=== PATIENT | male | born 1930 | race Caucasian/White ===

== ENCOUNTER 2016-08-29 19:30 | Inpatient (IN) | payer MEDICARE, OTHER ==
[~2016-08-29] VITALS: Ht 177.8 cm; Wt 98.0 kg
[2016-08-29] VITALS (8 sets, daily range): BP systolic 94–130; BP diastolic 54–70; PULSE 47–78; RESP 16–19; O2SAT 93–100
--- NOTE | 2016-08-29 19:57 | ED.REPORT ---
HPI-Altered Mental Status Date of Service Aug 29, 2016 ED Provider: Dr. Cabello 86 year old male with a history of CHF, CAD s/p CABG and angioplasty who presents to the ED via EMS after he was found unresponsive by his . From the time he went outside to the time EMS arrived, his reports approximately 11 minutes down unresponsive and agonal. His family states prior to this the patient was taking out the trash and moderately exerting himself. EMS noted HR 130, BP 208/124 and agonal with a GCS 3. He was given Succinylcholine, Etomidate and was intubated. En route he was then given Versed. Nursing Notes Stated Complaint: INTUBATED AND UNRESPONSIVE Nursing Notes Reviewed: Yes Allergies: Coded Allergies: meperidine (Verified Allergy, Severe, 08/29/16) clopidogrel (Verified Allergy, Intermediate, Hives, 08/30/16) Uncoded Allergies: NOVOCAINE (Allergy, Mild, ANGIONEUROTIC EDEMA, 03/22/06) General Time Seen by MD: 19:56 Chief Complaint Unresponsive Hx Obtained From: Other family..., EMS Arrived By: Ambulance Sudden in Onset?: Yes Onset Occurred: Just prior to arrival Symptom Duration: Since onset Past Medical History Past Medical History Afib Reports: Congestive heart failure, Coronary artery disease Past Surgical History Reports: Angioplasty, CABG Smoking History Never Smoker Social History Alcohol Use: Denies alcohol use Drug Use: Denies drug use Review of Systems Unable to Obtain ROS Intubated Physical Exam Initial Vital Signs Vital Signs (First) Date Time Temp Pulse Resp B/P Pulse Ox O2 Delivery O2 Flow Rate FiO2 08/29/16 19:30 46 123/62 100 50 08/29/16 20:06 37.0 19 Mechanical Ventilator Initial VS: Reviewed, Vital signs abnormal Extremities: Vascular intact, Neuro intact Skin: Warm, Dry Alertness: Positive: Unresponsive Intubated Head / Eyes: Atraumatic, Normocephalic, PERRL Neck: Atraumatic Respiratory / Chest: No rales, No wheezing Resp Distress / Stridor: Positive: Intubated Coarse breath sounds bilat Cardiovascular: Heart sounds NL, No murmurs, Peripheral circulation NL Heart Rate / Rhythm: Positive: Irreg irregular rhythm Mental Status: Positive: Unresponsive Intubated. Some spontaneous movement. Abdomen: Soft, No palpable mass Upper Extremity / MS: No deformity, No edema Bruise L shoulder Lower Extremity / Pelvis / MS: No deformity, No edema Interpretation & Diagnostics Lab Results Interpretation Result Diagram: 08/29/16 2340 08/29/16 1950 Test 08/29/16 19:50 08/29/16 20:28 08/29/16 21:24 Alcohol, Quantitative < 10mg/dL (0-10) Salicylates Level < 3.0ug/mL (30-250) Acetaminophen Level < 15.0ug/mL Rx (10-25) Urine Color Yellow (YELLOW) Urine Appearance Hazy (CLEAR,HAZY) Urine pH 5.5 (5.0-8.0) Urine Specific Chaplin 1.030 (1.003-1.035) Urine Protein 100mg/dL (NEG,TRACE) Urine Glucose (UA) 100mg/dL (NEGATIVE) Urine Ketones Negativemg/dL (NEGATIVE) Urine Occult Blood Moderate (NEGATIVE) Urine Nitrite Negative (NEGATIVE) Urine Bilirubin Negative (NEGATIVE) Urine Urobilinogen Normalmg/dL (NORMAL) Urine Leukocyte Esterase Negative (NEGATIVE) Urine RBC 0-2/hpf (0-2) Urine WBC 0-5/hpf (0-5) Urine Epithelial Cells None/hpf (NONE-MOD) Urine Crystals Amorphous urates (NONE Urine Bacteria Few/hpf (NONE-FEW) Urine Hyaline Casts None/lpf (NONE) Urine Granular Casts None seen (NONE SEEN) Urine Waxy Casts None seen (NONE SEEN) Urine Red Blood Cell Casts None seen (NONE SEEN) Urine White Blood Cell Casts None seen (NONE SEEN) Urine Mucus Present (None Seen) Urine Trichomonas None seen (NONE SEEN) Urine Yeast None (NONE SEEN) Urinalysis Comment None Urine Culture Reflexed Not indicated General Lab Results Interp 1: Labs reviewed ECG Interpretation ECG Interpretation: Afib with a rate of 55. Otherwise normal intervals. ST segment depression in leads I, aVL, V5, V6. No T wave changes. No reciprocal changes. Time: 20:33 Interpreted by: ED physician X-Ray Chest Interpretation Chest Xray Interpretation: IMPRESSION: 1. Endotracheal tube is in expected position. 2. Decreased lung volumes, with bronchovascular crowding. Possible superimposed bilateral perihilar pulmonary edema or aspiration. 3. Cardiomegaly as before. Dictated by: Vadim Kelsey M.D. on 08/29/2016 at 20:14 View: Portable, 1 view Interpretation / Wet Read by: Interpret - Radiologist CT Head Interpretation IMPRESSION: 1. No acute intracranial abnormalities. Mild periventricular and deep white matter chronic small vessel ischemic change. 2. Nonacute bilateral cerebellar hemispheric small infarcts, as well as probable nonacute ischemic insult of the left frontal lobe as before. Findings discussed with Dr. Cabello on 2005 hours on August 29, 2016. This study fulfills neurological imaging criteria for inclusion or exclusion of acute stroke therapies based on available published neurological guidelines. Dictated by: Vadim Kelsey M.D. on 08/29/2016 at 20:08 Study: Head CT no contrast Interpretation / Wet Read by: Interpret - Radiologist Re-Eval/Medical Decision Med Decision/Clinical Course Patient had a respiratory arrest. Pulmonary embolus was considered and is still possibility have it patient has good oxygenation and was hypertensive which makes it less likely, the patient cannot have a CT angio study due to his renal failure, and discussion with the admitting physician was decided to start him on heparin. He could have had a dysrhythmia but he did have a pulse upon arrival of EMS. Respiratory failure is a consideration however his gas is normal. Acute coronary syndrome is possibility, patient has an elevated troponin however he also has renal insufficiency and no signs of STEMI and is itchy. Intracranial hemorrhage was considered and ruled out by CT. It is unclear as to cause of his symptoms and he will be admitted for further treatment and evaluation. Source of Hx: Old records Re-Evaluation/Progress #1: Time of Eval: 20:15 Re-Evaluation/Progress Note: Pt family is now in room. Pt is not on anticoagulants due to frequent falls. Re-Evaluation/Progress #2: Time of Eval: 20:46 Re-Evaluation/Progress Note: Has become more bradycardic and hypotensive (87/59). Re-Evaluation/Progress #3: Time of Eval: 21:26 Re-Evaluation/Progress Note: Pt's moving. Given Ketamine. Recommended admission. Pt family understands and agrees with plan. All questions addressed. Consultation : Referral / Consult Name: Hansa Morales MD Consulted With: Hospitalist Call Returned at: 21:41 Equipment Maintenance Technician: Will see patient, Agrees with eval, Agrees with plan, Accepts admit Counseled Regarding: Diagnosis, Lab results, Need for admission Patient Discharge & Departure Impression: Primary Impression: Respiratory arrest Disposition: ADMITTED TO HOSPITAL Discharge Condition All VS Reviewed: Yes Referrals: Farhan Orellana DO (PCP) Crit Care Except Billable Proc Time Spent: 75-104 minutes Services Performed: Patient management by me, Time spent at bedside, Reviewing test results, Reviewing imaging, Discussing patient care, Documentation in record, Time with fam/surrogate Scribe Attestation Portions of this note were transcribed by Erinn Reynolds. I, (Dr. Cabello) personally performed the history, physical exam and medical decision-making; I reviewed and confirmed the accuracy of the information in the transcribed note. Signed by: Erinn Reynolds. 08/29/2016, 2144 copies to: Farhan Orellana Jena M MD Aug 29, 2016 19:57 Erinn Reynolds Aug 29, 2016 20:03 Patient Discharge & Departure Impression: Primary Impression: Respiratory arrest Disposition: ADMITTED TO HOSPITAL Discharge Condition All VS Reviewed: Yes Referrals: Farhan Orellana DO (PCP) Crit Care Except Billable Proc Time Spent: 75-104 minutes Services Performed: Patient management by me, Time spent at bedside, Reviewing test results, Reviewing imaging, Discussing patient care, Documentation in record, Time with fam/surrogate Scribe Attestation Portions of this note were transcribed by Erinn Reynolds. I, (Dr. Cabello) personally performed the history, physical exam and medical decision-making; I reviewed and confirmed the accuracy of the information in the transcribed note. Signed by: Erinn Reynolds. 08/29/2016, 2145 copies to: Farhan Orellana Jena M MD Aug 29, 2016 19:57 Erinn Reynolds Aug 29, 2016 20:03
[2016-08-29 20:07] LABS: BASOPHILS % (AUTO) 0.6 % (0-3); EOSINOPHILS % (AUTO) 7.1 % (0-5); Mean Corpuscular Hemoglobin 30.8 pg (27.0-35.0); Mean Corpuscular Volume 97.2 fL (81-100); NEUTROPHILS % (AUTO) 38.9 % (40-74); Platelet Count 107 bil/L (150-400)
--- NOTE | 2016-08-29 20:10 | DRSVH ---
PROCEDURE: CT BRAIN (TPA) ([id number]) INDICATIONS: 86 year-old unresponsive male. TECHNIQUE: Noncontrast 4.5 mm thick angled axial sections acquired from the foramen magnum to the vertex, with c oronal reformats. COMPARISON: [facility], MR, BRAIN W&W/O CONTRAST, 09/10/2012, 11:22. FINDINGS: Image quality: Excellent. CSF spaces: Basal cisterns are patent. No extra-axial fluid collections. The ventricles are symmet evert in size and shape. Brain: No intracranial bleeds or masses. There are mild periventricular and deep white matter chron ic small vessel ischemic changes. 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 There is new nonacute lacunar infarct within the left cerebellar hemisphere. Left front al lobe encephalomalacia is again noted, consistent with remote ischemic insult as well. There is int racranial internal carotid artery atherosclerosis. Skull and face: Calvarium and visualized facial bones appear intact, without suspicious lesions. End otracheal tube is present. Sinuses: Visualized sinuses and mastoids are clear. IMPRESSION: 1. No acute intracranial abnormalities. Mild periventricular and deep white matter chronic small vess el ischemic change. 2. Nonacute bilateral cerebellar hemispheric small infarcts, as well as probable nonacute ischemic in sult of the left frontal lobe as before. Findings discussed with Dr. Cabello on 2005 hours on August 29, 2016. This study fulfills neurological imaging criteria for inclusion or exclusion of acute stroke therapie s based on available published neurological guidelines. Dictated by: Vadim Kelsey M.D. on 08/29/2016 at 20:08 Approved by: Vadim Kelsey M.D. on 08/29/2016 at 20:08
--- NOTE | 2016-08-29 20:16 | DRSVH ---
PROCEDURE: X-RAY CHEST ONE VIEW, PORTABLE ([id number]) INDICATIONS: 86 year-old intubated male. TECHNIQUE: One view of the chest was acquired. COMPARISON: [facility], CR, XR CHEST 2V AP/PA AND LAT, 05/07/2016, 4:19 PM. [facility], CR, CHEST 1VW (PORTABLE), 12/14/2015, 6:18. [facility], CR, CHEST 2VW, 04/2015, 11:12. FINDINGS: Surgical changes and devices: Endotracheal tube is present, with tip 3.4 cm above the kristen. Patient is status post coronary artery bypass grafting and cardiac valve replacement surgery. Lungs and pleura: There is trace basal left pleural effusion; no pneumothorax. Lung volumes are decre ased, with bilateral perihilar opacities. Mediastinum: Mediastinal contours appear normal. Cardiomegaly is unchanged. There is aortic atheros clerosis. Bones and chest wall: No suspicious bony lesions. Overlying soft tissues appear unremarkable. IMPRESSION: 1. Endotracheal tube is in expected position. 2. Decreased lung volumes, with bronchovascular crowding. Possible superimposed bilateral perihilar p ulmonary edema or aspiration. 3. Cardiomegaly as before. Dictated by: Vadim Kelsey M.D. on 08/29/2016 at 20:14 Approved by: Vadim Kelsey M.D. on 08/29/2016 at 20:14
[2016-08-29 20:26] LABS: INR 0.98 ratio
[2016-08-29 20:29] LABS: TROPONIN T 0.016 ug/L (0.0-0.011)
[2016-08-29] MEDS ORDERED: 0.9% Sodium Chloride 1,000 ML IV ONE (20:45)
--- NOTE | 2016-08-29 20:56 | ABG ---
DateTimeAnalyzed 20:50:00 -_ pH ____7.363 - 7.350 7.450 pCO2 ___35.1__ -mmHg 35.0 45.0 pO2 ___77.2__ -mmHg 69.0 116 HCO3- ___19.5__ -mmol/L 22.0 26.0 ABE ___-4.7__ -mmol/L -2.0 2.0 tHb ___13.6__ -g/dL O2Hb ___93.1__ -% COHb ____1.2__ -% MetHb ____0.8__ -% sO2 ___95.0__ -% 25.0 FIO2 ___50.0__ -% PRVC 18 - PEEP ____5.0__ -cmH2O Vt __600.0__ -L Drawn By MM - Date/Time Notified____ 20:55:00 -_ Spontaneous_RR ___18.0__ -b/min Oxygen Device 1 VENTILATOR - Notified Whom _DR NICO - B 762 -mmHg tO2 ___17.9__ -Vol% Rafa test N/A -
[2016-08-29] MEDS ORDERED: Ketamine 10 mg/mL 20 mL Inj ONE (21:17)
[2016-08-29] MEDS ORDERED: Ketamine 10 mg/mL 20 mL Inj IV ONE (21:20)
[2016-08-29] MEDS: Ketamine 10 mg/mL 20 mL Inj IV PRN ×3 (21:24→22:49)
[2016-08-29 21:27] LABS: Magnesium 2.3 mg/dL (1.6-2.6)
[2016-08-29 21:44] LABS: APPEARANCE,URINE HAZY (CLEAR,HAZY); COLOR,URINE YELLOW (YELLOW); PH,URINE 5.5 (5.0-8.0)
[2016-08-29 21:45] LABS: OCCULT BLOOD,URINE MODERATE (NEGATIVE); UROBILINOGEN,URINE NORMAL (NORMAL)
[2016-08-29] MEDS ORDERED: Heparin 25K Unit/500mL 0.45 NS 25,000 UNIT in IV Premix 1 EACH IV SCH (21:45)
[2016-08-29] MEDS ORDERED: Heparin 1,000 Units/mL 10 mL DVT/PE Bolus Inj IVPUSH PRN (21:45)
[2016-08-29] MEDS ORDERED: Heparin 5,000 Unit/mL Inj IVPUSH ONE (21:45)
[2016-08-29] MEDS ORDERED: Propofol Inj 1,000,000 MCG in IV Premix 1 EACH IV SCH (22:37)
[2016-08-29] MEDS: 0.9% Sodium Chloride 1,000 ML IV SCH (22:52)
[2016-08-29] MEDS ORDERED: Acetaminophen IV 1,000 MG in IV Premix 1 EACH IV PRN (22:55)
[2016-08-29] MEDS ORDERED: Senna-Docusate 8.6-50 mg Tablet PO PRN (22:55)
[2016-08-29] MEDS ORDERED: Polyethylene Glycol (PEG) 17 Gm Powder PO PRN (22:55)
[2016-08-29] MEDS ORDERED: fentaNYL-PF 50 mCg/mL 2 mL Inj IVPUSH PRN (22:55)
[2016-08-29] MEDS ORDERED: Alum-Mag Hydrox-Simeth 30 mL Suspension PO PRN (22:55)
[2016-08-29] MEDS ORDERED: Ondansetron 2 mg/mL 2 mL Inj IVPUSH PRN (22:55)
[2016-08-29] MEDS: Propofol Inj 1,000,000 MCG in IV Premix 1 EACH IV SCH (23:00)
[2016-08-29] MEDS ORDERED: Furosemide 10 mg/mL 4 mL Inj IVPUSH ONE (23:10)
[2016-08-29] MEDS: Piperacillin-Tazo 3.375 Gm Inj 3.375 GM in Dextrose 5% Minibag Plus 50 ML IV SCH (23:30)
[2016-08-29 23:59] LABS: BASOPHILS % (AUTO) 0.5 % (0-3); EOSINOPHILS % (AUTO) 3.3 % (0-5); Mean Corpuscular Hemoglobin 30.9 pg (27.0-35.0); Mean Corpuscular Volume 90.6 fL (81-100); NEUTROPHILS % (AUTO) 70.9 % (40-74); Platelet Count 118 bil/L (150-400)
[2016-08-30] VITALS (12 sets, daily range): BP systolic 102–160; BP diastolic 52–79; PULSE 44–65; RESP 16–18; O2SAT 97–100
[2016-08-30 00:02] LABS: INR 1.05 ratio
[2016-08-30 00:32] LABS: TROPONIN T 0.056 ug/L (0.0-0.011)
--- NOTE | 2016-08-30 01:38 | PCM.HPMED ---
Subjective Date of Service Aug 30, 2016 Primary Provider: Admitting Physician: Hansa Morales MD Primary Care Physician: Farhan Orellana DO Attending Physician: Hansa Morales MD Admit Status: From the Emergency Department, Full Admit, Critical Care Chief Complaint: Patient was observed by to be unresponsive History of Present Illness: This is an 86-year-old male who has a history of congestive heart failure coronary artery disease who presents to the emergency room after being found unresponsive by his . His is at the bedside in gives a fairly good history. She notes that he had been taking some garbage cans outside and came back in and was found slumped over in the chair she had just seen him a few minutes prior without any issues he was noted to be cyanotic said that he did have a palpable pulse and she did call 911 was called. He was may be unresponsive and agonal for about 11 minutes per 's report per ER MDs report. Mass noted his heart rate was 1:30 blood pressure was 208/124 and agonal breathing he was given succinylcholine, etomidate and was intubated was also given Versed en route to the emergency room. does note that he was having some intermittent chest pain over the past week.He does have sublingual nitroglycerin took that with good response at those times. He does according to the have some baseline dyspnea with walking. He also does have some baseline renal insufficiency per his . His evaluation here initially included a temperature to be afebrile. White count was 15.7 with 39% polys 41% lymphs. BUN 38 creatinine 2.01 with a calculated GFR of 34. He was found to have a troponin of 0.016. Lactic acid level was 6.2. Bicarbonate was 19. EEG showed A. fib at a rate of [address] segment depressions in 1 aVL V5 V6 with T-wave changes noted. CT of head without contrast was done and revealed no acute intracranial abnormalities. There was mild periventricular and deep white matter chronic small vessel ischemic changes noted. 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 As well as probable nonacute ischemic insult of the left frontal lobe. Patient previously had been on warfarin for his chronic atrial fibrillation however that was stopped as he had been having chronic falls. Chest x-ray revealed endotracheal tube was in expected position and decreased lung volumes with bronchovascular crowding possible superimposed bilateral perihilar pulmonary edema or aspiration noted. Cardiomegaly as previously noted. Review of Systems: All other review of systems were reviewed and are negative except for as in history of present illness. This review of systems was obtained from his . 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 Brown History of coronary artery disease with CABG 4 done in mid 1999 with a bovine valve replacement done History of stents done a few years ago and [place] by Dr. Bernal History of chronic atrial fibrillation Family History Denies any history of cardiovascular disease Social History Hx Alcohol Use: Yes (NOT FOR SOME TIME) Hx Substance Use: No Hx Tobacco Use: No Smoking Status: Former Smoker (quit 50 years ago) Living Arrangement: with Family Exam Vital Signs Vital Sign - Last Date Time Temp Pulse Resp B/P Pulse Ox O2 Delivery O2 Flow Rate FiO2 08/29/16 23:11 37.0 56 18 130/66 99 Mechanical Ventilator 08/29/16 19:30 50 Intake and Output 08/29/16 08/29/16 08/30/16 Cumulative From/Thru 15:00 23:00 07:00 08/29/16 20:06 - 08/29/16 23:59 Intake Total 1000 ml 1000 ml Balance 1000 ml 1000 ml Intake IV Total 1000 ml 1000 ml Exam Constitutional: Elderly man who is intubated Head: Normocephalic atraumatic Eyes: PERRLA DC EOMI Mouth: ET tube present Neck: No adenopathy, carotids 2+ over 4 without bruits Chest: Coarse breath sounds Cor: Regular rate and rhythm S1-S2 Abdomen: Soft bowel sounds present Extremities: No pedal edema noted skin is warm Psych: Unable to assess Skin: No rashes Neuro: He does arouse to stimuli and does move all extremities equally Lab and Diagnostics Labs Laboratory Tests 72 Hours Test 08/29/16 19:50 08/29/16 20:28 08/29/16 21:24 08/29/16 21:42 White Blood Count 15.7th/mm3 (3.8-10.1) Red Blood Count 4.93mil/mm3 (4.40-5.80) Hemoglobin 15.2g/dL (13.8-17.2) Hematocrit 47.9% (41.0-50.0) Mean Corpuscular Volume 97.2fL (81-100) Mean Corpuscular Hemoglobin 30.8pg (27.0-35.0) Mean Corpuscular Hemoglobin Concent 31.7% (32.0-37.0) Red Cell Distribution Width 13.8% (12.3-15.4) Platelet Count 107bil/L (150-400) Neutrophils (%) (Auto) 38.9% (40-74) Lymphocytes (%) (Auto) 40.8% (14-46) Monocytes (%) (Auto) 12.0% (4-12) Eosinophils (%) (Auto) 7.1% (0-5) Basophils (%) (Auto) 0.6% (0-3) Prothrombin Time 10.5sec (8.1-12.5) Prothromb Time International Ratio 0.98ratio Activated Partial Thromboplast Time 25.2sec (22.8-33.0) Sodium Level 135mEq/L (134-144) Potassium Level 4.0mEq/L (3.5-5.2) Chloride Level 93mEq/L (97-108) Carbon Dioxide Level 19mmol/L (18-29) Blood Urea Nitrogen 38mg/dL (8-27) Creatinine 2.01mg/dL (0.76-1.27) Estimat Glomerular Filtration Rate 34mL/min (>59) Glucose Level 193mg/dL (60-99) Calcium Level 9.5mg/dL (8.5-10.1) Total Bilirubin 0.5mg/dL (0.0-1.2) Aspartate Amino Transf (AST/SGOT) 19U/L (0-50) Alanine Aminotransferase (ALT/SGPT) 9U/L (0-44) Alkaline Phosphatase 92U/L (25-160) Troponin T 0.016ug/L (0.0-0.011) Total Protein 8.5g/dL (6.4-8.4) Albumin 3.9g/dL (3.4-5.0) Alcohol, Quantitative < 10mg/dL (0-10) Lactic Acid Level 6.2mmol/L (0.4-2.0) Magnesium Level 2.3mg/dL (1.6-2.6) Salicylates Level < 3.0ug/mL (30-250) Acetaminophen Level < 15.0ug/mL Rx (10-25) Urine Color Yellow (YELLOW) Urine Appearance Hazy (CLEAR,HAZY) Urine pH 5.5 (5.0-8.0) Urine Specific [place] 1.030 (1.003-1.035) Urine Protein 100mg/dL (NEG,TRACE) Urine Glucose (UA) 100mg/dL (NEGATIVE) Urine Ketones Negativemg/dL (NEGATIVE) Urine Occult Blood Moderate (NEGATIVE) Urine Nitrite Negative (NEGATIVE) Urine Bilirubin Negative (NEGATIVE) Urine Urobilinogen Normalmg/dL (NORMAL) Urine Leukocyte Esterase Negative (NEGATIVE) Urine RBC 0-2/hpf (0-2) Urine WBC 0-5/hpf (0-5) Urine Epithelial Cells None/hpf (NONE-MOD) Urine Crystals Amorphous urates (NONE Urine Bacteria Few/hpf (NONE-FEW) Urine Hyaline Casts None/lpf (NONE) Urine Granular Casts None seen (NONE SEEN) Urine Waxy Casts None seen (NONE SEEN) Urine Red Blood Cell Casts None seen (NONE SEEN) Urine White Blood Cell Casts None seen (NONE SEEN) Urine Mucus Present (None Seen) Urine Trichomonas None seen (NONE SEEN) Urine Yeast None (NONE SEEN) Urinalysis Comment None Urine Culture Reflexed Not indicated Test 08/29/16 23:40 White Blood Count 8.8th/mm3 (3.8-10.1) Red Blood Count 4.14mil/mm3 (4.40-5.80) Hemoglobin 12.8g/dL (13.8-17.2) Hematocrit 37.5% (41.0-50.0) Mean Corpuscular Volume 90.6fL (81-100) Mean Corpuscular Hemoglobin 30.9pg (27.0-35.0) Mean Corpuscular Hemoglobin Concent 34.1% (32.0-37.0) Red Cell Distribution Width 13.5% (12.3-15.4) Platelet Count 118bil/L (150-400) Neutrophils (%) (Auto) 70.9% (40-74) Lymphocytes (%) (Auto) 12.0% (14-46) Monocytes (%) (Auto) 13.0% (4-12) Eosinophils (%) (Auto) 3.3% (0-5) Basophils (%) (Auto) 0.5% (0-3) Prothrombin Time 11.3sec (8.1-12.5) Prothromb Time International Ratio 1.05ratio Activated Partial Thromboplast Time 150.1sec (22.8-33.0) Sodium Level 136mEq/L (134-144) Potassium Level 4.5mEq/L (3.5-5.2) Chloride Level 101mEq/L (97-108) Carbon Dioxide Level 20mmol/L (18-29) Blood Urea Nitrogen 41mg/dL (8-27) Creatinine 1.84mg/dL (0.76-1.27) Estimat Glomerular Filtration Rate 37mL/min (>59) Glucose Level 158mg/dL (60-99) Lactic Acid Level 3.0mmol/L (0.4-2.0) Calcium Level 8.5mg/dL (8.5-10.1) Magnesium Level 2.0mg/dL (1.6-2.6) Total Bilirubin 0.5mg/dL (0.0-1.2) Aspartate Amino Transf (AST/SGOT) 26U/L (0-50) Alanine Aminotransferase (ALT/SGPT) 12U/L (0-44) Alkaline Phosphatase 72U/L (25-160) Troponin T 0.056ug/L (0.0-0.011) Total Protein 6.7g/dL (6.4-8.4) Albumin 3.1g/dL (3.4-5.0) Result Diagram: 08/29/16233908/29/162339 X-Rays, CTs and MRIs Patient Name: HAILEE MELLO MR#: [id number] Location: [facility] [place] Ordering Phys: Shaina Cabello MD Date of Service: 08/29/161956 PROCEDURE: X-RAY CHEST ONE VIEW, PORTABLE ([id number]) INDICATIONS: 86 year-old intubated male. TECHNIQUE: One view of the chest was acquired. COMPARISON: [facility], , XR CHEST 2V AP/PA AND LAT, 05/07/2016 , 4:19 PM. [facility], , CHEST 1VW (PORTABLE), 12/14/2015, 6:18. [facility], , CHEST 2VW, 10/06/2014, 11:12. FINDINGS: Surgical changes and devices: Endotracheal tube is present, with tip 3.4 cm above the kristen. Patient is status post coronary artery bypass grafting and cardiac valve replacement surgery. Lungs and pleura: There is trace basal left pleural effusion; no pneumothorax. Lung volumes are decreased, with bilateral perihilar opacities. Mediastinum: Mediastinal contours appear normal. Cardiomegaly is unchanged. There is aortic atherosclerosis. Bones and chest wall: No suspicious bony lesions. Overlying soft tissues appear unremarkable. IMPRESSION: 1. Endotracheal tube is in expected position. 2. Decreased lung volumes, with bronchovascular crowding. Possible superimposed bilateral perihilar pulmonary edema or aspiration. 3. Cardiomegaly as before. Dictated by: Vadim Kelsey M.D. on 08/29/2016 at 20:14 Approved by: Vadim Kelsey M.D. on 08/29/2016 at 20:14 Patient Name: HAILEE MELLO MR#: [id number] Location: [facility] [place] Ordering Phys: JERICHO XAVIER MD Date of Service: 08/29/161931 PROCEDURE: CT BRAIN (TPA) ([id number]) INDICATIONS: 86 year-old unresponsive male. TECHNIQUE: Noncontrast 4.5 mm thick angled axial sections acquired from the foramen magnum to the vertex, with coronal reformats. COMPARISON: [facility], , BRAIN W&W/O CONTRAST, 09/10/2012, 11: 22. FINDINGS: Image quality: Excellent. CSF spaces: Basal cisterns are patent. No extra-axial fluid collections. The ventricles are symmetric in size and shape. Brain: No intracranial bleeds or masses. There are mild periventricular and deep white matter chronic small vessel ischemic changes. Nonacute posterior right cerebellar hemisphere infarct is unchanged since 2012. There is new nonacute lacunar infarct within the left cerebellar hemisphere. Left frontal lobe encephalomalacia is again noted, consistent with remote ischemic insult as well. There is intracranial internal carotid artery atherosclerosis. Skull and face: Calvarium and visualized facial bones appear intact, without suspicious lesions. Endotracheal tube is present. Sinuses: Visualized sinuses and mastoids are clear. IMPRESSION: 1. No acute intracranial abnormalities. Mild periventricular and deep white matter chronic small vessel ischemic change. 2. Nonacute bilateral cerebellar hemispheric small infarcts, as well as probable nonacute ischemic insult of the left frontal lobe as before. Findings discussed with Dr. Cabello on 2005 hours on August 29, 2016. This study fulfills neurological imaging criteria for inclusion or exclusion of acute stroke therapies based on available published neurological guidelines. Dictated by: Vadim Kelsey M.D. on 08/29/2016 at 20:08 Approved by: Vadim Kelsey M.D. on 08/29/2016 at 20:08 12-lead ECG Atrial fibrillation at a rate of 55 with a QTC of 432. Does have ST segment sagging depressions in 1 to aVF V3 to be 6 particularly more profound laterally also with poor R-wave progression across the precordium. [facility] DateTimeAnalyzed 20:50:00 -_ pH ____7.363 - 7.350 7.450 pCO2 ___35.1__ -mmHg 35.0 45.0 pO2 ___77.2__ -mmHg 69.0 116 HCO3- ___19.5__ -mmol/L 22.0 26.0 ABE ___-4.7__ -mmol/L -2.0 2.0 tHb ___13.6__ -g/dL O2Hb ___93.1__ -% COHb ____1.2__ -% MetHb ____0.8__ -% sO2 ___95.0__ -% 25.0 FIO2 ___50.0__ -% PRVC 18 - PEEP ____5.0__ -cmH2O Vt __600.0__ -L Drawn By MM - Date/Time Notified____ 20:55:00 -_ Spontaneous_RR ___18.0__ -b/min Oxygen Device 1 VENTILATOR - Notified Whom _DR NICO - B 762 -mmHg tO2 ___17.9__ -Vol% Rafa test N/A - Assessment & Plan # Acute respiratory failure with severe hypoxia requiring intubation, present on admission Placed on ventilator protocol. IV propofol when necessary agitation Consider possible pulmonary embolus as etiology but unable to do CTA of chest given chronic renal insufficiency so we will place on IV PE protocol heparin Consider cardiac ischemia as etiology also so will check serial troponins and will be on therapeutic IV heparin Check echocardiogram in a.m. Get cardiology consultation in a.m. Also concerned regarding possible ability of acute aspiration so we will cover with IV Zosyn. Recheck chest x-ray and EKG in a.m. # Lactic acidosis We will check serial lactic acid levels Most likely secondary to acute hypoxia # DVT prophylaxis Is on therapeutic heparin # CODE STATUS Patient is full code Pain Evaluation: Adequate Pain Control GI Prophylaxis: H2 amelia VTE Prophylaxis: Other (Will place on therapeutic DVT IV heparin drip for possible PE) Resuscitation Status: CPR: Attempt Resuscitation Time spent 60 minutes Hansa Morales MD Aug 30, 2016 01:38
[2016-08-30] MEDS: Chlorhexidine 0.12% 15 mL Oral Solution MT SCH ×7 (01:45→23:32)
[2016-08-30 02:16] LABS: BASOPHILS % (AUTO) 0.5 % (0-3); EOSINOPHILS % (AUTO) 3.2 % (0-5); MONOCYTES % (AUTO) 14.3 % (4-12); Mean Corpuscular Hemoglobin 30.5 pg (27.0-35.0); Mean Corpuscular Volume 91.9 fL (81-100); NEUTROPHILS % (AUTO) 67.2 % (40-74); Platelet Count 123 bil/L (150-400)
--- NOTE | 2016-08-30 05:55 | ABG ---
DateTimeAnalyzed 05:51:00 -_ pH ____7.451 - 7.350 7.450 pCO2 ___33.0__ -mmHg 35.0 45.0 pO2 107 -mmHg 69.0 116 HCO3- ___22.7__ -mmol/L 22.0 26.0 ABE ___-0.2__ -mmol/L -2.0 2.0 tHb ___12.9__ -g/dL O2Hb ___96.2__ -% COHb ____1.0__ -% MetHb ____1.0__ -% sO2 ___98.2__ -% 25.0 FIO2 ___50.0__ -% PEEP ____5.0__ -cmH2O Set_RR ___18.0__ -b/min Vt __550.0__ -L Drawn By AF - Date/Time Notified____ 05:55:00 -_ Spontaneous_RR ___18.0__ -b/min Oxygen Device 1 VENTILATOR - Notified By AF - Notified Whom ____Nurse - B 764 -mmHg tO2 ___17.6__ -Vol% Rafa test _Positive -
--- NOTE | 2016-08-30 07:00 | NUR ---
P) Admit Late entry Pt. admitted to CCU on 08/29/16 at approx. 2300, intubated, sedation started right away as pt. was easily agitated. Lungs coarse and decreased, cardiac rhythm kavin, generally in the 40-50's but dipping into the 30's, 2-3second pauses frequent. Shins bruised with abrasions bilat., R elbow with bloody dressing, arms with multiple bruises on forearms and L shoulder and face. states pt. was on Coumadin for afib but it was stopped due to pt.'s frequent falls, states he also has some vascular dementia. I) Meds per 's orders, close monitoring, turning q2h and floating heels. E) Resting quietly with eyes closed.
[2016-08-30] MEDS ORDERED: DIPH1TAB PO (07:23)
[2016-08-30] MEDS ORDERED: CHOL500051 PO (07:23)
[2016-08-30] MEDS ORDERED: PANT40TA2 PO (07:23)
[2016-08-30] MEDS ORDERED: POTA20TA16 PO (07:23)
[2016-08-30] MEDS ORDERED: OXYC-474 PO (07:23)
[2016-08-30] MEDS ORDERED: ALPH100C PO (07:23)
[2016-08-30] MEDS ORDERED: OXYB10TA PO (07:23)
[2016-08-30] MEDS ORDERED: FURO-129 PO (07:23)
[2016-08-30] MEDS ORDERED: HYDR-4003 PO (07:23)
[2016-08-30] MEDS ORDERED: CYAN10008 PO (07:23)
[2016-08-30] MEDS ORDERED: NITR0.4T6 SL (07:23)
[2016-08-30] MEDS ORDERED: ASPI-973 PO (07:23)
[2016-08-30] MEDS ORDERED: POTA10CA42 PO (07:23)
[2016-08-30] MEDS ORDERED: METO25TA99 PO (07:23)
[2016-08-30] MEDS ORDERED: RES15 PO (07:23)
[2016-08-30] MEDS ORDERED: FURO-128 PO (07:23)
[2016-08-30] MEDS ORDERED: CA C1TAB87 PO (07:23)
[2016-08-30 07:34] LABS: BASOPHILS % (AUTO) 0.4 % (0-3); EOSINOPHILS % (AUTO) 3.1 % (0-5); MONOCYTES % (AUTO) 12.1 % (4-12); Mean Corpuscular Hemoglobin 31.1 pg (27.0-35.0); Mean Corpuscular Volume 92.3 fL (81-100); NEUTROPHILS % (AUTO) 69.8 % (40-74); Platelet Count 104 bil/L (150-400)
[2016-08-30] MEDS: Famotidine Inj 50 ML IV SCH ×2 (08:16→20:16)
[2016-08-30] MEDS: 0.9% Sodium Chloride 1,000 ML IV SCH ×3 (08:17→20:15)
--- NOTE | 2016-08-30 08:34 | DRSVH ---
PROCEDURE: X-RAY CHEST ONE VIEW, PORTABLE ([id number]) INDICATIONS: Post intubation to verify ETT placement TECHNIQUE: One view of the chest was acquired. COMPARISON: [facility], CR, XR CHEST 1VW (PORTABLE), 08/29/2016, 19:55. FINDINGS: Surgical changes and devices: Median sternotomy. ETT is present, tip of which is in expected location . Lungs and pleura: No pleural effusions or pneumothorax. There is moderate patchy bibasilar airspace opacity, as before. Mediastinum: Mediastinal contours appear normal. Heart size is normal. Bones and chest wall: No suspicious bony lesions. Overlying soft tissues appear unremarkable. IMPRESSION: No change in bibasilar pneumonia. Continued plain film surveillance is recommended to ens ure resolution, and to exclude underlying or central malignancy. Dictated by: Ke Toledo M.D. on 08/30/2016 at 8:32 Approved by: Ke Toledo M.D. on 08/30/2016 at 8:32
--- NOTE | 2016-08-30 09:32 | DRSVH ---
PROCEDURE: X-RAY CHEST ONE VIEW, PORTABLE ([id number]) INDICATIONS: respiratory arrest TECHNIQUE: One view of the chest was acquired. COMPARISON: [facility], CR, XR CHEST 1VW (PORTABLE), 08/29/2016, 23:01. FINDINGS: Surgical changes and devices: The endotracheal tube is unchanged. There is a new NG tube the tip of w hich is not visualized but is likely in the gastric fundus. Patient is status post median sternotomy and valvular replacement. Lungs and pleura: Lung volumes are low. There is diffuse interstitial prominence. There is improved a eration of the bilateral lung bases. There is likely a small left effusion. Mediastinum: Mediastinal contours appear normal. Heart size is enlarged, as before. Bones and chest wall: No suspicious bony lesions. Overlying soft tissues appear unremarkable. IMPRESSION: 1. Improved aeration at the lung bases when compared with the prior study suggesting decreased atelec tasis. 2. Probable unchanged left pleural effusion. 3. Interstitial prominence suggesting fluid overload. Dictated by: Nehal Hillman M.D. on 08/30/2016 at 9:30 Approved by: Nehal Hillman M.D. on 08/30/2016 at 9:30
[2016-08-30] MEDS: Propofol Inj 1,000,000 MCG in IV Premix 1 EACH IV SCH ×3 (09:53→20:16)
[2016-08-30] MEDS ORDERED: 0.9% Sodium Chloride 250 ML IV ONE (09:55)
[2016-08-30] MEDS: Piperacillin-Tazo 3.375 Gm Inj 3.375 GM in Dextrose 5% Minibag Plus 50 ML IV SCH ×2 (10:39→23:32)
--- NOTE | 2016-08-30 10:53 | NUR ---
NUTRITION ASSESSMENT Assess: 86 YO M admitted to CCU with respiratory arrest. Pt has been NPO X 1 day. PMHX: CHF, CAD, afib. DIET: NPO. LABS: BUN 41, Cr 1.88, Glu 148, Alb 3.2 MEDICATIONS: Reviewed. Propofol GI: No BM noted. SKIN: Wound consult pending. WEIGHT: 99.5 kg, BMI 31.5 kg/m2, Admit wt: 99.5 kg, IBW: 75.5 kg (132%) ESTIMATED NEEDS: BMI/VENT Calories: 4351-5562 kcal/day (20-22 kcal/kg BW) Protein: 113-136 g/day (1.5-1.8 g/kg IBW) NUTRITION DIAGNOSIS: 1) Inadequate oral intake related to decreased ability to consume sufficient energy as evidenced by NPO/Vent status. INTERVENTION: 1) Will await plan of care decisions, if unable to extubate in the next 24-48 hours consider initiating nutrition support. MONITOR/EVALUATE: NPO/Vent status, nutrition support, labs, GI/nutrition status. Follow per high nutrition risk guidelines. Addendum: 08/30/16 at [address] Pt currently intubated.
--- NOTE | 2016-08-30 11:30 | PCM.CHPMED ---
Subjective Date of Service: Aug 30, 2016 Primary Physician: Admitting Physician: Hansa Morales MD Primary Care Physician: Farhan Orellana DO Attending Physician: Hansa Morales MD Admit Status: From the Emergency Department Chief Complaint: Chief Complaint: ICU/Pulmonology consult: History of Present Illness: This is a 86 year old male with history significant for atrial fibrillation not on chronic warfarin due to fall risk, CAD s/p CABG in 2003, aortic stenosis s/p bioprosthetic valve replacement in 2003, dementia, chronic back pain on chronic opiates, CKD stage III, DM type II, and systolic CHF on home O2 at night who presents after acute respiratory failure and intubation in the field. The patient's stated that the patient was in his usual state of health yesterday. He did report some chest pain which they did not find concerning. He then took out the garbage and after returning became severely short of breath and unresponsive. She could not feel a pulse and EMS was called. They arrived approximately 10 minutes later at which time they intubated patient. At baseline the patient has moderate dementia. The patient's states that he is no longer driving due the dementia. Today, the patient is intubated and sedated. All history was taken from his who is at bedside. ROS is not obtainable. PMH Past Medical History Ischemic cardiomyopathy last echo in 03/2016 showed EF of 50% CHF Aortic stenosis s/p aortic valve replacement in 2003 CAD s/p CABG in 2003 Atrial fibrillation not on chronic anticoagulation due to fall risk. CKD stage 3 with baseline creatinine of 1.68 in 04/2016. Dementia History of CVA Sleep apnea on home O2 at night. GERD DM type II Anxiety/depression. Bedside Blood Glucose: 190 Surgical History Aortic valve replacement 2003 CABG x4 2003 Multiple abdominal hernias with surgical repair. Left endarterectomy in 2007. 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 The do have two dogs at home. Exam Vital Signs Vital Sign - Last Date Time Temp Pulse Resp B/P Pulse Ox O2 Delivery O2 Flow Rate FiO2 08/30/16 08:30 36.6 44 16 112/52 100 Mechanical Ventilator 45 Intake and Output 08/29/16 08/29/16 08/30/16 Cumulative From/Thru 15:00 23:00 07:00 08/29/16 00:00 - 08/30/16 06:46 Intake Total 1000 ml 1190 ml 2190 ml Output Total 1210 ml 1210 ml Balance 1000 ml -20 ml 980 ml Intake IV Total 1000 ml 1190 ml 2190 ml Output Urine Total 1200 ml 1200 ml Gastric Drainage Total 10 ml 10 ml General: Other (Intubated and sedated.) Head: Normal, Skull Deformity, Tenderness Eyes: PERRLA, Scleral Anicteric Neck: Supple, Other (No masses) Chest & Lungs: Other (Course breath sounds bilaterally.) Cardiovascular: Other (Irregularly irregular) Abdomen: Non-tender, Non-distended, No hepatosplenomegaly, Normoactive bowel tones Extremities: Other (Trace edema bilaterally in lower extremity.) Additional Information: Psychiatric: patient is intubated and sedated. Lab and Diagnostics Labs Pertinent laboratory values: BUN 41, Cr 1.84 Troponin: .016-->.056-->0.037 Lactic acid on admit was 6 and now is 2. Result Diagram: 08/30/16 0721 08/30/16 0721 X-Rays, CTs and MRIs CT of brain without contrast on 08/29/2015: IMPRESSION: 1. No acute intracranial abnormalities. Mild periventricular and deep white matter chronic small vessel ischemic change. 2. Nonacute bilateral cerebellar hemispheric small infarcts, as well as probable nonacute ischemic insult of the left frontal lobe as before. Findings discussed with Dr. Cabello on 2005 hours on August 29, 2016. This study fulfills neurological imaging criteria for inclusion or exclusion of acute stroke therapies based on available published neurological guidelines. Dictated by: Vadim Kelsey M.D. on 08/29/2016 at 20:08 Chest x-ray on 08/30/2015: IMPRESSION: 1. Improved aeration at the lung bases when compared with the prior study suggesting decreased atelectasis. 2. Probable unchanged left pleural effusion. 3. Interstitial prominence suggesting fluid overload. Dictated by: Nehal Hillman M.D. on 08/30/2016 at 9:30 12-lead ECG EKG shows atrial fibrillation Assessment & Plan Assessment This is a 86 year old male with history of CHF, CAD s/p CABG in 2003, aortic stenosis s/p AVR in 2003, CKD stage III, DM type II who presented after acute respiratory failure and intubation in field: Probable arrhythmia in setting of chronic atrial fibrillation: -EKG shows atrial fibrillation. -Patient heart rate in the 40's. He is on metoprolol at home. -He is not on anticoagulation due to being a fall risk. -He is on heparin PE protocol. Due to CKD we have not been able to obtain CT angio of chest. Will start with U/S of lower extremities. History of CHF: -Echocardiogram ordered. Acute respiratory failure: -Intubated in field. Sedation with propofol and fentanyl. -Possible aspiration pneumonia: Currently on Zosyn (Day 1). -Sputum cx, procalcitonin, blood cultures, viral panel pending. Elevated troponin: -Troponin trend: .016-->.056-->.037-->.026 -Echocardiogram pending. -Cardiology consult recommended. Acute kidney injury on chronic kidney disease: -Baseline creatinine in 04/2016 1.68. ON 08/30/2015 BUN 41, Creatinine 1.88. -Continue to follow with BMP's. -NS at 125ml/hr Lactic acidosis: -On admit lactic acid 6.2. Now 2.0. Problems: Pain Evaluation: Adequate Pain Control GI Prophylaxis: H2 amelia VTE Prophylaxis: Other (Will place on therapeutic DVT IV heparin drip for possible PE) VTE Mechanical Devices: Intermittant Pneumatic CD Resuscitation Status: CPR: Attempt Resuscitation Attending Statement The patient was seen and examined together with Dr. Regan on 08/30/2016 and I agree with the history, exam and plan as outlined in the note above. [place] Regan DO Aug 30, 2016 11:30 Kyle Villalobos MD Sep 22, 2016 11:01
[2016-08-30] MEDS: Heparin 25K Unit/500mL 0.45 NS 25,000 UNIT in IV Premix 1 EACH IV SCH (16:12)
--- NOTE | 2016-08-30 16:41 | NUR ---
P: Respiratory Distress I: a-fib 35-55. BP stable. Propofol 25mcqs/kg/min. Fentanyl 50 mcqs/hr. Heparin gtt 14units/kg/hr with last PTT 71.7. No PST done today. Antibiotics infused as ordered. PICC being placed at this time. 2 peripheral IV's patent. Love patent and drained 750ccof romi urine. Turned Q 2 hours. Pt awakens and is agitated at times with activity. vent FiO2 decreased to 28% with sats stable 96%. and son here and was updated on pt's condition and plan of care. OGT LCS with minimal output. pt does reach for tubes with any activity. E: Stable. S:Restraints of for pt safety. Frequent rounding.
--- NOTE | 2016-08-30 17:52 | DRSVH ---
[facility] [address] [place] [address] Echocardiogram Report Name: HAILEE MELLO CStudy Date : 08/30/2016 Height: 70 in Hospital Exam Location: [facility] Weight: 219 lb Gender: Male BSA: 2.2 m2 : 1930 Age: 86 yrs BP: 155/73 mmHg Reason For Study: Dyspnea, Elevated Troponin History: CABG, AVR-bioprosthetic Ordering Physician: HOSPITALIST CLYDEerformed By: Jayda Thomas Referring Physician: Dr. Qamar Orellana Interpretation Summary The patient was in atrial fibrillation with heart rates between 45-50 bpm during the exam. The left ventricle is normal in size. The ejection fraction is estimated to be 55-60%. There are no focal wall motion abnormalities. There is a bioprosthetic aortic valve. The prosthetic aortic valve function is normal. Right ventricular systolic pressure is estimated to be 30 mmHg plus the clinically estimated CVP which cannot be estimated on this exam. No other echocardiographic abnormalities seen. Procedure: A two-dimensional transthoracic echocardiogram with color flow and Doppler was performed. The study quality was technically difficult. Comparison is made with the echocardiogram of 08/15/2007. A contrast injection of Definity was performed to improve assessment of LV function. The patient was in atrial fibrillation with heart rates between 45-50 bpm during the exam. Left Ventricle: The left ventricle is normal in size. The ejection fraction is estimated to be 55-60%. There are no focal wall motion abnormalities. Diastolic function could not be accurately assessed due to atrial fibrillation. Right Ventricle: The right ventricle is normal size. The right ventricular systolic function is normal. Atria: The left atrium is moderately dilated. Chiari network (normal variant) is noted. The right atrium is mild to moderately dilated. The interatrial septum is intact with no evidence for an atrial septal defect. Mitral Valve: There is moderate mitral annular calcification. There is mild mitral regurgitation. Aortic Valve: The prosthetic aortic valve is well-seated. There is a bioprosthetic aortic valve. There is mild calcification of the bioprosthetic valve. The prosthetic aortic valve function is normal. The peak aortic velocity is 341 cm/sec. The peak aortic velocity on the previous exam was 240 cm/sec. The aortic valve mean gradient is 24.4 mmHg. There is mild aortic regurgitation. Tricuspid Valve: The tricuspid valve is not well visualized, but is grossly normal. There is trace tricuspid regurgitation. Right ventricular systolic pressure is estimated to be 30 mmHg plus the clinically estimated CVP which cannot be estimated on this exam. Pulmonic Valve: The pulmonic valve is not well visualized. There is mild pulmonic regurgitation. Great Vessels: The aortic root is normal size. The ascending aorta is mildly enlarged. The IVC has a measurement of 23 mm. Inspiratory collapse cannot be assessed because of mechanical ventilation, thus CVP cannot be estimated.. Pericardium/ Pleura There is no pericardial effusion. MMode/2D Measurements & Calculations LVIDd: 4.5 cmLA dimension: 5.2 cm RA long axis: 6.9 cm LVOT diam LVIDs: 3.6 cm FS: 21.5 % LA A2 area: 28.7 cm RA area: 25.0 cm AoV Opening EPSS: 0.79 cmLA A4 area: 30.4 cm RA vol: 77.1 ml IVSd: 1.3 cm LA length (vol): 7.1 cm RA : 35.5 ml/m Ao root diam LVPWd: 1.4 cmLA vol: 104.8 ml RVDd minor: 3.2 cm Aortic Jxn LA vol index: 48.3 ml/m IVC diam: 2.3 cm asc Aorta Diam ROSELIA (plan) LV villalobos. diameter/BSA LV sys. diameter/BSA TAPSE: 1.1 cm (cm/m^2): 2.1 (cm/m^2): 1.6 : 1.1 cm2 Doppler Measurements & Calculations Ao V2 max: 341.1 cm/secMV E max raad Med Peak E' Raad TR max raad Ao max P.6 mmHg : 126.9 cm/sec : 272.7 cm/sec Ao mean P.4 mmHg MVA(VTI): 1.7 cm2 E/E' med: 37.7 TR max PG LVOT Max Raad : 29.7 mmHg : 53.2 cm/sec PA V2 max ROSELIA(I,D): 0.66 cm : 90.9 cm/sec sev ratio: 0.18 PA mean PG PA Accel Time : 0.09 sec MV V2 mean: 34.6 cm/secAo V2 mean LV V1 max PG PA V2 mean MV mean P.94 mmHg : 230.8 cm/sec : 53.9 cm/sec MV V2 VTI: 33.6 cm Ao V2 VTI: 84.1 cmLV V1 VTI MV dec time: 0.21 sec ROSELIA(V,D): 0.56 cm2: 15.5 cm ROSELIA indexed to BSA (cm^2/m^2): 0.31 Reading Physician:05:51 PM
[2016-08-30] MEDS ORDERED: Sodium Chloride LOK Flush 10 mL Syringe IVFLUSH PRN ×2 (18:40)
--- NOTE | 2016-08-30 19:24 | DRSVH ---
PROCEDURE: US VENOUS LEG DUPLEX BILATERAL INDICATIONS: Respiratory arrest. TECHNIQUE: Real-time imaging, as well as color and pulse Doppler interrogation, were performed of the deep veins of both legs from the inguinal ligament to the popliteal fossa. COMPARISON: None. FINDINGS: The deep veins are normally compressible, and free of intraluminal thrombus. Color and pu lse Doppler demonstrate normal phasic intravascular flow. There is normal augmentation response to d istal compression maneuver. IMPRESSION: No DVT in the lower extremities. Dictated by: Madyson Johnson M.D. on 08/30/2016 at 19:22 Approved by: Madyson Johnson M.D. on 08/30/2016 at 19:22
--- NOTE | 2016-08-30 20:12 | PCM.PNMED ---
Subjective Date of Service Aug 30, 2016 Subjective This is an 86-year-old male who has a history of congestive heart failure coronary artery disease who presents to the emergency room after being found unresponsive by his . His is at the bedside in gives a fairly good history. She notes that he had been taking some garbage cans outside and came back in and was found slumped over in the chair she had just seen him a few minutes prior without any issues he was noted to be cyanotic said that he did have a palpable pulse and she did call 911 was called. He was may be unresponsive and agonal for about 11 minutes per 's report per ER MDs report. Mass noted his heart rate was 1:30 blood pressure was 208/124 and agonal breathing he was given succinylcholine, etomidate and was intubated was also given Versed en route to the emergency room. does note that he was having some intermittent chest pain over the past week.He does have sublingual nitroglycerin took that with good response at those times. He does according to the have some baseline dyspnea with walking. He also does have some baseline renal insufficiency per his . His evaluation here initially included a temperature to be afebrile. White count was 15.7 with 39% polys 41% lymphs. BUN 38 creatinine 2.01 with a calculated GFR of 34. He was found to have a troponin of 0.016. Lactic acid level was 6.2. Bicarbonate was 19. EEG showed A. fib at a rate of [address] segment depressions in 1 aVL V5 V6 with T-wave changes noted. CT of head without contrast was done and revealed no acute intracranial abnormalities. There was mild periventricular and deep white matter chronic small vessel ischemic changes noted. 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 As well as probable nonacute ischemic insult of the left frontal lobe. Patient previously had been on warfarin for his chronic atrial fibrillation however that was stopped as he had been having chronic falls. Chest x-ray revealed endotracheal tube was in expected position and decreased lung volumes with bronchovascular crowding possible superimposed bilateral perihilar pulmonary edema or aspiration noted. Cardiomegaly as previously noted. Today: Patient remains intubated and sedated. Exam Vital Signs Vital Sign - Last Date Time Temp Pulse Resp B/P Pulse Ox O2 Delivery O2 Flow Rate FiO2 08/30/16 05:41 48 160/78 100 50 1/2/17 23:11 37.0 18 Mechanical Ventilator Intake and Output 08/29/16 08/29/16 08/30/16 Cumulative From/Thru 15:00 23:00 07:00 08/29/16 00:00 - 08/29/16 23:59 Intake Total 1000 ml 1000 ml Balance 1000 ml 1000 ml Intake IV Total 1000 ml 1000 ml Exam General: Intubated and sedated. HEENT: Normocephalic, atraumatic. External ears without defect. Pupils equal, round, and reactive to light and accommodation. Anicteric sclerae, moist conjunctivae, and no lid lag. Oropharynx free of erythema and cobble stoning with moist mucosa. Neck: Supple with full range of motion. No jugular venous distension. No bruits. No lymphadenopathy or thyromegaly. Cardiovascular: Regular rate and rhythm with no murmurs, rubs, or gallops appreciated Pulmonary: Clear to auscultation bilaterally with no crackles, wheezes, or rhonchi. Normal respiratory effort with no use of accessory muscles. Abdomen: Bowel tones present. Soft, nontender, nondistended. No hepatosplenomegaly or masses appreciated. Extremities: No clubbing, cyanosis, edema, or lymphadenopathy appreciated. Skin: Normal temperature, turgor, and texture; no rash, ulcers, or subcutaneous nodules appreciated. Neurological: Intubated and sedated. Psychiatric: Intubated and sedated. IVs and Medications Medications Reviewed: Medications were reviewed in detail Lab and Diagnostics Result Diagram: 08/30/16 0210 08/29/16 2340 X-Rays, CTs and MRIs X-RAY CHEST ONE VIEW, PORTABLE IMPRESSION: 1. Improved aeration at the lung bases when compared with the prior study suggesting decreased atelectasis. 2. Probable unchanged left pleural effusion. 3. Interstitial prominence suggesting fluid overload. Dictated by: Nehal Hillman M.D. on 08/30/2016 at 9:30 US VENOUS LEG DUPLEX BILATERAL FINDINGS: The deep veins are normally compressible, and free of intraluminal thrombus. Color and pulse Doppler demonstrate normal phasic intravascular flow. There is normal augmentation response to distal compression maneuver. IMPRESSION: No DVT in the lower extremities. X-RAY CHEST ONE VIEW, PORTABLE IMPRESSION: 1. Endotracheal tube is in expected position. 2. Decreased lung volumes, with bronchovascular crowding. Possible superimposed bilateral perihilar pulmonary edema or aspiration. 3. Cardiomegaly as before. Dictated by: Vadim Kelsey M.D. on 08/29/2016 at 20:14 CT BRAIN IMPRESSION: 1. No acute intracranial abnormalities. Mild periventricular and deep white matter chronic small vessel ischemic change. 2. Nonacute bilateral cerebellar hemispheric small infarcts, as well as probable nonacute ischemic insult of the left frontal lobe as before. This study fulfills neurological imaging criteria for inclusion or exclusion of acute stroke therapies based on available published neurological guidelines. Dictated by: Vadim Kelsey M.D. on 08/29/2016 at 20:08 12-lead ECG Atrial fibrillation at a rate of 55 with a QTC of 432. Does have ST segment sagging depressions in 1 to aVF V3 to be 6 particularly more profound laterally also with poor R-wave progression across the precordium. Cardiac Echo Impressions ECHO Interpretation Summary The patient was in atrial fibrillation with heart rates between 45-50 bpm during the exam. The left ventricle is normal in size. The ejection fraction is estimated to be 55-60%. There are no focal wall motion abnormalities. There is a bioprosthetic aortic valve. The prosthetic aortic valve function is normal. Right ventricular systolic pressure is estimated to be 30 mmHg plus the clinically estimated CVP which cannot be estimated on this exam. No other echocardiographic abnormalities seen. Additional Diagnostics [facility] DateTimeAnalyzed 20:50:00 -_ pH ____7.363 - 7.350 7.450 pCO2 ___35.1__ -mmHg 35.0 45.0 pO2 ___77.2__ -mmHg 69.0 116 HCO3- ___19.5__ -mmol/L 22.0 26.0 Assessment & Plan This is an 86-year-old male who has a history of congestive heart failure coronary artery disease who presents to the emergency room after being found unresponsive by his . His is at the bedside in gives a fairly good history. She notes that he had been taking some garbage cans outside and came back in and was found slumped over in the chair she had just seen him a few minutes prior without any issues he was noted to be cyanotic said that he did have a palpable pulse and she did call 911 was called. He was may be unresponsive and agonal for about 11 minutes per 's report per ER MDs report. Mass noted his heart rate was 1:30 blood pressure was 208/124 and agonal breathing he was given succinylcholine, etomidate and was intubated was also given Versed en route to the emergency room. does note that he was having some intermittent chest pain over the past week.He does have sublingual nitroglycerin took that with good response at those times. He does according to the have some baseline dyspnea with walking. He also does have some baseline renal insufficiency per his . His evaluation here initially included a temperature to be afebrile. White count was 15.7 with 39% polys 41% lymphs. BUN 38 creatinine 2.01 with a calculated GFR of 34. He was found to have a troponin of 0.016. Lactic acid level was 6.2. Bicarbonate was 19. EEG showed A. fib at a rate of [address] segment depressions in 1 aVL V5 V6 with T-wave changes noted. CT of head without contrast was done and revealed no acute intracranial abnormalities. There was mild periventricular and deep white matter chronic small vessel ischemic changes noted. 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 As well as probable nonacute ischemic insult of the left frontal lobe. Patient previously had been on warfarin for his chronic atrial fibrillation however that was stopped as he had been having chronic falls. Chest x-ray revealed endotracheal tube was in expected position and decreased lung volumes with bronchovascular crowding possible superimposed bilateral perihilar pulmonary edema or aspiration noted. Cardiomegaly as previously noted. 1. Acute respiratory failure with severe hypoxia requiring intubation, present on admission. Active. - Ddx: PNA viral / bacterial / aspiration, PE, CHF. - Patient found down. Possibly a syncopal episode 2nd to arrhythmia. - CT Brain results per above. - CKMB pending. - Placed on ventilator protocol. - WBC 15.7 on admission, currently 9.1 - IV propofol when necessary agitation. - ECHO per above. - CXR and EKG results per above. - Respiratory viral PCR pending, - Legionella and strep pneumo ag pending. - MRSA pending. - Sputum cx pending. - Venous US lower extremities results per above. - IV Zosyn and IV Azithromycin. - ICU / Pulmonology consulted, time and recommendations appreciated. 2. Lactic acidosis, present on admission. Active - Most likely secondary to acute hypoxia. - Lactic acid. 3. Acute kidney injury, present on admission. Active. - Cr 2.01, currently 1.84. - Monitor UOP and Cre. - Avoid Nephrotoxic Insults. 4. Elevated troponins, present on admission. Active. - TrendingTroponins - 0.016, 0.056, 0.037, currently 0.021 - EKG - Afib with Bradycardia. - Likely demand ischemia. - On tele monitoring. - On cardiac heparin ggt. - Cardiology following, time and recommendations appreciated. 5. Atrial fibrillation, present on admission. Active. 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 - Holding Home metoprolol 25mg PO BID - Not on home antiplatelet or anticoagulation. - TSH and T4 pending. Acetaminophen for mild pain when necessary. Bowel regimen Senna and MiraLAX scheduled and PRN. Zofran when necessary for nausea and vomiting. SubQ heparin and heparin ggt for now. SCDs in place. High-risk medications: IV Fentanyl. Heparin ggt. IV Versed. IV Midazolam. Vent settings: ABG: I/Os: Lines: Drips: Disposition: Likely here >2 days due to respiratory failure. Pain Evaluation: Adequate Pain Control GI Prophylaxis: H2 amelia VTE Prophylaxis: Other (Will place on therapeutic DVT IV heparin drip for possible PE) VTE Mechanical Devices: Intermittant Pneumatic CD Resuscitation Status: CPR: Attempt Resuscitation Attending Statement The patient was seen and examined together with Dr. Brown on 08-30-16 and I agree with the history, exam and plan as outlined in the note above. JOSE MARTIN BROWN DO Aug 30, 2016 06:40 Chata Butterfield MD Aug 31, 2016 07:59
--- NOTE | 2016-08-30 20:36 | CONS ---
[address] [address] CONSULTATION REPORT PATIENT: HAILEE MELLO : 1930 MR#: [id number] ADMIT: 08/29/2016 JOB ID: [id number] DATE OF SERVICE: 08/30/2016 CHIEF COMPLAINT: "Found unresponsive." HISTORY OF PRESENT ILLNESS: The patient is an 86-year-old man with chronic AFib, a history of coronary artery disease status post CABG, history of severe status post aortic valve replacement. He was apparently found down unresponsive. It is not clear how long he was down. He was resuscitated, intubated, admitted to the TCU and Cardiology is consulted to assist with management. In particular, I am asked to comment whether his being found down and unresponsive, i.e. his syncopal event, is in any way cardiac-related. I cannot interview the patient because he is currently intubated and sedated. I reviewed the hospitalist physician notes written by Dr. Morales and apparently he was found slumped over and cyanotic a few minutes after he took some garbage cans outside. PAST MEDICAL HISTORY: 1. Coronary artery disease status post CABG. His surgical anatomy is KHOURY to LAD, vein graft to the two vein grafts to OM, vein graft to PDA. His surgery took place in 2003. 2. Severe aortic stenosis status post 25 mm stented bioprosthesis implanted December 2003. Echocardiogram today showed that the prosthesis is functioning normally. 3. Chronic AFib currently with slow ventricular response. His heart rate at this moment in time is 65 beats but has been as low as 48 beats per minute. PAST SURGICAL HISTORY: Bypass surgery and stents. SMOKING HISTORY: Is a lifetime nonsmoker. SOCIAL HISTORY: He does not drink alcohol. He does not use drugs. He does not smoke. He lives at home with his . is unfortunately not currently at bedside so I cannot really ask her any questions. ALLERGIES: 1. MEPERIDINE. 2. PLAVIX. 3. NOVOCAIN. HOME MEDICATIONS: 1. Toprol-XL 25 mg daily. 2. Aspirin 81 mg daily. 3. Oxycodone 5 mg daily. 4. Lasix 20 mg daily. 5. Every third day of is 40 mg daily. 6. Potassium chloride 10 mEq daily. If he takes a higher dose of Lasix to take 20 mEq daily of potassium. 7. Protonix 40 mg daily. 8. Oxybutynin 10 mg daily. 9. It does not appear that he takes oral anticoagulation medications at home. REVIEW OF SYSTEMS: Unobtainable because the patient is intubated. CURRENT MEDICATIONS IN THE HOSPITAL: 1. Propofol 25 mcg/kg per minute. 2. Heparin drip 14 units/kg per hour. 3. Normal saline 125 mL/h. 4. that is Zosyn. PHYSICAL EXAMINATION: Patient is intubated and sedated. His vent settings are 28% FiO2, PEEP of 5, and tidal volume of 500. Vent is programmed in PRVC mode. The patient is not responding to verbal commands or sternal rub. He has a PICC line in his right antecubital fossa and a right antecubital fossa peripheral IV and right hand peripheral IV. His eyes are closed. He has male pattern baldness. Heart shows normal S1, S2. There is a 2/6 systolic ejection murmur at right upper sternal border. Abdomen: Soft. Lungs are clear anteriorly. Legs show that serial pneumatic compression devices are on. There is no edema and no cyanosis, no clubbing. LABS: His labs are reviewed. His creatinine is 2, baseline value is 1.6. Troponin 0.056. Head CT showed no new strokes. Viral PCR is negative. Blood cultures are pending. TSH is not available. White count on admission was a little bit elevated at 15.7 with normal CBC and mildly reduced platelet count of 107. He does not have a left shift. Chest x-ray showed endotracheal tube in expected position, decreased lung volumes and possible pulmonary edema versus aspiration. Echocardiogram showed the EF 55-60%, AFib with slow ventricular response. Bioprosthetic aortic valve which is functioning normally. ASSESSMENT AND PLAN: In summary, this is an 86-year-old man who comes in with episode of unresponsiveness after taking out the garbage can. He has not recovered his alertness, unfortunately, and technical adjuster consulted to see what we can offer him. He is on heparin drip for presumed non-STEMI. He is not taking p.o. at this juncture. I think his medications are fine. I agree with holding his beta amelia due to AFib with slow ventricular response. I think the cause of his syncope is multifactorial. It could be that he had dysrhythmic event, could be that he had AFib with slow ventricular response and lost consciousness. It could be that he had a run of VT and then lost consciousness. It could be that he had ischemia and had arrhythmia precipitated by ischemia and lost consciousness. It is really not clear, but what is clear is that he is not a good candidate for invasive therapy. He has grafts. His graft is 12 years old. His creatinine is 2. His platelets are somewhat reduced. I do not think he is a good catheterization candidate. When he regains consciousness, we can discuss this with the family, but right now I think the risks are prohibitive. Also, when he does wake up, we can have a conversation about permanent pacemaker implant for what appears to be symptomatic bradycardia, atrial fibrillation with slow ventricular response. Again, right now, he is not a person who can safely go through these procedures. I will continue to monitor along with primary team. Thank you for the opportunity to evaluate this patient.
[2016-08-30 23:14] LABS: TROPONIN T 0.018 ug/L (0.0-0.011)
[2016-08-31] VITALS (12 sets, daily range): BP systolic 123–167; BP diastolic 60–84; PULSE 61–81; RESP 16–17; O2SAT 96–100
[2016-08-31] MEDS: Propofol Inj 1,000,000 MCG in IV Premix 1 EACH IV SCH ×5 (02:06→19:19)
[2016-08-31 05:09] LABS: Free Thyroxine Index 1.4 (1.2-4.9)
--- NOTE | 2016-08-31 05:11 | ABG ---
DateTimeAnalyzed 05:07:00 -_ pH ____7.431 - 7.350 7.450 pCO2 ___32.1__ -mmHg 35.0 45.0 pO2 ___81.5__ -mmHg 69.0 116 HCO3- ___21.0__ -mmol/L 22.0 26.0 ABE ___-2.1__ -mmol/L -2.0 2.0 tHb ___12.0__ -g/dL O2Hb ___94.3__ -% COHb ____1.3__ -% MetHb ____1.0__ -% sO2 ___96.5__ -% 25.0 FIO2 ___28.0__ -% PEEP ____5.0__ -cmH2O Set_RR ___16.0__ -b/min Vt __500.0__ -L Drawn By AF - Date/Time Notified____ 05:11:00 -_ Spontaneous_RR ___16.0__ -b/min Oxygen Device 1 VENTILATOR - Notified By af - Notified Whom ____Nurse - B 763 -mmHg tO2 ___16.0__ -Vol% Rafa test N/A -
[2016-08-31] MEDS: 0.9% Sodium Chloride 1,000 ML IV SCH ×3 (06:21→22:11)
[2016-08-31] MEDS: Chlorhexidine 0.12% 15 mL Oral Solution MT SCH ×6 (06:21→23:50)
[2016-08-31 06:47] LABS: BASOPHILS % (AUTO) 0.5 % (0-3); EOSINOPHILS % (AUTO) 6.1 % (0-5); MONOCYTES % (AUTO) 10.3 % (4-12); Mean Corpuscular Hemoglobin 31.3 pg (27.0-35.0); Mean Corpuscular Volume 92.1 fL (81-100); NEUTROPHILS % (AUTO) 68.2 % (40-74); Platelet Count 107 bil/L (150-400)
--- NOTE | 2016-08-31 06:57 | NUR ---
Respiratory P: on vent support, fi02 0.28, sp02>95%, on heparin gtt per PE protocol, on propofol & fentanyl gtt sedation. I: monitored for s/s of bleeding, titrated sedation per RASS. E: PTT 83-86, afib 50-60's, BP stable, RASS -3, AM abg resulted with pH 7.43, pC02 32, p02 81, hc03 21. S: bilateral soft wrist restraints.
--- NOTE | 2016-08-31 08:26 | DRSVH ---
PROCEDURE: X-RAY PICC LINE PLACEMENT BY NURSE ([id number]) INDICATIONS: 86-year-old male with PICC placement for intravenous access. COMPARISON: None. FINDINGS: PICC was placed by the intravenous therapy team from the right side. Fluoroscopic spot fi lm demonstrates tip of PICC in the lower superior vena cava. Endotracheal tube and median sternotomy wires are also present. IMPRESSION: Tip of PICC lies within the lower superior vena cava. Dictated by: Vadim Kelsey M.D. on 08/31/2016 at 8:24 Approved by: Vadim Kelsey M.D. on 08/31/2016 at 8:24
[2016-08-31] MEDS: Famotidine Inj 50 ML IV SCH ×2 (08:28→20:07)
[2016-08-31 08:29] LABS: Phosphorus 3.1 mg/dL (2.5-4.9)
[2016-08-31 08:30] LABS: Creatine Kinase 36 U/L (21-232); Magnesium 1.8 mg/dL (1.6-2.6)
--- NOTE | 2016-08-31 08:37 | DRSVH ---
PROCEDURE: X-RAY CHEST ONE VIEW, PORTABLE ([id number]) INDICATIONS: 86-year-old male on ventilator. TECHNIQUE: One view of the chest was acquired. COMPARISON: [facility], CR, XR CHEST 1VW (PORTABLE), 08/30/2016, 8:44. [facility], CR, XR CHEST 1VW (PORTABLE), 08/29/2016, 23:01. [facility], CR, XR CHEST 1VW (PORT ABLE), 08/29/2016, 19:55. FINDINGS: Surgical changes and devices: Endotracheal tube and nasogastric tube remain in expected positions. Ne w right PICC is present, with tip in the lower superior vena cava. Patient is status post median ster notomy and cardiac valve replacement as before. Lungs and pleura: No pleural effusions or pneumothorax. Lung volumes are decreased, with persistent left perihilar air space opacities. Mediastinum: Mediastinal contours appear normal. Cardiomegaly is unchanged. There is aortic atheros clerosis. Bones and chest wall: No suspicious bony lesions. Overlying soft tissues appear unremarkable. IMPRESSION: Decreased lung volumes, with persistent left perihilar atelectasis, aspiration, or pneumonia. Cardiom egaly as before. Dictated by: Vadim Kelsey M.D. on 08/31/2016 at 8:35 Approved by: Vadim Kelsey M.D. on 08/31/2016 at 8:35
--- NOTE | 2016-08-31 09:48 | PCM.PNMED ---
Subjective Date of Service Aug 31, 2016 Subjective Pulmonology/ICU progress note: This is a 86 year old male with history significant for atrial fibrillation not on chronic warfarin due to fall risk, CAD s/p CABG in 2003, aortic stenosis s/p bioprosthetic valve replacement in 2003, dementia, chronic back pain on chronic opiates, CKD stage III, DM type II, and systolic CHF on home O2 at night who presents after acute respiratory failure and intubation in the field. Patient remains intubated and sedated. No overnight event reported. ROS not obtainable. Exam Vital Signs Vital Sign - Last Date Time Temp Pulse Resp B/P Pulse Ox O2 Delivery O2 Flow Rate FiO2 08/31/16 08:26 Ventilator 08/31/16 08:26 36.5 64 16 166/74 99 28 Intake and Output 08/30/16 08/30/16 08/31/16 Cumulative From/Thru 15:00 23:00 07:00 08/29/16 00:00 - 08/31/16 06:26 Intake Total 1979 ml 2323 ml 6492 ml Output Total 750 ml 500 ml 2460 ml Balance 1229 ml 1823 ml 4032 ml Intake IV Total 1979 ml 2323 ml 6492 ml Output Urine Total 750 ml 450 ml 2400 ml Gastric Drainage Total 0 ml 50 ml 60 ml # Bowel Movements 1 1 Exam General: Other (Intubated and sedated.) Head: Normal, Skull Deformity, Tenderness Eyes: PERRLA, Scleral Anicteric Neck: Supple, Other (No masses) Chest & Lungs: Other (Course breath sounds bilaterally.) Cardiovascular: Other (Irregularly irregular) Abdomen: Non-tender, Non-distended, No hepatosplenomegaly, Normoactive bowel tones Extremities: Other (Trace edema bilaterally in lower extremity.) Additional Information: Psychiatric: patient is intubated and sedated. IVs and Medications Medications Reviewed: Medications were reviewed in detail Lab and Diagnostics Result Diagram: 08/31/1663008/31/16630 X-Rays, CTs and MRIs X-RAY CHEST ONE VIEW, PORTABLE IMPRESSION: 1. Improved aeration at the lung bases when compared with the prior study suggesting decreased atelectasis. 2. Probable unchanged left pleural effusion. 3. Interstitial prominence suggesting fluid overload. Dictated by: Nehal Hillman M.D. on 08/30/2016 at 9:30 US VENOUS LEG DUPLEX BILATERAL FINDINGS: The deep veins are normally compressible, and free of intraluminal thrombus. Color and pulse Doppler demonstrate normal phasic intravascular flow. There is normal augmentation response to distal compression maneuver. IMPRESSION: No DVT in the lower extremities. X-RAY CHEST ONE VIEW, PORTABLE IMPRESSION: 1. Endotracheal tube is in expected position. 2. Decreased lung volumes, with bronchovascular crowding. Possible superimposed bilateral perihilar pulmonary edema or aspiration. 3. Cardiomegaly as before. Dictated by: Vadim Kelsey M.D. on 08/29/2016 at 20:14 CT BRAIN IMPRESSION: 1. No acute intracranial abnormalities. Mild periventricular and deep white matter chronic small vessel ischemic change. 2. Nonacute bilateral cerebellar hemispheric small infarcts, as well as probable nonacute ischemic insult of the left frontal lobe as before. This study fulfills neurological imaging criteria for inclusion or exclusion of acute stroke therapies based on available published neurological guidelines. Dictated by: Vadim Kelsey M.D. on 08/29/2016 at 20:08 12-lead ECG Atrial fibrillation at a rate of 55 with a QTC of 432. Does have ST segment sagging depressions in 1 to aVF V3 to be 6 particularly more profound laterally also with poor R-wave progression across the precordium. Cardiac Echo Impressions ECHO Interpretation Summary The patient was in atrial fibrillation with heart rates between 45-50 bpm during the exam. The left ventricle is normal in size. The ejection fraction is estimated to be 55-60%. There are no focal wall motion abnormalities. There is a bioprosthetic aortic valve. The prosthetic aortic valve function is normal. Right ventricular systolic pressure is estimated to be 30 mmHg plus the clinically estimated CVP which cannot be estimated on this exam. No other echocardiographic abnormalities seen. Additional Diagnostics [facility] DateTimeAnalyzed 20:50:00 -_ pH ____7.363 - 7.350 7.450 pCO2 ___35.1__ -mmHg 35.0 45.0 pO2 ___77.2__ -mmHg 69.0 116 HCO3- ___19.5__ -mmol/L 22.0 26.0 Assessment & Plan This is a 86 year old male with history of CHF, CAD s/p CABG in 2003, aortic stenosis s/p AVR in 2003, CKD stage III, DM type II who presented after acute respiratory failure and intubation in field: Acute respiratory failure: -Vent: FiO2 28, PEEP 5m RR 16, Tv 500. ABG on 08/31/2015: Ph 7.431, PCO2 32.1, PO2 87.5, HCO3 26. -Intubated in field. Sedation with propofol and fentanyl. Will try to wean off sedation today. -Possible aspiration pneumonia: Currently on Zosyn (Day 2). -Sputum cx, blood cultures, viral panel pending. -No WBC elevation, normal procalcitionin. Probable arrhythmia in setting of chronic atrial fibrillation: -Precipitating event was likely arrhythmia from afib with slow ventricular response, ischemia, run of vtach. -EKG shows atrial fibrillation. -Patient heart rate in the 40's-50;s. He is on metoprolol at home and this has been held in the hospital. 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 -He is not on anticoagulation due to being a fall risk. -He is on heparin PE protocol. Due to HALLIE on CKD we have not been able to obtain CT angio of chest. U/S of lower extremities was negative. -Recommend CT angio of chest to r/o PE The patient is at high risk for PE. Due to being fall risk ruling out PE would be beneficial as long term care pharmacist anticoagulation would be difficult in this patient. He may need a IVC filter due to being a fall risk. History of CHF: -Echocardiogram showed EF of 55-60% with intact bioprosthetic valve. No right ventricular strain noted. Elevated troponin: -Troponin trend: .016-->.056-->.037-->.026 -Cardiology consulted and does not feel the patient is appropriate candidate for cath. Once patient wakes up they will discuss pacemaker. Acute kidney injury on chronic kidney disease: -Baseline creatinine in 04/2016 1.68. ON 08/31/2015 Creatinine 1.51. -Continue to follow with BMP's. -NS at 125ml/hr Lactic acidosis, resolved: -Lactic acid on 08/30/2016 1.4. GI Prophylaxis: H2 amelia VTE Prophylaxis: Other (Will place on therapeutic DVT IV heparin drip for possible PE) VTE Mechanical Devices: Intermittant Pneumatic CD Resuscitation Status: CPR: Attempt Resuscitation Attending Statement The patient was seen and examined together with Dr. Regan on 08/31/2016 and I agree with the history, exam and plan as outlined in the note above. [place] Regan DO Aug 31, 2016 09:48 Kyle Villalobos MD Sep 28, 2016 17:15
[2016-08-31] MEDS: fentaNYL 2,500 mCg/250 mL 2,500 MCG in IV Premix 1 EACH IV PRN (09:59)
[2016-08-31] MEDS: Piperacillin-Tazo 3.375 Gm Inj 3.375 GM in Dextrose 5% Minibag Plus 50 ML IV SCH ×2 (12:31→23:51)
[2016-08-31] MEDS: Heparin 25K Unit/500mL 0.45 NS 25,000 UNIT in IV Premix 1 EACH IV SCH (12:35)
--- NOTE | 2016-08-31 14:57 | NUR ---
Social Work Note: Initial Assessment Data& Assessment: EMR reviewed. SW met with pt at bedside to discuss discharge planning, SW role explained. Pt remains on the vent. Denny Verduzco is a 86 year old male admitted on 08/29/2016 for respiratory arrest. Pt was found down. Pt has Medicare and Federal Blue Cross Supplement insurance coverage. Pt sees Farhan Orellana MD for primary care. Pt lives in [place] with his in a one story home with one step to enter the house. Pt uses a cane for ambulation assistance. Pt also has a FWW at home. Pt denies any HH or SNF hx. Pt denies LT insurance or VA service connection. Pt has DPOA paperwork completed, SW requested a copy for his chart when possible. Pt denies any other needs at this time. No other discharge needs identified at this time. SW to continue to follow for pt medical progression and MD recommendations. Plan: Pt remains on the vent. SW to continue to follow for pt medical progression and MD recommendations. Pt denies any other needs at this time. No other discharge needs identified at this time. SW to continue to follow. AGUSTIN Nobles Addendum: 08/31/16 at 1501 by LILIANA JENNIGNS Amended: Links added.
--- NOTE | 2016-08-31 16:34 | NUR ---
NUTRITION FOLLOW-UP: Assess: 86 YO M admitted to CCU with respiratory arrest. Currently intubated. Pt has been NPO X 2 day. Received verbal orders to start TF. PMHX: CHF, CAD, afib. DIET: NPO. LABS: Bun 29, [employer] 1.51, Glu 109, Ca 8.0, Alb 2.9 MEDICATIONS: Reviewed. Propofol currently running at 20ml/hr to provide 528kcal/day GI: BMx1 08/31 SKIN: no wound note. Zander 11 WEIGHT: 102.5 kg, BMI 32.4 kg/m2, Admit wt: 99.5 kg, IBW: 75.5 kg ESTIMATED NEEDS: BMI/VENT Calories: 2932-8553 kcal/day (20-22 kcal/kg BW) Protein: 110-135 g/day (1.5-1.8 g/kg IBW) Fluids: ~2500ml/day (25cc/kg) NUTRITION DIAGNOSIS: 1) Inadequate oral intake related to decreased ability to consume sufficient energy as evidenced by NPO/Vent status. --PERSISTS INTERVENTION: 1) Received verbal order to start TF. MD requested Vital 1.5 be used. Recommend start TF of Vital 1.5 @ 10ml/hr. If tolerated, advance by 10ml Q 4 hrs until reach goal rate of 50ml/hr to provide 1650kcal (2178kcal w/propofol) and 74g pro (100% kcal and 68% pro needs) 2) Once TF at goal rate, recommend addition of 1 packet prosource TID to better meet protein needs. 3) Adjust goal rate based on propofol rate. MONITOR/EVALUATE: NPO/Vent status, TF start/volodymyr labs, GI/nutrition status. Follow per high nutrition risk guidelines. Addendum: 09/01/16 at [address] Increased flush dose to 135 ml q 2 hrs to provide total of 2460 ml/d H2O
--- NOTE | 2016-08-31 18:03 | NUR ---
Hypertension/ventilator Attempted decreased sedation propofol IV this morning- patient became agitated a with increased BP. Patient already had been hypertensive but with decreased propofol SBP increased to 170-180 ranges with MAP >11- patient was re-sedated and MD was made aware about patients response to sedation vacation- MD will consider PO/IV unti-hypertensive medications when appropriate. Ventilator settings: PRVC 28%-5-16-500 with patient breathing with the ventilator when relaxed and oxygen saturation 97-99%.
--- NOTE | 2016-08-31 20:53 | PCM.PNMED ---
Subjective Date of Service Aug 31, 2016 Subjective This is an 86-year-old male who has a history of congestive heart failure coronary artery disease who presents to the emergency room after being found unresponsive by his . His is at the bedside in gives a fairly good history. She notes that he had been taking some garbage cans outside and came back in and was found slumped over in the chair she had just seen him a few minutes prior without any issues he was noted to be cyanotic said that he did have a palpable pulse and she did call 911 was called. He was may be unresponsive and agonal for about 11 minutes per 's report per ER MDs report. Mass noted his heart rate was 1:30 blood pressure was 208/124 and agonal breathing he was given succinylcholine, etomidate and was intubated was also given Versed en route to the emergency room. does note that he was having some intermittent chest pain over the past week.He does have sublingual nitroglycerin took that with good response at those times. He does according to the have some baseline dyspnea with walking. He also does have some baseline renal insufficiency per his . His evaluation here initially included a temperature to be afebrile. White count was 15.7 with 39% polys 41% lymphs. BUN 38 creatinine 2.01 with a calculated GFR of 34. He was found to have a troponin of 0.016. Lactic acid level was 6.2. Bicarbonate was 19. EEG showed A. fib at a rate of [address] segment depressions in 1 aVL V5 V6 with T-wave changes noted. CT of head without contrast was done and revealed no acute intracranial abnormalities. There was mild periventricular and deep white matter chronic small vessel ischemic changes noted. 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 As well as probable nonacute ischemic insult of the left frontal lobe. Patient previously had been on warfarin for his chronic atrial fibrillation however that was stopped as he had been having chronic falls. Chest x-ray revealed endotracheal tube was in expected position and decreased lung volumes with bronchovascular crowding possible superimposed bilateral perihilar pulmonary edema or aspiration noted. Cardiomegaly as previously noted. Overnight Events: Today: Patient remains intubated and sedated. Exam Vital Signs Vital Sign - Last Date Time Temp Pulse Resp B/P Pulse Ox O2 Delivery O2 Flow Rate FiO2 08/31/16 20:25 86 149/74 96 28 08/31/16 20:16 Ventilator 08/31/16 20:16 38.0 17 Intake and Output 08/30/16 08/30/16 08/31/16 Cumulative From/Thru 14:59 22:59 06:59 08/29/16 00:00 - 08/31/16 06:26 Intake Total 1979 ml 2323 ml 6492 ml Output Total 750 ml 500 ml 2460 ml Balance 1229 ml 1823 ml 4032 ml Intake IV Total 1979 ml 2323 ml 6492 ml Output Urine Total 750 ml 450 ml 2400 ml Gastric Drainage Total 0 ml 50 ml 60 ml # Bowel Movements 1 1 Exam General: Intubated and sedated. HEENT: Normocephalic, atraumatic. External ears without defect. Pupils equal, round, and reactive to light and accommodation. Anicteric sclerae, moist conjunctivae, and no lid lag. Oropharynx free of erythema and cobble stoning with moist mucosa. Neck: Supple with full range of motion. No jugular venous distension. No bruits. No lymphadenopathy or thyromegaly. Cardiovascular: Regular rate and rhythm with no murmurs, rubs, or gallops appreciated Pulmonary: Clear to auscultation bilaterally with no crackles, wheezes, or rhonchi. Normal respiratory effort with no use of accessory muscles. Abdomen: Bowel tones present. Soft, nontender, nondistended. No hepatosplenomegaly or masses appreciated. Extremities: No clubbing, cyanosis, edema, or lymphadenopathy appreciated. Skin: Normal temperature, turgor, and texture; no rash, ulcers, or subcutaneous nodules appreciated. Neurological: Intubated and sedated. Psychiatric: Intubated and sedated. IVs and Medications Medications Reviewed: Medications were reviewed in detail Lab and Diagnostics Result Diagram: 08/31/1631 08/31/16 0631 X-Rays, CTs and MRIs X-RAY CHEST ONE VIEW, PORTABLE IMPRESSION: 1. Improved aeration at the lung bases when compared with the prior study suggesting decreased atelectasis. 2. Probable unchanged left pleural effusion. 3. Interstitial prominence suggesting fluid overload. Dictated by: Nehal Hillman M.D. on 08/30/2016 at 9:30 US VENOUS LEG DUPLEX BILATERAL FINDINGS: The deep veins are normally compressible, and free of intraluminal thrombus. Color and pulse Doppler demonstrate normal phasic intravascular flow. There is normal augmentation response to distal compression maneuver. IMPRESSION: No DVT in the lower extremities. X-RAY CHEST ONE VIEW, PORTABLE IMPRESSION: 1. Endotracheal tube is in expected position. 2. Decreased lung volumes, with bronchovascular crowding. Possible superimposed bilateral perihilar pulmonary edema or aspiration. 3. Cardiomegaly as before. Dictated by: Vadim Kelsey M.D. on 08/29/2016 at 20:14 CT BRAIN IMPRESSION: 1. No acute intracranial abnormalities. Mild periventricular and deep white matter chronic small vessel ischemic change. 2. Nonacute bilateral cerebellar hemispheric small infarcts, as well as probable nonacute ischemic insult of the left frontal lobe as before. This study fulfills neurological imaging criteria for inclusion or exclusion of acute stroke therapies based on available published neurological guidelines. Dictated by: Vadim Kelsey M.D. on 08/29/2016 at 20:08 12-lead ECG Atrial fibrillation at a rate of 55 with a QTC of 432. Does have ST segment sagging depressions in 1 to aVF V3 to be 6 particularly more profound laterally also with poor R-wave progression across the precordium. Cardiac Echo Impressions ECHO Interpretation Summary The patient was in atrial fibrillation with heart rates between 45-50 bpm during the exam. The left ventricle is normal in size. The ejection fraction is estimated to be 55-60%. There are no focal wall motion abnormalities. There is a bioprosthetic aortic valve. The prosthetic aortic valve function is normal. Right ventricular systolic pressure is estimated to be 30 mmHg plus the clinically estimated CVP which cannot be estimated on this exam. No other echocardiographic abnormalities seen. Additional Diagnostics [facility] DateTimeAnalyzed 20:50:00 -_ pH ____7.363 - 7.350 7.450 pCO2 ___35.1__ -mmHg 35.0 45.0 pO2 ___77.2__ -mmHg 69.0 116 HCO3- ___19.5__ -mmol/L 22.0 26.0 [facility] ABG DateTimeAnalyzed 05:07:00 -_ pH ____7.431 - 7.350 7.450 pCO2 ___32.1__ -mmHg 35.0 45.0 pO2 ___81.5__ -mmHg 69.0 116 HCO3- ___21.0__ -mmol/L 22.0 26.0 Assessment & Plan This is a 86 year old male with history of CHF, CAD s/p CABG in 2003, aortic stenosis s/p AVR in 2003, CKD stage III, DM type II who presented after acute respiratory failure and intubation in field: 1. Acute respiratory failure with severe hypoxia requiring intubation, present on admission. Active. - Vent: FiO2 28, PEEP 5m RR 16, Tv 500. ABG on 08/31/2015: Ph 7.431, PCO2 32.1 , PO2 87.5, HCO3 26. - Intubated in field. Sedation with propofol and fentanyl. - Possibly aspiration pna. - IV propofol when necessary agitation. - WBC 15.7 on admission, currently 9.1. - Respiratory viral PCR negative. - Legionella and strep pneumo ag negative. - MRSA negative. - Procalcitonin negative. - Sputum cx no growth. - Venous US lower extremities results per above. - IV Zosyn and IV Azithromycin. - ICU / Pulmonology consulted, time and recommendations appreciated. - Daily sedation vacation and SBT's. 2. Probable arrhythmia in setting of chronic atrial fibrillation with syncopal episode. - Precipitating event was likely arrhythmia from afib with slow ventricular response, ischemia, run of vtach. - EKG shows atrial fibrillation. - CT Brain results per above. - CKMB pending. - Patient heart rate in the 40's-50;s. He is on metoprolol at home and this has been held in the hospital. 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 - He is not on anticoagulation due to being a fall risk. - He is on heparin PE protocol. Due to HALLIE on CKD we have not been able to obtain CT angio of chest. - U/S of lower extremities was negative. 3. Possible pulmonary embolism, present on admission, Active. - Avoiding CT Angio due to HALLIE, will revisit when GFR/Creatinine improves. - Currently on PE heparin ggt. - Recommend CT angio of chest to r/o PE The patient is at high risk for PE. - Due to being fall risk ruling out PE would be beneficial as senior living anticoagulation would be difficult in this patient. - He may need a IVC filter due to being a fall risk. 4. Lactic acidosis, present on admission. Resolved. - Most likely secondary to acute hypoxia. - Lactic acid upon admission 6.2, Currently 1.4. 5. Acute kidney injury, present on admission. Active. - Cr 2.01, currently 1.51 - Monitor UOP and Cre. - Avoid Nephrotoxic Insults. - IV NS at 125 ml/h 6. NSTEMI, present on admission. Active. - TrendingTroponins - 0.016, 0.056, 0.037, currently 0.018 - EKG - Afib with Bradycardia. - Likely demand ischemia. - On tele monitoring. - On PE heparin ggt. - Cardiology consulted and does not feel the patient is appropriate candidate for cath will manage medically. 7. Atrial fibrillation, present on admission. Active. 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 - Holding Home metoprolol 25mg PO BID - Not on home antiplatelet or anticoagulation. - TSH and T4, subclinical hypothyroid. Acetaminophen for mild pain when necessary. Bowel regimen Senna and MiraLAX scheduled and PRN. Zofran when necessary for nausea and vomiting. SubQ heparin and heparin ggt for now. SCDs in place. High-risk medications: IV Fentanyl. Heparin ggt. IV Versed. IV Midazolam. Vent settings: ABG: I/Os: Lines: Drips: Disposition: Likely here >2 days due to respiratory failure. Pain Evaluation: Adequate Pain Control GI Prophylaxis: H2 amelia VTE Prophylaxis: Other (Will place on therapeutic DVT IV heparin drip for possible PE) VTE Mechanical Devices: Intermittant Pneumatic CD Resuscitation Status: CPR: Attempt Resuscitation Attending Statement The patient was seen and examined together with Dr. Brown on 08-31-16 and I agree with the history, exam and plan as outlined in the note above. JOSE MARTIN BROWN DO Aug 31, 2016 20:33 Chata Butterfield MD Sep 01, 2016 08:07
[2016-09-01] VITALS (14 sets, daily range): BP systolic 112–144; BP diastolic 58–76; PULSE 70–95; RESP 10–22; O2SAT 96–99
[2016-09-01] MEDS: Propofol Inj 1,000,000 MCG in IV Premix 1 EACH IV SCH ×4 (03:05→19:36)
[2016-09-01] MEDS: Chlorhexidine 0.12% 15 mL Oral Solution MT SCH ×6 (03:32→23:33)
[2016-09-01 04:04] LABS: BASOPHILS % (AUTO) 0.4 % (0-3); EOSINOPHILS % (AUTO) 4.6 % (0-5); MONOCYTES % (AUTO) 11.6 % (4-12); Mean Corpuscular Hemoglobin 31.2 pg (27.0-35.0); Mean Corpuscular Volume 93.5 fL (81-100); NEUTROPHILS % (AUTO) 71.8 % (40-74); Platelet Count 108 bil/L (150-400)
[2016-09-01 04:47] LABS: Magnesium 1.7 mg/dL (1.6-2.6); Phosphorus 3.9 mg/dL (2.5-4.9)
--- NOTE | 2016-09-01 05:21 | ABG ---
DateTimeAnalyzed 05:17:00 -_ pH ____7.298 - 7.350 7.450 pCO2 ___43.2__ -mmHg 35.0 45.0 pO2 ___76.3__ -mmHg 69.0 116 HCO3- ___20.5__ -mmol/L 22.0 26.0 ABE ___-5.3__ -mmol/L -2.0 2.0 tHb ___12.7__ -g/dL O2Hb ___91.8__ -% COHb ____1.3__ -% MetHb ____1.0__ -% sO2 ___94.0__ -% 25.0 FIO2 ___28.0__ -% PEEP ____5.0__ -cmH2O Set_RR ___16.0__ -b/min Vt __500.0__ -L Drawn By af - Date/Time Notified____ 05:20:00 -_ Spontaneous_RR ___16.0__ -b/min Oxygen Device 1 VENTILATOR - Notified By af - Notified Whom ____nurse - B 766 -mmHg tO2 ___16.4__ -Vol% Rafa test _Positive -
--- NOTE | 2016-09-01 05:33 | NUR ---
Febrile/Respiratory/Heparin Tmax 38.4C, given tylenol 1 gm IV, applied cooling measures, last temp down to 37.0 C continued on vent support, tapered propofol gtt, on fentanyl gtts RASS -2 to -3. Heparin gtt @ 13 units/kg/hr, last PTT 66, next PTT in am, no signs of bleeding.
[2016-09-01] MEDS: 0.9% Sodium Chloride 1,000 ML IV SCH (05:39)
[2016-09-01] MEDS: Heparin 25K Unit/500mL 0.45 NS 25,000 UNIT in IV Premix 1 EACH IV SCH (08:43)
--- NOTE | 2016-09-01 09:11 | DRSVH ---
PROCEDURE: X-RAY CHEST ONE VIEW, PORTABLE ([id number]) INDICATIONS: On vent TECHNIQUE: One view of the chest was acquired. COMPARISON: [facility], CR, XR CHEST 1VW (PORTABLE), 08/31/2016, 2:07. FINDINGS: Surgical changes and devices: Right-sided PICC line, nasogastric tube and endotracheal tube are uncha nged. Lungs and pleura: The lungs are hypoinflated. There are bilateral patchy opacities most severe in the left lower lobe as well as the appearance of increased pulmonary vascularity. Overall appearance felicia ears worse compared to prior exam. Mediastinum: Mediastinal contours appear normal. Heart size is normal. Bones and chest wall: No suspicious bony lesions. Overlying soft tissues appear unremarkable. IMPRESSION: Overall appearance of worsening bilateral opacities suggestive airspace disease such as p neumonia and/or atelectasis. There is underlying edema cannot be excluded. Dictated by: Breana Ang M.D. on 09/01/2016 at 9:09 Approved by: Breana Ang M.D. on 09/01/2016 at 9:09
[2016-09-01] MEDS: Famotidine Inj 50 ML IV SCH ×2 (09:53→21:11)
[2016-09-01 10:59] LABS: APPEARANCE,URINE CLOUDY (CLEAR,HAZY); COLOR,URINE DARK YELLOW (YELLOW); OCCULT BLOOD,URINE LARGE (NEGATIVE); PH,URINE 5.5 (5.0-8.0)
[2016-09-01 11:13] LABS: UROBILINOGEN,URINE NORMAL (NORMAL)
[2016-09-01] MEDS: Piperacillin-Tazo 3.375 Gm Inj 3.375 GM in Dextrose 5% Minibag Plus 50 ML IV SCH ×2 (12:52→23:33)
[2016-09-01] MEDS: Heparin 5,000 Unit/mL Inj IVPUSH PRN (13:05)
[2016-09-01] MEDS: Senna Leaf Extract 528 mg/15 mL Syrup PO SCH ×2 (13:12→21:11)
--- NOTE | 2016-09-01 15:18 | DRSVH ---
PROCEDURE: CT ANGIO CHEST PULMONARY EMBOLISM ([id number]) INDICATIONS: Respiratory failure TECHNIQUE: After the administration of intravenous contrast, 2 mm thick sections acquired from the pulmonary api laura to the posterior costophrenic angles. 3-dimensional maximum intensity projection (MIP) coronal a nd sagittal reformats were then acquired through the thorax. For radiation dose reduction, the follo wing was used: automated exposure control, adjustment of mA and/or kV according to patient size. COMPARISON: [facility], [place], CR, XR CHEST 2V AP/PA AND LAT, 05/07/2016, 4:19 PM. [facility], CR, XR CHEST 1VW (PORTABLE), 08/31/2016, 2:07. [facility], CR, XR CHEST 1VW (PORTABLE), 09/01/2016, 4:37. [facility], [place], CT, CHEST WITH CONTRAST, 05/09/2013, 8:27. FINDINGS: Image quality: Excellent. Pulmonary arteries: Pulmonary arteries are normal in size, and demonstrate no intraluminal filling d efects to suggest central pulmonary embolism. Lungs and pleura: The there are small bilateral low density pleural effusions and compressive atelect asis or consolidation at the bilateral lung bases. There is diffuse interlobular septal thickening co nsistent with pulmonary edema. Mediastinum: There is marked cardiomegaly. No pericardial effusion. Dense atheromatous calcifications are present throughout the coronary vasculature. Patient is status post aortic valve replacement. Th ere is a 1.7 x 1.2 cm hypodense mass within the right atrium (series 4, image 73). Similarly, a hypod ense 1.4 x 3.4 cm mass is present within the left atrium (series 4, image 69). No mediastinal or amanda r adenopathy. Thoracic aorta is normal in caliber and enhancement. Scattered atheromatous calcificati ons are present within the aortic arch. Esophagus is normal in caliber, without hiatal hernia. An N G tube is present within the esophagus, the tip of which is not visualized in the gastric fundus. The patient is intubated. Bones and chest wall: No suspicious bony lesions. Ribs and thoracic spine appear intact throughout. Thyroid gland is unremarkable. No axillary or supraclavicular adenopathy. There is a right PICC, the tip of which is at the cavoatrial junction. Abdomen: Visualized upper abdominal solid organs appear normal in the early arterial phase of enhanc ement. IMPRESSION: 1. No acute pulmonary embolus. 2. Masslike filling defects within the bilateral atria. Differential considerations include atrial th rombus versus atrial masses (i.e. atrial myxoma). 3. Small bilateral pleural effusions and compressive atelectasis or consolidation at the lung bases. 4. Pulmonary edema. In conjunction with pleural effusions and cardiomegaly, these findings suggest co ngestive failure. These findings were discussed with Dr. Almodovar at 3:13 PM on 09/01/16. Dictated by: Nehal Hillman M.D. on 09/01/2016 at 15:17 Approved by: Nehal Hillman M.D. on 09/01/2016 at 15:17
--- NOTE | 2016-09-01 16:57 | PROG NOTE ---
[address] [address] PROGRESS NOTE PATIENT: HAILEE MELLO : 1930 MR#: [id number] ADMIT: 08/29/2016 JOB ID: [id number] DATE: #[id number] PULMONARY CRITICAL CARE PROGRESS NOTE: SUBJECTIVE: The patient is an 86-year-old man with history of atrial fibrillation, coronary artery disease, and bioprosthetic aortic valve replacement admitted to the hospital with acute respiratory failure and uncontrolled atrial fibrillation/bradycardia. The patient was seen and evaluated with resident physician, Dr. [place] Regan. Refer to his separate detailed note for additional information. The following is an addendum. INTERVAL HISTORY: No acute overnight events. REVIEW OF SYSTEMS: Unable to obtain since the patient is intubated. PHYSICAL EXAMINATION: Vital signs reviewed. He is on 28% FiO2 on the vent. General: Intubated, sedated unresponsive. Chest: Clear to auscultation. He has diffuse anasarca. LABORATORIES: Reviewed. Creatinine notable at 1.45 today. ASSESSMENT: 1. Acute hypoxic respiratory failure. 2. Atrial fibrillation/bradycardia. 3. Acute on chronic kidney injury. 4. Atrial thrombi detected on CT pulmonary angiogram. 5. Bioprosthetic aortic valve. 6. History of falls and dementia. RECOMMENDATIONS: This 86-year-old man with history of atrial fibrillation previously thought not to be a candidate for anticoagulation is presenting with acute respiratory arrest and episodes of bradycardia with atrial fibrillation. He had a CT pulmonary angiogram done today looking for PE but interestingly this showed large blood clots in the right and left atrium which were not visualized on his echo. Despite this, there is no evidence of PE or strokes on his head CT. Will discuss with Cardiology and see how this changes management. At this time He is on a heparin drip He failed a spontaneous breathing trial with apnea today. He has been on significant doses of sedatives because of agitation in the past but today he is quite unresponsive so we will cut back on his fentanyl and leave the propofol be He is on appropriate GI prophylaxis and he is getting a heparin drip which covers DVT prophylaxis. Findings were discussed with his family. TIME: Critical care time 45 minutes.
--- NOTE | 2016-09-01 18:20 | PCM.PNMED ---
Subjective Date of Service Sep 01, 2016 Subjective This is an 86-year-old male who has a history of congestive heart failure coronary artery disease who presents to the emergency room after being found unresponsive by his . His is at the bedside in gives a fairly good history. She notes that he had been taking some garbage cans outside and came back in and was found slumped over in the chair she had just seen him a few minutes prior without any issues he was noted to be cyanotic said that he did have a palpable pulse and she did call 911 was called. He was may be unresponsive and agonal for about 11 minutes per 's report per ER MDs report. Mass noted his heart rate was 1:30 blood pressure was 208/124 and agonal breathing he was given succinylcholine, etomidate and was intubated was also given Versed en route to the emergency room. does note that he was having some intermittent chest pain over the past week.He does have sublingual nitroglycerin took that with good response at those times. He does according to the have some baseline dyspnea with walking. He also does have some baseline renal insufficiency per his . His evaluation here initially included a temperature to be afebrile. White count was 15.7 with 39% polys 41% lymphs. BUN 38 creatinine 2.01 with a calculated GFR of 34. He was found to have a troponin of 0.016. Lactic acid level was 6.2. Bicarbonate was 19. EEG showed A. fib at a rate of [address] segment depressions in 1 aVL V5 V6 with T-wave changes noted. CT of head without contrast was done and revealed no acute intracranial abnormalities. There was mild periventricular and deep white matter chronic small vessel ischemic changes noted. 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 As well as probable nonacute ischemic insult of the left frontal lobe. Patient previously had been on warfarin for his chronic atrial fibrillation however that was stopped as he had been having chronic falls. Chest x-ray revealed endotracheal tube was in expected position and decreased lung volumes with bronchovascular crowding possible superimposed bilateral perihilar pulmonary edema or aspiration noted. Cardiomegaly as previously noted. Overnight Events: Febrile overnight. Today: Patient remains intubated and sedated. Exam Vital Signs Vital Sign - Last Date Time Temp Pulse Resp B/P Pulse Ox O2 Delivery O2 Flow Rate FiO2 09/01/16 17:05 87 131/62 97 28 09/01/16 12:30 36.6 16 Mechanical Ventilator Intake and Output 08/31/16 08/31/16 09/01/16 Cumulative From/Thru 15:00 23:00 07:00 08/29/16 00:00 - 09/01/16 05:02 Intake Total 1952 ml 2516 ml 95299 ml Output Total 875 ml 450 ml 3785 ml Balance 1077 ml 2066 ml 7175 ml Intake IV Total 1912 ml 2310 ml 45246 ml Tube Feeding 106 ml 106 ml Tube Irrigant 40 ml 100 ml 140 ml Output Urine Total 750 ml 450 ml 3600 ml Gastric Drainage Total 125 ml 0 ml 185 ml # Bowel Movements 0 1 Exam General: Intubated and sedated. HEENT: Normocephalic, atraumatic. External ears without defect. Pupils equal, round, and reactive to light and accommodation. Anicteric sclerae, moist conjunctivae, and no lid lag. Oropharynx free of erythema and cobble stoning with moist mucosa. Neck: Supple with full range of motion. No jugular venous distension. No bruits. No lymphadenopathy or thyromegaly. Cardiovascular: Regular rate and rhythm with no murmurs, rubs, or gallops appreciated Pulmonary: Clear to auscultation bilaterally with no crackles, wheezes, or rhonchi. Normal respiratory effort with no use of accessory muscles. Abdomen: Bowel tones present. Soft, nontender, nondistended. No hepatosplenomegaly or masses appreciated. Extremities: No clubbing, cyanosis, edema, or lymphadenopathy appreciated. Skin: Normal temperature, turgor, and texture; no rash, ulcers, or subcutaneous nodules appreciated. Neurological: Intubated and sedated. Psychiatric: Intubated and sedated. IVs and Medications Medications Reviewed: Medications were reviewed in detail Lab and Diagnostics Result Diagram: 09/01/1634409/01/16344 X-Rays, CTs and MRIs CT ANGIO CHEST PULMONARY EMBOLISM IMPRESSION: 1. No acute pulmonary embolus. 2. Masslike filling defects within the bilateral atria. Differential considerations include atrial thrombus versus atrial masses (i.e. atrial myxoma) . 3. Small bilateral pleural effusions and compressive atelectasis or consolidation at the lung bases. 4. Pulmonary edema. In conjunction with pleural effusions and cardiomegaly, these findings suggest congestive failure. These findings were discussed with Dr. Brown at 3:13 PM on 09/01/16. Dictated by: Nehal Hillman M.D. on 09/01/2016 at 15:17 X-RAY CHEST ONE VIEW, PORTABLE IMPRESSION: 1. Improved aeration at the lung bases when compared with the prior study suggesting decreased atelectasis. 2. Probable unchanged left pleural effusion. 3. Interstitial prominence suggesting fluid overload. Dictated by: Nehal Hillman M.D. on 08/30/2016 at 9:30 US VENOUS LEG DUPLEX BILATERAL FINDINGS: The deep veins are normally compressible, and free of intraluminal thrombus. Color and pulse Doppler demonstrate normal phasic intravascular flow. There is normal augmentation response to distal compression maneuver. IMPRESSION: No DVT in the lower extremities. X-RAY CHEST ONE VIEW, PORTABLE IMPRESSION: 1. Endotracheal tube is in expected position. 2. Decreased lung volumes, with bronchovascular crowding. Possible superimposed bilateral perihilar pulmonary edema or aspiration. 3. Cardiomegaly as before. Dictated by: Vadim Kelsey M.D. on 08/29/2016 at 20:14 CT BRAIN IMPRESSION: 1. No acute intracranial abnormalities. Mild periventricular and deep white matter chronic small vessel ischemic change. 2. Nonacute bilateral cerebellar hemispheric small infarcts, as well as probable nonacute ischemic insult of the left frontal lobe as before. This study fulfills neurological imaging criteria for inclusion or exclusion of acute stroke therapies based on available published neurological guidelines. Dictated by: Vadim Kelsey M.D. on 08/29/2016 at 20:08 12-lead ECG Atrial fibrillation at a rate of 55 with a QTC of 432. Does have ST segment sagging depressions in 1 to aVF V3 to be 6 particularly more profound laterally also with poor R-wave progression across the precordium. Cardiac Echo Impressions ECHO Interpretation Summary The patient was in atrial fibrillation with heart rates between 45-50 bpm during the exam. The left ventricle is normal in size. The ejection fraction is estimated to be 55-60%. There are no focal wall motion abnormalities. There is a bioprosthetic aortic valve. The prosthetic aortic valve function is normal. Right ventricular systolic pressure is estimated to be 30 mmHg plus the clinically estimated CVP which cannot be estimated on this exam. No other echocardiographic abnormalities seen. Additional Diagnostics [facility] DateTimeAnalyzed 05:17:00 -_ pH ____7.298 - 7.350 7.450 pCO2 ___43.2__ -mmHg 35.0 45.0 pO2 ___76.3__ -mmHg 69.0 116 HCO3- ___20.5__ -mmol/L 22.0 26.0 [facility] DateTimeAnalyzed 20:50:00 -_ pH ____7.363 - 7.350 7.450 pCO2 ___35.1__ -mmHg 35.0 45.0 pO2 ___77.2__ -mmHg 69.0 116 HCO3- ___19.5__ -mmol/L 22.0 26.0 [facility] DateTimeAnalyzed 05:07:00 -_ pH ____7.431 - 7.350 7.450 pCO2 ___32.1__ -mmHg 35.0 45.0 pO2 ___81.5__ -mmHg 69.0 116 HCO3- ___21.0__ -mmol/L 22.0 26.0 Assessment & Plan This is a 86 year old male with history of CHF, CAD s/p CABG in 2003, aortic stenosis s/p AVR in 2003, CKD stage III, DM type II who presented after acute respiratory failure and intubation in field: 1. Acute respiratory failure with severe hypoxia requiring intubation, present on admission. Active. - Vent: FiO2 28, PEEP 5m RR 16, Tv 500. ABG on 08/31/2015: Ph 7.431, PCO2 32.1 , PO2 87.5, HCO3 26. - Intubated in field. Sedation with propofol and fentanyl. - Possibly aspiration pna. - IV propofol when necessary agitation. - WBC 15.7 on admission, currently 9.1. - Respiratory viral PCR negative. - Legionella and strep pneumo ag negative. - MRSA negative. - Procalcitonin negative. - Sputum cx no growth. - Venous US lower extremities results per above. - IV Zosyn and IV Azithromycin. - ICU / Pulmonology consulted, time and recommendations appreciated. - Daily sedation vacation and SBT's. - Vent: FiO2 .28, PEEP 5m RR 16, Tv 500. ABG on 08/31/2015: Ph 7.295, PCO2 43.2 , PO2 36.3, HCO3 20. - Febrile on 08/31/2016: urine culture, blood culture, sputum culture, procalcitonin, lactic acid pending. 2. Probable arrhythmia in setting of chronic atrial fibrillation with syncopal episode. - Precipitating event was likely arrhythmia from afib with slow ventricular response, ischemia, run of vtach. - EKG shows atrial fibrillation. - CT Brain results per above. - CKMB pending. - Patient heart rate in the 40's-50;s. He is on metoprolol at home and this has been held in the hospital. 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 - He is on heparin PE protocol. Due to HALLIE on CKD we have not been able to obtain CT angio of chest. - U/S of lower extremities was negative. 3. Possible pulmonary embolism, present on admission, Active. - Currently on PE heparin ggt. - Due to being fall risk ruling out PE would be beneficial as correction anticoagulation would be difficult in this patient. - He may need a IVC filter due to being a fall risk. - CT angio of chest results per above. 4. Lactic acidosis, present on admission. Resolved. - Most likely secondary to acute hypoxia. - Lactic acid upon admission 6.2, Currently 1.4. 5. Acute kidney injury, present on admission. Active. - Cr 2.01, currently 1.51-Baseline creatinine in 04/2016 1.68. - Monitor UOP and Cre. - Avoid Nephrotoxic Insults. - IV NS discontinued 6. NSTEMI, present on admission. Active. - TrendingTroponins - 0.016, 0.056, 0.037, currently 0.018 - EKG - Afib with Bradycardia. - Likely demand ischemia. - On tele monitoring. - On PE heparin ggt. - Cardiology consulted and does not feel the patient is appropriate candidate for cath will manage medically. 7. Atrial fibrillation, present on admission. Active. 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 - Holding Home metoprolol 25mg PO BID - Not on home antiplatelet or anticoagulation. - TSH and T4, subclinical hypothyroid. Acetaminophen for mild pain when necessary. Bowel regimen Senna and MiraLAX scheduled and PRN. Zofran when necessary for nausea and vomiting. SubQ heparin and heparin ggt for now. SCDs in place. High-risk medications: IV Fentanyl. Heparin ggt. IV Versed. IV Midazolam. Disposition: Likely here >2 days due to respiratory failure. Pain Evaluation: Adequate Pain Control GI Prophylaxis: H2 amelia VTE Prophylaxis: Other (Will place on therapeutic DVT IV heparin drip for possible PE) VTE Mechanical Devices: Intermittant Pneumatic CD Resuscitation Status: CPR: Attempt Resuscitation Attending Statement The patient was seen and examined together with Dr. Brown on 09-01-16 and I agree with the history, exam and plan as outlined in the note above. JOSE MARTIN BROWN DO Sep 01, 2016 18:12 Chata Butterfield MD Sep 02, 2016 08:16
--- NOTE | 2016-09-01 18:47 | NUR ---
Respiratory/Heparin Vent settings remain the same as previous shift, see RT charting. Pt did not take a breath during PST. Current sedation: Fentanyl 40mcg/hr, [id number]/kg/min. RASS -3 to -4. PTT 44.7, 25units/kg bolus given and rate increased to 17units/kg/hr. Next draw at 1900.
--- NOTE | 2016-09-01 22:18 | PCM.PNMED ---
Subjective Date of Service Sep 01, 2016 Subjective Pulmonology/ICU progress note: This is a 86 year old male with history significant for atrial fibrillation not on chronic warfarin due to fall risk, CAD s/p CABG in 2003, aortic stenosis s/p bioprosthetic valve replacement in 2003, dementia, chronic back pain on chronic opiates, CKD stage III, DM type II, and systolic CHF on home O2 at night who presents after acute respiratory failure and intubation in the field. Patient remains intubated and sedated. Patient was febrile overnight with Tmax 38.4c. ROS not obtainable. Exam Vital Signs Vital Sign - Last Date Time Temp Pulse Resp B/P Pulse Ox O2 Delivery O2 Flow Rate FiO2 09/01/16 08:15 87 128/68 97 28 09/01/16 03:37 Ventilator 09/01/16 03:37 37.0 16 Intake and Output 08/31/16 08/31/16 09/01/16 Cumulative From/Thru 15:00 23:00 07:00 08/29/16 00:00 - 09/01/16 05:02 Intake Total 1952 ml 2516 ml 97668 ml Output Total 875 ml 450 ml 3785 ml Balance 1077 ml 2066 ml 7175 ml Intake IV Total 1912 ml 2310 ml 68931 ml Tube Feeding 106 ml 106 ml Tube Irrigant 40 ml 100 ml 140 ml Output Urine Total 750 ml 450 ml 3600 ml Gastric Drainage Total 125 ml 0 ml 185 ml # Bowel Movements 0 1 Exam General: Other (Intubated and sedated.) Head: Normal, Skull Deformity, Tenderness Eyes: PERRLA, Scleral Anicteric Neck: Supple, Other (No masses) Chest & Lungs: Other (Course breath sounds bilaterally.) Cardiovascular: Other (Irregularly irregular) Abdomen: Non-tender, Non-distended, No hepatosplenomegaly, Normoactive bowel tones Extremities: Other (Trace edema bilaterally in lower extremity.) Additional Information: Psychiatric: patient is intubated and sedated. Lab and Diagnostics Result Diagram: 09/01/1634409/01/16344 X-Rays, CTs and MRIs X-RAY CHEST ONE VIEW, PORTABLE IMPRESSION: 1. Improved aeration at the lung bases when compared with the prior study suggesting decreased atelectasis. 2. Probable unchanged left pleural effusion. 3. Interstitial prominence suggesting fluid overload. Dictated by: Nehal Hillman M.D. on 08/30/2016 at 9:30 US VENOUS LEG DUPLEX BILATERAL FINDINGS: The deep veins are normally compressible, and free of intraluminal thrombus. Color and pulse Doppler demonstrate normal phasic intravascular flow. There is normal augmentation response to distal compression maneuver. IMPRESSION: No DVT in the lower extremities. X-RAY CHEST ONE VIEW, PORTABLE IMPRESSION: 1. Endotracheal tube is in expected position. 2. Decreased lung volumes, with bronchovascular crowding. Possible superimposed bilateral perihilar pulmonary edema or aspiration. 3. Cardiomegaly as before. Dictated by: Vadim Kelsey M.D. on 08/29/2016 at 20:14 CT BRAIN IMPRESSION: 1. No acute intracranial abnormalities. Mild periventricular and deep white matter chronic small vessel ischemic change. 2. Nonacute bilateral cerebellar hemispheric small infarcts, as well as probable nonacute ischemic insult of the left frontal lobe as before. This study fulfills neurological imaging criteria for inclusion or exclusion of acute stroke therapies based on available published neurological guidelines. Dictated by: Vadim Kelsey M.D. on 08/29/2016 at 20:08 12-lead ECG Atrial fibrillation at a rate of 55 with a QTC of 432. Does have ST segment sagging depressions in 1 to aVF V3 to be 6 particularly more profound laterally also with poor R-wave progression across the precordium. Cardiac Echo Impressions ECHO Interpretation Summary The patient was in atrial fibrillation with heart rates between 45-50 bpm during the exam. The left ventricle is normal in size. The ejection fraction is estimated to be 55-60%. There are no focal wall motion abnormalities. There is a bioprosthetic aortic valve. The prosthetic aortic valve function is normal. Right ventricular systolic pressure is estimated to be 30 mmHg plus the clinically estimated CVP which cannot be estimated on this exam. No other echocardiographic abnormalities seen. Additional Diagnostics [facility] DateTimeAnalyzed 20:50:00 -_ pH ____7.363 - 7.350 7.450 pCO2 ___35.1__ -mmHg 35.0 45.0 pO2 ___77.2__ -mmHg 69.0 116 HCO3- ___19.5__ -mmol/L 22.0 26.0 [facility] DateTimeAnalyzed 05:07:00 -_ pH ____7.431 - 7.350 7.450 pCO2 ___32.1__ -mmHg 35.0 45.0 pO2 ___81.5__ -mmHg 69.0 116 HCO3- ___21.0__ -mmol/L 22.0 26.0 Assessment & Plan This is a 86 year old male with history of CHF, CAD s/p CABG in 2003, aortic stenosis s/p AVR in 2003, CKD stage III, DM type II who presented after acute respiratory failure and intubation in field: Acute respiratory failure: -Vent: FiO2 .28, PEEP 5m RR 16, Tv 500. -Intubated in field. Sedation with propofol and fentanyl. Will try to wean off sedation today. -Possible aspiration pneumonia: Currently on Zosyn (Day 4). -Febrile on 08/31/2016: urine culture, blood culture, sputum culture, procalcitonin, lactic acid pending. Probable arrhythmia in setting of chronic atrial fibrillation: -Precipitating event was likely arrhythmia from afib with slow ventricular response, ischemia, run of vtach. -EKG shows atrial fibrillation. -Patient heart rate in the 40's-50;s. He is on metoprolol at home and this has been held in the hospital. 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 -He is not on anticoagulation due to being a fall risk. -He is on heparin PE protocol. Due to HALLIE on CKD we have not been able to obtain CT angio of chest. U/S of lower extremities was negative. - CT angio of chest to r/o PE today. The patient is at high risk for PE. Due to being fall risk ruling out PE would be beneficial as residential anticoagulation would be difficult in this patient. He may need a IVC filter due to being a fall risk. History of CHF: -Echocardiogram showed EF of 55-60% with intact bioprosthetic valve. No right ventricular strain noted. Elevated troponin: -Troponin trend: .016-->.056-->.037-->.026. Possible NSTEMI. Patient is on heparin. -Cardiology consulted and does not feel the patient is appropriate candidate for cath. Once patient wakes up they will discuss pacemaker. Acute kidney injury on chronic kidney disease: -Baseline creatinine in 04/2016 1.68. ON 09/01/2015 Creatinine 1.45. -Continue to follow with BMP's. -As kidney function has improved we have stopped NS. Lactic acidosis, resolved: -Lactic acid on 08/30/2016 1.4. -Repeat lactic acid pending. GI Prophylaxis: H2 amelia VTE Prophylaxis: Other (Will place on therapeutic DVT IV heparin drip for possible PE) VTE Mechanical Devices: Intermittant Pneumatic CD Resuscitation Status: CPR: Attempt Resuscitation Attending Statement I have seen and examined this patient with the resident physician. Vital signs , labs, imaging have been reviewed. I agree with the assessment and plan above. Please refer to my separately dictated progress note for any modifications to above. Effie Dee M.D. Pulmonary and Critical Care medicine Pager [phone] [place] Regan DO Sep 01, 2016 11:33 Effie Dee MD Sep 02, 2016 14:44
[2016-09-02] VITALS (12 sets, daily range): BP systolic 89–124; BP diastolic 53–66; PULSE 83–94; RESP 16; O2SAT 96–100
[2016-09-02] MEDS: Propofol Inj 1,000,000 MCG in IV Premix 1 EACH IV SCH ×3 (00:38→16:26)
[2016-09-02] MEDS ORDERED: 0.9% Sodium Chloride 100 ML ONE (02:14)
[2016-09-02] MEDS: Heparin 25K Unit/500mL 0.45 NS 25,000 UNIT in IV Premix 1 EACH IV SCH ×2 (02:22→21:47)
[2016-09-02] MEDS: fentaNYL 2,500 mCg/250 mL 2,500 MCG in IV Premix 1 EACH IV PRN (02:23)
--- NOTE | 2016-09-02 05:26 | ABG ---
DateTimeAnalyzed 05:21:00 -_ pH ____7.358 - 7.350 7.450 pCO2 ___37.5__ -mmHg 35.0 45.0 pO2 ___73.3__ -mmHg 69.0 116 HCO3- ___20.6__ -mmol/L 22.0 26.0 ABE ___-3.9__ -mmol/L -2.0 2.0 tHb ___11.4__ -g/dL O2Hb ___92.3__ -% COHb ____1.7__ -% MetHb ____0.9__ -% sO2 ___94.8__ -% 25.0 FIO2 ___28.0__ -% PRVC 16 - PEEP ____5.0__ -cmH2O Vt __500.0__ -L Drawn By blf - Date/Time Notified____ 05:25:00 -_ Spontaneous_RR ___16.0__ -b/min Oxygen Device 1 VENTILATOR - Notified By MECHE MIRELES RN - Notified Whom BLF - B 759 -mmHg tO2 ___14.9__ -Vol% Rafa test N/A -
[2016-09-02] MEDS: Chlorhexidine 0.12% 15 mL Oral Solution MT SCH ×5 (05:51→21:14)
[2016-09-02 06:19] LABS: BASOPHILS % (AUTO) 0.4 % (0-3); EOSINOPHILS % (AUTO) 5.1 % (0-5); MONOCYTES % (AUTO) 13.5 % (4-12); Mean Corpuscular Hemoglobin 30.9 pg (27.0-35.0); NEUTROPHILS % (AUTO) 70.4 % (40-74); Platelet Count 101 bil/L (150-400)
--- NOTE | 2016-09-02 06:26 | NUR ---
Respiratory/Heparin low grade temp Tmax 37.9C, applied cooling measures, last temp down to 37.0 C continued on vent support, tapered propofol gtt, on fentanyl gtts RASS -2 to -3. Am abg w/ pH 7.36, pc02 38, p02 73, hc03 21. Heparin gtt @ 14 units/kg/hr, last PTT 82, next PTT in am, no signs of bleeding.
[2016-09-02 06:44] LABS: Magnesium 1.7 mg/dL (1.6-2.6); Phosphorus 3.2 mg/dL (2.5-4.9)
[2016-09-02] MEDS: Senna Leaf Extract 528 mg/15 mL Syrup PO SCH ×2 (07:11→19:28)
[2016-09-02] MEDS: Famotidine Inj 50 ML IV SCH ×2 (08:03→21:14)
[2016-09-02] MEDS ORDERED: Furosemide 10 mg/mL 2 mL Inj IVPUSH SCH (08:30)
[2016-09-02] MEDS: KCl 40 mEq/100 mL Premix (K 3 - 3.7 & Creat < 2) IV ONE ×2 (08:58→09:17)
--- NOTE | 2016-09-02 08:59 | DRSVH ---
PROCEDURE: X-RAY CHEST ONE VIEW, PORTABLE ([id number]) INDICATIONS: On vent TECHNIQUE: One view of the chest was acquired. COMPARISON: 09/01/2016 FINDINGS: Surgical changes and devices: Median sternotomy. Valve replacement. Nasogastric tube below the diaphr agm. Endotracheal tube above the kristen. Right-sided PICC line overlies the SVC.. Lungs and pleura: No pleural effusions or pneumothorax. Suggestion of fluid overload or other source of pulmonary edema on prior study is improved. Bibasilar atelectasis/infiltrate remains. Mediastinum: Mediastinal contours appear normal. Heart size is normal. Bones and chest wall: No suspicious bony lesions. Overlying soft tissues appear unremarkable. IMPRESSION: 1. Interval improvement with apparent decrease in pulmonary edema. Low volume bilateral atelectasis a nd possible infiltrate remains. Support tubes as noted. Dictated by: Jasper Dumont M.D. on 09/02/2016 at 8:57 Approved by: Jasper Dumont M.D. on 09/02/2016 at 8:57
[2016-09-02] MEDS ORDERED: Furosemide 10 mg/mL 4 mL Inj IVPUSH ONE ×2 (10:50→17:30)
--- NOTE | 2016-09-02 12:53 | PROG NOTE ---
[address] [address] PROGRESS NOTE PATIENT: HAILEE MELLO : 1930 MR#: [id number] ADMIT: 08/29/2016 JOB ID: [id number] DATE: 09/02/2016 PULMONARY CRITICAL CARE PROGRESS NOTE: The patient was seen and evaluated with resident physician, Dr. [place] Regan. Refer to his separate detailed note for additional information. The following is an addendum. The patient is an 86-year-old man with history of atrial fibrillation, coronary artery disease, and bioprosthetic aortic valve, admitted to the hospital with acute respiratory failure and uncontrolled atrial fibrillation/bradycardia. He was found to have large interatrial clots in both left and right atrium yesterday. INTERVAL HISTORY: As above his CT pulmonary angiogram showed bi-atrial clots. He was apneic yesterday on his SBT and his sedation was weaned down. REVIEW OF SYSTEMS: Unable to obtain. PHYSICAL EXAMINATION: T-max of 38, pulse 83, he is on 28% FiO2 on the vent. General: Intubated and sedated, but opens his eyes. Does not follow commands to voice. Chest: Clear to auscultation. LABORATORIES: Reviewed. Creatinine 1.46, stable. IMAGING: Chest x-ray is unchanged. Shows bilateral patchy infiltrates and evidence of pulmonary edema/vascular congestion. ASSESSMENT: 1. Acute hypoxic respiratory failure. 2. Atrial fibrillation/bradycardia. 3. Acute on chronic kidney injury. 4. Atrial thrombi detected on CT pulmonary angiogram. 5. Bioprosthetic aortic valve. 6. History of falls and dementia. RECOMMENDATIONS: An 86-year-old man with history of AFIB, previously not thought to be a candidate for anticoagulation because of history of recurrent falls, presenting with acute respiratory arrest and episodes of bradycardia with AFIB, as well as new finding of bi-atrial thrombi on CT scan. He is on a heparin drip currently and will defer to Cardiology regarding further management for AFIB/atrial thrombi. From a respiratory standpoint, he is doing reasonably well on a pressure support trial today with weaning of his Fentanyl. He is on pressure support of 8/5, pulling good tidal volumes. We held off on diuresis yesterday because he had just received a contrast load for the CT scan, but today he has gotten a dose of Lasix 20 mg IV. Response to this was pretty limited and I suspect he needs a higher dose of Lasix with his creatinine being closer to 1.5. We will repeat a dose of 40 mg IV of Lasix and see if this helps. I am hopeful that if we can get some volume off that he would pass a spontaneous breathing trial and be able to be extubated. He is getting tube feeds. He is on heparin drip as above and GI prophylaxis. TIME: Critical care time 50 minutes.
[2016-09-02] MEDS ORDERED: 0.9% Sodium Chloride 250 ML ONE (17:37)
--- NOTE | 2016-09-02 18:13 | PCM.PNMED ---
Subjective Date of Service Sep 02, 2016 Subjective Pulmonology/ICU progress note: This is a 86 year old male with history significant for atrial fibrillation not on chronic warfarin due to fall risk, CAD s/p CABG in 2003, aortic stenosis s/p bioprosthetic valve replacement in 2003, dementia, chronic back pain on chronic opiates, CKD stage III, DM type II, and systolic CHF on home O2 at night who presents after acute respiratory failure and intubation in the field. Patient remains intubated and sedated. Patient was febrile on 09/01/2015 Tmax 38.4c. He has since been afebrile. ROS not obtainable. Exam Vital Signs Vital Sign - Last Date Time Temp Pulse Resp B/P Pulse Ox O2 Delivery O2 Flow Rate FiO2 09/02/16 07:52 85 114/57 98 28 09/02/16 04:23 37.9 16 Mechanical Ventilator Intake and Output 09/01/16 09/01/16 09/02/16 Cumulative From/Thru 15:00 23:00 07:00 08/29/16 00:00 - 09/02/16 06:05 Intake Total 1981 ml 1635 ml 54322 ml Output Total 475 ml 375 ml 4635 ml Balance 1506 ml 1260 ml 9941 ml Intake IV Total 1353 ml 739 ml 39458 ml Tube Feeding 297 ml 491 ml 894 ml Tube Irrigant 331 ml 405 ml 876 ml Output Urine Total 475 ml 375 ml 4450 ml Gastric Drainage Total 0 ml 0 ml 185 ml # Bowel Movements 0 1 2 Exam General: Other (Intubated and sedated). He is opening his eyes. Head: Normal, Skull Deformity, Tenderness Eyes: PERRLA, Scleral Anicteric Neck: Supple, Other (No masses) Chest & Lungs: Other (Course breath sounds bilaterally.) Cardiovascular: Other (Irregularly irregular) Abdomen: Non-tender, Non-distended, No hepatosplenomegaly, Normoactive bowel tones Extremities: Other (Trace edema bilaterally in lower extremity.) Neurological: He does open his eyes to name. Additional Information: Psychiatric: patient is intubated and sedated. Lab and Diagnostics Result Diagram: 09/02/16 0550 09/02/16 0550 X-Rays, CTs and MRIs X-RAY CHEST ONE VIEW, PORTABLE IMPRESSION: 1. Improved aeration at the lung bases when compared with the prior study suggesting decreased atelectasis. 2. Probable unchanged left pleural effusion. 3. Interstitial prominence suggesting fluid overload. Dictated by: Nehal Hillman M.D. on 08/30/2016 at 9:30 US VENOUS LEG DUPLEX BILATERAL FINDINGS: The deep veins are normally compressible, and free of intraluminal thrombus. Color and pulse Doppler demonstrate normal phasic intravascular flow. There is normal augmentation response to distal compression maneuver. IMPRESSION: No DVT in the lower extremities. X-RAY CHEST ONE VIEW, PORTABLE IMPRESSION: 1. Endotracheal tube is in expected position. 2. Decreased lung volumes, with bronchovascular crowding. Possible superimposed bilateral perihilar pulmonary edema or aspiration. 3. Cardiomegaly as before. Dictated by: Vadim Kelsey M.D. on 08/29/2016 at 20:14 CT BRAIN IMPRESSION: 1. No acute intracranial abnormalities. Mild periventricular and deep white matter chronic small vessel ischemic change. 2. Nonacute bilateral cerebellar hemispheric small infarcts, as well as probable nonacute ischemic insult of the left frontal lobe as before. This study fulfills neurological imaging criteria for inclusion or exclusion of acute stroke therapies based on available published neurological guidelines. Dictated by: Vadim Kelsey M.D. on 08/29/2016 at 20:08 12-lead ECG Atrial fibrillation at a rate of 55 with a QTC of 432. Does have ST segment sagging depressions in 1 to aVF V3 to be 6 particularly more profound laterally also with poor R-wave progression across the precordium. Cardiac Echo Impressions ECHO Interpretation Summary The patient was in atrial fibrillation with heart rates between 45-50 bpm during the exam. The left ventricle is normal in size. The ejection fraction is estimated to be 55-60%. There are no focal wall motion abnormalities. There is a bioprosthetic aortic valve. The prosthetic aortic valve function is normal. Right ventricular systolic pressure is estimated to be 30 mmHg plus the clinically estimated CVP which cannot be estimated on this exam. No other echocardiographic abnormalities seen. Additional Diagnostics [facility] DateTimeAnalyzed 20:50:00 -_ pH ____7.363 - 7.350 7.450 pCO2 ___35.1__ -mmHg 35.0 45.0 pO2 ___77.2__ -mmHg 69.0 116 HCO3- ___19.5__ -mmol/L 22.0 26.0 [facility] DateTimeAnalyzed 05:07:00 -_ pH ____7.431 - 7.350 7.450 pCO2 ___32.1__ -mmHg 35.0 45.0 pO2 ___81.5__ -mmHg 69.0 116 HCO3- ___21.0__ -mmol/L 22.0 26.0 Assessment & Plan This is a 86 year old male with history of CHF, CAD s/p CABG in 2003, aortic stenosis s/p AVR in 2003, CKD stage III, DM type II who presented after acute respiratory failure and intubation in field: Acute respiratory failure: -Vent: FiO2 .28, PEEP 5m RR 16, Tv 500. -Bilateral pleural effusion on CT angio of chest. -Intubated in field. Sedation with propofol and fentanyl. Will try to wean off fentanyl today as patient was apneic during SBT yesterday. -Procalcitonin returned within normal limits. No elevation in WBC. Stopped zosyn after patient received 4 days. -Febrile on 08/31/2016 Probable arrhythmia in setting of chronic atrial fibrillation: -Precipitating event was likely arrhythmia from afib with slow ventricular response, ischemia, run of vtach. -EKG shows atrial fibrillation. -He is on metoprolol at home and this has been held in the hospital. 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 With new finding of atrial thrombi it is doubtful a pacemaker could be placed. -He is not on anticoagulation due to being a fall risk. -Continues on heparin PE protocol. Bilateral atrial thrombi: -Continues on heparin. -Will need to discuss half-way anticoagulation with family and patient as he is a fall risk and was previously taken off anticoagulation for his atrial fibrillation due to this. History of CHF: -Echocardiogram showed EF of 55-60% with intact bioprosthetic valve. No right ventricular strain noted. FEN: -Patient is +10 liters. -Lasix 20mg IV BID. Will monitor electrolytes closely. Elevated troponin: -Troponin trend: .016-->.056-->.037-->.026. Possible NSTEMI. Patient is on heparin. -Cardiology consulted and does not feel the patient is appropriate candidate for cath. Acute kidney injury on chronic kidney disease: -Baseline creatinine in 04/2016 1.68. ON 09/02/2015 Creatinine 1.46. -Continue to follow with BMP's. -As kidney function has improved we have stopped NS. Lactic acidosis, resolved: -Lactic acid on 08/30/2016 1.4. -Repeat lactic acid pending. GI Prophylaxis: H2 amelia VTE Prophylaxis: Other (Will place on therapeutic DVT IV heparin drip for possible PE) VTE Mechanical Devices: Intermittant Pneumatic CD Resuscitation Status: CPR: Attempt Resuscitation Attending Statement I have seen and examined this patient with the resident physician. Vital signs , labs, imaging have been reviewed. I agree with the assessment and plan above. Please refer to my separately dictated progress note for any modifications to above. Effie Dee M.D. Pulmonary and Critical Care medicine Pager [phone] [place] Regan DO Sep 02, 2016 10:07 Effie Dee MD Sep 05, 2016 12:28
--- NOTE | 2016-09-02 21:13 | PCM.PNMED ---
Subjective Date of Service Sep 02, 2016 Subjective This is an 86-year-old male who has a history of congestive heart failure coronary artery disease who presents to the emergency room after being found unresponsive by his . His is at the bedside in gives a fairly good history. She notes that he had been taking some garbage cans outside and came back in and was found slumped over in the chair she had just seen him a few minutes prior without any issues he was noted to be cyanotic said that he did have a palpable pulse and she did call 911 was called. He was may be unresponsive and agonal for about 11 minutes per 's report per ER MDs report. Mass noted his heart rate was 1:30 blood pressure was 208/124 and agonal breathing he was given succinylcholine, etomidate and was intubated was also given Versed en route to the emergency room. does note that he was having some intermittent chest pain over the past week.He does have sublingual nitroglycerin took that with good response at those times. He does according to the have some baseline dyspnea with walking. He also does have some baseline renal insufficiency per his . His evaluation here initially included a temperature to be afebrile. White count was 15.7 with 39% polys 41% lymphs. BUN 38 creatinine 2.01 with a calculated GFR of 34. He was found to have a troponin of 0.016. Lactic acid level was 6.2. Bicarbonate was 19. EEG showed A. fib at a rate of [address] segment depressions in 1 aVL V5 V6 with T-wave changes noted. CT of head without contrast was done and revealed no acute intracranial abnormalities. There was mild periventricular and deep white matter chronic small vessel ischemic changes noted. 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 As well as probable nonacute ischemic insult of the left frontal lobe. Patient previously had been on warfarin for his chronic atrial fibrillation however that was stopped as he had been having chronic falls. Chest x-ray revealed endotracheal tube was in expected position and decreased lung volumes with bronchovascular crowding possible superimposed bilateral perihilar pulmonary edema or aspiration noted. Cardiomegaly as previously noted. Overnight Events: No overnight events. Today: Patient remains intubated and sedated. Exam Vital Signs Vital Sign - Last Date Time Temp Pulse Resp B/P Pulse Ox O2 Delivery O2 Flow Rate FiO2 09/02/16 04:23 37.9 89 16 115/54 96 Mechanical Ventilator 28 Intake and Output 09/01/16 09/01/16 09/02/16 Cumulative From/Thru 15:00 23:00 07:00 08/29/16 00:00 - 09/02/16 06:05 Intake Total 1981 ml 1635 ml 95058 ml Output Total 475 ml 375 ml 4635 ml Balance 1506 ml 1260 ml 9941 ml Intake IV Total 1353 ml 739 ml 51341 ml Tube Feeding 297 ml 491 ml 894 ml Tube Irrigant 331 ml 405 ml 876 ml Output Urine Total 475 ml 375 ml 4450 ml Gastric Drainage Total 0 ml 0 ml 185 ml # Bowel Movements 0 1 2 Exam General: Intubated and sedated. HEENT: Normocephalic, atraumatic. External ears without defect. Pupils equal, round, and reactive to light and accommodation. Anicteric sclerae, moist conjunctivae, and no lid lag. Oropharynx free of erythema and cobble stoning with moist mucosa. Neck: Supple with full range of motion. No jugular venous distension. No bruits. No lymphadenopathy or thyromegaly. Cardiovascular: Regular rate and rhythm with no murmurs, rubs, or gallops appreciated Pulmonary: Clear to auscultation bilaterally with no crackles, wheezes, or rhonchi. Normal respiratory effort with no use of accessory muscles. Abdomen: Bowel tones present. Soft, nontender, nondistended. No hepatosplenomegaly or masses appreciated. Extremities: No clubbing, cyanosis, edema, or lymphadenopathy appreciated. Skin: Normal temperature, turgor, and texture; no rash, ulcers, or subcutaneous nodules appreciated. Neurological: Intubated and sedated. Psychiatric: Intubated and sedated. IVs and Medications Medications Reviewed: Medications were reviewed in detail Lab and Diagnostics Result Diagram: 09/02/16 0550 09/01/16 0345 X-Rays, CTs and MRIs X-RAY CHEST ONE VIEW, PORTABLE IMPRESSION: 1. Improved aeration at the lung bases when compared with the prior study suggesting decreased atelectasis. 2. Probable unchanged left pleural effusion. 3. Interstitial prominence suggesting fluid overload. Dictated by: Nehal Hillman M.D. on 08/30/2016 at 9:30 US VENOUS LEG DUPLEX BILATERAL FINDINGS: The deep veins are normally compressible, and free of intraluminal thrombus. Color and pulse Doppler demonstrate normal phasic intravascular flow. There is normal augmentation response to distal compression maneuver. IMPRESSION: No DVT in the lower extremities. X-RAY CHEST ONE VIEW, PORTABLE IMPRESSION: 1. Endotracheal tube is in expected position. 2. Decreased lung volumes, with bronchovascular crowding. Possible superimposed bilateral perihilar pulmonary edema or aspiration. 3. Cardiomegaly as before. Dictated by: Vadim Kelsey M.D. on 08/29/2016 at 20:14 CT BRAIN IMPRESSION: 1. No acute intracranial abnormalities. Mild periventricular and deep white matter chronic small vessel ischemic change. 2. Nonacute bilateral cerebellar hemispheric small infarcts, as well as probable nonacute ischemic insult of the left frontal lobe as before. This study fulfills neurological imaging criteria for inclusion or exclusion of acute stroke therapies based on available published neurological guidelines. Dictated by: Vadim Kelsey M.D. on 08/29/2016 at 20:08 12-lead ECG Atrial fibrillation at a rate of 55 with a QTC of 432. Does have ST segment sagging depressions in 1 to aVF V3 to be 6 particularly more profound laterally also with poor R-wave progression across the precordium. Cardiac Echo Impressions ECHO Interpretation Summary The patient was in atrial fibrillation with heart rates between 45-50 bpm during the exam. The left ventricle is normal in size. The ejection fraction is estimated to be 55-60%. There are no focal wall motion abnormalities. There is a bioprosthetic aortic valve. The prosthetic aortic valve function is normal. Right ventricular systolic pressure is estimated to be 30 mmHg plus the clinically estimated CVP which cannot be estimated on this exam. No other echocardiographic abnormalities seen. Additional Diagnostics [facility] DateTimeAnalyzed 20:50:00 -_ pH ____7.363 - 7.350 7.450 pCO2 ___35.1__ -mmHg 35.0 45.0 pO2 ___77.2__ -mmHg 69.0 116 HCO3- ___19.5__ -mmol/L 22.0 26.0 [facility] DateTimeAnalyzed 05:07:00 -_ pH ____7.431 - 7.350 7.450 pCO2 ___32.1__ -mmHg 35.0 45.0 pO2 ___81.5__ -mmHg 69.0 116 HCO3- ___21.0__ -mmol/L 22.0 26.0 Assessment & Plan This is a 86 year old male with history of CHF, CAD s/p CABG in 2003, aortic stenosis s/p AVR in 2003, CKD stage III, DM type II who presented after acute respiratory failure and intubation in field: CT chest showed Bilateral atrial thrombii. Currently treated with PE heparin ggt. SBT daily with possible extubation in the near future. 1. Acute respiratory failure with severe hypoxia requiring intubation, present on admission. Active. - Vent: FiO2 28, PEEP 5m RR 16, Tv 500. ABG on 08/31/2015: Ph 7.431, PCO2 32.1 , PO2 87.5, HCO3 26. - Intubated in field. Sedation with propofol and fentanyl. - Possibly aspiration pna.- IV Zosyn and IV Azithromycin. - IV propofol when necessary agitation. - WBC 15.7 on admission, currently 9.1. - Respiratory viral PCR negative. - Legionella and strep pneumo ag negative. - Venous US lower extremities results per above. - ICU / Pulmonology consulted, time and recommendations appreciated. - Vent: FiO2 .28, PEEP 5m RR 16, Tv 500. ABG on 08/31/2015: Ph 7.295, PCO2 43.2 , PO2 36.3, HCO3 20. - Febrile on 08/31/2016: urine culture, blood culture, sputum culture, procalcitonin, lactic acid pending All negative. - Daily sedation vacation and SBT's. - Reasonably well on a pressure support trial today with weaning of his Fentanyl. - He is on pressure support of 8/5, pulling good tidal volumes. - 40 mg IV of Lasix - SBT and possibly attempt extubation tomorrow. 2. Bilateral Atrial Thrombus, unknown chronicity, present on admission. Active. - PE heparin ggt. - Cardiology following, time and recommendations appreciated. - Due to being fall risk ruling out PE would be beneficial as intermediate manager anticoagulation would be difficult in this patient. - He may need a IVC filter due to being a fall risk. - CT angio of chest results per above. 3. Acute Probable arrhythmia in setting of chronic atrial fibrillation with syncopal episode. Not present on admission, Stable. - Precipitating event was likely arrhythmia from afib with slow ventricular response, ischemia, run of vtach. - EKG shows atrial fibrillation. - CT Brain results per above. - CKMB 1.6. - Patient heart rate in the 40's-50;s. He is on metoprolol at home and this has been held in the hospital. 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 4. Acute kidney injury, present on admission. Active. - Cr 2.01, currently 1.51-Baseline creatinine in 04/2016 1.68. - Monitor UOP and Cre. - Avoid Nephrotoxic Insults. - IV NS discontinued 5. Acute NSTEMI, present on admission. Active. - TrendingTroponins - 0.016, 0.056, 0.037, currently 0.018 - EKG - Afib with Bradycardia. - Likely demand ischemia. - On tele monitoring. - On PE heparin ggt. - Cardiology consulted and does not feel the patient is appropriate candidate for cath will manage medically. - When stable will add Aspirin, statin, and BB. 6. Chronic Atrial fibrillation, present on admission. Active. 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 - Holding Home metoprolol 25mg PO BID - Not on home antiplatelet or anticoagulation. - TSH and T4, subclinical hypothyroid. 7. Lactic acidosis, present on admission. Resolved. - Most likely secondary to acute hypoxia. - Lactic acid upon admission 6.2, Currently 1.4. Acetaminophen for mild pain when necessary. Bowel regimen Senna and MiraLAX scheduled and PRN. Zofran when necessary for nausea and vomiting. SubQ heparin and heparin ggt for now. SCDs in place. High-risk medications: IV Fentanyl. Heparin ggt. IV Versed. IV Midazolam. Disposition: Severe illness and highly likely here > 2 days. Pain Evaluation: Adequate Pain Control GI Prophylaxis: H2 amelia VTE Prophylaxis: Other (Will place on therapeutic DVT IV heparin drip for possible PE) VTE Mechanical Devices: Intermittant Pneumatic CD Resuscitation Status: CPR: Attempt Resuscitation Attending Statement The patient was seen and examined together with Dr. Brown on 09-02-16 and I agree with the history, exam and plan as outlined in the note above. JOSE MARTIN BROWN DO Sep 02, 2016 06:41 Chata Butterfield MD Sep 03, 2016 15:14
[2016-09-02] MEDS: Heparin 5,000 Unit/mL Inj IVPUSH PRN (22:26)
[2016-09-02] MEDS ORDERED: KCl 40 mEq/100 mL Premix (K 3 - 3.7 & Creat < 2) IV ONE (22:55)
[2016-09-03] VITALS (13 sets, daily range): BP systolic 92–146; BP diastolic 55–84; PULSE 81–107; RESP 16–20; O2SAT 97–100
[2016-09-03] MEDS: Chlorhexidine 0.12% 15 mL Oral Solution MT SCH ×6 (00:44→20:28)
[2016-09-03] MEDS: Propofol Inj 1,000,000 MCG in IV Premix 1 EACH IV SCH ×3 (04:00→18:04)
--- NOTE | 2016-09-03 05:22 | NUR ---
Neuro/Sedation Without sedation, pt will open eyes and follow some commands (squeeze hands, wiggle toes, blink eyes, turn head towards voice). Nodded head that he felt confused. After some time, he started getting tachycardic and overbreathe vent. Increased sedation for respiratory state. Toward end of shift, started to wean sedation for PST and possible extubation as given in report. Family aware and accepting of plan> Care ongoing
[2016-09-03 05:25] LABS: BASOPHILS % (AUTO) 0.5 % (0-3); EOSINOPHILS % (AUTO) 6.8 % (0-5); Mean Corpuscular Hemoglobin 31.2 pg (27.0-35.0); Mean Corpuscular Volume 92.5 fL (81-100); NEUTROPHILS % (AUTO) 61.5 % (40-74); Platelet Count 117 bil/L (150-400)
[2016-09-03 05:50] LABS: Magnesium 1.7 mg/dL (1.6-2.6); Phosphorus 3.5 mg/dL (2.5-4.9)
[2016-09-03] MEDS: Heparin 5,000 Unit/mL Inj IVPUSH PRN ×2 (06:46→17:59)
[2016-09-03] MEDS ORDERED: Furosemide 10 mg/mL 4 mL Inj IVPUSH ONE ×2 (07:30→20:00)
[2016-09-03] MEDS: Famotidine Inj 50 ML IV SCH ×2 (08:12→20:28)
--- NOTE | 2016-09-03 08:12 | PCM.PNMED ---
Subjective Date of Service Sep 03, 2016 Subjective Denny Verdzuco is an 86-year-old male with history of CHF, CAD s/p CABG in 2003, aortic stenosis s/p AVR in 2003, CKD stage III, DM type II who presented after acute respiratory failure and intubation in field: CT chest showed Bilateral atrial thrombi. Currently treated with PE heparin ggt. SBT daily with possible extubation in the near future. Overnight: Telemetry overnight: Atrial fibrillation, heart rate 80-100's, with PVC pairs and 5 beats of V. tach at 21:14. The patient is intubated and sedated therefore subjective exam and review of systems is unobtainable. . Exam Vital Signs Vital Sign - Last Date Time Temp Pulse Resp B/P Pulse Ox O2 Delivery O2 Flow Rate FiO2 09/03/16 07:47 36.5 81 16 113/64 99 28 09/03/16 07:45 Ventilator Intake and Output 09/02/16 09/02/16 09/03/16 Cumulative From/Thru 15:00 23:00 07:00 08/29/16 00:00 - 09/03/16 06:36 Intake Total 1455 ml 1491 ml 95614 ml Output Total 2550 ml 2100 ml 9285 ml Balance -1095 ml -609 ml 8237 ml Intake IV Total 662 ml 718 ml 71375 ml Tube Feeding 578 ml 627 ml 2099 ml Tube Irrigant 215 ml 146 ml 1237 ml Output Urine Total 2550 ml 2100 ml 9100 ml Gastric Drainage Total 185 ml # Bowel Movements 2 2 6 Exam General: Intubated and sedated. HEENT: Normocephalic, atraumatic. External ears without defect. Pupils equal, round, and reactive to light. Anicteric sclerae, moist conjunctivae, and no lid lag. Oropharynx free of erythema and cobble stoning with moist mucosa. Neck: Supple with full range of motion. No jugular venous distension. No bruits. No lymphadenopathy or thyromegaly. Cardiovascular: Irregularly irregular without murmurs, rubs, or gallops appreciated Pulmonary: Clear to auscultation bilaterally with no crackles, wheezes, or rhonchi. Normal respiratory effort with no use of accessory muscles. Abdomen: Bowel tones present. Soft, nontender, nondistended. No hepatosplenomegaly or masses appreciated. Extremities: No clubbing, cyanosis, edema, or lymphadenopathy appreciated. Skin: Normal temperature, turgor, and texture; no rash, ulcers, or subcutaneous nodules appreciated. Neurological: Intubated and sedated but appropriate/purposeful movements when sedation is lightened. . IVs and Medications Medications Reviewed: Medications were reviewed in detail Lab and Diagnostics Result Diagram: 09/03/1639909/03/16399 X-Rays, CTs and MRIs X-RAY CHEST ONE VIEW, PORTABLE IMPRESSION: 1. Improved aeration at the lung bases when compared with the prior study suggesting decreased atelectasis. 2. Probable unchanged left pleural effusion. 3. Interstitial prominence suggesting fluid overload. Dictated by: Nehal Hillman M.D. on 08/30/2016 at 9:30 US VENOUS LEG DUPLEX BILATERAL FINDINGS: The deep veins are normally compressible, and free of intraluminal thrombus. Color and pulse Doppler demonstrate normal phasic intravascular flow. There is normal augmentation response to distal compression maneuver. IMPRESSION: No DVT in the lower extremities. X-RAY CHEST ONE VIEW, PORTABLE IMPRESSION: 1. Endotracheal tube is in expected position. 2. Decreased lung volumes, with bronchovascular crowding. Possible superimposed bilateral perihilar pulmonary edema or aspiration. 3. Cardiomegaly as before. Dictated by: Vadim Kelsey M.D. on 08/29/2016 at 20:14 CT BRAIN IMPRESSION: 1. No acute intracranial abnormalities. Mild periventricular and deep white matter chronic small vessel ischemic change. 2. Nonacute bilateral cerebellar hemispheric small infarcts, as well as probable nonacute ischemic insult of the left frontal lobe as before. This study fulfills neurological imaging criteria for inclusion or exclusion of acute stroke therapies based on available published neurological guidelines. Dictated by: Vadim Kelsey M.D. on 08/29/2016 at 20:08 . 12-lead ECG Atrial fibrillation at a rate of 55 with a QTC of 432. Does have ST segment sagging depressions in 1 to aVF V3 to be 6 particularly more profound laterally also with poor R-wave progression across the precordium. . Cardiac Echo Impressions ECHO Interpretation Summary The patient was in atrial fibrillation with heart rates between 45-50 bpm during the exam. The left ventricle is normal in size. The ejection fraction is estimated to be 55-60%. There are no focal wall motion abnormalities. There is a bioprosthetic aortic valve. The prosthetic aortic valve function is normal. Right ventricular systolic pressure is estimated to be 30 mmHg plus the clinically estimated CVP which cannot be estimated on this exam. No other echocardiographic abnormalities seen. Additional Diagnostics [facility] DateTimeAnalyzed 20:50:00 -_ pH ____7.363 - 7.350 7.450 pCO2 ___35.1__ -mmHg 35.0 45.0 pO2 ___77.2__ -mmHg 69.0 116 HCO3- ___19.5__ -mmol/L 22.[address] [facility] DateTimeAnalyzed 05:07:00 -_ pH ____7.431 - 7.350 7.450 pCO2 ___32.1__ -mmHg 35.0 45.0 pO2 ___81.5__ -mmHg 69.0 116 HCO3- ___21.0__ -mmol/L 22.0 26.0 Assessment & Plan Denny Verduzco is an 86-year-old male with history of CHF, CAD s/p CABG in 2003, aortic stenosis s/p AVR in 2003, CKD stage III, DM type II who presented after acute respiratory failure and intubation in field: CT chest showed Bilateral atrial thrombi. Currently treated with PE heparin ggt. SBT daily with possible extubation in the near future. 1. Acute respiratory failure with severe hypoxia requiring intubation, present on admission. Active. - Intubated in field. Sedation with propofol and fentanyl. - Possibly aspiration pneumonia on IV Zosyn and IV Azithromycin. - WBC 15.7 on admission, currently 9.1. - Respiratory viral PCR negative. - Legionella and strep pneumo urine antigens negative. - Venous US lower extremities showed no DVT's as above. - Febrile on 08/31/2016: urine culture, blood culture, sputum culture, procalcitonin, lactic acid pending all negative. - Daily sedation vacation and SBT's. - He continues PST's daily. - Increased furosemide from 40 mg IV daily to every 8 hours per pulmonology. Will likely extubate tomorrow. - ICU / Pulmonology consulted, time and recommendations appreciated. 2. Bilateral atrial thrombus, unknown chronicity, present on admission. Active. - PE heparin gtt. - Due to being fall risk ruling out PE would be beneficial as roasterman anticoagulation would be difficult in this patient. - He may need a IVC filter due to being a fall risk. - CT angio of chest showed bilateral atrial thrombus as above. - Cardiology following, time and recommendations appreciated. 3. Acute probable arrhythmia in setting of chronic atrial fibrillation with syncopal episode. Not present on admission, Stable. - Precipitating event was likely arrhythmia from atrial fibrillation with slow ventricular response versus ischemia versus run of v. tach. - EKG shows atrial fibrillation. - CT brain showed no intracranial process as above. - CKMB 1.6. - Patient heart rate in the 40-50's. He is on metoprolol at home and this has been held in the hospital. 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 4. Acute kidney injury, present on admission. Active. - Baseline creatinine in 04/2016 1.68. - Monitor UOP and Cr. - Avoid Nephrotoxic Insults. - IV NS discontinued. 5. Acute NSTEMI, present on admission. Active. - Trending troponins - 0.016, 0.056, 0.037, currently 0.018 - EKG - Afib with Bradycardia. - Likely demand ischemia. - On tele monitoring. - On PE heparin ggt. - When stable will add aspirin, statin, and BB. - Cardiology consulted and does not feel the patient is appropriate candidate for cath will manage medically. 6. Chronic Atrial fibrillation, present on admission. Active. 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 - Holding home metoprolol 25mg PO BID. - Not on home antiplatelet or anticoagulation. - TSH and T4, subclinical hypothyroid. 7. Lactic acidosis, present on admission. Resolved. - Most likely secondary to acute hypoxia. - Lactic acid upon admission 6.2. Acetaminophen for mild pain when necessary. Bowel regimen Senna and MiraLAX scheduled and PRN. Zofran when necessary for nausea and vomiting. SubQ heparin and heparin ggt for now. SCDs in place. High-risk medications: IV Fentanyl, Heparin gtt, IV Versed. Disposition: Severe illness and highly likely here > 2 days. . GI Prophylaxis: H2 amelia VTE Prophylaxis: Other (Will place on therapeutic DVT IV heparin drip for possible PE) VTE Mechanical Devices: Intermittant Pneumatic CD Resuscitation Status: CPR: Attempt Resuscitation Attending Statement The patient was seen and examined together with Dr. Crook on !-03-13 and I agree with the history, exam and plan as outlined in the note above. Cindy Crook DO Sep 03, 2016 08:12 Chata Butterfield MD Sep 04, 2016 08:27
[2016-09-03] MEDS: Senna Leaf Extract 528 mg/15 mL Syrup PO SCH ×2 (08:13→19:40)
--- NOTE | 2016-09-03 08:39 | DRSVH ---
PROCEDURE: X-RAY CHEST ONE VIEW, PORTABLE ([id number]) INDICATIONS: On vent TECHNIQUE: One view of the chest was acquired. COMPARISON: [facility], CR, XR CHEST 1VW (PORTABLE), 09/02/2016, 5:45. FINDINGS: Surgical changes and devices: Grossly unchanged appearance of endotracheal tube and enteric tube, rig ht PICC line. Lungs and pleura: No pleural effusions or pneumothorax. Low lung volumes with scattered atelectasis. There is left basilar opacity although this appears grossly unchanged Mediastinum: Mediastinal contours appear normal. Heart size is normal. Bones and chest wall: No suspicious bony lesions. Overlying soft tissues appear unremarkable. IMPRESSION: Scattered atelectasis, possible left basilar consolidation although limited examination d ue to very low lung volumes. Support equipment appears grossly unchanged Dictated by: Yared Tong M.D. on 09/03/2016 at 8:38 Approved by: Yared Tong M.D. on 09/03/2016 at 8:38
--- NOTE | 2016-09-03 11:15 | PROG NOTE ---
[address] [address] PROGRESS NOTE PATIENT: HAILEE MELLO : 1930 MR#: [id number] ADMIT: 08/29/2016 JOB ID: [id number] DATE: 09/03/2016 PULMONARY/CRITICAL CARE PROGRESS NOTE: SUBJECTIVE: The patient is an 86-year-old man with history of atrial fibrillation, coronary artery disease, and bioprosthetic aortic valve admitted with acute respiratory failure and uncontrolled atrial fibrillation alternating with bradycardia. He was found to have a large intra-atrial clots in both left and right atrium. INTERVAL HISTORY: He continues to do well on pressure support and today on pressure support of 5/5 he is pulling good tidal volumes. He diuresed less than a L yesterday with IV Lasix and tolerated it well. REVIEW OF SYSTEMS: Unable to obtain as the patient is intubated. PHYSICAL EXAMINATION: Vital signs reviewed. Temperature 36.5, pulse 81, respirations 16, BP 113/64, sats 99% on 28% FiO2. General: Intubated, sedated, but opens eyes to voice. Chest: Clear to auscultation. He does have some diffuse anasarca. LABORATORIES: Reviewed. CBC normal. Platelets 117, stable. Chemistries also reviewed. Creatinine stable at 1.44. Intake and output: He is net 600 mL negative; 1400 in and 2100 out. Chest x-ray reviewed and shows low lung volumes with some bilateral atelectasis. ASSESSMENT: 1. Acute hypoxic respiratory failure status post respiratory arrest on August 29. 2. Atrial thrombi in the left and right atrium. 3. Atrial fibrillation alternating with bradycardia. 4. Acute on chronic kidney injury, stable now. 5. Bioprosthetic aortic valve. 6. History of falls and dementia. RECOMMENDATIONS: An 86-year-old man with history of AFIB not thought to be a candidate for anticoagulation because of recurrent falls presenting in respiratory arrest, intubated. He was found to have bi-atrial thrombi, quite significant in size, but no evidence of distant embolization in the form of PE or stroke based on imaging studies. He is appropriately anticoagulated with a heparin drip. We started diuresing him yesterday with Lasix 40 mg b.i.d. and with two doses of Lasix he is only about 600 mL net negative for the last 24 hours, but has tolerated this well, without any hemodynamic or renal issues. I would like to continue and actually increase this dose to 40 mg q.8 with the hopes that we can get him 1-2 L net negative today since he is still significantly volume up for this admission. He is doing extremely well on his pressure support trial of 5/5, which is essentially a spontaneous breathing trial, but I am reluctant to extubate him when he is so volume up. I spoke at length with his and his sons yesterday, who indicated that he would never have wanted to be intubated in the first place and that if our trial of extubation goes poorly that he would not want to be reintubated. At that point we would transition to comfort measures. The plan for now is to continue with aggressive diuresis today and attempt extubation tomorrow. Post extubation the patient will be DNR, DNI. This was discussed again with the family today and they confirmed it. TIME: Critical care time 50 minutes.
[2016-09-03] MEDS: Furosemide 10 mg/mL 4 mL Inj IVPUSH SCH ×2 (12:17→16:30)
[2016-09-03] MEDS ORDERED: KCl 40 mEq/100 mL Premix (K 3 - 3.7 & Creat < 2) IV ONE (15:25)
[2016-09-03] MEDS: Heparin 25K Unit/500mL 0.45 NS 25,000 UNIT in IV Premix 1 EACH IV SCH (15:52)
--- NOTE | 2016-09-03 16:52 | NUR ---
NUTRITION FOLLOW-UP: Assess: 86 YO M admitted to CCU with respiratory arrest and uncontrolled atrial fibrillation alternating with bradycardia. He was found to have a large intra-atrial clots in both left and right atrium. He continues to do well on pressure support and today on pressure support of 5/5 he is pulling good tidal volumes. He diuresed less than a L yesterday with IV Lasix and tolerated it well. He remains intubated; POC is to extubate him once his volume decreases. PMHX: CHF, CAD, afib. DIET: NPO. ENTERAL FEEDING: Vital 1.5 @ goal rate 50 ml/hr. to provide 1650kcal (2178kcal w/propofol) and 74g pro (100% kcal and 68% pro needs). In the event patient not extubated tomorrow, recommend addition of 1 packet prosource TID to better meet protein needs. LABS: Cr 1.44, Glu 148, Ca 8.1, PAB 11. MEDICATIONS: Reviewed. Propofol currently running at 6 ml/hr to provide 158 kcal/day. GI: BM x 4 today. SKIN: No wound note issues. Zander 11 WEIGHT: 105.3 kg, BMI 33.0 kg/m2, Admit wt: 99.5 kg, IBW: 75.5 kg ESTIMATED NEEDS: BMI/VENT Calories: 5581-7869 kcal/day (20-22 kcal/kg BW) Protein: 110-135 g/day (1.5-1.8 g/kg IBW) Fluids: ~2500ml/day (25cc/kg) NUTRITION DIAGNOSIS: 1) Inadequate oral intake related to decreased ability to consume sufficient energy as evidenced by NPO/Vent status - IMPROVED WITH ENTERAL FEEDING AT GOAL RATE. INTERVENTION: 1) In the event patient not extubated tomorrow, recommend add 1 packet prosource TID to better meet protein needs. 2)Patient is volume overloaded. Recommend flush dose 40 ml H2O every 4 hr. MONITOR/EVALUATE: NPO/Vent status, enteral feeding volodymyr., labs, GI/nutrition status. Follow per high nutrition risk guidelines.
--- NOTE | 2016-09-03 18:42 | NUR ---
respiratory/cardiac/sedation Continues on PRVC. Triggering ventilator, RR 16 to 20. Oxygen saturation stable on 28% fi02. Small amount of creamy/parson secretions with ET suction. Sputum sample pending. Opens eyes to touch, easily agitated and restless once stimulated. Propofol and fentanyl continued for ventilator tolerance and pain control. Afib per satellite project site monitor, HR 80s to 90s. Pressure stable, Lasix q 8hrs as scheduled. Heparin gtt continued per orders. Will continue to monitor.
[2016-09-04] VITALS (11 sets, daily range): BP systolic 107–156; BP diastolic 57–81; PULSE 85–127; RESP 18–25; O2SAT 92–100
[2016-09-04] MEDS: Chlorhexidine 0.12% 15 mL Oral Solution MT SCH ×7 (00:30→21:13)
[2016-09-04] MEDS: Propofol Inj 1,000,000 MCG in IV Premix 1 EACH IV SCH (03:33)
[2016-09-04] MEDS: Furosemide 10 mg/mL 4 mL Inj IVPUSH SCH ×3 (03:34→21:20)
[2016-09-04] MEDS ORDERED: 0.9% Sodium Chloride 250 ML ONE (04:21)
--- NOTE | 2016-09-04 04:40 | NUR ---
Vent, sedation, VS as noted. Continues ventilated with sats high 90s without desats. Suctioning small amounts creamy parson secretions per ett. Propofol gtt remains at 15mcg/kg/min. Fentanyl gtt turned off from 15mcg/h at 0400. Opens eyes occasionally to speech but does not follow commands. Heparin gtt titrated per cardiac protocol, currently 17units/kg/hour. Tolerating tube feeds well. No stools this shift. called during the evening and updated to care.
[2016-09-04] MEDS: Heparin 25K Unit/500mL 0.45 NS 25,000 UNIT in IV Premix 1 EACH IV SCH ×2 (06:46→21:25)
[2016-09-04 08:04] LABS: BASOPHILS % (AUTO) 0.4 % (0-3); EOSINOPHILS % (AUTO) 6.1 % (0-5); MONOCYTES % (AUTO) 13.9 % (4-12); Mean Corpuscular Hemoglobin 30.9 pg (27.0-35.0); Mean Corpuscular Volume 92.5 fL (81-100); NEUTROPHILS % (AUTO) 64.3 % (40-74); Platelet Count 133 bil/L (150-400)
[2016-09-04] MEDS: Senna Leaf Extract 528 mg/15 mL Syrup PO SCH ×2 (08:08→20:30)
[2016-09-04] MEDS: Famotidine Inj 50 ML IV SCH ×2 (08:08→21:20)
[2016-09-04 09:11] LABS: Magnesium 1.7 mg/dL (1.6-2.6); Phosphorus 3.7 mg/dL (2.5-4.9)
--- NOTE | 2016-09-04 10:47 | DRSVH ---
PROCEDURE: X-RAY CHEST ONE VIEW, PORTABLE ([id number]) INDICATIONS: On vent TECHNIQUE: One view of the chest was acquired. COMPARISON: [facility], CR, XR CHEST 1VW (PORTABLE), 09/03/2016, 3:58. FINDINGS: Surgical changes and devices: Sternotomy wires are present. Cardiac valve valves are present. There i s an NG tube into the stomach. There is a PICC line from the right side with the tip indeterminate on this film. Lungs and pleura: Very poor depth of inspiration. Probable improved patchy infiltrate at the left bas e no change of patchy infiltrate or atelectasis in the right lung and left upper lung. Mediastinum: Mediastinal contours appear normal. Heart size is normal. Bones and chest wall: No suspicious bony lesions. Overlying soft tissues appear unremarkable. IMPRESSION: Probable improving infiltrate left base. Tip of the PICC line catheter is not identified on this film for its position to be commented upon. Dictated by: Kian Street M.D. on 09/04/2016 at 10:45 Approved by: Kian Street M.D. on 09/04/2016 at 10:45
--- NOTE | 2016-09-04 13:55 | PROG NOTE ---
[address] [address] PROGRESS NOTE PATIENT: HAILEE MELLO : 1930 MR#: [id number] ADMIT: 08/29/2016 JOB ID: [id number] DATE: 09/04/2016 PULMONARY CRITICAL CARE PROGRESS NOTE: An 86-year-old man with history of atrial fibrillation, coronary artery disease, and bioprosthetic aortic valve admitted with acute respiratory failure, uncontrolled AFIB alternating with bradycardia, and found to have large intra-atrial clots in left and right atrium. INTERVAL HISTORY: He has been on a pressure support trial for last 2 hours, doing well, with tidal volumes around 500 on pressure support 5/5. He is hemodynamically stable despite diuresis; 1.7 L net negative overnight. REVIEW OF SYSTEMS: Unable to obtain. PHYSICAL EXAMINATION: Vital signs reviewed and notable for T-max 37.8. He is on 28% FiO2 on the vent. General: Intubated. Not responding to me today, although previously he has been opening eyes to voice. Chest: Clear to auscultation. LABORATORIES: Reviewed. Notable for creatinine 1.52 from 1.44, BUN of 22 from 17. Chest x-ray: Low lung volumes. Bilateral infiltrates/edema. ASSESSMENT: 1. Acute hypoxic respiratory failure status post respiratory arrest on August 29. 2. Atrial thrombi in left and right atrium. 3. Atrial fibrillation alternating with bradycardia. 4. Acute on chronic kidney injury, stable. 5. Bioprosthetic aortic valve. 6. History of falls and dementia. RECOMMENDATION: An 86-year-old man with history of atrial fibrillation who was previously not thought to be a candidate for anticoagulation due to his falls is presenting in respiratory arrest and found to have bi-atrial thrombi which were seen on CT but not on echo. There is no evidence of distant embolization, namely pulmonary emboli or stroke, on imaging. The patient has been passing his SBT for the last couple of days but since he was 10 kg up for this admission I was trying to diurese him. He has diuresed well and is still on Lasix 40 mg IV q.8. I am going to add a couple of doses of albumin today to help with the diuresis. I spoke to the family at bedside and plan is unchanged. I am going to go ahead and extubate him today since he has been doing well from a respiratory standpoint, with the understanding that he is now DNR/DNI and will not be reintubated if he fails. We are still going to try oxygen at high flow or BiPAP if indicated. Other things to be concerned about are his mental status today, and he seems more lethargic than before. If anything, he is off the fentanyl and is only on low-dose propofol, I would expect him to be more awake. I would like to first turn off his propofol, extubate him, and see if he wakes up; but, if he does not, or if his neurologic status gets worse, we should consider getting a head CT, especially since he is on a heparin drip. Continue heparin drip for intra-atrial thrombi. He is on appropriate GI prophylaxis. He is now DNR/DNI per conversation with the family. TIME: Critical care time is 60 minutes.
--- NOTE | 2016-09-04 14:10 | NUR ---
Cardiac/neuro/respiratory Atrial fibrillation per youth nutritional monitor, HR 130s to 150s. Pressure stable, MAP trending in 90s. 40mg IV Lasix q 8hrs. Heparin gtt continued per protocol. Oxygen saturation stable, maintaining >92% on room air. Weak, nonproductive cough. Patient appears to be resting comfortably, no s/s of pain. Opens eyes to voice. Cylinder Honer/opens eyes when asked. Nonverbal at this time, only able to mumble/grunt in response to questions. Dr Almodovar notified of change in status, Esmolol gtt ordered. Will continue to monitor.
[2016-09-04] MEDS: Esmolol 2,500 mg/250 mL NS 2,500,000 MCG in IV Premix 1 EACH IV SCH ×2 (14:17→18:48)
--- NOTE | 2016-09-04 15:43 | NUR ---
Social Work Continued Discharge Planning D: EMR reviewed. Pt is on day 6 of hospitalization for Respiratory Arrest/ Pt lives in [place] with his spouse. Pt was found down and transported to [facility] intubated. Pt is now extubated and DNR/DNI in the event the extubation failes. SW anticipates Pt to likely require SNF at discharge and will continue to follow for recommendations from PT/ST once available. SW will continue to follow for d/c planning. A: Pt found down, anticipate SNF P: Pt is now extubated and DNR/DNI in the event the extubation fails. SW anticipates Pt to likely require SNF at discharge and will continue to follow for recommendations from PT/ST once available. SW will continue to follow for d/c planning. AGUSTIN Garrison
--- NOTE | 2016-09-04 16:37 | PCM.PNMED ---
Subjective Date of Service Sep 04, 2016 Subjective Denny Verduzco is an 86-year-old male with history of CHF, CAD s/p CABG in 2003, aortic stenosis s/p AVR in 2003, CKD stage III, DM type II who presented after acute respiratory failure and intubation in field: CT chest showed Bilateral atrial thrombi. Currently treated with PE heparin ggt. Successfully extubated today O2 sats > 94 % RA. Overnight: No acute overnight events. Patient is reported to be less responsive than previous, currently on sedation vacation. Will plan to extubate today. The patient is intubated and sedated therefore subjective exam and review of systems is unobtainable. . Exam Vital Signs Vital Sign - Last Date Time Temp Pulse Resp B/P Pulse Ox O2 Delivery O2 Flow Rate FiO2 09/04/16 07:18 87 127/62 97 28 09/04/16 04:00 37.8 18 Mechanical Ventilator Intake and Output 09/03/16 09/03/16 09/04/16 Cumulative From/Thru 15:00 23:00 07:00 08/29/16 00:00 - 09/04/16 05:35 Intake Total 1108 ml 1493 ml 44802 ml Output Total 2200 ml 2000 ml 85677 ml Balance -1092 ml -507 ml 6638 ml Intake IV Total 587 ml 773 ml 77222 ml Tube Feeding 441 ml 600 ml 3140 ml Tube Irrigant 80 ml 120 ml 1437 ml Output Urine Total 2200 ml 2000 ml 55655 ml Gastric Drainage Total 185 ml # Bowel Movements 4 10 Exam General: Intubated and sedated. HEENT: Normocephalic, atraumatic. External ears without defect. Pupils equal, round, and reactive to light. Anicteric sclerae, moist conjunctivae, and no lid lag. Oropharynx free of erythema and cobble stoning with moist mucosa. Neck: Supple with full range of motion. No jugular venous distension. No bruits. No lymphadenopathy or thyromegaly. Cardiovascular: Irregularly irregular without murmurs, rubs, or gallops appreciated Pulmonary: Clear to auscultation bilaterally with no crackles, wheezes, or rhonchi. Normal respiratory effort with no use of accessory muscles. Abdomen: Bowel tones present. Soft, nontender, nondistended. No hepatosplenomegaly or masses appreciated. Extremities: No clubbing, cyanosis, edema, or lymphadenopathy appreciated. Skin: Normal temperature, turgor, and texture; no rash, ulcers, or subcutaneous nodules appreciated. Neurological: Intubated and sedated but appropriate/purposeful movements when sedation is lightened. . IVs and Medications Medications Reviewed: Medications were reviewed in detail Lab and Diagnostics Result Diagram: 09/03/16 0400 09/03/16 2350 X-Rays, CTs and MRIs X-RAY CHEST ONE VIEW, PORTABLE IMPRESSION: 1. Improved aeration at the lung bases when compared with the prior study suggesting decreased atelectasis. 2. Probable unchanged left pleural effusion. 3. Interstitial prominence suggesting fluid overload. Dictated by: Nehal Hillman M.D. on 08/30/2016 at 9:30 US VENOUS LEG DUPLEX BILATERAL FINDINGS: The deep veins are normally compressible, and free of intraluminal thrombus. Color and pulse Doppler demonstrate normal phasic intravascular flow. There is normal augmentation response to distal compression maneuver. IMPRESSION: No DVT in the lower extremities. X-RAY CHEST ONE VIEW, PORTABLE IMPRESSION: 1. Endotracheal tube is in expected position. 2. Decreased lung volumes, with bronchovascular crowding. Possible superimposed bilateral perihilar pulmonary edema or aspiration. 3. Cardiomegaly as before. Dictated by: Vadim Kelsey M.D. on 08/29/2016 at 20:14 CT BRAIN IMPRESSION: 1. No acute intracranial abnormalities. Mild periventricular and deep white matter chronic small vessel ischemic change. 2. Nonacute bilateral cerebellar hemispheric small infarcts, as well as probable nonacute ischemic insult of the left frontal lobe as before. This study fulfills neurological imaging criteria for inclusion or exclusion of acute stroke therapies based on available published neurological guidelines. Dictated by: Vadim Kelsey M.D. on 08/29/2016 at 20:08 . 12-lead ECG Atrial fibrillation at a rate of 55 with a QTC of 432. Does have ST segment sagging depressions in 1 to aVF V3 to be 6 particularly more profound laterally also with poor R-wave progression across the precordium. . Cardiac Echo Impressions ECHO Interpretation Summary The patient was in atrial fibrillation with heart rates between 45-50 bpm during the exam. The left ventricle is normal in size. The ejection fraction is estimated to be 55-60%. There are no focal wall motion abnormalities. There is a bioprosthetic aortic valve. The prosthetic aortic valve function is normal. Right ventricular systolic pressure is estimated to be 30 mmHg plus the clinically estimated CVP which cannot be estimated on this exam. No other echocardiographic abnormalities seen. Additional Diagnostics Located within [facility] DateTimeAnalyzed 20:50:00 -_ pH ____7.363 - 7.350 7.450 pCO2 ___35.1__ -mmHg 35.0 45.0 pO2 ___77.2__ -mmHg 69.0 116 HCO3- ___19.5__ -mmol/L 22.0 26.0 Located within [facility] DateTimeAnalyzed 05:07:00 -_ pH ____7.431 - 7.350 7.450 pCO2 ___32.1__ -mmHg 35.0 45.0 pO2 ___81.5__ -mmHg 69.0 116 HCO3- ___21.0__ -mmol/L 22.0 26.0 Assessment & Plan Denny Verduzco is an 86-year-old male with history of CHF, CAD s/p CABG in 2003, aortic stenosis s/p AVR in 2003, CKD stage III, DM type II who presented after acute respiratory failure and intubation in field: CT chest showed Bilateral atrial thrombi. He was not on home anticoagulation due to fall risk. Currently treated with PE heparin ggt. Extubated patient successfully 09/04/16. Off O2 with saturations >94%. 1. Acute respiratory failure with severe hypoxia requiring intubation, present on admission. Resolved. - Intubated in field and treated for possible aspiration pneumonia, IV Zosyn and IV Azithromycin. - Respiratory viral PCR, Legionella, strep pneumo, urine antigens, blood cx all negative. - ICU / Pulmonology extubated patient successfully 09/04/16. Off O2 with saturations >94%, Speech consulted. - Watch mental status - if his neurologic status gets worse, consider getting a head CT, especially since he is on a heparin drip. 2. Chronic Atrial fibrillation, present on admission. Active. 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 - Not on home antiplatelet or anticoagulation. - Holding home metoprolol 25mg PO BID. - Attempting rate control below 120 with esmolol ggt. Persistent tachyarrhythmias 09/04/16 with HR >150. Avoiding medical cardioversion with amiodarone. 3. Bilateral atrial thrombus, unknown chronicity, present on admission. Active. - CT angio of chest showed bilateral atrial thrombus as above. - PE heparin gtt. - He may need a IVC filter due to being a fall risk. - Cardiology following, time and recommendations appreciated. 4. Acute probable arrhythmia in setting of chronic atrial fibrillation with syncopal episode. Not present on admission, Stable. - Precipitating event was likely arrhythmia from atrial fibrillation with slow ventricular response versus ischemia versus run of v. tach. - Patient heart rate in the 40-50's. He is on metoprolol at home and this has been held in the hospital. 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 5. Acute kidney injury, present on admission. Active. - Baseline creatinine in 04/2016 1.68. - Nephrology following. - Continuing Furosemide. 6. Acute NSTEMI, present on admission. Active. - Likely demand ischemia. - Trending troponins - 0.016, 0.056, 0.037, currently 0.018 - EKG - Afib with Bradycardia. - On tele monitoring. - On PE heparin ggt. - When stable will add aspirin, statin, and BB. - Cardiology consulted and does not feel the patient is appropriate candidate for cath will manage medically. 7. Subclinical hypothyroid, present on admission. Active. - TSH -2.40 T4 - 1.4 8. Lactic acidosis, present on admission. Resolved. - Most likely secondary to acute hypoxia. - Lactic acid upon admission 6.2. Acetaminophen for mild pain when necessary. Bowel regimen Senna and MiraLAX scheduled and PRN. Zofran when necessary for nausea and vomiting. SubQ heparin and heparin ggt for now. SCDs in place. High-risk medications: IV Fentanyl, IV Heparin gtt, IV Versed. Disposition: Severe illness and highly likely here > 2 days. . Pain Evaluation: Adequate Pain Control GI Prophylaxis: H2 amelia VTE Prophylaxis: Other (Will place on therapeutic DVT IV heparin drip for possible PE) VTE Mechanical Devices: Intermittant Pneumatic CD Resuscitation Status: CPR: Attempt Resuscitation Attending Statement The patient was seen and examined together with Dr. Brown on 09-04-16 and I agree with the history, exam and plan as outlined in the note above. JOSE MARTIN BROWN DO Sep 04, 2016 08:01 Chata Butterfield MD Sep 05, 2016 15:56
[2016-09-04] MEDS: Heparin 5,000 Unit/mL Inj IVPUSH PRN (16:40)
[2016-09-04] MEDS: Albumin 25% 25 GM in IV Premix 1 EACH IV SCH ×2 (16:41→23:54)
[2016-09-05 03:10] LABS: BASOPHILS % (AUTO) 0.4 % (0-3); EOSINOPHILS % (AUTO) 4.6 % (0-5); MONOCYTES % (AUTO) 12.6 % (4-12); Mean Corpuscular Hemoglobin 31.4 pg (27.0-35.0); Mean Corpuscular Volume 92.2 fL (81-100); NEUTROPHILS % (AUTO) 64.9 % (40-74); Platelet Count 139 bil/L (150-400)
[2016-09-05] MEDS: Furosemide 10 mg/mL 4 mL Inj IVPUSH SCH ×2 (03:29→12:14)
[2016-09-05 04:17] LABS: Magnesium 1.8 mg/dL (1.6-2.6); Phosphorus 3.8 mg/dL (2.5-4.9)
[2016-09-05 04:30] VITALS: BP 153/80; PULSE 93; RESP 24; O2SAT 92
[2016-09-05 08:09] VITALS: BP 150/80; PULSE 103; RESP 23; O2SAT 94
[2016-09-05] MEDS ORDERED: 0.9% Sodium Chloride 250 ML ONE (08:19)
[2016-09-05] MEDS: Famotidine Inj 50 ML IV SCH ×2 (08:30→19:56)
[2016-09-05] MEDS: Senna Leaf Extract 528 mg/15 mL Syrup PO SCH ×2 (08:30→19:42)
[2016-09-05] MEDS: Chlorhexidine 0.12% 15 mL Oral Solution MT SCH ×5 (08:30→23:41)
[2016-09-05] MEDS: Esmolol 2,500 mg/250 mL NS 2,500,000 MCG in IV Premix 1 EACH IV SCH ×4 (09:26→23:40)
--- NOTE | 2016-09-05 10:32 | NUR ---
NUTRITION FOLLOW-UP: Assess: 86 YO M admitted to CCU with respiratory arrest and uncontrolled atrial fibrillation alternating with bradycardia, requiring intubation. Pt extubated 09/04. Speech eval pending. PMHX: CHF, CAD, afib. DIET: NPO. ENTERAL FEEDING: (ON HOLD) Vital 1.5 @ goal rate 50 ml/hr. LABS: Cr 1.60, Glu 117 MEDICATIONS: Reviewed. Albumin, Lasix. GI: BM x 1 (09/05). SKIN: No wound note issues. Zander 11 WEIGHT: 104.7 kg, BMI 33.1 kg/m2, Admit wt: 99.5 kg, IBW: 75.5 kg ESTIMATED NEEDS: BMI Calories: 2695-8592 kcal/day (20-22 kcal/kg BW) Protein: 91-113 g/day (1.2-1.5 g/kg IBW) Fluids: ~2500ml/day (25cc/kg) NUTRITION DIAGNOSIS: 1) Inadequate oral intake related to decreased ability to consume sufficient energy as evidenced by NPO/Vent status - PERSISTS. INTERVENTION: 1) Diet advance per speech therapy. MONITOR/EVALUATE: NPO status, diet advance vs nutrition support, labs, GI/nutrition status. Follow per high nutrition risk guidelines.
--- NOTE | 2016-09-05 10:50 | NUR ---
FORESTRY PATROLMAN consult received. Pt was somnolent and did not open eyes to verbal or tactile stimuli. Cough was very weak. Recommend continuation of NPO order with meds via IV. FORESTRY PATROLMAN will folllow and evaluate when pt is appropriate.
--- NOTE | 2016-09-05 10:58 | ABG ---
DateTimeAnalyzed 10:52:00 -_ pH ____7.444 - pCO2 ___44.1__ -mmHg pO2 ___33.7__ -mmHg HCO3- ___29.8__ -mmol/L ABE ____5.5__ -mmol/L tHb ___11.6__ -g/dL O2Hb ___58.0__ -% COHb ____1.6__ -% MetHb ____0.9__ -% sO2 ___59.5__ -% FIO2 ___28.0__ -% Drawn By jmw - Date/Time Notified____ 10:57:00 -_ Liter_Flow ____9.0__ -L/min Oxygen Device 1 AEROSOL MASK - Notified By JMW - Notified Whom DR DE LA HOUSSAYE -___ B 748 -mmHg tO2 ____9.4__ -Vol% Rafa test N/A -
[2016-09-05] MEDS: Albumin 25% 25 GM in IV Premix 1 EACH IV SCH ×2 (11:07→17:20)
--- NOTE | 2016-09-05 11:17 | PCM.PNMED ---
Subjective Date of Service Sep 05, 2016 Subjective Pulmonary Critical Care progress note: This is an 86 year old male with history significant for atrial fibrillation not on chronic warfarin due to dementia/fall risk, CAD s/p CABG in 2003, aortic stenosis s/p bioprosthetic valve replacement in 2003, dementia, chronic back pain on chronic opiates, CKD stage III, DM type II, and systolic CHF on home O2 at night who presented 08/29/16 after acute respiratory failure and intubation in the field. Patient was extubated following positive PST on 09/04/16. Patient was febrile 09/04 with a temp of 38.2C, afebrile overnight, and again borderline febrile this AM with a temp of 100F. Patient is not especially interactive today (no change significant from yesterday per nurse report). He does make some verbal communication of pain, but is not specific. ROS not obtainable. Exam Vital Signs Vital Sign - Last Date Time Temp Pulse Resp B/P Pulse Ox O2 Delivery O2 Flow Rate FiO2 09/05/16 08:09 37.8 103 23 150/80 94 09/05/16 04:30 Room Air 09/04/16 08:04 28 Intake and Output 09/04/16 09/04/16 09/05/16 Cumulative From/Thru 15:00 23:00 07:00 08/29/16 00:00 - 09/05/16 06:47 Intake Total 1054 ml 1167 ml 05340 ml Output Total 2025 ml 2200 ml 20957 ml Balance -971 ml -1033 ml 4634 ml Intake Oral 0 ml 0 ml IV Total 844 ml 1167 ml 33883 ml Tube Feeding 170 ml 3310 ml Tube Irrigant 40 ml 1477 ml Output Urine Total 2025 ml 2200 ml 72191 ml Gastric Drainage Total 185 ml # Bowel Movements 1 11 Exam Patient is lying bed with eyes closed in no acute visible distress, but is not very interactive. HEENT: dry mouth, pupils reactive. Chest: clear to auscultation bilaterally without significant rales/rhonchi/wheeze (transmitted upper airway wheeze). Prolonged expiratory phase. CV: Irreg Irreg rhythm with systolic murmur. Radials are 1-2+ bilaterally. ABD: minimally distended with some moans on palpation. BT normal, but infrequent. EXT: No appreciable edema present. Neuro: Minimally responsive to stimulation. IVs and Medications IV Fluids No maintenance fluids. Medications Reviewed: Medications were reviewed in detail Lab and Diagnostics Result Diagram: 09/05/16 0935 09/05/16 0230 Microbiology No significant MICRO findings: Sputum, blood, urine, Resp PCR X-Rays, CTs and MRIs Last CXR was 09/04/16 which showed possibly some improvement of the LLL infiltrate , but otherwise no significant findings. Assessment & Plan ASSESSMENT: 1. Acute hypoxic respiratory failure status post respiratory arrest on August 29, 2016. 2. Atrial thrombi in left and right atrium. 3. Atrial fibrillation alternating with bradycardia. 4. Acute on chronic kidney injury, stable. 5. Bioprosthetic aortic valve. 6. History of falls and dementia. An 86-year-old man with history of atrial fibrillation who was previously not thought to be a candidate for anticoagulation due to his falls is presenting in respiratory arrest and found to have bi-atrial thrombi which were seen on CT but not on echo. There is no evidence of distant embolization, namely pulmonary emboli or stroke, on imaging. The patient had been passing his SBT for several days, and was successfully extubated on 09/04/16. He has not been on any significant IV sedation since approx (Fentanyl 09/03, and Propofol 09/04). Other things to be concerned about are his mental status today, and he seems more lethargic with minimal responsiveness. No recent ABG and his prolonged expiratory phase is concerning for CO2 retention, and I think that repeat ABG would be our first step to assess this lethargy as he is no longer on sedation. If he does not improve, or if his neurologic status gets worse, we should consider getting a head CT, especially since he is on a heparin drip. Will see ABG first. Also, these fevers in the setting of possible abdominal pain are concerning. He has not had a significant BM in days, so this could be constipation discomfort. Of more concern is an ongoing infectious process. MICRO as above, but we will repeat BCx given the fever and his replacement valve. We will also assess with an abdominal series XR. Consideration for adding on empiric antibiotics if needed. Currently on Esmolol (25) for Afib rate control. In outpatient, was on long- acting B-amelia, but in the current situation, we will stay with the short- acting, easily titratable Esmolol. Currently on heparin drip (20) for intra- atrial thrombi. Lines: PICC (Kate AMIN RECOMMENDATION: -ABG -XR abd series -Blood Cx (1 through PICC, 2 from separate peripheral sites) -Discussed humidified room air with RT given his mouth breathing and dry membranes -Continue Esmolol -Continue Heparin ggt -CXR tomorrow AM (placed order) He is on appropriate GI prophylaxis with Famotidine. He is DNR/DNI (BiPAP OK) per previous documentation of conversation with the family. TIME: Critical care time is 60 minutes. GI Prophylaxis: H2 amelia VTE Prophylaxis: Other (Will place on therapeutic DVT IV heparin drip for possible PE) VTE Mechanical Devices: Intermittant Pneumatic CD Resuscitation Status: CPR: Attempt Resuscitation Attending Statement The patient was seen and examined together with Dr. Devlin on 09/05/2016 and I agree with the history, exam and plan as outlined in the note above. Seven Devlin DO Sep 05, 2016 10:45 Kyle Villalobos MD Sep 28, 2016 17:21
[2016-09-05 12:10] VITALS: BP 153/91; PULSE 90; RESP 26; O2SAT 98
--- NOTE | 2016-09-05 14:46 | DRSVH ---
PROCEDURE: X-RAY ACUTE ABDOMINAL SERIES ([id number]) INDICATIONS: Abdominal pain, fever TECHNIQUE: One view chest and two views of the abdomen were acquired. COMPARISON: None. FINDINGS: Surgical changes and devices: Sternotomy. There is a prosthetic aortic valve. Chest: Bilateral interstitial infiltrates suspicious for mild pulmonary edema. Heart size is not inc reased. No pleural effusions. No pneumoperitoneum. Abdomen: Bowel gas pattern is normal. No suspicious calcifications. Visualized solid organ contour s appear normal. Bones: No suspicious bony lesions. Severe atherosclerosis of the aortic arch and splenic artery. De generative changes in lumbar spine. IMPRESSION: 1. Normal bowel gas pattern. If clinical symptoms persist or clinical suspicion for pathology is hig h, CT with IV and oral contrast is suggested for further evaluation. 2. Mild congestive heart failure. Dictated by: Madyson Johnson M.D. on 09/05/2016 at 14:44 Approved by: Madyson Johnson M.D. on 09/05/2016 at 14:44
--- NOTE | 2016-09-05 15:02 | NUR ---
Neuro/cardiac Decreased responsiveness as day progresses, pt no longer opening eyes or gripping on command. Esmolol gtt continued for rate and blood pressure control. Heparin gtt infusing per protocol. Sp02 > 95% with 28% fi02 on aerosol mask. RR 20s. Blood glucose WNL. Dr Diego notified of change in neurological status, at bedside discussing plan of care with pt , Bushra.
[2016-09-05 16:00] VITALS: BP 158/91; PULSE 84; RESP 23; O2SAT 99
--- NOTE | 2016-09-05 16:24 | PCM.PNMED ---
Subjective Date of Service Sep 05, 2016 Subjective Patient is an 86 year old male with PMH significant for atrial fibrillation not on chronic warfarin due to dementia/fall risk, CAD s/p CABG in 2003, aortic stenosis s/p bioprosthetic valve replacement in 2003, dementia, chronic back pain on chronic opiates, CKD stage III, DM type II, and systolic CHF on home O2 at night who presented 08/29/16 after acute respiratory failure and intubation in the field, EKG showed A-fib rate [address] depresion in I, AVL, V5-6, CT of head no acute intracranial process. Patient was extubated following positive PST on 09/04/16. Patient was febrile 09/04 with a temp of 38.2C, afebrile overnight, and again borderline febrile this AM with a temp of 100F. Patient is examined laying supine in bed, his LOC is diminished without significant change from yesterday. His able to verblize yes and no questions, however his comprehension is limited. ROS not obtainable due to decreased mentation. Exam Vital Signs Vital Sign - Last Date Time Temp Pulse Resp B/P Pulse Ox O2 Delivery O2 Flow Rate FiO2 09/05/16 12:10 37.4 90 26 153/91 98 Aerosol Mask 28 Intake and Output 09/04/16 09/04/16 09/05/16 Cumulative From/Thru 15:00 23:00 07:00 08/29/16 00:00 - 09/05/16 06:47 Intake Total 1054 ml 1167 ml 73287 ml Output Total 2025 ml 2200 ml 17550 ml Balance -971 ml -1033 ml 4634 ml Intake Oral 0 ml 0 ml IV Total 844 ml 1167 ml 55405 ml Tube Feeding 170 ml 3310 ml Tube Irrigant 40 ml 1477 ml Output Urine Total 2025 ml 2200 ml 61755 ml Gastric Drainage Total 185 ml # Bowel Movements 1 11 Exam General: Oriented X2, able to open and close eyes on command, interaction limited, No Acute Distress Head: Normocephalic, atraumatic Eyes: PERRLA. ENT: Mucous Membranes Moist/[place] Chest & Lungs: Clear to auscultation bilaterally with no crackles, wheezes, or rhonchi. Cardiovascular: Irreg Irreg rhythm with systolic murmur, rate 100's, Normal S1 , Normal S2, /Rubs/Gallops Abdomen: Patient guards to deep palpation, Non-distended, No masses, Normoactive bowel tones, Soft Extremities: No cyanosis/clubbing/edema bilaterally Neurological: minimal response Lab and Diagnostics Result Diagram: 09/05/16 0935 09/05/16 0230 Microbiology No significant MICRO findings: Sputum, blood, urine, Resp PCR X-Rays, CTs and MRIs Last CXR was 09/04/16 which showed possibly some improvement of the LLL infiltrate , but otherwise no significant findings. Assessment & Plan Patient is a 86 y.o. M with PMH of atrial fibrillation who was previously not thought to be a candidate for anticoagulation due to his falls is presenting in respiratory arrest and found to have bi-atrial thrombi which were seen on CT but not on echo. successfully extubated on 09/04/16. lethargic with minimal responsiveness today, 1. Acute respiratory failure with severe hypoxia requiring intubation, present on admission. Resolved. - Intubated in field and treated for possible aspiration pneumonia, IV Zosyn and IV Azithromycin. - Respiratory viral PCR, Legionella, strep pneumo, urine antigens, blood cx all negative. - ICU / Pulmonology extubated patient successfully 09/04/16. Off O2 with saturations >94%, Speech consulted. 2. Chronic Atrial fibrillation, present on admission. Active. 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 - Not on home antiplatelet or anticoagulation. - Holding home metoprolol 25mg PO BID. - Attempting rate control below 120 with esmolol ggt. Persistent tachyarrhythmias 09/04/16 with HR >150. Avoiding medical cardioversion with amiodarone. 3. Bilateral atrial thrombus, unknown chronicity, present on admission. Active. - CT angio of chest showed bilateral atrial thrombus as above. - PE heparin gtt. - He may need a IVC filter due to being a fall risk. - Cardiology following, time and recommendations appreciated. 4. Acute probable arrhythmia in setting of chronic atrial fibrillation with syncopal episode. Not present on admission, Stable. - Precipitating event was likely arrhythmia from atrial fibrillation with slow ventricular response versus ischemia versus run of v. tach. - Patient heart rate in the 40-50's. He is on metoprolol at home and this has been held in the hospital. 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 5. Acute kidney injury, present on admission. Improving. - Baseline creatinine in 04/2016 1.68. Today Creatine 1.6 - Nephrology following. - Hold Furosemide for 24 hours due to change in acid/base likely primarily Metabolic Alkalosis due to over diuresis status and give 1 L NS @ 80mls/hr 6. Acute NSTEMI, present on admission. Active. - Likely demand ischemia. - Trending troponins - 0.016, 0.056, 0.037, 09/05/16 0.018 - EKG - Afib with Bradycardia. - On tele monitoring. - On PE heparin ggt. - When stable will add aspirin, statin, and BB. - Cardiology consulted, and does not feel the patient is appropriate candidate for cath will manage medically. 7. Mixed Metabolic acidosis with Metabolic Alkalosis and Respiratory Alkalosis, not present on admission, ongoing - ABG showed evidence of Mixed Metabolic acidosis with Metabolic Alkalosis and Respiratory Alkalosis - Abdominal x-ray ordered - Repeat blood cultures x 3 - Echocardiogram ordered to r/o endocarditis - Consider adding on empiric antibiotics if needed. - Per Critical Care team hold Furosemide and giving trial fluid replacement over 24hrs and reassessing acid base status in the AM 8. Altered mental status, present on admission, ongoing - Consider head CT if mental status does not improve 9. Subclinical hypothyroid, present on admission. Active. - TSH -2.40 T4 - 1.4 10. Metabolic Lactic acidosis, present on admission. Resolved. - Most likely secondary to acute hypoxia. - Lactic acid upon admission 6.2. Pain control - 1 mg Morphine IV Q 4 hrs PRN for severe pain - Acetaminophen for mild pain when necessary. Bowel regimen Senna and MiraLAX scheduled and PRN. Zofran when necessary for nausea and vomiting. SubQ heparin and heparin ggt for now. SCDs in place. High-risk medications: IV Morphine, IV Heparin gtt, GI Prophylaxis: H2 amelia VTE Prophylaxis: Other (Will place on therapeutic DVT IV heparin drip for possible PE) VTE Mechanical Devices: Intermittant Pneumatic CD Resuscitation Status: CPR: Attempt Resuscitation Attending Statement The patient was seen and examined together with Dr. Chávez on 09/05/2016 and I agree with the history, exam and plan as outlined in the note above. . SULY CHÁVEZ DO Sep 05, 2016 14:42 Dominik Sheets MD Sep 07, 2016 17:03
[2016-09-05] MEDS ORDERED: 0.9% Sodium Chloride 1,000 ML ONE (17:27)
[2016-09-05] MEDS: 0.9% Sodium Chloride 1,000 ML IV SCH (18:16)
[2016-09-05] MEDS: Propofol Inj 1,000,000 MCG in IV Premix 1 EACH IV SCH (19:56)
[2016-09-05 20:30] VITALS: BP 141/94; PULSE 85; RESP 24; O2SAT 95
[2016-09-05 20:40] VITALS: RESP 18; O2SAT 93
[2016-09-05] MEDS: Heparin 25K Unit/500mL 0.45 NS 25,000 UNIT in IV Premix 1 EACH IV SCH (23:41)
[2016-09-06] VITALS (7 sets, daily range): BP systolic 133–156; BP diastolic 78–98; PULSE 71–90; RESP 12–24; O2SAT 93–99
[2016-09-06] MEDS: Esmolol 2,500 mg/250 mL NS 2,500,000 MCG in IV Premix 1 EACH IV SCH ×3 (02:14→08:30)
--- NOTE | 2016-09-06 04:00 | NUR ---
P: hypertension, afib I: esmolol drip E: Tele A fib, occasional PVC, HR 80s. SBP 130-150s, DBP 70-90s. Esmolol drip at 125mcg. Helen UOP. Aerosol mask. Sats in the mid 90s. Occasional to intermittent congested cough. RR mid 20s. Pt barely opens eyes to name. Does not follow cues. Mumbles to questions. Mostly not answering. No s/sx of pain or discomfort. Sleeping.
[2016-09-06] MEDS: Chlorhexidine 0.12% 15 mL Oral Solution MT SCH ×2 (04:08→07:28)
[2016-09-06 05:47] LABS: BASOPHILS % (AUTO) 0.6 % (0-3); EOSINOPHILS % (AUTO) 4.1 % (0-5); MONOCYTES % (AUTO) 12.3 % (4-12); Mean Corpuscular Hemoglobin 30.8 pg (27.0-35.0); NEUTROPHILS % (AUTO) 72.7 % (40-74); Platelet Count 143 bil/L (150-400)
[2016-09-06] MEDS: 0.9% Sodium Chloride 1,000 ML IV SCH ×2 (06:20→10:33)
[2016-09-06] MEDS: Senna Leaf Extract 528 mg/15 mL Syrup PO SCH (07:28)
[2016-09-06] MEDS: Famotidine Inj 50 ML IV SCH (07:48)
--- NOTE | 2016-09-06 08:29 | DRSVH ---
PROCEDURE: X-RAY CHEST ONE VIEW, PORTABLE ([id number]) INDICATIONS: F/U pulmonary infiltrate TECHNIQUE: One view of the chest was acquired. COMPARISON: [facility], CT, CT ANGIO CHEST PE, 09/01/2016, 14:35. [facility] , CR, XR CHEST 1VW (PORTABLE), 09/02/2016, 5:45. [facility], CR, XR CHEST 1VW (PORTABLE), 09/04/2016, 5:09. FINDINGS: Surgical changes and devices: Sternotomy wires, cardiac valve replacement likely aortic. Lungs and pleura: No pleural effusions or pneumothorax. Lungs are abnormal, with bilateral alveolar infiltration in this setting reduced inspiratory volume.. Mediastinum: Mediastinal contours appear normal. Heart size is normal. Bones and chest wall: No suspicious bony lesions. Overlying soft tissues appear unremarkable. IMPRESSION: The inspiratory volume is prominently reduced. This leads to interstitial and alveolar p rominence for this patient. A chronic CHF pattern likely is the underlying cause. Dictated by: Alexey Lemon M.D. on 09/06/2016 at 8:27 Approved by: Alexey Lemon M.D. on 09/06/2016 at 8:27
--- NOTE | 2016-09-06 10:44 | PCM.PNMED ---
Subjective Date of Service Sep 06, 2016 Subjective Pulmonary Critical Care progress note: This is an 86 year old male with history significant for atrial fibrillation not on chronic warfarin due to dementia/fall risk, CAD s/p CABG in 2003, aortic stenosis s/p bioprosthetic valve replacement in 2003, dementia, chronic back pain on chronic opiates, CKD stage III, DM type II, and systolic CHF on home O2 at night who presented 08/29/16 after acute respiratory failure and intubation in the field. Problem List: 1. Acute hypoxic respiratory failure status post respiratory arrest on August 29, 2016. Patient was extubated following positive PST on 09/04/16. 2. Atrial thrombi in left and right atrium. 3. Atrial fibrillation alternating with bradycardia. 4. Acute on chronic kidney injury. 5. Bioprosthetic aortic valve. 6. History of falls and dementia. Subjective: Patient was febrile 09/04 with a temp of 38.2C, but has been afebrile for the last 24hr. Blood cultures and XR of the abd were pursued yesterday. Patient interaction has improved modestly today. He is hard of hearing, but is obeying simple commands, and does not communicate any specific complaint. ROS otherwise not obtainable. Exam Vital Signs Vital Sign - Last Date Time Temp Pulse Resp B/P Pulse Ox O2 Delivery O2 Flow Rate FiO2 09/06/16 07:43 36.2 83 23 140/79 97 Aerosol Mask 9.00 09/06/16 04:18 28 Intake and Output 09/05/16 09/05/16 09/06/16 Cumulative From/Thru 15:00 23:00 07:00 08/29/16 00:00 - 09/06/16 06:18 Intake Total 1077 ml 2526 ml 72976 ml Output Total 1850 ml 650 ml 38891 ml Balance -773 ml 1876 ml 5737 ml Intake Oral 0 ml IV Total 1077 ml 2526 ml 77010 ml Tube Feeding 3310 ml Tube Irrigant 1477 ml Output Urine Total 1850 ml 650 ml 70694 ml Gastric Drainage Total 185 ml # Bowel Movements 0 11 Exam Patient is lying bed with eyes closed in no acute visible distress, but opens eyes to name, but very drowsy. HEENT: moist mouth, pupils reactive, makes eye contact. Chest: clear to auscultation bilaterally without significant rales/ rhonchi/wheeze (transmitted upper airway wheeze). Prolonged expiratory phase has improved. cough is wet and weak. CV: Irreg Irreg rhythm with systolic murmur. Radials are 1-2+ bilaterally. ABD: Soft. BT normal, but infrequent. EXT : No appreciable edema present. Neuro: squeezes hands and wiggles toes bilaterally. IVs and Medications IV Fluids No maintenance fluids. Medications Reviewed: Medications were reviewed in detail Lab and Diagnostics Calcium is 9.5. Result Diagram: 09/06/1652909/06/16529 Microbiology No significant MICRO findings: Sputum, blood, urine, Resp PCR X-Rays, CTs and MRIs CXR today continues to demonstrate some mild interstitial infiltrate largely unchanged from previous. Assessment & Plan ASSESSMENT: 1. Acute hypoxic respiratory failure status post respiratory arrest on August 29, 2016. The patient had been passing his SBT for several days, and was successfully extubated on 09/04/16. 2. Atrial thrombi in left and right atrium. 3. Atrial fibrillation alternating with bradycardia. 4. Acute on chronic kidney injury, stable. 5. Bioprosthetic aortic valve. 6. History of falls and dementia. 7. AG metabolic acidosis with concurrent metabolic alkalosis, and a primary respiratory alkalosis 1. He has not been on any significant IV sedation since approx (Fentanyl 09/03, and Propofol 09/04). Other things to be concerned about are his mental status today, though he is somewhat improved. Per discussion on ICU rounds today, we will pursue a CT head noncontrast (to be ordered by primary team) to assess for intracranial abnormality. No hypercapnia on VBG 09/05/16. Alternatively, his difficulty hearing combined with his dementia is likely complicating the assessment. 2. An 86-year-old man with history of atrial fibrillation who was previously not thought to be a candidate for anticoagulation due to his falls is presenting in respiratory arrest and found to have bi-atrial thrombi which were seen on CT, but not on echo. There is no evidence of distant embolization, namely pulmonary emboli or stroke, on imaging. Currently on heparin drip (20). He will likely need ongoing anticoagulation. 3. Afib and hypertension: Currently on Esmolol (125) for Afib rate and BP control. In outpatient, was on long-acting B-amelia, but in the current situation, we will stay with the short-acting, easily titratable Esmolol. His history of bradycardia makes any decision to add long-acting blockade very risky in the absence of a safety net (such as pacemaker), but he is likely not a candidate for that. Family had mentioned some interest in discussion with Palliative to discuss goals. Lines: PICC (TORSTEN)Kate PLAN: -CT scan of the head -Add a mucolytic to facilitate clearing thick upper airway secretions when able to tolerate PO intake -Continue Esmolol -Continue Heparin ggt -Discuss nutrition He is on appropriate GI prophylaxis with Famotidine. He is DNR/DNI (BiPAP OK) per previous documentation of conversation with the family. Family has decided to go with comfort care, and the patient was transferred out of the ICU. Pulmonary Critical Care team with sign off at this time. Please don' t hesitate to contact us if questions/concerns arise. TIME: Critical care time is 45 minutes. Attending Statement The patient was seen and examined together with Dr. Devlin on 09/06/2016 and I agree with the history, exam and plan as outlined in the note above. Seven Devlin DO Sep 06, 2016 10:13 Kyle Villalobos MD Sep 28, 2016 17:25
--- NOTE | 2016-09-06 11:19 | NUR ---
Palliative Care Palliative Care received verbal order from Dr Mackenzie 09/06/16 to assist with goals of care. Patient is an 86 year old male with history of atrial fibrillation, CAD s/p CABG in 2003, aortic stenosis s/p bioprosthetic valve replacement in 2003, dementia, chronic back pain, CKD stage III, DM type II, and systolic CHF. He was admitted 08/29/16 for care of acute respiratory failure and intubation in the field. Patient was extubated following positive PST on 09/04/16. Patient lives at home with . Bere Verduzco () [phone] Misael Verduzco (son) [phone] Palliative Care to follow. Krista Cottrell
[2016-09-06] MEDS ORDERED: Atropine 1% 5 mL Ophthalmic Solution PO PRN (11:30)
[2016-09-06] MEDS ORDERED: Artificial Tears 15 mL Ophthalmic Solution AFFECT_EYE PRN (11:30)
[2016-09-06] MEDS ORDERED: Haloperidol 5 mg/mL Inj IVPUSH PRN (11:30)
--- NOTE | 2016-09-06 11:30 | NUR ---
Comfort care: Patient does not appear to be in any distress at rest or with turns. Opens eyes to repeated stimuli, but is not able to hold attention or participate with assessments. Aerosol mask at 9L O2, SpO2 high 90's. Esmolol and Heparin GTT were DC'd and PICC lines are SL. Tele was DC'd. Love draining romi urine to gravity.
--- NOTE | 2016-09-06 13:31 | PCM.CONPAL ---
Date of Service Sep 06, 2016 Date of Hospital Admission: Aug 29, 2016 at 22:09 Date of Palliative Consult: Sep 06, 2016 Requesting Provider: Dominik Sheets MD Reason Palliative Care Consult: Goals of Care Discussion Reason for Consultation Discussion of further goals of care with family present given some recent declines as patient is DNR/DNI with potential transition to comfort care measures given significant medical comorbidities. Hospital Unit @time of consult: Critical Care (CCU 2019) Palliative Care Recommendation Summary of palliative recommendations: Plan: Met with family at 10:35 today (Sep 06) for background discussion and to discuss goals of care given DNR/DNI with significant comorbidities; plan is currently to transition patient to Comfort care only measures. -Symptom management (Pain/other): To be addressed by the Primary [facility] medicine team and Pulmonology/Critical care team. -DPOA/Advanced Directives/POLST: 1. Code Status is DNR/DNI/no antibiotics/no tube feeding 2. DPOA - Bushra 3. POLST newly completed today with the help of Bushra in the presence of Son Marco. -Family Care team Meeting Present were Palliative team Dr. Chua and Dr. Musa as well as patient family members including of 58years next month Bushra, and son Marco, and daughter in law Sri. Initially discussed with family the patient's current health state. The patient was described as independent, with "a mind of his own", and "noncompliant". The states that Eduardo has had progressive Mental and physical decline over the last 3-5years. The patient reportedly expressed that he wanted his life "over and done with" and would not agree to any further interventions, as he was adamant about no life saving resuscitation prior to this hospitalization. The states that her only goal is for Eduardo to not suffer any more pain. The patient was fairly independent with every day living, but would require 2L/minute of O2 at night. The Bushra reports that Eduardo would fall often frequently and over the last year he had become incontinent and required adult disposable underwear. His dementia has progressed over the last 5 years seemingly since their move away from a long time permanent residence of 27years to their current residence. Eduardo still recognizes family however he is unable to recall distant contacts, travel specifically to the [facility] and visit to the [place] which Eduardo loved. Family reports that Eduardo hated that he would not remember things, however he would initiate conversation spontaneously however he would get lost in multiparty conversations and could not follow plots on TV shows so they would watch News, game shows, and [employer] often. Family states that since his admission he has had brief moments of improvement where he would follow simple commands however he has yet to verbalize one clear word. The son Marco is worried that his continual lack of movement is setting his father up for pneumonia. Lastly the family completed a new POLST form with the help of Dr. Chua. The family decided that Eduardo should be moved to comfort care only measures as that is what he would have wanted. -Spiritual support Family Goals: 1. Patient should not suffer from pain. 2. Patient may take any medication that helps his quality of life in an attempt to avoid discomfort. Additional Medical Diagnoses with primary management by Hospitalist team include : CHF, Afib, stage 3 CKD, dementia Problems: End of Life Preferences Comfort Care only measures with a new POLST form inserted into the chart. Goals of Care The patient currently DNR/DNI however after family discussion with the Palliative team the patient is to be transitioned to comfort care measures only . The End of Life order set has already been put in place on EMR, and all drugs not directly related to comfort care have been discontinued. Resuscitation Status Resuscitation Status: DNR/DNI:Do Not Resuscitate/Intubate POLST Updates/Changes Previous POLST?: No POLST Last Review Date: Sep 06, 2016 Antibiotics: No Antibiotics Artificially Admin Nutrition: No Artifical Nutrition by Tube POLST Discussed with: Spouse/Other (Son and [id number]) POLST Review Outcome: New Form Completed . Advanced Care Planning Address: POLST, Comfort care Pt History History of Present Illness from the H&P of Hansa Morales MD "This is an 86-year-old male who has a history of congestive heart failure coronary artery disease who presents to the emergency room after being found unresponsive by his . His is at the bedside in gives a fairly good history. She notes that he had been taking some garbage cans outside and came back in and was found slumped over in the chair she had just seen him a few minutes prior without any issues he was noted to be cyanotic said that he did have a palpable pulse and she did call 911 was called. He was may be unresponsive and agonal for about 11 minutes per 's report per ER MDs report. Mass noted his heart rate was 1:30 blood pressure was 208/124 and agonal breathing he was given succinylcholine, etomidate and was intubated was also given Versed en route to the emergency room. does note that he was having some intermittent chest pain over the past week.He does have sublingual nitroglycerin took that with good response at those times. He does according to the have some baseline dyspnea with walking. He also does have some baseline renal insufficiency per his . His evaluation here initially included a temperature to be afebrile. White count was 15.7 with 39% polys 41% lymphs. BUN 38 creatinine 2.01 with a calculated GFR of 34. He was found to have a troponin of 0.016. Lactic acid level was 6.2. Bicarbonate was 19. EEG showed A. fib at a rate of [address] segment depressions in 1 aVL V5 V6 with T-wave changes noted. CT of head without contrast was done and revealed no acute intracranial abnormalities. There was mild periventricular and deep white matter chronic small vessel ischemic changes noted. 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 As well as probable nonacute ischemic insult of the left frontal lobe. Patient previously had been on warfarin for his chronic atrial fibrillation however that was stopped as he had been having chronic falls. Chest x-ray revealed endotracheal tube was in expected position and decreased lung volumes with bronchovascular crowding possible superimposed bilateral perihilar pulmonary edema or aspiration noted. Cardiomegaly as previously noted." Hospital Course: 86yoM hospital day 8, initially found unresponsive by his was intubated in the [facility] ED. Initial imaging studies were negative for Stroke or PE, however chest CT showed bilateral atrial thrombi while ECHO shows some CHF with low normal ejection fraction but no atrial thrombi. The patient was started on heparin Gtt for the bilateral atrial thrombi. Cardiology was consulted and it is believed that the patient could have suffered from a NSTEMI however this is not definitive as the patient has CKD with likely chronic troponin elevation, however the patient was not a good candidate for cardiac catheterization. The patient has a history of Afib with large variation in his heart rate, he was placed on an Esmolol drip which was ideal due to short half life in the event of a bradycardic event. The patient passed spontaneous breathing trials and was extubated on 09/04/2016. He has recently developed a low grade fever however had been culture negative, cultures were repeated and chest and abdominal xrays performed without clear source of infection. The patient remains in guarded condition. If his health improves Cardiology may discuss a pacemaker placement and possible cardiac catheterization in the future. So far that patient is minimally responsive, not tracking not following commands, and medical team is concerned for his mental status not improving. Plan: Meet with family at (September 06) 10:35 for background discussion and to discuss goals of care given DNR/DNI with significant comorbidities with possible transition to Comfort care measures in the future if significant declines or extended period without improvement. See Plan Above Past Medical History Significant PMH Noted: This is a 86 year old male with history significant: atrial fibrillation not on chronic warfarin due to fall risk, CAD s/p CABG in 2003, aortic stenosis s/p bioprosthetic valve replacement in 2003, dementia, chronic back pain on chronic opiates, CKD stage III, DM type II, and systolic CHF on home O2 at night. 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 Social Support: Bushra and Sons Marco and Misael and Daughter in law Sri Allergy Allergies Reviewed: Yes Medications Current Medications: Current Medications Albumin Human 25 gm/Premix 100 ml @ 1 mls/min Q8 IV Last administered on 17:20; Admin Dose 1 MLS/MIN; Start 09/04/16 at 16:30; Stop 09/05/16 at 18:00 ; Status DC Esmolol HCl/Premix 250 ml @ 31.41 mls/ hr [id number] IV Last administered on 08:30; Admin Dose 31.41 MLS/HR; Start 09/04/16 at 14:10 Morphine Sulfate 1 mg 1 mg Q4H PRN IVPUSH; Start 09/05/16 at 16:20 Sodium Chloride 1,000 ml @ 80 mls/hr [id number] IV Last administered on 09/05/16 18:16; Admin Dose 80 MLS/HR; Start 09/05/16 at 17:50 Scheduled Alpha Lipoic Acid (Alpha Lipoic Acid) 100 Mg Capsule 100 MG PO HS Aspirin (Aspirin) 81 Mg Tablet 81 MG PO HS Ca Carbonate/Vitamin D3/Vit K (Citracal Soft Chew) 1 Each Tab.chew 2 EACH PO QAM Cholecalciferol (Vitamin D3) (Vitamin D) 5,000 Unit Capsule 5,000 UNIT PO MORNING Cyanocobalamin (Vitamin B-12) (Vitamin B-12) 1,000 Mcg Tablet 1,000 MCG PO MORNING Furosemide (Lasix) 20 Mg Tablet 20 MG PO DAILY Furosemide (Lasix) 40 Mg Tablet 40 MG PO every third day Metoprolol Succinate ER (Metoprolol Succinate ER) 25 Mg Tab.er.24h 25 MG PO BID Oxybutynin Chloride ER (Oxybutynin Chloride ER) 10 Mg Tab.er.24 10 MG PO DAILY Pantoprazole DR (Protonix) 40 Mg Tablet 40 MG PO DAILY Potassium Chloride (Potassium Chloride) 10 Meq Capsule.er 10 MEQ PO DAILY TAKE WITH FOOD Potassium Chloride (Potassium Chloride) 20 Meq Tab.er.prt 20 MEQ PO every third day TAKE WITH FOOD Scheduled PRN Hydrocodone-Acetaminophen 5-325 mg (Hydrocodone-Acetaminophen 5-325 mg) 1 Each Tablet 1 TABLET PO Q4H PRN PRN For Pain Oxycodone (Roxicodone) 5 Mg Tablet 5 MG PO Q4H PRN PRN For Pain Temazepam (Temazepam) 15 Mg Capsule 15 MG PO HS PRN PRN For Insomnia Miscellaneous Medications Diphenoxylate/Atropine 2.5-0.025 mg (Lomotil 2.5-0.025 mg) 1 Each Tablet 1 TABLET PO Nitroglycerin SL (Nitroglycerin SL) 0.4 Mg Tab.subl 0.4 MG SL Objective Findings Exam Vital Sign - Last Date Time Temp Pulse Resp B/P Pulse Ox O2 Delivery O2 Flow Rate FiO2 09/06/16 07:43 36.2 83 23 140/79 97 Aerosol Mask 9.00 09/06/16 04:18 28 Intake and Output 09/05/16 09/05/16 09/06/16 Cumulative From/Thru 15:00 23:00 07:00 08/29/16 00:00 - 09/06/16 06:18 Intake Total 1077 ml 2526 ml 78588 ml Output Total 1850 ml 650 ml 09805 ml Balance -773 ml 1876 ml 5737 ml Intake Oral 0 ml IV Total 1077 ml 2526 ml 19220 ml Tube Feeding 3310 ml Tube Irrigant 1477 ml Output Urine Total 1850 ml 650 ml 37467 ml Gastric Drainage Total 185 ml # Bowel Movements 0 11 Objective 86yoM in no acute distress lying quietly with oxymask in place General: Minimally responsive (intermittently will follow simple commands opens eyes to voice wiggles toes), No acute distress Heart: Regular Rate/Rhythm, Normal S1, S2, No Murmurs/Rubs/Gallops Lungs: Clear to Auscultation, Normal Air Movement Abdomen: Soft, Tenderness to Palpation (patient does make groaning noise on deep palpation of the abdomen but does not vocalize or nod yes to pain) Neuro: Follows Commands (simple commands) Extremities: Pulses Palpable x4, Warm Lab/Diagnostics Lab and Imaging results reviewed in detail in EMR. Time spent Total time 135 minutes; >50% face to face with patient and/or family, providing counselling regarding plans and recommendations, and in care coordination with his/her medical teams. Of this time, 60 minutes counseling for advanced care planning with the patient/ the patients family/the surrogate decision maker. Attending Statement Dr. Chua was present and immediately available for all portions of this patient interaction and family conference, and she discussed and approved the management plan outlined by Dr. Musa above. WALLY MUSA DO Sep 06, 2016 10:15 Tracey Chua MD Sep 06, 2016 16:09
--- NOTE | 2016-09-06 16:59 | NUR ---
Transfer He transferred from CCU 2018 to [facility] 2005 shortly after he was placed on comfort care. Assumed care about 1500 and took report from Cara PANDEY. He is resting comfortably with his and son in the room. Asked the kitchen to bring up a coffee cart for the family. Explained to family that they could bring in his favorite food and drinks if he wants. Gave them some ice chips, ice cream, and applesauce for them to feed him. He tolerated it well. Currently on an Aerosol mask at 28% O2. Care continues.
--- NOTE | 2016-09-06 18:28 | PCM.PNMED ---
Subjective Date of Service Sep 06, 2016 Subjective Patient is an 86 year old male with PMH significant for atrial fibrillation not on chronic warfarin due to dementia/fall risk, CAD s/p CABG in 2003, aortic stenosis s/p bioprosthetic valve replacement in 2003, dementia, chronic back pain on chronic opiates, CKD stage III, DM type II, and systolic CHF on home O2 at night who presented 08/29/16 after acute respiratory failure and intubation in the field, EKG showed A-fib rate [address] depresion in I, AVL, V5-6, CT of head no acute intracranial process. Patient was extubated following positive PST on 09/04/16. Hospital Day 9. Today patient's mentation has not significantly changed from yesterday, he is able to follow basic commands and verbalize "no" to pain. ROS negative except as mentioned above. Exam Vital Signs Vital Sign - Last Date Time Temp Pulse Resp B/P Pulse Ox O2 Delivery O2 Flow Rate FiO2 09/06/16 04:18 87 21 96 9.00 28 09/06/16 03:58 36.5 133/93 Aerosol Mask Intake and Output 09/05/16 09/05/16 09/06/16 Cumulative From/Thru 15:00 23:00 07:00 08/29/16 00:00 - 09/06/16 06:18 Intake Total 1077 ml 2526 ml 03124 ml Output Total 1850 ml 650 ml 83997 ml Balance -773 ml 1876 ml 5737 ml Intake Oral 0 ml IV Total 1077 ml 2526 ml 25150 ml Tube Feeding 3310 ml Tube Irrigant 1477 ml Output Urine Total 1850 ml 650 ml 94977 ml Gastric Drainage Total 185 ml # Bowel Movements 0 11 Exam General: Oriented X2, able to open and close eyes on command, interaction limited, No visible Acute Distress Head: Normocephalic, atraumatic Eyes: PERRLA. ENT: Mucous Membranes Moist/[place] Chest & Lungs: Clear to auscultation bilaterally with no crackles, wheezes, or rhonchi, weak wet cough Cardiovascular: Irreg Irreg rhythm with systolic murmur, rate 100's, Normal S1 , Normal S2, /Rubs/Gallops Abdomen: Patient guards to deep palpation, Non-distended, No masses, hypoactive bowel tones, Soft Extremities: No cyanosis/clubbing/edema bilaterally Neurological: minimal response, opens eyes to his name and painful stimulus, makes eye contact, able to squeeze hand bilaterally, wiggle toes, unable to support hands/ legs against gravity IVs and Medications Medications Reviewed: Medications were reviewed in detail Lab and Diagnostics Result Diagram: 09/06/16 0530 09/05/16 0230 Microbiology No significant MICRO findings: Sputum, blood, urine, Resp PCR X-Rays, CTs and MRIs Last CXR was 09/04/16 which showed possibly some improvement of the LLL infiltrate , but otherwise no significant findings. Assessment & Plan Patient is a 86 y.o. M with PMH of atrial fibrillation who was previously not thought to be a candidate for anticoagulation due to his falls is presenting in respiratory arrest and found to have bi-atrial thrombi which were seen on CT but not on echo. successfully extubated on 09/04/16. Today lethargic with minimal responsiveness, afebrile over past 24 hours, Hospital Day 9. 1. Chronic Atrial fibrillation, present on admission. Active. 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 - Not on home antiplatelet or anticoagulation. - Holding home metoprolol 25mg PO BID. - Attempting rate control below 120 with esmolol ggt. Persistent tachyarrhythmias 09/04/16 with HR >150. 2. Bilateral atrial thrombus, unknown chronicity, present on admission. Active. - CT angio of chest showed bilateral atrial thrombus as above. - PE heparin gtt. - Cardiology following, time and recommendations appreciated. 3. Mixed Metabolic acidosis with Metabolic Alkalosis and Respiratory Alkalosis, not present on admission, ongoing - ABG showed evidence of Mixed Metabolic acidosis with Metabolic Alkalosis and Respiratory Alkalosis - Abdominal x-ray ordered, no acute intraabdominal process - Repeat blood cultures x 3 - Echocardiogram ordered to r/o endocarditis, stopped per family wishes 4. Acute respiratory failure with severe hypoxia requiring intubation, present on admission. Resolved. - Intubated in field and treated for possible aspiration pneumonia, IV Zosyn and IV Azithromycin. - Respiratory viral PCR, Legionella, strep pneumo, urine antigens, blood cx all negative. - ICU / Pulmonology extubated patient successfully 09/04/16. Off O2 with saturations >94%, Speech consulted. 5. Acute NSTEMI, present on admission. Active. - Likely demand ischemia. - Trending troponins - 0.016, 0.056, 0.037, 09/05/16 0.018 - EKG - Afib with Bradycardia. - D/C tele monitoring. - D/C PE heparin ggt. 6. Altered mental status, present on admission, active - Consider head CT if mental status does not improve 7. Acute kidney injury, present on admission. Improving. - Baseline creatinine in 04/2016 1.68. Today Creatine 1.6 - Nephrology following. - Discontinue treatment per family wishes to start comfort care 8. Acute probable arrhythmia in setting of chronic atrial fibrillation with syncopal episode. Not present on admission, Stable. - Precipitating event was likely arrhythmia from atrial fibrillation with slow ventricular response versus ischemia versus run of v. tach. - Patient heart rate in the 40-50's. He is on metoprolol at home and this has been held in the hospital. 9. Subclinical hypothyroid, present on admission. Active. - TSH -2.40 T4 - 1.4 10. Metabolic Lactic acidosis, present on admission. Resolved. - Most likely secondary to acute hypoxia. - Lactic acid upon admission 6.2. 11. Comfort care - Per family wishes medical management of patient's illness will be discontinues and comfort care will begin today. - Palliative care is consulting on the case and will be managing comfort care orders - we appreciate palliative care's expertise on this care High-risk medications: IV Morphine, Disposition: Transition to comfort care measures. If patient is stable to transport likely discharge to home hospice or long-term hospice care tomorrow. GI Prophylaxis: H2 amelia VTE Prophylaxis: Other (Will place on therapeutic DVT IV heparin drip for possible PE) VTE Mechanical Devices: Intermittant Pneumatic CD Resuscitation Status: CPR: Attempt Resuscitation Attending Statement The patient was seen and examined together with Dr. Chávez on 09/06/2016 and I agree with the history, exam and plan as outlined in the note above. . SULY CHÁVEZ DO Sep 06, 2016 06:28 Dominik Sheets MD Sep 07, 2016 17:04
[2016-09-07 06:11] LABS: BASOPHILS % (AUTO) 0.7 % (0-3); EOSINOPHILS % (AUTO) 1.8 % (0-5); MONOCYTES % (AUTO) 12.3 % (4-12); Mean Corpuscular Hemoglobin 30.5 pg (27.0-35.0); Mean Corpuscular Volume 92.7 fL (81-100); NEUTROPHILS % (AUTO) 73.2 % (40-74); Platelet Count 174 bil/L (150-400)
--- NOTE | 2016-09-07 06:45 | NUR ---
Comfort care. Patient had a restful night. Patient was able to answering my questions with short, quiet responses. Patient denies pain throughout the night and slept for most of the evening. Patient has no external signs of distress or pain at this time.
--- NOTE | 2016-09-07 08:20 | NUR ---
Palliative care note D/A: Case discussed today in PC rounds. [place] that pt is now comfort care. Note that resident team discussed later yesterday about either dc today to SNF or home with hospice. Phone call to lexii Cardenas to alert. P: Palliative care to follow. Jennifer DONALD, CCM
--- NOTE | 2016-09-07 08:54 | NUR ---
Social Work Note: Continued Discharge Planning Data& Assessment: Per Palliative Care SW and pt has been placed on comfort care. SW met with pt at bedside to discuss discharge planning. Pt had a preference for pt going to [facility]. SW made inquires at both facilities and received quotes between $2,000-$8,900 up front. Pt is unable to afford the initial payment the local fpc facilities require up front for comfort care pt's. Pt explained she would rather take him home with hospice services and private caregiving. SW left message with Hospice inquiring about the soonest opening time. SW to contact local caregiving agencies to find out who is able to provide in home caregiving the soonest for the pt. Pt denies any other needs. No other discharge needs identified. Plan:Anticipated discharge home with hospice and in home caregiving. SW to follow up with Hospice and in home caregiving agencies for soonest service opening times. Pt denies any other needs. No other discharge needs identified. AGUSTIN Nobles
--- NOTE | 2016-09-07 09:56 | PCM.PALLBR ---
Palliative Care Recommendation Summary of palliative recommendations: Plan: Sep 06 Palliative met with family for background discussion and to discuss goals of care given DNR/DNI with significant comorbidities; Patient is now Comfort care only measures. Sep 07 day two of comfort care measures patient looks comfortable beside minor abdominal pain on palpation. -Symptom management (Pain/other): To be addressed by the [facility] medicine team and Pulmonology/Critical care team. -DPOA/Advanced Directives/POLST: 1. Code Status is DNR/DNI/no antibiotics/no tube feeding 2. DPOA - Bushra 3. POLST completed 09/06 with the help of Bushra in the presence of Son Marco. -Family Care team Meeting -Spiritual support Family Goals: 1. Patient should not suffer from pain. 2. Patient may take any medication that helps his quality of life in an attempt to avoid discomfort. Additional Medical Diagnoses with primary management by Hospitalist team include : CHF, Afib, stage 3 CKD, dementia Addendum: after morning rounds to assess comfort and minimal changes made to patient's medication (as reported by Dr. Johnson), Case Management met with Mrs. Bushra Verduzco, the patient's . Mrs. Verduzco feels that her seemed to improve a lot overnight, since high flow oxygen was removed and he was awake, talking and even eating a little bit of soft food. She decided she wanted to send her to SNF to rehabilitate, rather than continue comfort care. Dr. Chua met with her for a lengthy conversation, exploring her views. She realizes that may be aspirating some food/liquid, but would still like him to eat modified diet. Her hope is that ST at a SNF would be able to teach her to swallow better. She wants PT to help him get strong enough to move from bed to chair and feed himself. Dr. Chua pointed out all the points she had made in our meeting on 09/06: that her was declining, that he was falling a lot, that he had terrible short term memory (that would interfere with learning new techniques from ST and PT), that he showed repeated frustration and sadness over his mental and physical losses due to dementia. ( See 09/[address] Johnson). Nonetheless, Mrs. Verduzco is adamant that she wants her to go to a SNF to have rehab. Dr. Chua voided the POLST Mrs Verduzco signed on 09/06 and we completed a new POLST that states: DNR/DNI, limited interventions to include labs, no feeding tube, use of antibiotics on a case by case basis, and no return to hospital. Mrs. Verduzco also decided she didn't want her to go through a pacemaker procedure. She said if her declines while at SNF and cannot complete rehab, then she is interested in taking him home with hospice. Dr. Chua alerted CM of this new POLST and Mrs. Verduzco's wishes. Problems: End of Life Preferences Comfort Care only measures with a new POLST form inserted into the chart. Goals of Care The patient currently DNR/DNI however after family discussion with the Palliative team the patient is to be comfort care measures only. The End of Life order set has already been put in place on EMR, and all drugs not directly related to comfort care have been discontinued. Resuscitation Status Resuscitation Status: CPR: Attempt Resuscitation POLST Updates/Changes Previous POLST?: No POLST Last Review Date: Sep 06, 2016 Antibiotics: No Antibiotics Artificially Admin Nutrition: No Artifical Nutrition by Tube POLST Discussed with: Spouse/Other (Son and [id number]) POLST Review Outcome: New Form Completed . Pain: Mild Symptom management: Pain (left sided abdominal pain), Constipation Total time [120] minutes; >50% face to face with patient and/or family, providing counselling regarding plans and recommendations, and in care coordination with his/her medical teams. Of this time: 85 minutes spent in counseling on advanced care planning with , Bushra Verduzco. Palliative Brief Note Date of Service Sep 07, 2016 Please see Addendum at bottom of this note written by Dr. Chua for latest update on family wishes. Thank you. . 86yoM with multiple comorbidities currently on comfort care only measures. The patient's condition is not expected to rapidly deteriorate and the primary medical team is working with social work to have the patient placed to a facility where comfort care can be managed appropriately. The patient is no longer NPO and has scheduled sublingual morphine to manage his abdominal pain. A one time dose of Dulcolax suppository was ordered for likely constipation. The patient has asked RT to remove his face tent oxygen and the patient will be placed on nasal canula at 2L. The palliative team will continue to follow until placement and transfer by social work to an accepting facility. WALLY MUSA DO Sep 07, 2016 09:56 Tracey Chua MD Sep 07, 2016 17:16
[2016-09-07] MEDS ORDERED: 0.9% Sodium Chloride 1,000 ML IV SCH (13:20)
--- NOTE | 2016-09-07 14:21 | NUR ---
Social Work Note: Discharge Planning Update Data& Assessment: Pt explained to SW that she did not fully understand what comfort care measures would entail and she wants pt to eat and improve as well as participate in therapies to get stronger. Pt was previously independent at baseline prior to hospitalization. Per PT on 09/05/2016 they were recommending SNF. Pt is hopeful that pt will improve as pt is more alert, oriented and eating ice cream today. Pt requested referral be sent to [facility] for rehab. Referral sent. Pt provided with caregiving information and resources in case they require in home caregiving in the future. Hospice notified. Palliative care MD notified and updated POLST with pt and pt . [place] from [facility] confirmed they are able to accept pt when medically ready. SW notified MD. Pt and pt deny any other needs at this time. SW to continue to follow. Plan: Anticipated discharge to [facility] for rehab when medically ready. Pt and pt deny any other needs at this time. SW to continue to follow. AGUSTIN Nobles
[2016-09-07 14:22] VITALS: PULSE 98
[2016-09-07] MEDS: Morphine 20 mg/mL Oral Syringe SL/PO SCH ×2 (14:30→20:29)
--- NOTE | 2016-09-07 15:33 | DRSVH ---
PROCEDURE: X-RAY CHEST ONE VIEW, PORTABLE ([id number]) INDICATIONS: shortness of breath TECHNIQUE: One view of the chest was acquired. COMPARISON: [facility], CR, XR CHEST 1VW (PORTABLE), 09/06/2016, 5:18. FINDINGS: Surgical changes and devices: Sternotomy wires, aortic valve replacement, possible CABG. PICC line f rom right sided approach extends into the right mediastinum area. Lungs and pleura: No pleural effusions or pneumothorax. Lungs are abnormal with loss of visualizati on of the left diaphragm, indicating likelihood of left lower lobe pneumonia behind the heart. Mediastinum: Mediastinal contours appear normal. Heart size is mildly enlarged, even considering re duced inspiratory volume. Bones and chest wall: No suspicious bony lesions. Overlying soft tissues appear unremarkable. IMPRESSION: Chronic CHF pattern, new left lower lobe pneumonia. Dictated by: Alexey Lemon M.D. on 09/07/2016 at 15:31 Approved by: Alexey Lemon M.D. on 09/07/2016 at 15:31
[2016-09-07 15:37] VITALS: BP 184/84; PULSE 98; RESP 24; O2SAT 95
--- NOTE | 2016-09-07 15:39 | NUR ---
Evaluation completed. Please go to "Notes" then click on "Assessments and Notes" (bottom left corner of screen). Then select appropriate discipline tab on top of screen.
--- NOTE | 2016-09-07 15:45 | DRSVH ---
PROCEDURE: CT BRAIN WITHOUT CONTRAST ([id number]) INDICATIONS: altered level of consciousness TECHNIQUE: Noncontrast 4.5 mm thick angled axial sections acquired from the foramen magnum to the vertex, with c oronal reformats. COMPARISON: [facility], CT, BRAIN ([facility]PA), 08/29/2016, 19:37. FINDINGS: Image quality: Excellent. CSF spaces: Basal cisterns are patent. No extra-axial fluid collections. The ventricles are symmet evert in size and shape. Brain: No intracranial bleeds or masses. No change in small chronic bilateral cerebellar infarcts. Small chronic left frontal lobe infarct is present, as before. There is cerebral volume loss for age, with resultant ventricular and sulcal prominence. There are periventricular and deep white matter c hronic small vessel ischemic changes. There is intracranial internal carotid artery atherosclerosis. Skull and face: Calvarium and visualized facial bones appear intact, without suspicious lesions. Sinuses: Visualized sinuses and mastoids are clear. IMPRESSION: 1. No acute intracranial abnormality. 2. Volume loss and small vessel ischemic disease. 3. 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 Dictated by: Ke Toledo M.D. on 09/07/2016 at 15:43 Approved by: Ke Toledo M.D. on 09/07/2016 at 15:43
[2016-09-07] MEDS ORDERED: Esmolol 2,500 mg/250 mL NS 2,500,000 MCG in IV Premix 1 EACH IV SCH (16:10)
[2016-09-07] MEDS: Vancomycin Dose per Pharmacist XX SCH (16:30)
[2016-09-07] MEDS ORDERED: levoFLOXacin Dose Per Pharmacist XX ONE (16:30)
[2016-09-07 17:53] VITALS: BP 175/77; PULSE 99; O2SAT 95
--- NOTE | 2016-09-07 18:00 | PCM.PNMED ---
Subjective Date of Service Sep 07, 2016 Subjective Patient is an 86 year old male with PMH significant for atrial fibrillation not on chronic warfarin due to dementia/fall risk, CAD s/p CABG in 2003, aortic stenosis s/p bioprosthetic valve replacement in 2003, dementia, chronic back pain on chronic opiates, CKD stage III, DM type II, and systolic CHF on home O2 at night who presented 08/29/16 after acute respiratory failure and intubation in the field, EKG showed A-fib rate [address] depresion in I, AVL, V5-6, CT of head no acute intracranial process. Patient was extubated following positive PST on 09/04/16. Patient placed on comfort care 09/06/16. Hospital Day 10. Overnight nursing reported no events. Today patient examined in the morning and afternoon he was slightly more alert than yesterday, he was able to state that he was feeling hungry and his reports that he as been asking about his dog at home. Patient able to verbalize yes and no to questions. Patient endorsed shortness of breath, fever, chills, need to BM. Family requested to discontinue comfort care measures and put in place DNR/DNI with limited interventions with the goal of medically stabilizing patient for discharge to jail facility, Dr. Orellana at [facility] in [place] has accepted this patient once medically stable to discharge. Please see SW note for further details. ROS negative except as mentioned above. Exam Vital Signs Vital Sign - Last Date Time Temp Pulse Resp B/P Pulse Ox O2 Delivery O2 Flow Rate FiO2 09/06/16 19:00 36.8 90 12 148/78 93 Aerosol Mask 28 09/06/16 16:38 7.00 Intake and Output 09/06/16 09/06/16 09/07/16 Cumulative From/Thru 15:00 23:00 07:00 08/29/16 00:00 - 09/07/16 04:46 Intake Total 100 ml 41745 ml Output Total 300 ml 500 ml 89887 ml Balance -300 ml -400 ml 5037 ml Intake Oral 100 ml 100 ml IV Total 01862 ml Tube Feeding 3310 ml Tube Irrigant 1477 ml Output Urine Total 300 ml 500 ml 37365 ml Gastric Drainage Total 185 ml # Bowel Movements 11 Exam General: Alert, Oriented X1, Cooperative, Distressed Head: Normocephalic, atraumatic. External ears normal. Eyes: PERRLA, EOMI. Anicteric sclerae. Mouth: Mouth Normal, Mucous Membranes Moist/[place] Neck: Neck supple with full range of motion. Chest & Lungs: Wet cough, patient unable to produce sputum, Increased A-P diameter, Lungs on auscultation diffuse wheezes, crackles heard at bases bilaterally L>R, No rhonchi heard. Cardiovascular: Irregularly irregular Rate between 100's - 90 per Tele, Normal S1, Normal S2, No Murmurs/Rubs/Gallops Abdomen: Non-tender, Non-distended, No masses, Normoactive bowel tones, Soft Musculoskeletal: Normal Range of Motion Extremities: No cyanosis/clubbing/ minimal edema of ankles bilaterally Neurological: Speech quite and slurred, Strength Normal 1/4 in all extremities ext, able to squeeze hand bilaterally, wiggle toes, unable to support hands/ legs against gravity, pupils reactive to light, patient able to open eyes spontaneously, and follow basic commands Lab and Diagnostics Result Diagram: 09/07/16 0600 09/06/16 0530 Microbiology No significant MICRO findings: Sputum, blood, urine, Resp PCR X-Rays, CTs and MRIs Chest X-Ray IMPRESSION: Chronic CHF pattern, new left lower lobe pneumonia. Dictated by: Alexey Lemon M.D. on 09/07/2016 at 15:31 Approved by: Alexey Lemon M.D. on 09/07/2016 at 15:[address] IMPRESSION: 1. No acute intracranial abnormality. 2. Volume loss and small vessel ischemic disease. 3. 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 Dictated by: Ke Toledo M.D. on 09/07/2016 at 15:43 Approved by: Ke Toledo M.D. on 09/07/2016 at 15:43 Additional Diagnostics User: Helen CASTELLON Date: 09/07/16 15:26 Type : SP: Bedside Swallow Evaluation... Treatment Start Time * 15:00 Treatment End Time * 15:25 Is the patient In Observation Status and Medicare? * No * Bedside Swallow Evaluation Swallow Assessment Pt presented on 08/29/16 after acute respiratory failure and intubation in the field. Med hx sig for atrial fibrillation, CAD s/p CABG in 2003, aortic stenosis s/p bioprosthetic valve replacement in 2003, dementia, chronic back pain on chronic opiates, CKD stage III, DM type II, and systolic CHF on home O2 at night. Pt was extubated on 09/04/16 and remained minimally responsive before the decision was made to move him to comfort care. Today that decision was reversed by the family. Pt was severely fatigued for evaluation and required cues to remain awake. OME was not fully completed due to weakness and fatigue. Speech was slow, with imprecise consonant articulation. Breathing was wet. Swallow reflex was delayed and laryngeal excursion was reduced per palpation. Pt immediately coughed following ice chip and puree/pudding trial. Pt is not safe for PO intake at this time. Discussed with pt, spouse, RN, and MD. BLOW MOLD TECHNICIAN will follow daily. Helen Crocker Date: 09/07/16 15:26 Assessment & Plan Patient is a 86 y.o. M with PMH of atrial fibrillation who was previously not thought to be a candidate for anticoagulation due to his falls is presenting in respiratory arrest and found to have bi-atrial thrombi which were seen on CT but not on echo. successfully extubated on 09/04/16. Today lethargic with minimal responsiveness,however slightly improved from yesterday, remains far from baseline, afebrile over past 24 hours, Comort care measures discontinued 07/14 Hospital Day 10. 1. Chronic Atrial fibrillation, present on admission. Active. 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 - Not on home antiplatelet or anticoagulation. - Holding home metoprolol 25mg PO BID. - Attempting rate control below 100 with Labetalol. Persistent tachyarrhythmias 09/04/16 with HR >150. 2. Bilateral atrial thrombus, unknown chronicity, present on admission. Active. - CT angio of chest showed bilateral atrial thrombus as above. - PE heparin gtt. Stopped per family wishes - Cardiology signed off on patient, time and recommendations appreciated. 3. Pneumonia, acute, not present on admission, - HCAP vs evolving Aspiration pneumonia - Antibiotic therapy for HCAP pneumonia coverage with Zosyn, Levofloxacin, Vancomycin - Repeat CBC dose not show elevation in WBC count. -Repeat Lactic Acid and Procalcitonin ordered, pending - Swallow eval completed, patient was not able to successfully complete, Keep patient NPO, repeat study tomorrow morning - PT eval tomorrow AM after swallow study 4. Acute NSTEMI, present on admission. Active. - Likely demand ischemia. - Trending troponins - 0.016, 0.056, 0.037, 09/05/16 0.018 - EKG - Afib with Bradycardia. - D/C tele monitoring. - D/C PE heparin ggt. 5. Altered mental status, present on admission, active - Consider head CT showed chronic changes consistent with age, no acute intracranial process 6. Mixed Metabolic acidosis with Metabolic Alkalosis and Respiratory Alkalosis, not present on admission, improved - ABG showed evidence of Mixed Metabolic acidosis with Metabolic Alkalosis and Respiratory Alkalosis - Abdominal x-ray ordered, no acute intraabdominal process - Repeat blood cultures x 3 - Echocardiogram ordered to r/o endocarditis, stopped per family wishes 7. Acute kidney injury, present on admission. Improving. - Baseline creatinine in 04/2016 1.68. Today Creatine 1.4 - Nephrology following prior to Comfort care, will resume consult if creatine begins to trend up - Repeat AM CMP - 1 L NS @ 100 mls/hr given, D/C due to pulmonary congestion Likely due to CHF - Hold home Furosemide 8. Acute respiratory failure with severe hypoxia requiring intubation, present on admission. Resolved. - Intubated in field and treated for possible aspiration pneumonia, IV Zosyn and IV Azithromycin. - Respiratory viral PCR, Legionella, strep pneumo, urine antigens, blood cx all negative. - ICU / Pulmonology extubated patient successfully 09/04/16. Off O2 with saturations >94%, Speech consulted. 9. Acute probable arrhythmia in setting of chronic atrial fibrillation with syncopal episode. Not present on admission, Stable. - Precipitating event was likely arrhythmia from atrial fibrillation with slow ventricular response versus ischemia versus run of v. tach. - Patient heart rate in the 40-50's. He is on metoprolol at home and this has been held in the hospital. 10. Subclinical hypothyroid, present on admission. Active. - TSH -2.40 T4 - 1.4 11. Metabolic Lactic acidosis, present on admission. Resolved. - Most likely secondary to acute hypoxia. - Lactic acid upon admission 6.2. High-risk medications: IV Morphine, Disposition: Likely discharge tomorrow, once patient is Medically stable, to jail facility, Dr. Orellana at [facility] in [place] has accepted this patient GI Prophylaxis: H2 amelia VTE Prophylaxis: Other (Will place on therapeutic DVT IV heparin drip for possible PE) VTE Mechanical Devices: Intermittant Pneumatic CD Resuscitation Status: CPR: Attempt Resuscitation Attending Statement The patient was seen and examined together with Dr. Chávez on 09/07/2016 and I agree with the history, exam and plan as outlined in the note above. . SULY CHÁVEZ DO Sep 07, 2016 06:33 Dominik Sheets MD Sep 09, 2016 16:26
--- NOTE | 2016-09-07 18:45 | NUR ---
Blood Pressure/DC'D Comfort Measure Pt. is now off of comfort measure and is limited intervention on POLST. Pt. on shift has not c/o pain, Pt. is back on heart monitor, AFIB 100's per tele. Pt. had a blood pressure of 184/84, made aware and ordered labetalol Q4hr PRN. Pt. is in bed resting comfortably.
[2016-09-07] MEDS ORDERED: Piperacillin-Tazo 3.375 Gm Inj 3.375 GM in Dextrose 5% Minibag Plus 50 ML IV ONE (18:50)
[2016-09-07] MEDS ORDERED: 0.9% Sodium Chloride 1,000 ML IV ONE (18:56)
--- NOTE | 2016-09-07 19:17 | PCM.CONPHA ---
Subjective Date of Service: Sep 07, 2016 ICU/Pulmonology consult: Reason for Pharmacy Consult: Vancomycin Dosing, Levaquin Dosing Objective Vital Signs Date Time Temp Pulse Resp B/P Pulse Ox O2 Delivery O2 Flow Rate FiO2 09/07/16 17:53 99 175/77 95 Nasal Cannula 2.00 09/07/16 17:35 Supplement Oxygen 09/07/16 15:37 36.9 98 24 184/84 95 Nasal Cannula 2.00 09/07/16 14:22 98 09/07/16 10:30 Supplement Oxygen Intake and Output 09/05/16 09/06/16 09/07/16 00:00 00:00 00:00 Intake Total 2547 ml 2244 ml 2526 ml Output Total 4025 ml 4050 ml 950 ml Balance -1478 ml -1806 ml 1576 ml Weight (Kilograms): 101.100 Height (Feet): 5 Height (Inches): 10.00 Test 08/29/16 19:50 08/29/16 20:28 08/29/16 21:42 08/29/16 23:40 Alcohol, Quantitative < 10mg/dL (0-10) Salicylates Level < 3.0ug/mL (30-250) Acetaminophen Level < 15.0ug/mL Rx (10-25) Urine Opiates Screen Negative Urine Methadone Screen Negative Urine Barbiturates Screen Negative Urine Amphetamines Screen Negative Urine Benzodiazepines Screen Positive Urine Cocaine Metabolite Screen Negative Urine Cannabinoids Screen Negative Prothrombin Time 11.3sec (8.1-12.5) Prothromb Time International Ratio 1.05ratio Hemoglobin A1c 6.5% (4.8-5.6) Test 08/30/16 07:21 08/30/16 22:10 08/31/16 06:31 09/01/16 03:45 Thyroid Stimulating Hormone (TSH) 2.400uIU/mL (0.450-4.500) Free Thyroxine Index 1.4 (1.2-4.9) Thyroxine (T4) 3.0ug/dL (4.5-12.0) Triiodothyronine (T3) Uptake 48% (24-39) Troponin T 0.018ug/L (0.0-0.011) Triglycerides Level 118mg/dL (0-149) Cholesterol Level 137mg/dL (100-199) LDL Cholesterol, Calculated 82.400mg/dL (0-99) VLDL Cholesterol 23.600mg/dL HDL Cholesterol 31mg/dL (>39) Cholesterol/HDL Ratio 4.42 (0.0-4.4) Total Creatine Kinase 36U/L (21-232) Creatine Kinase MB 1.6ng/mL (0.0-10.4) Creatine Kinase MB % % (0.0-5.0) Procalcitonin 0.10ng/mL (See Comment) Test 09/01/16 08:44 09/01/16 09:45 09/02/16 05:50 09/05/16 02:30 Urine Color Dark yellow (YELLOW) Urine Appearance Cloudy (CLEAR,HAZY) Urine pH 5.5 (5.0-8.0) Urine Specific [place] 1.025 (1.003-1.035) Urine Protein 30mg/dL (NEG,TRACE) Urine Glucose (UA) Negativemg/dL (NEGATIVE) Urine Ketones Negativemg/dL (NEGATIVE) Urine Occult Blood Large (NEGATIVE) Urine Nitrite Negative (NEGATIVE) Urine Bilirubin Negative (NEGATIVE) Urine Urobilinogen Normalmg/dL (NORMAL) Urine Leukocyte Esterase Trace (NEGATIVE) Urine RBC >50/hpf (0-2) Urine WBC 0-5/hpf (0-5) Urine Epithelial Cells Occasional/hpf (NONE-MOD) Urine Crystals Uric acid crystals (NONE Urine Bacteria Few/hpf (NONE-FEW) Urine Hyaline Casts None/lpf (NONE) Urine Granular Casts None seen (NONE SEEN) Urine Waxy Casts None seen (NONE SEEN) Urine Red Blood Cell Casts None seen (NONE SEEN) Urine White Blood Cell Casts None seen (NONE SEEN) Urine Mucus None seen (None Seen) Urine Trichomonas None seen (NONE SEEN) Urine Yeast None (NONE SEEN) Urinalysis Comment None Urine Culture Reflexed Indicated Hold Rojo Top Tube Received (Received) Prealbumin 11mg/dL (20-40) Phosphorus Level 3.8mg/dL (2.5-4.9) Magnesium Level 1.8mg/dL (1.6-2.6) Total Bilirubin 0.7mg/dL (0.0-1.2) Aspartate Amino Transf (AST/SGOT) 21U/L (0-50) Alanine Aminotransferase (ALT/SGPT) 9U/L (0-44) Alkaline Phosphatase 57U/L (25-160) Total Protein 6.7g/dL (6.4-8.4) Albumin 3.4g/dL (3.4-5.0) Test 09/05/16 05:00 09/06/16 06:20 09/07/16 06:00 Hold Blue Top Tube Received (Received) Lactic Acid Level 1.1mmol/L (0.4-2.0) White Blood Count 8.7th/mm3 (3.8-10.1) Red Blood Count 3.70mil/mm3 (4.40-5.80) Hemoglobin 11.3g/dL (13.8-17.2) Hematocrit 34.3% (41.0-50.0) Mean Corpuscular Volume 92.7fL (81-100) Mean Corpuscular Hemoglobin 30.5pg (27.0-35.0) Mean Corpuscular Hemoglobin Concent 32.9% (32.0-37.0) Red Cell Distribution Width 13.3% (12.3-15.4) Platelet Count 174bil/L (150-400) Neutrophils (%) (Auto) 73.2% (40-74) Lymphocytes (%) (Auto) 11.2% (14-46) Monocytes (%) (Auto) 12.3% (4-12) Eosinophils (%) (Auto) 1.8% (0-5) Basophils (%) (Auto) 0.7% (0-3) Activated Partial Thromboplast Time 27.3sec (22.8-33.0) Sodium Level 139mEq/L (134-144) Potassium Level 4.4mEq/L (3.5-5.2) Chloride Level 100mEq/L (97-108) Carbon Dioxide Level 22mmol/L (18-29) Blood Urea Nitrogen 43mg/dL (8-27) Creatinine 1.44mg/dL (0.76-1.27) Estimat Glomerular Filtration Rate 49mL/min (>59) Glucose Level 123mg/dL (60-99) Calcium Level 9.4mg/dL (8.5-10.1) Assessment/Plan Assessment/Plan Vanco per Rx: LD 2250mg HALLIE, improving, SCR is 1.4; Random level with AM lab Goal 15 -20 . Pneumonia, acute, not present on admission, - HCAP vs evolving Aspiration pneumonia - Antibiotic therapy for HCAP pneumonia coverage with Zosyn, Levofloxacin, Vancomycin - Repeat CBC dose not show elevation in WBC count. -Repeat Lactic Acid and Procalcitonin ordered, pending Talat Waters PharmD Sep 07, 2016 19:17
[2016-09-07 20:14] VITALS: BP 181/117; PULSE 106; RESP 26; O2SAT 94
[2016-09-07] MEDS: Levofloxacin 750 mg/150 mL D5W IV SCH (20:28)
[2016-09-07] MEDS: Labetalol 5 mg/mL 4 mL Inj IVPUSH PRN (20:53)
[2016-09-07 21:20] VITALS: BP 146/94
[2016-09-07 23:04] VITALS: BP 169/96; PULSE 103; RESP 26; O2SAT 95
[2016-09-08] VITALS (9 sets, daily range): BP systolic 157–166; BP diastolic 78–105; PULSE 77–102; RESP 16–28; O2SAT 95–96
[2016-09-08] MEDS: Morphine 20 mg/mL Oral Syringe SL/PO SCH ×2 (02:36→09:19)
[2016-09-08 04:01] LABS: BASOPHILS % (AUTO) 0.7 % (0-3); EOSINOPHILS % (AUTO) 2.9 % (0-5); MONOCYTES % (AUTO) 13.1 % (4-12); Mean Corpuscular Hemoglobin 30.2 pg (27.0-35.0); Mean Corpuscular Volume 94.1 fL (81-100); NEUTROPHILS % (AUTO) 72.2 % (40-74); Platelet Count 163 bil/L (150-400)
[2016-09-08 04:40] LABS: Vancomycin, Trough 20.9 mcg/mL
[2016-09-08] MEDS ORDERED: Vancomycin Serum Trough XX ONE (05:00)
--- NOTE | 2016-09-08 05:27 | NUR ---
Mentation / Respiratory Pt rousable to light stimuli, delayed verbal response to yes or no questions; voices needs appropriately. Pt bedrest, does not participate in bed mobility, turning schedule in place. Ongoing tachypnea; Q6H morphine administered for relief of dyspnea without change in respiratory status on reassessment. Pt reports pain at HS, though without identified location. HTN at HS, 20mg labetalol administered in combination with HS meds of Coreg and morphine. Love draining to gravity. SpO2 94-96% on 2L NC. Tele afib 80s-90s. Addendum: 09/08/16 at 0616 by BALA MELENDEZ RN At approx. 0530, pt significantly wheezy and crackly to assessment; tachypneic with RR 28, pt reports feeling short of breath and unable to complete full sentences without breaths in between words. BP 179/114; MD jean baptiste, 20mg labetalol and 40mg lasix IV push administered; STAT CXR obtained. BP 146/89 on reassessment.
[2016-09-08] MEDS ORDERED: Furosemide 10 mg/mL 4 mL Inj IVPUSH ONE (05:45)
[2016-09-08] MEDS: Labetalol 5 mg/mL 4 mL Inj IVPUSH PRN (05:48)
--- NOTE | 2016-09-08 07:00 | PROG NOTE ---
[address] [address] PROGRESS NOTE PATIENT: HAILEE MELLO : 1930 MR#: [id number] ADMIT: 08/29/2016 JOB ID: [id number] DATE: 09/07/2016 I saw and examined the patient. The history was obtained by talking to his and medical record review. Please see Shelton Talley's notes for detail. IMPRESSION: 1. Chronic atrial fibrillation since 2003. 2. He is not on chronic anticoagulation due to multiple falls in the past. 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 He tried Plavix in the past and it caused hives. 3. Status post bioprosthetic aortic valve replacement in 2003 for aortic stenosis. 4. Status post coronary artery bypass surgery x4 in 2003 utilizing KHOURY to the LAD, saphenous vein graft to OM, saphenous vein graft to OM2 and saphenous vein graft to right coronary artery. 5. Left ventricular ejection fraction 55% to 60% by echocardiogram on August 30, 2016. PLAN: There is no indication for permanent pacemaker implantation at this time as there is no evidence of significant bradycardia on the monitor. There is no clear history of syncope as his found him slumped over rather than witnessed syncopal episode. I will start him on a small dose of beta amelia with carvedilol 3.125 mg twice daily as he is currently hypertensive and in atrial fibrillation with rapid ventricular response. MTDD
--- NOTE | 2016-09-08 08:27 | DRSVH ---
PROCEDURE: X-RAY CHEST ONE VIEW, PORTABLE ([id number]) INDICATIONS: dyspnea TECHNIQUE: One view of the chest was acquired. COMPARISON: [facility], CT, CT ANGIO CHEST PE, 09/01/2016, 14:35. [facility] , CR, XR CHEST 1VW (PORTABLE), 09/07/2016, 14:58. [facility], CR, XR CHEST 1VW (PORTABLE) , 09/06/2016, 5:18. [facility], CR, XR CHEST 1VW (PORTABLE), 09/04/2016, 5:09. FINDINGS: Surgical changes and devices: Median sternotomy. Right arm PICC is present, tip of which is in the up per SVC. Lungs and pleura: No pleural effusions or pneumothorax. No change in moderate left and mild right ba silar, and bilateral perihilar airspace opacity. Mediastinum: Mediastinal contours appear normal. Heart size is enlarged. Bones and chest wall: No suspicious bony lesions. Overlying soft tissues appear unremarkable. IMPRESSION: 1. Bilateral pneumonia. 2. Cardiomegaly. Dictated by: Ke Toledo M.D. on 09/08/2016 at 8:25 Approved by: Ke Toledo M.D. on 09/08/2016 at 8:25
[2016-09-08] MEDS: Vancomycin Dose per Pharmacist XX SCH (08:30)
[2016-09-08] MEDS ORDERED: 0.9% Sodium Chloride 250 ML ONE (09:12)
[2016-09-08] MEDS: Piperacillin-Tazo 3.375 Gm Inj 3.375 GM in Dextrose 5% Minibag Plus 50 ML IV SCH ×2 (09:26→21:03)
--- NOTE | 2016-09-08 11:01 | PCM.PNCARD ---
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 2011) History of Present Illness Mr. Denny Verduzco is an 86-year-old man that has not been clinically followed in the [facility] cardiology department since 2003. The patient is followed by track vehicle repairer at [facility]. The patient's cardiac history consist of: chronic AFib (Not Anticoagulated x 6 mo 2* recurrent fall risk) , 3 Vz CAD, s/p Quadruple CABG (2003), Severe ( s/p Bioprosthetic AVR 2003), s/p BMS RSVG to PDA (2011 ?). The patient's history is obtained primarily through his who was at the bedside during my evaluation. The patient is awake and alert, sitting up in the bedside chair, however, he is unable to reliably answer questions regarding his health. The patient was reportedly found down and unresponsive in his easy chair by his after he'd taken some garbage cans outside. The patient's relates that she believes that her was down for no more than 4-5 minutes prior to being found by her cyanotic and unresponsive. The patient's relates that she checked the patient's pulse and noted the patient's heart was beating, however, his breathing was very labored. The patient's reports that her was unresponsive and agonal for about 11 minutes/ER report. The patient's called 911, when the EMS arrived they placed him in the ambulance immediately. EMS per ER physicians note, noted his heart rate was 130 bpm and his blood pressure was 208/124 with agonal breathing. He was given succinylcholine, etomidate and was intubated. He was reportedly also given Versed en route to the emergency room. The patient's states that she did not observe EMS performing CPR while the patient was in the house. He was resuscitated, intubated and he was subsequently admitted to the TCU. The patient gradually recovered over the next several days and was successfully extubated on 09/04/2016 after a positive PST. The patient's relates that her had been using an occasional sublingual nitroglycerin for substernal chest pain. Mrs. Verduzco also relates that the patient had been on metoprolol 25 mg in the morning and 50 mg in the evening. She states that his dosage had been recently decreased to 25 mg by mouth twice a day because his physician thought that the metoprolol was depressing his heart rate. Although, the patient is awake and sitting up in a chair currently he is not able to reliably answer any questions at this time. Cardiology has been consulted to assist with management. We have been asked to comment about whether this patients being found down and unresponsive, is in anyway cardiac related. 2-D echocardiogram: 08/30/2016 The patient was in atrial fibrillation with heart rates between 45-50 bpm during the exam. The left ventricle is normal in size. The ejection fraction is estimated to be 55-60%. There are no focal wall motion abnormalities. There is a bioprosthetic aortic valve. The prosthetic aortic valve function is normal. Right ventricular systolic pressure is estimated to be 30 mmHg plus the clinically estimated CVP which cannot be estimated on this exam. No other echocardiographic abnormalities seen. Coronary Angiography: 12/03/2003 1. LM: Normal 2. LAD: Proximal LAD is a large vessel and appears somewhat ectatic. It rapidly tapers around the level of the first diagonal branch to a long area of diffuse disease throughout the entire mid body of the vessel. This disease includes the origins of the first and second diagonal branches. Severity is difficult to gauge with the diffuseness of the disease but varies between 30 and 60%. There is moderate proximal consultation as well. There are 3 diagonal branches: The small first diagonal branch with greater than 50% stenosis, small second diagonal branch with a greater than 50% stenosis and a larger bifurcating third diagonal branch with about a 75% stenosis. In addition to the above described disease, there is also an apical 70% LAD lesion. 3. LCx: The circumflex circulation is primarily a large obtuse marginal branch. There is a diffuse calcification and a 50-60% stenosis of the proximal circumflex before the origin of the OM branch. 4. RCA: Dominant vessel. There is mild ostial stenosis, mild mid body disease , total occlusion of the distal RCA posterolateral branch in its most distal portion. There is disease proximal to that in the distal RCA as well with amounts up to about 50% stenosis. The proximal PDA has about a 70% lesion as well. Coronary artery disease status post Quad CABG (2003). His surgical anatomy is 1. KHOURY to LAD, 2. RSVG to the OM 3. RSVG to the OM 4. RSVG to PDA. Severe aortic stenosis 1. S/P 25 mm stented bioprosthetic AVR (December 2003). 2. Echocardiogram today showed that the prosthesis is functioning normally. 3. Chronic AFib currently with slow ventricular response. His heart rate at this moment in time is 65 beats but has been as low as 48 beats per minute. HOME MEDICATIONS: 1. Toprol-XL 25 mg daily. 2. Aspirin 81 mg daily. 3. Oxycodone 5 mg daily. 4. Lasix 20 mg by mouth for 2 days and alternating with Every third day of Lasix is 40 mg daily. 6. Potassium chloride 10 mEq daily. If he takes a higher dose of Lasix to take 20 mEq daily of potassium. 7. Protonix 40 mg daily. 8. Oxybutynin 10 mg daily. 9. He has not taken any type of anticoagulation for his A. fib since March 2016 secondary to his high risk of recurrent falls. Subjective: BP: 146-169/94-102 mmHg HR: 88-103 BPM Weight: Not completed time of this dictation Telemetry: Atrial fibrillation with a controlled ventricular rate (88-103 BPM), rare PVCs Current Cardiac Medications: 1. Carvedilol 3.125 mg one by mouth twice a day 2. Labetalol 20 mg IV every 4 hours Additional Information: The patient is awake alert and sitting up in the bedside chair. He is not able to reliably answer questions secondary to his anoxic encephalopathy related to his recent out of hospital. Exam Vital Signs Vital Sign - Last Date Time Temp Pulse Resp B/P Pulse Ox O2 Delivery O2 Flow Rate FiO2 09/08/16 09:03 36.7 90 24 160/102 96 Nasal Cannula 2.00 09/06/16 19:00 28 Intake and Output 09/07/16 09/07/16 09/08/16 Cumulative From/Thru 15:00 23:00 07:00 08/29/16 00:00 - 09/08/16 05:28 Intake Total 394 ml 1319 ml 36075 ml Output Total 1300 ml 350 ml 19543 ml Balance -906 ml 969 ml 5100 ml Intake Oral 0 ml 0 ml 100 ml IV Total 394 ml 1319 ml 16068 ml Tube Feeding 3310 ml Tube Irrigant 1477 ml Output Urine Total 1300 ml 350 ml 15059 ml Gastric Drainage Total 185 ml # Bowel Movements 1 12 Additional Information: General: Awake, alert, sitting comfortably in the bedside chair, able to very softly speak, in no acute distress. I am unable to establish the patient's orientation secondary to the patient's difficulty with speaking audibly. Head: NC/HEENT Eyes: Anicteric Oropharynx: Tongue is mobile and midline, mucous membranes are moist Neck: Supple, No hepatojugular reflux, no jugular venous distention, Heart: Irregularly irregular normal S1 and S2 no murmurs clicks or gallops are auscultated. Lungs: Bilaterally diffuse wheezes and scattered crackles left greater than right Abdomen: Soft, rotund without masses, LKS not palpable positive NABS 4 quadrants Extremities: No pretibial edema noted Lab and Diagnostics Result Diagram: 09/08/16 0355 09/08/16 0355 Assessment & Plan Assessment # Chronic atrial fibrillation: The patient continues to be in atrial fibrillation with a controlled ventricular rate. The patient's track vehicle repairer at [facility] discontinue the patient's warfarin in March 2016 secondary to the patient's recurrent falls. Subsequently, the patient was tried on Plavix, however, he developed severe hives in the Plavix was discontinued. Recommendation: 1. There is no indication for permanent pacemaker implantation at this time as there is no evidence of significant bradycardia on the monitor. There is no clear history of syncope as his found him slumped over rather than witnessed syncopal episode. 2. I will start him on a small dose of beta amelia with carvedilol 3.125 mg twice daily as he is currently hypertensive and in atrial fibrillation with rapid ventricular response. 3. Left ventricular ejection fraction 55% to 60% by echocardiogram on August # NSTEMI: The patient had elevated troponins following his respiratory arrest. The patient's elevated troponins are most likely demand ischemia related to the stress process part during his respiratory arrest. Recommendation: 1. Continue current management as noted above, we will maximize medical management. 2. No ischemic workup at this time. # Anoxic encephalopathy The patient appears to be slowly recovering from his anoxic encephalopathy secondary to his respiratory arrest on 08/29/2016. Recommendation: 1. Treatment plan per primary care team # Aspiration Pneumonia Patient is currently being treated for aspiration pneumonia Recommendation: 1. Treatment plan per primary care team # Respiratory arrest: The patient is improving following his respiratory arrest. Recommendation: 1. Treatment plan per primary care team # HALLIE / CKD Patient's acute daily injury appears to be improving Recommendation: 1. Treatment plan per primary care team # Severe three-vessel [place] coronary artery disease Stable Recommendation: 1. Continue current medical management as noted above # s/p quad CABG (2003) The patient is S/P quad CABG (2003) utilizing KHOURY to the LAD, RSVG to OM, RSVG to OM2, RSVG to right coronary artery. Recommendation: 1. Continue current medical management # s/p BMS to RSVG to PDA ( ? 2011) Stable Recommendation: 1. Continue current medical management # S/P bioprosthetic AVR for severe (2003) Stable Recommendation: 1. Continue current management Problems: Pain Evaluation: Adequate Pain Control GI Prophylaxis: H2 amelia VTE Prophylaxis: Other (Will place on therapeutic DVT IV heparin drip for possible PE) VTE Mechanical Devices: Intermittant Pneumatic CD Resuscitation Status: CPR: Attempt Resuscitation Shelton Talley PA-C Sep 08, 2016 11:01
--- NOTE | 2016-09-08 11:28 | NUR ---
Social Work: Continued Discharge Planning D: Pt discussed in morning rounds. There is confusion about pt's care and discharge plan. Pt was made comfort care however shortly after, pt's revoked this stating she did not understand what comfort measures meant and that she wanted the pt to go to rehab. ELECTRICAL AND INSTRUMENTATION MANAGER and PROOF SORTER to clarify pt's discharge plan with pt's . ELECTRICAL AND INSTRUMENTATION MANAGER and PROOF SORTER met with pt's to discuss plan and expectations for rehab. Pt's confirms that she does not want the pt to be on comfort measures and that she wishes for him to go to rehab to regain some strength and mobility. ELECTRICAL AND INSTRUMENTATION MANAGER reviewed medical necessity and rehab potential based on current status. She believes that the reason pt has failed working with PT and ST is that he was heavily sedated on pain medications. Now that he is more alert, she would like for him to be reassessed. ELECTRICAL AND INSTRUMENTATION MANAGER agreed to have PT come re-evaluated and also cautioned her that pt will need to demonstrate physical and cognitive abilities to participate. She understands that pt will need to not only participate with daily therapies but make measureable gains at skilled rehab. She states that if the pt is not progressing or participating she will take him home with hospice. Per PT, pt is a rehab candidate at this time. Pt requires a lot of assistance but was able to follow commands and shows good potential for rehab even with his current cognition. See PT notes. ELECTRICAL AND INSTRUMENTATION MANAGER spoke with MD team about pt's care. Pt continues to fail swallow eval and will need an NG tube if continuing with full treatment. Team will speak with pt's about this. [facility] will place referral to [facility] as they are currently the only facility who is currently accepting pt's with an NG tube. [facility] reviewing; they currently do not have any beds available. A: Pt who will require skilled rehab at time of discharge P: [facility] for [facility]hab; ELECTRICAL AND INSTRUMENTATION MANAGER to continue to follow. AGUSTIN Gallo
--- NOTE | 2016-09-08 11:36 | NUR ---
Gave access and faxed facesheet to [facility] per SALES AND SERVICE AGENT. Medical team is now working on a nutrition plan and want to place NG tube for feeding. Addendum: 09/08/16 at 1144 by BRIJESH NEGRETE CM Left message for Liliane Hutchinson in admissions at [facility]. Giving heads up on this referral and reason for it.
[2016-09-08] MEDS ORDERED: Acetaminophen IV 1,000 MG in IV Premix 1 EACH IV PRN (14:05)
[2016-09-08] MEDS ORDERED: Morphine 2 mg/mL 5 mL Oral Solution PO SCH (14:30)
[2016-09-08] MEDS ORDERED: Glucose 40% Oral Gel 15 Gm Tube PO PRN (15:25)
[2016-09-08] MEDS ORDERED: 0.9% Sodium Chloride 1,000 ML IV ONE (15:25)
[2016-09-08] MEDS ORDERED: 0.45% Sodium Chloride 500 ML IV ONE (15:30)
--- NOTE | 2016-09-08 15:40 | NUR ---
NUTRITION FOLLOW-UP: Assess: 86 YO M admitted to CCU with respiratory arrest and uncontrolled atrial fibrillation alternating with bradycardia, requiring intubation. Pt extubated 09/04. Pt changed to comfort care on 09/06. Family has decided to reverse comfort decision. Awaiting further ST evaluation prior to restarting enteral nutrition. Per ST assessment this morning pt was not appropriate for PO intake. ST attempted to reassess this afternoon but pt was not engaging. PMHX: CHF, CAD, afib. DIET: NPO. LABS: BUN 44, Cr 1.5, Glu 119 MEDICATIONS: Reviewed. GI: BM x 1 (09/08). SKIN: No wound note issues. Zander 11 WEIGHT: 101.1 kg, BMI 32 kg/m2, Admit wt: 99.5 kg (BMI: 31.5 kg/m2) , IBW: 75.5 kg ESTIMATED NEEDS: BMI (admit wt) Calories: 5317-4135 kcal/day (20-22 kcal/kg BW) Protein: 91-113 g/day (1.2-1.5 g/kg IBW) Fluids: ~2500ml/day (25cc/kg) NUTRITION DIAGNOSIS: 1) Inadequate oral intake related to decreased ability to consume sufficient energy as evidenced by NPO/Vent status - PERSISTS. INTERVENTION: 1) Diet advance per speech therapy. 2) Unsigned orders placed in pts chart to initate enteral nutrition with Jevity 1.5 @ 15 ml/hr. Once pt tolerating, advance 10 ml q 6 hrs to goal rate of 63 ml/hr to provide 2174 kcal/d, 92 g/d protein, and 1341 ml/d H2O. *If no IVF, flush 150 ml q 3 hrs to provide 2301 ml/d MONITOR/EVALUATE: NPO status, diet advance vs nutrition support, labs, GI/nutrition status. Follow per high nutrition risk guidelines.
--- NOTE | 2016-09-08 16:58 | PCM.PALLBR ---
Palliative Care Recommendation This is an 86-year-old male recently admitted for episode of unresponsiveness with agonal breathing. He has a history of congestive heart failure, coronary artery disease and dementia. He was may be unresponsive and agonal for about 11 minutes per 's report per ER MDs report. After intubation in the field, he was treated in the ICU where he regained consciousness and was extubated in 5 days. His family initially anticipated transitioning him to comfort care but he has gradually improved each day, now showing signs of hunger and able to participate somewhat with therapies. Summary of palliative recommendations: Plan: Palliative met with family for background discussion and to discuss goals of care given DNR/DNI with significant comorbidities; after decisions to pursue comfort only care were made earlier this week, the patient's condition has now improved to the point that the is wanting to have rehab care for him on discharge from the hospital. -Symptom management (Pain/other): To be addressed by the [facility] team and Pulmonology/Critical care team. -DPOA/Advanced Directives/POLST: 1. Code Status is DNR/DNI/limited interventions 2. DPOA - Bushra 3. See POLST/; completed 09/06 with the help of Bushra in the presence of Son Marco. -Family Care team Meeting --she has no additional questions today. Feels she has adequate support; is grateful for knowing where she can turn as the patient's decline becomes more pronounced. Family Goals: 1. Patient should not suffer from pain. 2. Patient may take any medication that helps his quality of life in an attempt to avoid discomfort. Additional Medical Diagnoses with primary management by Hospitalist team include : CHF, Afib, stage 3 CKD, dementia 1. Chronic Atrial fibrillation, present on admission. Active. 2. Bilateral atrial thrombus, unknown chronicity, present on admission. Active. 3. Pneumonia, acute, not present on admission, 4. Acute NSTEMI, present on admission. Active. 5. Altered mental status, present on admission, active 6. Mixed Metabolic acidosis with Metabolic Alkalosis and Respiratory Alkalosis, not present on admission, improved 7. Acute kidney injury, present on admission. Improving. 8. Acute respiratory failure with severe hypoxia requiring intubation, present on admission. Resolved. 9. Acute probable arrhythmia in setting of chronic atrial fibrillation with syncopal episode. Not present on admission, Stable. 10. Subclinical hypothyroid, present on admission. Active. 11. Metabolic Lactic acidosis, present on admission. Resolved. Problems: End of Life Preferences will want comfort for patient when he can no longer benefit from rehab. Goals of Care The patient currently DNR/DNI; plans to attempt improved function with rehab Disposition rehab at [facility] Resuscitation Status Resuscitation Status: DNR/DNI:Do Not Resuscitate/Intubate POLST Updates/Changes Previous POLST?: No POLST Last Review Date: Sep 06, 2016 Antibiotics: No Antibiotics Artificially Admin Nutrition: No Artifical Nutrition by Tube POLST Discussed with: Spouse/Other (Son and [id number]) POLST Review Outcome: New Form Completed . Advanced Care Planning Address: POLST Pain: None Total time 15 minutes; >50% face to face with patient and/or family, providing counselling regarding plans and recommendations, and in care coordination with his/her medical teams. copies to: Farhan Orellana DO Palliative Brief Note Date of Service Sep 08, 2016 . Met with and patient at bedside. Pt up in chair, appears fatigued but responds to some questions with 1 word answers. Says 'yes' when prompts him about being hungry. reports that he is brighter, more responsive today. They are waiting for PT and ST to "clear him". states he has swallowed well for "everyone but the therapist". is feeling hopeful that patient will benefit from rehab in the short term but understands that she will need a long-term plan. Offered resources--she states she is connected with [facility] and has friends who support her."I know what lies ahead". states she will let us know if she has questions. Hopeful of DC to rehab today/tomorrow. Mitch Whitehead Sep 08, 2016 16:58
[2016-09-08] MEDS: Insulin LISPRO 300 Unit/3 mL Inj SUBQ SCH ×2 (17:21→21:02)
--- NOTE | 2016-09-08 17:57 | DRSVH ---
PROCEDURE: X-RAY CHEST ONE VIEW, PORTABLE ([id number]) INDICATIONS: new NG TUBE TECHNIQUE: One view of the chest was acquired. COMPARISON: [facility], CR, XR CHEST 1VW (PORTABLE), 09/08/2016, 5:54. FINDINGS: Surgical changes and devices: Status post CABG procedure and aortic valve replacement. NG tube proj ects across the GE junction.. Lungs and pleura: No pleural effusions or pneumothorax. Patchy opacities in the lung bases bilateral ly stable compared to prior examination. Trace left-sided pleural effusion. Mediastinum: Mediastinal contours appear normal. Heart size is normal. Bones and chest wall: No suspicious bony lesions. Overlying soft tissues appear unremarkable. IMPRESSION: NG tube projects across the GE junction. Bibasilar opacities suspicious for pneumonia. Dictated by: Maria Luisa Stewart MD, PhD on 09/08/2016 at 17:55 Approved by: Maria Luisa Stewart MD, PhD on 09/08/2016 at 17:55
--- NOTE | 2016-09-08 18:20 | PCM.PNMED ---
Subjective Date of Service Sep 08, 2016 Subjective Patient is an 86 year old male with medical history of atrial fibrillation not on chronic warfarin due to dementia/fall risk, CAD s/p CABG in 2003, aortic stenosis s/p bioprosthetic valve replacement in 2003, dementia, chronic back pain on chronic opiates, CKD stage III, DM type II, and systolic CHF on home O2 at night who presented 08/29/16 after acute respiratory failure. Patient was extubated following positive PST on 09/04/16. Patient placed on comfort care . Hospital Day 11. Overnight nursing reported no events. Today patient examined Exam Vital Signs Vital Sign - Last Date Time Temp Pulse Resp B/P Pulse Ox O2 Delivery O2 Flow Rate FiO2 09/08/16 04:31 102 09/08/16 02:36 37.0 28 157/95 96 Nasal Cannula 2.00 09/06/16 19:00 28 Intake and Output 09/07/16 09/07/16 09/08/16 Cumulative From/Thru 15:00 23:00 07:00 08/29/16 00:00 - 09/08/16 05:28 Intake Total 394 ml 1319 ml 85029 ml Output Total 1300 ml 350 ml 01381 ml Balance -906 ml 969 ml 5100 ml Intake Oral 0 ml 0 ml 100 ml IV Total 394 ml 1319 ml 30005 ml Tube Feeding 3310 ml Tube Irrigant 1477 ml Output Urine Total 1300 ml 350 ml 44304 ml Gastric Drainage Total 185 ml # Bowel Movements 1 12 Lab and Diagnostics Result Diagram: 09/08/16 0355 09/08/16 0355 Microbiology No significant MICRO findings: Sputum, blood, urine, Resp PCR X-Rays, CTs and MRIs Chest X-Ray IMPRESSION: Chronic CHF pattern, new left lower lobe pneumonia. Dictated by: Alexey Lemon M.D. on 09/07/2016 at 15:31 Approved by: Alexey Lemon M.D. on 09/07/2016 at 15:[address] IMPRESSION: 1. No acute intracranial abnormality. 2. Volume loss and small vessel ischemic disease. 3. 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 Dictated by: Ke Toledo M.D. on 09/07/2016 at 15:43 Approved by: Ke Toledo M.D. on 09/07/2016 at 15:43 Additional Diagnostics User: Helen Crocker Date: 09/07/16 15:26 Type : SP: Bedside Swallow Evaluation... Treatment Start Time * 15:00 Treatment End Time * 15:25 Is the patient In Observation Status and Medicare? * No * Bedside Swallow Evaluation Swallow Assessment Pt presented on 08/29/16 after acute respiratory failure and intubation in the field. Med hx sig for atrial fibrillation, CAD s/p CABG in 2003, aortic stenosis s/p bioprosthetic valve replacement in 2003, dementia, chronic back pain on chronic opiates, CKD stage III, DM type II, and systolic CHF on home O2 at night. Pt was extubated on 09/04/16 and remained minimally responsive before the decision was made to move him to comfort care. Today that decision was reversed by the family. Pt was severely fatigued for evaluation and required cues to remain awake. OME was not fully completed due to weakness and fatigue. Speech was slow, with imprecise consonant articulation. Breathing was wet. Swallow reflex was delayed and laryngeal excursion was reduced per palpation. Pt immediately coughed following ice chip and puree/pudding trial. Pt is not safe for PO intake at this time. Discussed with pt, spouse, RN, and MD. [employer] TEACHER will follow daily. Helen Crocker Date: 09/07/16 15:26 Assessment & Plan Patient is a 86 y.o. M with PMH of atrial fibrillation who was previously not thought to be a candidate for anticoagulation due to his falls is presenting in respiratory arrest and found to have bi-atrial thrombi which were seen on CT but not on echo. successfully extubated on 09/04/16. Today lethargic with minimal responsiveness,however slightly improved from yesterday, remains far from baseline, afebrile over past 24 hours, Comort care measures discontinued 07/14 Hospital Day 10. 1. Chronic Atrial fibrillation, present on admission. Active. 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 - Not on home antiplatelet or anticoagulation. - Holding home metoprolol 25mg PO BID. - Attempting rate control below 100 with Labetalol. Persistent tachyarrhythmias 09/04/16 with HR >150. 2. Bilateral atrial thrombus, unknown chronicity, present on admission. Active. - CT angio of chest showed bilateral atrial thrombus as above. - PE heparin gtt. Stopped per family wishes - Cardiology signed off on patient, time and recommendations appreciated. 3. Pneumonia, acute, not present on admission, - HCAP vs evolving Aspiration pneumonia - Antibiotic therapy for HCAP pneumonia coverage with Zosyn, Levofloxacin, Vancomycin - Repeat CBC dose not show elevation in WBC count. -Repeat Lactic Acid and Procalcitonin ordered, pending - Swallow eval completed, patient was not able to successfully complete, Keep patient NPO, repeat study tomorrow morning - ST swallow study, patient lethargic for both swallow eval today - Restart tube feeds via NG 4. Acute NSTEMI, present on admission. Active. - Likely demand ischemia. - Trending troponins - 0.016, 0.056, 0.037, 09/05/16 0.018 - EKG - Afib with Bradycardia. - D/C tele monitoring. - D/C PE heparin ggt. 5. Altered mental status, present on admission, active - Consider head CT showed chronic changes consistent with age, no acute intracranial process 6. Mixed Metabolic acidosis with Metabolic Alkalosis and Respiratory Alkalosis, not present on admission, improved - ABG showed evidence of Mixed Metabolic acidosis with Metabolic Alkalosis and Respiratory Alkalosis - Abdominal x-ray ordered, no acute intraabdominal process - Repeat blood cultures x 3 - Echocardiogram ordered to r/o endocarditis, stopped per family wishes 7. Acute kidney injury, present on admission. Improving. - Baseline creatinine in 04/2016 1.68. Today Creatine 1.4 - Nephrology following prior to Comfort care, will resume consult if creatine begins to trend up - Repeat AM CMP - 1 L NS @ 100 mls/hr given, D/C due to pulmonary congestion Likely due to CHF - Hold home Furosemide 8. Acute respiratory failure with severe hypoxia requiring intubation, present on admission. Resolved. - Intubated in field and treated for possible aspiration pneumonia, IV Zosyn and IV Azithromycin. - Respiratory viral PCR, Legionella, strep pneumo, urine antigens, blood cx all negative. - ICU / Pulmonology extubated patient successfully 09/04/16. Off O2 with saturations >94%, Speech consulted. 9. Acute probable arrhythmia in setting of chronic atrial fibrillation with syncopal episode. Not present on admission, Stable. - Precipitating event was likely arrhythmia from atrial fibrillation with slow ventricular response versus ischemia versus run of v. tach. - Patient heart rate in the 40-50's. He is on metoprolol at home and this has been held in the hospital. 10. Subclinical hypothyroid, present on admission. Active. - TSH -2.40 T4 - 1.4 11. Metabolic Lactic acidosis, present on admission. Resolved. - Most likely secondary to acute hypoxia. - Lactic acid upon admission 6.2. High-risk medications: IV Morphine, Disposition: Likely discharge tomorrow, once patient is Medically stable, to care home facility, Dr. Orellana at [facility] in [place] has accepted this patient GI Prophylaxis: H2 amelia VTE Prophylaxis: Other (Will place on therapeutic DVT IV heparin drip for possible PE) VTE Mechanical Devices: Intermittant Pneumatic CD Resuscitation Status: CPR: Attempt Resuscitation Attending Statement The patient was seen and examined together with Dr. Chávez on 09/08/2016 and I agree with the history, exam and plan as outlined in the note above. . SULY CHÁVEZ DO Sep 08, 2016 06:46 Dominik Sheets MD Sep 09, 2016 16:27
--- NOTE | 2016-09-08 18:44 | NUR ---
NG Tube Pt. has an NG tube placed this afternoon, auscultated abdomen for proper placement and ordered a chest xray for conformation. Pt. has NG placement in right nare at ~60cm. Pt. joe DC'D as well and voided, Pt. is incontinent. Pt. is is in bed resting comfortably c/o no pain at this time.
--- NOTE | 2016-09-09 02:18 | NUR ---
MENTATION/NPO/NG-TUBE/ Pt was very weak and hard to hold his attention at start of my shift, but pt became more alert and oriented around 2300. Pt was incontinent and changed, as well as repositioned for comfort and for prevention of skin breakdown. Pt is NPO with a new NG tube, NG tube patent for crushed meds. Waiting on orders to start enteral feed. Pt's PICC is patent with 1/2 NS @ 80 running, as well as, for IV antibiotics. Pt denies pain at this time. Pt is resting comfortable with HOB @ 30 degrees.
[2016-09-09 02:59] LABS: Mean Corpuscular Hemoglobin 30.7 pg (27.0-35.0); Mean Corpuscular Volume 95.2 fL (81-100)
[2016-09-09 04:18] VITALS: BP 149/87; PULSE 95; RESP 18; O2SAT 96
[2016-09-09 05:03] VITALS: PULSE 101
[2016-09-09] MEDS: Insulin LISPRO 300 Unit/3 mL Inj SUBQ SCH ×2 (07:54→12:00)
[2016-09-09] MEDS: Labetalol 5 mg/mL 4 mL Inj IVPUSH PRN (07:55)
[2016-09-09 08:00] VITALS: BP 180/95; PULSE 104; PULSE 106; RESP 20; O2SAT 96
[2016-09-09] MEDS ORDERED: Furosemide 10 mg/mL 4 mL Inj IVPUSH PRN (08:05)
--- NOTE | 2016-09-09 09:48 | PCM.DIMED ---
SULY CHÁVEZ DO 09/09/16 0943: Discharge Instructions Date of Service Sep 09, 2016 Dates of Hospitalization Aug 29, 2016 at 22:09 Discharge Diagnosis Discharge Diagnosis Respiratory failure HALLIE Chronic Atrial fibrillation Bilateral atrial thrombus Pneumonia Acute NSTEMI Mixed Metabolic acidosis with Metabolic Alkalosis and Respiratory Alkalosis Acute probable arrhythmia in setting of chronic atrial fibrillation with syncopal episode Subclinical hypothyroid, Metabolic Lactic acidosis Test Results Laboratory Tests 72 Hours Test 09/07/16 06:00 09/08/16 03:55 09/08/16 15:37 09/09/16 02:30 White Blood Count 8.7th/mm3 (3.8-10.1) 9.2th/mm3 (3.8-10.1) 9.4th/mm3 (3.8-10.1) Red Blood Count 3.70mil/mm3 (4.40-5.80) 3.54mil/mm3 (4.40-5.80) 3.52mil/mm3 (4.40-5.80) Hemoglobin 11.3g/dL (13.8-17.2) 10.7g/dL (13.8-17.2) 10.8g/dL (13.8-17.2) Hematocrit 34.3% (41.0-50.0) 33.3% (41.0-50.0) 33.5% (41.0-50.0) Mean Corpuscular Volume 92.7fL (81-100) 94.1fL (81-100) 95.2fL (81-100) Mean Corpuscular Hemoglobin 30.5pg (27.0-35.0) 30.2pg (27.0-35.0) 30.7pg (27.0-35.0) Mean Corpuscular Hemoglobin Concent 32.9% (32.0-37.0) 32.1% (32.0-37.0) 32.2% (32.0-37.0) Red Cell Distribution Width 13.3% (12.3-15.4) 13.3% (12.3-15.4) 13.4% (12.3-15.4) Platelet Count 174bil/L (150-400) 163bil/L (150-400) 175bil/L (150-400) Neutrophils (%) (Auto) 73.2% (40-74) 72.2% (40-74) Lymphocytes (%) (Auto) 11.2% (14-46) 10.3% (14-46) Monocytes (%) (Auto) 12.3% (4-12) 13.1% (4-12) Eosinophils (%) (Auto) 1.8% (0-5) 2.9% (0-5) Basophils (%) (Auto) 0.7% (0-3) 0.7% (0-3) Activated Partial Thromboplast Time 27.3sec (22.8-33.0) Sodium Level 139mEq/L (134-144) 143mEq/L (134-144) 143mEq/L (134-144) 144mEq/L (134-144) Potassium Level 4.4mEq/L (3.5-5.2) 3.8mEq/L (3.5-5.2) 3.6mEq/L (3.5-5.2) 4.3mEq/L (3.5-5.2) Chloride Level 100mEq/L (97-108) 104mEq/L (97-108) 104mEq/L (97-108) 102mEq/L (97-108) Carbon Dioxide Level 22mmol/L (18-29) 27mmol/L (18-29) 26mmol/L (18-29) 28mmol/L (18-29) Blood Urea Nitrogen 43mg/dL (8-27) 44mg/dL (8-27) 43mg/dL (8-27) 42mg/dL (8- 27) Creatinine 1.44mg/dL (0.76-1.27) 1.35mg/dL (0.76-1.27) 1.58mg/dL (0.76-1.27) 1.46mg/dL (0.76-1.27) Estimat Glomerular Filtration Rate 49mL/min (>59) 53mL/min (>59) 44mL/min (>59) 49mL/min (>59) Glucose Level 123mg/dL (60-99) 119mg/dL (60-99) 136mg/dL (60-99) 121mg/dL (60-99) Calcium Level 9.4mg/dL (8.5-10.1) 8.9mg/dL (8.5-10.1) 9.1mg/dL (8.5-10.1) 8.2mg/dL (8.5-10.1) Lactic Acid Level 1.4mmol/L (0.4-2.0) Procalcitonin 0.22ng/mL (See Comment) Vancomycin Level Trough 20.9mcg/mL Diet Heart Healthy, Renal Diet Activity Outpatient Physical Therapy Call your provider Fever or Chills, Shortness of breath, Chest pain, Vomitting, Excessive diarrhea , Weakness (unilateral) Patient Instructions Discharge to SNF rehab facility [facility] [place] Continue cardiac rehab 6 weeks Full diet maintain adequate nutrition Continue Home medications Continue Carvedilol 3.125 mg daily Follow-up plan Discharge to [facility], continue with physical therapy Continue home medications Follow up with PCP in one week Follow-up with PCP in: 1 week Dominik Sheets MD 09/09/16 1625: Discharge Instructions Attending's Statement The patient was seen and examined together with Dr. Chávez on 09/09/2016 and I agree with the history, exam and plan as outlined in the note above. . SULY CHÁVEZ DO Sep 09, 2016 09:43 Dominik Sheets MD Sep 09, 2016 16:25
[2016-09-09] MEDS ORDERED: CARV3.122 PO (09:50)
[2016-09-09] MEDS: Piperacillin-Tazo 3.375 Gm Inj 3.375 GM in Dextrose 5% Minibag Plus 50 ML IV SCH (10:12)
[2016-09-09] MEDS: Levofloxacin 750 mg/150 mL D5W IV SCH (10:16)
--- NOTE | 2016-09-09 11:24 | PCM.PNCARD ---
Subjective Date of service Sep 09, 2016 Chief Complaint # Anoxic encephalopathy # Aspiration Pneumonia # NSTEMI # Respiratory arrest # Chronic atrial fibrillation # HALLIE / CKD : # Severe three-vessel [place] coronary artery disease # s/p quad CABG (2003) # S/P bioprosthetic AVR for severe (2003) # s/p BMS to RSVG to PDA ( ? 2011) History of Present Illness Mr. Denny Verduzco is an 86-year-old man that has not been clinically followed in the [facility] cardiology department since 2003. The patient is followed by flight test mechanic at [facility]. The patient's cardiac history consist of: chronic AFib (Not Anticoagulated x 6 mo 2* recurrent fall risk) , 3 Vz CAD, s/p Quadruple CABG (2003), Severe ( s/p Bioprosthetic AVR 2003), s/p BMS RSVG to PDA (2011 ?). The patient's history is obtained primarily through his who was at the bedside during my evaluation. The patient is awake and alert, sitting up in the bedside chair, however, he is unable to reliably answer questions regarding his health. The patient was reportedly found down and unresponsive at home in his easy chair by his after he'd taken some garbage cans outside. The patient's relates that she believes that her was down for no more than 4-5 minutes prior to being found by her cyanotic and unresponsive. The patient's relates that she checked the patient's pulse and noted the patient's heart was beating, however, his breathing was very labored. The patient's reports that her was unresponsive and agonal for about 11 minutes/ER report. The patient's called 911, when the EMS arrived they placed him in the ambulance immediately. EMS (per ER physicians note), noted his heart rate was 130 bpm and his blood pressure was 208/124 with agonal breathing. He was given succinylcholine, etomidate and was intubated. He was reportedly also given Versed en route to the emergency room. The patient 's states that she did not observe EMS performing CPR while the patient was in the house. He was resuscitated, intubated and he was subsequently admitted to the TCU. The patient gradually recovered over the next several days and was successfully extubated on 09/04/2016 after a positive PST. The patient's relates that her had been using an occasional sublingual nitroglycerin for substernal chest pain. Mrs. Verduzco also relates that the patient had been on metoprolol 25 mg in the morning and 50 mg in the evening. She states that his dosage had been recently decreased to 25 mg by mouth twice a day because his physician thought that the metoprolol was depressing his heart rate. Although, the patient is awake and sitting up in a chair currently he is not able to reliably answer any questions at this time. Cardiology has been consulted to assist with management. We have been asked to comment about whether this patients being found down and unresponsive, is in anyway cardiac related. 2-D echocardiogram: 08/30/2016 The patient was in atrial fibrillation with heart rates between 45-50 bpm during the exam. The left ventricle is normal in size. The ejection fraction is estimated to be 55-60%. There are no focal wall motion abnormalities. There is a bioprosthetic aortic valve. The prosthetic aortic valve function is normal. Right ventricular systolic pressure is estimated to be 30 mmHg plus the clinically estimated CVP which cannot be estimated on this exam. No other echocardiographic abnormalities seen. Coronary Angiography: 12/03/2003 1. LM: Normal 2. LAD: Proximal LAD is a large vessel and appears somewhat ectatic. It rapidly tapers around the level of the first diagonal branch to a long area of diffuse disease throughout the entire mid body of the vessel. This disease includes the origins of the first and second diagonal branches. Severity is difficult to gauge with the diffuseness of the disease but varies between 30 and 60%. There is moderate proximal consultation as well. There are 3 diagonal branches: The small first diagonal branch with greater than 50% stenosis, small second diagonal branch with a greater than 50% stenosis and a larger bifurcating third diagonal branch with about a 75% stenosis. In addition to the above described disease, there is also an apical 70% LAD lesion. 3. LCx: The circumflex circulation is primarily a large obtuse marginal branch. There is a diffuse calcification and a 50-60% stenosis of the proximal circumflex before the origin of the OM branch. 4. RCA: Dominant vessel. There is mild ostial stenosis, mild mid body disease , total occlusion of the distal RCA posterolateral branch in its most distal portion. There is disease proximal to that in the distal RCA as well with amounts up to about 50% stenosis. The proximal PDA has about a 70% lesion as well. Coronary artery disease status post Quad CABG (2003). His surgical anatomy is 1. KHOURY to LAD, 2. RSVG to the OM 3. RSVG to the OM 4. RSVG to PDA. Severe aortic stenosis / S/P prosthetic AVR 1. S/P 25 mm stented bioprosthetic AVR (December 2003). 2. Echocardiogram today showed that the prosthesis is functioning normally. 3. Chronic AFib currently with slow ventricular response. His heart rate at this moment in time is 65 beats but has been as low as 48 beats per minute. HOME MEDICATIONS: 1. Toprol-XL 25 mg daily. 2. Aspirin 81 mg daily. 3. Oxycodone 5 mg daily. 4. Lasix 20 mg by mouth for 2 days and alternating with Every third day of Lasix is 40 mg daily. 6. Potassium chloride 10 mEq daily. If he takes a higher dose of Lasix to take 20 mEq daily of potassium. 7. Protonix 40 mg daily. 8. Oxybutynin 10 mg daily. 9. He has not taken any type of anticoagulation for his A. fib since March 2016 secondary to his high risk of recurrent falls. Subjective: BP: 149-180 / 87-95 mmHg HR: 88-140's BPM Weight: 98Kg down to 3.1 kg / 48 hours Telemetry: Atrial fibrillation with a controlled ventricular rate (88-103 BPM), rare PVCs Today, the patient is awake and alert and sitting up in his hospital bed in no acute distress. The patient is more talkative and slightly easy to understand today than yesterday. He denies any type of anginal symptoms, he denies palpitations, dizziness, lightheadedness. Current Cardiac Medications: 1. Carvedilol 6.25 mg one by mouth twice a day (*increased 09/09/2016) 2. Labetalol 20 mg IV every 4 hours 3. Lasix 40 mg IV every 6 hours 4. Vancomycin 5. Lispro insulin 6. Piperacillin Labs: 09/09/2016 1. CMP: +144, K+ 4.3, BUN / creatinine: 42 / 1.46 2. Vanco trough level: 20.9 Exam Vital Signs Vital Sign - Last Date Time Temp Pulse Resp B/P Pulse Ox O2 Delivery O2 Flow Rate FiO2 09/09/16 08:00 36.4 106 20 180/95 96 Nasal Cannula 2.00 09/06/16 19:00 28 Intake and Output 09/08/16 09/08/16 09/09/16 Cumulative From/Thru 15:00 23:00 07:00 08/29/16 00:00 - 09/09/16 05:39 Intake Total 225 ml 550 ml 41207 ml Output Total 1425 ml 70111 ml Balance -1200 ml 550 ml 4450 ml Intake Oral 0 ml 0 ml 100 ml IV Total 225 ml 550 ml 29473 ml Tube Feeding 3310 ml Tube Irrigant 1477 ml Output Urine Total 1425 ml 69528 ml Gastric Drainage Total 185 ml # Voids 3 3 # Bowel Movements 0 12 Additional Information: General: Awake, alert, sitting comfortably in the bedside chair, able to very softly speak, in no acute distress. I am unable to establish the patient's orientation secondary to the patient's difficulty with speaking audibly. Head: NC/HEENT Eyes: Anicteric Oropharynx: Tongue is mobile and midline, mucous membranes are moist Neck: Supple, No hepatojugular reflux, no jugular venous distention, Heart: Irregularly / irregular, normal S1 and S2 no murmurs, clicks or gallops are auscultated. Lungs: Bilaterally diffuse wheezes and scattered crackles left greater than right Abdomen: Soft, rotund without masses, LKS not palpable positive NABS 4 quadrants Extremities: No pretibial edema noted Lab and Diagnostics Result Diagram: 09/09/16 0230 09/09/16 0230 Assessment & Plan Assessment # Chronic atrial fibrillation: The patient continues to be in atrial fibrillation. The patient's flight test mechanic at [facility] discontinued the patient's Warfarin in March 2016 secondary to the patient's recurrent falls. Subsequently, the patient was anticoagulated with Plavix, however, he developed severe hives and the Plavix was discontinued. Prior to admission, the patient had been on Lasix 20 mg by mouth for 2 days and alternating with Lasix 40 mg Every third day at home. The patient is currently unable to swallow medications. The patient's weight is currently equal to his admission weight. Recommendation: 1. There is no indication for permanent pacemaker implantation at this time as there is no evidence of significant bradycardia on the monitor. There is no clear history of syncope as his found him slumped over rather than witnessed syncopal episode. 2. Increase Carvedilol 6.25 mg twice daily. The patient is currently hypertensive and in atrial fibrillation with an occasional RVR up to the 140's bpm. Continue to monitor heart rate for bradycardia 3. Add IV Lasix 3. Left ventricular ejection fraction 55% to 60% by echocardiogram on August # NSTEMI: The patient had elevated troponins following his respiratory arrest. The patient's elevated troponins are most likely secondary to demand ischemia related to the stress placed on his heart during his respiratory arrest. Recommendation: 1. Continue current management as noted above, we will maximize medical management. 2. No ischemic workup at this time. # Anoxic encephalopathy The patient appears to be slowly recovering from his anoxic encephalopathy. The anoxic encephalopathy is secondary to his respiratory arrest on 08/29/2016. Recommendation: 1. Treatment plan per primary care team # Aspiration Pneumonia Patient is currently being treated for aspiration pneumonia Recommendation: 1. Treatment plan per primary care team # Respiratory arrest: The patient is improving following his respiratory arrest. Recommendation: 1. Treatment plan per primary care team # HALLIE / CKD Recommendation: 1. Treatment plan per primary care team # HTN: The patient's blood pressures continue to be elevated. Recommendation: 1. As above have increased Coreg to 6.25 mg by mouth twice a day. We will need to monitor his heart rate very closely. 2. BP goal is 140/80mmHg # Severe three-vessel [place] coronary artery disease Stable Recommendation: 1. Continue current medical management as noted above # s/p quad CABG (2003) The patient is S/P quad CABG (2003) utilizing KHOURY to the LAD, RSVG to OM, RSVG to OM2, RSVG to right coronary artery. Recommendation: 1. Continue current medical management # s/p BMS to RSVG to PDA ( ? 2011) Stable Recommendation: 1. Continue current medical management # S/P bioprosthetic AVR for severe (2003) Stable Recommendation: 1. Continue current management Problems: Pain Evaluation: Adequate Pain Control GI Prophylaxis: H2 amelia VTE Prophylaxis: Other (Will place on therapeutic DVT IV heparin drip for possible PE) VTE Mechanical Devices: Intermittant Pneumatic CD Resuscitation Status: CPR: Attempt Resuscitation Shelton Talley PA-C Sep 09, 2016 11:24
[2016-09-09] MEDS ORDERED: AMOX250S70 PO (11:41)
[2016-09-09 12:01] VITALS: BP 160/98; PULSE 88; RESP 18; O2SAT 95
[2016-09-09] MEDS ORDERED: OXYC-474 PO (12:01)
[2016-09-09] MEDS ORDERED: HYDR-4003 PO (12:01)
--- NOTE | 2016-09-09 13:45 | NUR ---
Called and spoke with Aislinn in admissions at [facility] and she is arranging transport for 1615. Updated COLD WORK OPERATOR
--- NOTE | 2016-09-09 16:29 | NUR ---
Social Work: Discharge Auto Salvage Worker met with patient and patient to discuss discharge plan. Patient will discharge to [facility] and UR Specialist scheduled transportation for 4:15. SW will continue to follow. Plan: Patient will discharge to [facility] at 4:15. SW faxed PASSR and packet to [facility]. SW will follow Lian Cosme LMSW, HEDY
--- NOTE | 2016-09-09 16:30 | NUR ---
Discharge/Blood Pressure Pt. discharged to [facility]. Pt. left with all his belongings and all paperwork was given to his to take the facility. Pt. NG tube DC'D at ~0915, family signed form to ignore NPO advice from and to assume responsibility over his diet at ~0930. Pt. was soft diet nectar thick per family request. Pt. PICC on right arm DC'D by IV therapy nurse. Transfer report over telephone with nurse from [facility] was performed at ~1645.
--- NOTE | 2016-09-09 18:12 | PCM.DC.MED ---
Discharge Summary Date of Service Sep 09, 2016 Dates of Hospitalization Date of Hospital Admission Aug 29, 2016 at 22:09 Date of Discharge: Sep 09, 2016 Providers: Admitting Physician: Hansa Morales MD Primary Care Physician: Farhan Orellana DO Attending Physician: Hansa Morales MD Diagnosis at Time of Discharge Diagnosis at Time of Discharge Respiratory failure HALLIE Chronic Atrial fibrillation Bilateral atrial thrombus Pneumonia Acute NSTEMI Mixed Metabolic acidosis with Metabolic Alkalosis and Respiratory Alkalosis Acute probable arrhythmia in setting of chronic atrial fibrillation with syncopal episode Subclinical hypothyroid, Metabolic Lactic acidosis Procedures XRay, CTs & MRIs Chest X-Ray IMPRESSION: Chronic CHF pattern, new left lower lobe pneumonia. Dictated by: Alexey Lemon M.D. on 09/07/2016 at 15:31 Approved by: Alexey Lemon M.D. on 09/07/2016 at 15:[address] IMPRESSION: 1. No acute intracranial abnormality. 2. Volume loss and small vessel ischemic disease. 3. 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 Dictated by: Ke Toledo M.D. on 09/07/2016 at 15:43 Approved by: Ke Toledo M.D. on 09/07/2016 at 15:43 Other Diagnostics User: Helen CASTELLON Date: 09/07/16 15:26 Type : SP: Bedside Swallow Evaluation... Treatment Start Time * 15:00 Treatment End Time * 15:25 Is the patient In Observation Status and Medicare? * No * Bedside Swallow Evaluation Swallow Assessment Pt presented on 08/29/16 after acute respiratory failure and intubation in the field. Med hx sig for atrial fibrillation, CAD s/p CABG in 2003, aortic stenosis s/p bioprosthetic valve replacement in 2003, dementia, chronic back pain on chronic opiates, CKD stage III, DM type II, and systolic CHF on home O2 at night. Pt was extubated on 09/04/16 and remained minimally responsive before the decision was made to move him to comfort care. Today that decision was reversed by the family. Pt was severely fatigued for evaluation and required cues to remain awake. OME was not fully completed due to weakness and fatigue. Speech was slow, with imprecise consonant articulation. Breathing was wet. Swallow reflex was delayed and laryngeal excursion was reduced per palpation. Pt immediately coughed following ice chip and puree/pudding trial. Pt is not safe for PO intake at this time. Discussed with pt, spouse, RN, and MD. PAYROLL ADMINISTRATOR will follow daily. Helen Crocker Date: 09/07/16 15:26 Brief History Mr. Denny Verduzco is an 86-year-old man that has not been clinically followed in the [facility] cardiology department since 2003. The patient is followed by wool sorter at [facility]. The patient's cardiac history consist of: chronic AFib (Not Anticoagulated x 6 mo 2* recurrent fall risk) , 3 Vz CAD, s/p Quadruple CABG (2003), Severe ( s/p Bioprosthetic AVR 2003), s/p BMS RSVG to PDA (2011 ?). The patient's history is obtained primarily through his who was at the bedside during my evaluation. The patient is awake and alert, sitting up in the bedside chair, however, he is unable to reliably answer questions regarding his health. The patient was reportedly found down and unresponsive at home in his easy chair by his after he'd taken some garbage cans outside. The patient's relates that she believes that her was down for no more than 4-5 minutes prior to being found by her cyanotic and unresponsive. The patient's relates that she checked the patient's pulse and noted the patient's heart was beating, however, his breathing was very labored. The patient's reports that her was unresponsive and agonal for about 11 minutes/ER report. The patient's called 911, when the EMS arrived they placed him in the ambulance immediately. EMS (per ER physicians note), noted his heart rate was 130 bpm and his blood pressure was 208/124 with agonal breathing. He was given succinylcholine, etomidate and was intubated. He was reportedly also given Versed en route to the emergency room. The patient 's states that she did not observe EMS performing CPR while the patient was in the house. He was resuscitated, intubated and he was subsequently admitted to the TCU. The patient gradually recovered over the next several days and was successfully extubated on 09/04/2016 after a positive PST. The patient's relates that her had been using an occasional sublingual nitroglycerin for substernal chest pain. Mrs. Verduzco also relates that the patient had been on metoprolol 25 mg in the morning and 50 mg in the evening. She states that his dosage had been recently decreased to 25 mg by mouth twice a day because his physician thought that the metoprolol was depressing his heart rate. Although, the patient is awake and sitting up in a chair currently he is not able to reliably answer any questions at this time. Cardiology has been consulted to assist with management. We have been asked to comment about whether this patients being found down and unresponsive, is in anyway cardiac related. 2-D echocardiogram: 08/30/2016 The patient was in atrial fibrillation with heart rates between 45-50 bpm during the exam. The left ventricle is normal in size. The ejection fraction is estimated to be 55-60%. There are no focal wall motion abnormalities. There is a bioprosthetic aortic valve. The prosthetic aortic valve function is normal. Right ventricular systolic pressure is estimated to be 30 mmHg plus the clinically estimated CVP which cannot be estimated on this exam. No other echocardiographic abnormalities seen. Coronary Angiography: 12/03/2003 1. LM: Normal 2. LAD: Proximal LAD is a large vessel and appears somewhat ectatic. It rapidly tapers around the level of the first diagonal branch to a long area of diffuse disease throughout the entire mid body of the vessel. This disease includes the origins of the first and second diagonal branches. Severity is difficult to gauge with the diffuseness of the disease but varies between 30 and 60%. There is moderate proximal consultation as well. There are 3 diagonal branches: The small first diagonal branch with greater than 50% stenosis, small second diagonal branch with a greater than 50% stenosis and a larger bifurcating third diagonal branch with about a 75% stenosis. In addition to the above described disease, there is also an apical 70% LAD lesion. 3. LCx: The circumflex circulation is primarily a large obtuse marginal branch. There is a diffuse calcification and a 50-60% stenosis of the proximal circumflex before the origin of the OM branch. 4. RCA: Dominant vessel. There is mild ostial stenosis, mild mid body disease , total occlusion of the distal RCA posterolateral branch in its most distal portion. There is disease proximal to that in the distal RCA as well with amounts up to about 50% stenosis. The proximal PDA has about a 70% lesion as well. Coronary artery disease status post Quad CABG (2003). His surgical anatomy is 1. KHOURY to LAD, 2. RSVG to the OM 3. RSVG to the OM 4. RSVG to PDA. Severe aortic stenosis / S/P prosthetic AVR 1. S/P 25 mm stented bioprosthetic AVR (December 2003). 2. Echocardiogram today showed that the prosthesis is functioning normally. 3. Chronic AFib currently with slow ventricular response. His heart rate at this moment in time is 65 beats but has been as low as 48 beats per minute. HOME MEDICATIONS: 1. Toprol-XL 25 mg daily. 2. Aspirin 81 mg daily. 3. Oxycodone 5 mg daily. 4. Lasix 20 mg by mouth for 2 days and alternating with Every third day of Lasix is 40 mg daily. 6. Potassium chloride 10 mEq daily. If he takes a higher dose of Lasix to take 20 mEq daily of potassium. 7. Protonix 40 mg daily. 8. Oxybutynin 10 mg daily. 9. He has not taken any type of anticoagulation for his A. fib since March 2016 secondary to his high risk of recurrent falls. Hospital Course Patient is a 86 y.o. M with PMH of atrial fibrillation who was previously not thought to be a candidate for anticoagulation due to his falls is presenting in respiratory arrest and found to have bi-atrial thrombi which were seen on CT but not on echo. successfully extubated on 09/04/16. Today lethargic with minimal responsiveness,however slightly improved from yesterday, remains far from baseline, afebrile over past 24 hours, Comort care measures discontinued 07/14 Hospital Day 10. 1. Chronic Atrial fibrillation, present on admission. Active. 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 - Not on home antiplatelet or anticoagulation. - Holding home metoprolol 25mg PO BID. - Attempting rate control below 100 with Labetalol. Persistent tachyarrhythmias 09/04/16 with HR >150. 2. Bilateral atrial thrombus, unknown chronicity, present on admission. Active. - CT angio of chest showed bilateral atrial thrombus as above. - PE heparin gtt. Stopped per family wishes - Cardiology signed off on patient, time and recommendations appreciated. 3. Pneumonia, acute, not present on admission, - HCAP vs evolving Aspiration pneumonia - Antibiotic therapy for HCAP pneumonia coverage with Zosyn, Levofloxacin, Vancomycin - Repeat CBC dose not show elevation in WBC count. -Repeat Lactic Acid and Procalcitonin ordered, pending - Swallow eval completed, patient was not able to successfully complete, Keep patient NPO, repeat study tomorrow morning - ST swallow study, patient lethargic for both swallow eval today - Restart tube feeds via NG 4. Acute NSTEMI, present on admission. Active. - Likely demand ischemia. - Trending troponins - 0.016, 0.056, 0.037, 09/05/16 0.018 - EKG - Afib with Bradycardia. - D/C tele monitoring. - D/C PE heparin ggt. 5. Altered mental status, present on admission, active - Consider head CT showed chronic changes consistent with age, no acute intracranial process 6. Mixed Metabolic acidosis with Metabolic Alkalosis and Respiratory Alkalosis, not present on admission, improved - ABG showed evidence of Mixed Metabolic acidosis with Metabolic Alkalosis and Respiratory Alkalosis - Abdominal x-ray ordered, no acute intraabdominal process - Repeat blood cultures x 3 - Echocardiogram ordered to r/o endocarditis, stopped per family wishes 7. Acute kidney injury, present on admission. Improving. - Baseline creatinine in 04/2016 1.68. Today Creatine 1.4 - Nephrology following prior to Comfort care, will resume consult if creatine begins to trend up - Repeat AM CMP - 1 L NS @ 100 mls/hr given, D/C due to pulmonary congestion Likely due to CHF - Hold home Furosemide 8. Acute respiratory failure with severe hypoxia requiring intubation, present on admission. Resolved. - Intubated in field and treated for possible aspiration pneumonia, IV Zosyn and IV Azithromycin. - Respiratory viral PCR, Legionella, strep pneumo, urine antigens, blood cx all negative. - ICU / Pulmonology extubated patient successfully 09/04/16. Off O2 with saturations >94%, Speech consulted. 9. Acute probable arrhythmia in setting of chronic atrial fibrillation with syncopal episode. Not present on admission, Stable. - Precipitating event was likely arrhythmia from atrial fibrillation with slow ventricular response versus ischemia versus run of v. tach. - Patient heart rate in the 40-50's. He is on metoprolol at home and this has been held in the hospital. 10. Subclinical hypothyroid, present on admission. Active. - TSH -2.40 T4 - 1.4 11. Metabolic Lactic acidosis, present on admission. Resolved. - Most likely secondary to acute hypoxia. - Lactic acid upon admission 6.2. High-risk medications: IV Morphine, Disposition: Likely discharge tomorrow, once patient is Medically stable, [facility], Dr. Orellana at [facility] in [place] has accepted this patient Exam Vital Signs (Last) Date Time Temp Pulse Resp B/P Pulse Ox O2 Delivery O2 Flow Rate FiO2 09/09/16 12:01 36.3 88 18 160/98 95 Nasal Cannula 2.00 09/06/16 19:00 28 Exam General: Alert, Oriented X2, much improved mentation from yesterday, Cooperative, nondistressed Head: Normocephalic, atraumatic. External ears normal. Eyes: PERRLA, EOMI. Anicteric sclerae. Mouth: Mouth Normal, Mucous Membranes Moist/[place] Neck: Neck supple with full range of motion. Chest & Lungs: Wet cough, able to produce sputum, Increased A-P diameter, Lungs on auscultation wheezes b/l, crackles heard at bases bilaterally improved , No rhonchi heard. Cardiovascular: Irregularly irregular Rate between 100's - 90 per Tele, Normal S1, Normal S2, No Murmurs/Rubs/Gallops Abdomen: Non-tender, Non-distended, No masses, Normoactive bowel tones, Soft Musculoskeletal: Normal Range of Motion Extremities: No cyanosis/clubbing/ minimal edema of ankles bilaterally Neurological: Moderate confusion, unable to recall events of admission, Speech conversational quite comprehensible, Strength Normal 2/4 in all extremities ext, able to squeeze hand bilaterally, wiggle toes, able to support Left hands/ legs against gravity, Able to lift right hands and feet and resist gravity with assistance , pupils reactive to light, patient able to open eyes spontaneously, and follow basic commands, Test 08/29/16 19:50 08/29/16 20:28 08/29/16 21:42 08/29/16 23:40 Alcohol, Quantitative < 10mg/dL (0-10) Salicylates Level < 3.0ug/mL (30-250) Acetaminophen Level < 15.0ug/mL Rx (10-25) Urine Opiates Screen Negative Urine Methadone Screen Negative Urine Barbiturates Screen Negative Urine Amphetamines Screen Negative Urine Benzodiazepines Screen Positive Urine Cocaine Metabolite Screen Negative Urine Cannabinoids Screen Negative Prothrombin Time 11.3sec (8.1-12.5) Prothromb Time International Ratio 1.05ratio Hemoglobin A1c 6.5% (4.8-5.6) Test 08/30/16 07:21 08/30/16 22:10 08/31/16 06:31 09/01/16 08:44 Thyroid Stimulating Hormone (TSH) 2.400uIU/mL (0.450-4.500) Free Thyroxine Index 1.4 (1.2-4.9) Thyroxine (T4) 3.0ug/dL (4.5-12.0) Triiodothyronine (T3) Uptake 48% (24-39) Troponin T 0.018ug/L (0.0-0.011) Triglycerides Level 118mg/dL (0-149) Cholesterol Level 137mg/dL (100-199) LDL Cholesterol, Calculated 82.400mg/dL (0-99) VLDL Cholesterol 23.600mg/dL HDL Cholesterol 31mg/dL (>39) Cholesterol/HDL Ratio 4.42 (0.0-4.4) Total Creatine Kinase 36U/L (21-232) Creatine Kinase MB 1.6ng/mL (0.0-10.4) Creatine Kinase MB % % (0.0-5.0) Urine Color Dark yellow (YELLOW) Urine Appearance Cloudy (CLEAR,HAZY) Urine pH 5.5 (5.0-8.0) Urine Specific [place] 1.025 (1.003-1.035) Urine Protein 30mg/dL (NEG,TRACE) Urine Glucose (UA) Negativemg/dL (NEGATIVE) Urine Ketones Negativemg/dL (NEGATIVE) Urine Occult Blood Large (NEGATIVE) Urine Nitrite Negative (NEGATIVE) Urine Bilirubin Negative (NEGATIVE) Urine Urobilinogen Normalmg/dL (NORMAL) Urine Leukocyte Esterase Trace (NEGATIVE) Urine RBC >50/hpf (0-2) Urine WBC 0-5/hpf (0-5) Urine Epithelial Cells Occasional/hpf (NONE-MOD) Urine Crystals Uric acid crystals (NONE Urine Bacteria Few/hpf (NONE-FEW) Urine Hyaline Casts None/lpf (NONE) Urine Granular Casts None seen (NONE SEEN) Urine Waxy Casts None seen (NONE SEEN) Urine Red Blood Cell Casts None seen (NONE SEEN) Urine White Blood Cell Casts None seen (NONE SEEN) Urine Mucus None seen (None Seen) Urine Trichomonas None seen (NONE SEEN) Urine Yeast None (NONE SEEN) Urinalysis Comment None Urine Culture Reflexed Indicated Test 09/01/16 09:45 09/02/16 05:50 09/05/16 02:30 09/05/16 05:00 Hold Rojo Top Tube Received (Received) Prealbumin 11mg/dL (20-40) Phosphorus Level 3.8mg/dL (2.5-4.9) Magnesium Level 1.8mg/dL (1.6-2.6) Total Bilirubin 0.7mg/dL (0.0-1.2) Aspartate Amino Transf (AST/SGOT) 21U/L (0-50) Alanine Aminotransferase (ALT/SGPT) 9U/L (0-44) Alkaline Phosphatase 57U/L (25-160) Total Protein 6.7g/dL (6.4-8.4) Albumin 3.4g/dL (3.4-5.0) Hold Blue Top Tube Received (Received) Test 09/07/16 06:00 09/08/16 03:55 09/09/16 02:30 Activated Partial Thromboplast Time 27.3sec (22.8-33.0) Neutrophils (%) (Auto) 72.2% (40-74) Lymphocytes (%) (Auto) 10.3% (14-46) Monocytes (%) (Auto) 13.1% (4-12) Eosinophils (%) (Auto) 2.9% (0-5) Basophils (%) (Auto) 0.7% (0-3) Lactic Acid Level 1.4mmol/L (0.4-2.0) Procalcitonin 0.22ng/mL (See Comment) Vancomycin Level Trough 20.9mcg/mL White Blood Count 9.4th/mm3 (3.8-10.1) Red Blood Count 3.52mil/mm3 (4.40-5.80) Hemoglobin 10.8g/dL (13.8-17.2) Hematocrit 33.5% (41.0-50.0) Mean Corpuscular Volume 95.2fL (81-100) Mean Corpuscular Hemoglobin 30.7pg (27.0-35.0) Mean Corpuscular Hemoglobin Concent 32.2% (32.0-37.0) Red Cell Distribution Width 13.4% (12.3-15.4) Platelet Count 175bil/L (150-400) Sodium Level 144mEq/L (134-144) Potassium Level 4.3mEq/L (3.5-5.2) Chloride Level 102mEq/L (97-108) Carbon Dioxide Level 28mmol/L (18-29) Blood Urea Nitrogen 42mg/dL (8-27) Creatinine 1.46mg/dL (0.76-1.27) Estimat Glomerular Filtration Rate 49mL/min (>59) Glucose Level 121mg/dL (60-99) Calcium Level 8.2mg/dL (8.5-10.1) Microbiology Results No significant MICRO findings: Sputum, blood, urine, Resp PCR Discharge Medications Discharge Medications Alpha Lipoic Acid (Alpha Lipoic Acid) 100 Mg Capsule 100 MG PO HS (Reported) Aspirin (Aspirin) 81 Mg Tablet 81 MG PO HS (Reported) Ca Carbonate/Vitamin D3/Vit K (Citracal Soft Chew) 1 Each Tab.chew 2 EACH PO QAM (Reported) Carvedilol (Carvedilol) 3.125 Mg Tablet 3.125 MG PO BID Prescribed by: SULY DIEGO DO Cholecalciferol (Vitamin D3) (Vitamin D) 5,000 Unit Capsule 5,000 UNIT PO MORNING (Reported) Cyanocobalamin (Vitamin B-12) (Vitamin B-12) 1,000 Mcg Tablet 1,000 MCG PO MORNING (Reported) Furosemide (Lasix) 20 Mg Tablet 20 MG PO DAILY (Reported) Furosemide (Lasix) 40 Mg Tablet 40 MG PO every third day (Reported) Metoprolol Succinate ER (Metoprolol Succinate ER) 25 Mg Tab.er.24h 25 MG PO BID (Reported) Oxybutynin Chloride ER (Oxybutynin Chloride ER) 10 Mg Tab.er.24 10 MG PO DAILY ( Reported) Pantoprazole DR (Protonix) 40 Mg Tablet 40 MG PO DAILY (Reported) Potassium Chloride (Potassium Chloride) 10 Meq Capsule.er 10 MEQ PO DAILY ( Reported) TAKE WITH FOOD Potassium Chloride (Potassium Chloride) 20 Meq Tab.er.prt 20 MEQ PO every third day (Reported) TAKE WITH FOOD As needed Amoxicillin/Clav K 250-62.5 mg Susp (Augmentin 250-62.5 mg Susp) 250 Mg/5 Ml Ml 5 ML PO BID PRN PRN pneumonia Prescribed by: SULY DIEGO DO Hydrocodone-Acetaminophen 5-325 mg (Hydrocodone-Acetaminophen 5-325 mg) 1 Each Tablet 1 TABLET PO Q4H PRN PRN For Pain Prescribed by: SULY DIEGO DO Oxycodone (Roxicodone) 5 Mg Tablet 5 MG PO Q4H PRN PRN For Pain Prescribed by: SULY DIEGO DO Temazepam (Temazepam) 15 Mg Capsule 15 MG PO HS PRN PRN For Insomnia (Reported) Miscellaneous Medications Diphenoxylate/Atropine 2.5-0.025 mg (Lomotil 2.5-0.025 mg) 1 Each Tablet 1 TABLET PO (Reported) Nitroglycerin SL (Nitroglycerin SL) 0.4 Mg Tab.subl 0.4 MG SL (Reported) Followup Plan Disposition: discharge to [facility] in Follow-up plan Discharge to [facility], continue with physical therapy Continue home medications Follow up with PCP in one week Discharge Diet: Heart Healthy, Renal Diet Discharge Activity: Outpatient Physical Therapy Patient Instructions Discharge to [facility] facility [facility] in [place] Continue cardiac rehab 6 weeks Full diet maintain adequate nutrition Continue Home medications Continue Carvedilol 3.125 mg daily Follow-up with PCP in: 1 week Time spent Greater than 30 minutes was spent in preparation of discharge with greater than 50% of that time dedicated to patient counseling and coordination of care. . Attending Statement The patient was seen and examined together with Dr. Diego on 09/09/2016 and I agree with the history, exam and plan as outlined in the note above. . copies to: Farhan Orellana AARON J DO Sep 09, 2016 18:06 Dominik Sheets MD Sep 10, 2016 07:57
[2016-09-09] MEDS ORDERED: Vancomycin Serum Trough XX ONE (20:00)
--- NOTE | 2016-09-12 08:24 | NUR ---
Palliative care note D/A: Note that pt dc'ed to [facility] on 09/09/16. Have faxed over most recent POLST to facility. Please note that there were two POLST's filled out during this admission. POLST dated 09/06/16 is no longer most recent POLST and should not be followed. POLST dated 09/07/16 is the most current and should be followed. This POLST is signed by pt spouse and indicated DNR/DNI with limited measures. It notes "no transfer to hospital if he gets sicker. Goals are to see if he can get strong enough to move with help to chair and swallow better with ST. It also states to keep pt off Coumadin because of history of falls. Use of antibiotics to be determined if infection occurs, with comfort as goal and no medically assisted nutrition by tube. POLST dated 09/07/16 is faxed to [facility] this am. P: No further need for PC to follow. Jennifer DONALD , CCM
== END 2016-09-09 16:42 | DRG 207 ==
LOC: SED 19:30 → EDBD 19:30 → PCC 22:09 → CCU 23:34 → PCC 09-06 11:23
PROVIDERS: ADMIT Specialist; ATTEND Specialist
PROC: 5A1955Z Respiratory Ventilation, Greater than 96 Consecutive Hours (ICD-10-PCS; principal; 2016-08-29)
PROC: 4A033R1 Measurement of Arterial Saturation, Peripheral, Percutaneous Approach (ICD-10-PCS; 2016-08-29)
DX: J96.01 Acute respiratory failure with hypoxia (principal); J69.0 Pneumonitis due to inhalation of food and vomit; R40.2112 Coma scale, eyes open, never, at arrival to emergency department; R40.2212 Coma scale, best verbal response, none, at arrival to emergency department; I21.4 Non-ST elevation (NSTEMI) myocardial infarction; N17.9 Acute kidney failure, unspecified; E87.2 Acidosis; I24.0 Acute coronary thrombosis not resulting in myocardial infarction; I50.20 Unspecified systolic (congestive) heart failure; E87.3 Alkalosis; N18.3 Chronic kidney disease, stage 3 (moderate); I12.9 Hypertensive chronic kidney disease with stage 1 through stage 4 chronic kidney disease, or unspecified chronic kidney disease; R40.2352 Coma scale, best motor response, localizes pain, at arrival to emergency department; Z95.1 Presence of aortocoronary bypass graft; Z95.5 Presence of coronary angioplasty implant and graft; I48.2 Chronic atrial fibrillation; Z95.2 Presence of prosthetic heart valve; G89.29 Other chronic pain; M54.9 Dorsalgia, unspecified; Z79.891 Long term (current) use of opiate analgesic; F03.90 Unspecified dementia, unspecified severity, without behavioral disturbance, psychotic disturbance, mood disturbance, and anxiety; G47.30 Sleep apnea, unspecified; E11.9 Type 2 diabetes mellitus without complications; Z87.891 Personal history of nicotine dependence; I49.9 Cardiac arrhythmia, unspecified; Z66 Do not resuscitate; Z51.5 Encounter for palliative care; I25.10 Atherosclerotic heart disease of native coronary artery without angina pectoris

== ENCOUNTER 2016-09-20 16:54 | Emergency (ER) | payer MEDICARE, OTHER ==
[~2016-09-20] VITALS: Ht 177.8 cm; Wt 90.9 kg
[~2016-09-20 16:54] MED LIST: ALPH100C PO; AMOX250S70 PO; ASPI-973 PO; CA C1TAB87 PO; CARV3.122 PO; CHOL500051 PO; CYAN10008 PO; DIPH1TAB PO; FURO-128 PO; FURO-129 PO; HYDR-4003 PO; METO25TA99 PO; NITR0.4T6 SL; OXYB10TA PO; OXYC-474 PO; PANT40TA2 PO; POTA10CA42 PO; POTA20TA16 PO; RES15 PO
[2016-09-20 17:10] VITALS: BP 156/85; PULSE 84; RESP 19; O2SAT 93
--- NOTE | 2016-09-20 18:08 | ED.REPORT ---
HPI-Trauma Minor / Fall Date of Service Sep 20, 2016 ED Provider: Guerrero Escobar MD Pt is an 86 year old male with a hx of chronic back pain, dementia, CHF, afib and CAD presenting to the ED via EMS after a GLF out of his wheelchair at [facility] just prior to arrival. He complains of pain and an abrasion to the top of his head, neck pain and back pain. Denies arm pain. The pt is on 2 L of Oxygen at home. His reports that today, the pt was doing very well until his fall. Pt is currently taking Hydrocodone. Nursing Notes Stated Complaint: GLF Chief Complaint: Multiple Trauma/Fall Nursing Notes Reviewed: Yes ([employer], ZALPs not reconciled) Allergies: Coded Allergies: meperidine (Verified Allergy, Severe, 08/29/16) clopidogrel (Verified Allergy, Intermediate, Hives, 08/30/16) Uncoded Allergies: NOVOCAINE (Allergy, Mild, ANGIONEUROTIC EDEMA, 03/22/06) Scheduled Alpha Lipoic Acid (Alpha Lipoic Acid) 100 Mg Capsule 100 MG PO HS Aspirin (Aspirin) 81 Mg Tablet 81 MG PO HS Ca Carbonate/Vitamin D3/Vit K (Citracal Soft Chew) 1 Each Tab.chew 2 EACH PO QAM Carvedilol (Carvedilol) 3.125 Mg Tablet 3.125 MG PO BID Cholecalciferol (Vitamin D3) (Vitamin D) 5,000 Unit Capsule 5,000 UNIT PO MORNING Cyanocobalamin (Vitamin B-12) (Vitamin B-12) 1,000 Mcg Tablet 1,000 MCG PO MORNING Furosemide (Lasix) 20 Mg Tablet 20 MG PO DAILY Furosemide (Lasix) 40 Mg Tablet 40 MG PO every third day Metoprolol Succinate ER (Metoprolol Succinate ER) 25 Mg Tab.er.24h 25 MG PO BID Oxybutynin Chloride ER (Oxybutynin Chloride ER) 10 Mg Tab.er.24 10 MG PO DAILY Pantoprazole DR (Protonix) 40 Mg Tablet 40 MG PO DAILY Potassium Chloride (Potassium Chloride) 10 Meq Capsule.er 10 MEQ PO DAILY TAKE WITH FOOD Potassium Chloride (Potassium Chloride) 20 Meq Tab.er.prt 20 MEQ PO every third day TAKE WITH FOOD Scheduled PRN Amoxicillin/Clav K 250-62.5 mg Susp (Augmentin 250-62.5 mg Susp) 250 Mg/5 Ml Ml 5 ML PO BID PRN PRN pneumonia Hydrocodone-Acetaminophen 5-325 mg (Hydrocodone-Acetaminophen 5-325 mg) 1 Each Tablet 1 TABLET PO Q4H PRN PRN For Pain Oxycodone (Roxicodone) 5 Mg Tablet 5 MG PO Q4H PRN PRN For Pain Temazepam (Temazepam) 15 Mg Capsule 15 MG PO HS PRN PRN For Insomnia Miscellaneous Medications Diphenoxylate/Atropine 2.5-0.025 mg (Lomotil 2.5-0.025 mg) 1 Each Tablet 1 TABLET PO Nitroglycerin SL (Nitroglycerin SL) 0.4 Mg Tab.subl 0.4 MG SL General Time Seen by MD: 17:57 Chief Complaint Fall Hx Obtained From: Patient, Spouse Arrived By: Ambulance Onset Occurred: Just prior to arrival Symptom Duration: Since onset Caused by: Fall on ground Location: Back Head Neck Quality: Painful Severity: Current: Mild Severity: Maximum: Moderate Recent Healthcare: Recent doctor visit, Recent hospitalization Similar Sx Previous: No Risk Factors Head CT Imaging Patient Presents WITHOUT: Loss of Conciousness Consider Non Contrast CT for: >/= 60 yo Age WITHOUT LOC WITHOUT PostTrauma Amnesi RF Statements: Risk factors reviewed Past Medical History Past Medical History Afib - on ASA per EMR Dementia Reports: Congestive heart failure, Coronary artery disease Past Surgical History Reports: Angioplasty, CABG Smoking History Former Smoker Social History Alcohol Use: Denies alcohol use Drug Use: Denies drug use Ambulatory Status Wheelchair Review of Systems Musculoskeletal: Reports: Back pain, Neck pain, Denies: Extremity pain Skin: Reports Rash Neurologic: Reports: Headache Complete sys rev & neg: except as marked. Physical Exam Initial Vital Signs Vital Signs (First) Date Time Temp Pulse Resp B/P Pulse Ox O2 Delivery O2 Flow Rate FiO2 09/20/16 17:10 36.4 84 19 156/85 93 Nasal Cannula 2 Initial VS: Reviewed, Vital signs normal Abdomen / GI: Soft, Non-tender, No guarding, No rebound, No distention Neurologic: Alert, Oriented, Nonfocal Psychiatric: Mood/affect normal, Behavior normal, Normal thought content General/Constitutional: Awake, Alert, No acute distress Chronically ill appearing, chronically SOB on O2 at home. Chronic back pain, due for a dose now. Neck: Supple Says neck is sort of sore but no point tenderness. Head / Eyes: Normocephalic, PERRL, EOMI Large scalp abrasion skin tear. Respiratory / Chest: No chest tenderness, No chest wall deformity Coarse breath sounds, at baseline. No signs of chest trauma. Upper Extremity / MS: No deformity, Neurologic intact, Vascular intact Right Elbow: Negative: Deformity present, ROM reduced... Skin tear to right elbow, no bony tenderness. FROM. Lower Extremity / Pelvis / MS: No deformity, Neurologic intact, Vascular intact Pitting edema chronic compared to previous physical exam. Skin: Warm, Dry Minor abrasion to right knee, normal ROM. Interpretation & Diagnostics Lab Results Interpretation Result Diagram: 09/20/16 1816 09/20/16 1816 Test 09/20/16 18:16 White Blood Count 10.0th/mm3 (3.8-10.1) Red Blood Count 3.85mil/mm3 (4.40-5.80) Hemoglobin 11.8g/dL (13.8-17.2) Hematocrit 37.2% (41.0-50.0) Mean Corpuscular Volume 96.6fL (81-100) Mean Corpuscular Hemoglobin 30.6pg (27.0-35.0) Mean Corpuscular Hemoglobin Concent 31.7% (32.0-37.0) Red Cell Distribution Width 14.1% (12.3-15.4) Platelet Count 116bil/L (150-400) Neutrophils (%) (Auto) 71.8% (40-74) Lymphocytes (%) (Auto) 11.1% (14-46) Monocytes (%) (Auto) 11.7% (4-12) Eosinophils (%) (Auto) 4.4% (0-5) Basophils (%) (Auto) 0.5% (0-3) Hold Purple Top Tube Received (Received) Hold Blue Top Tube Received (Received) Sodium Level 140mEq/L (134-144) Potassium Level 4.9mEq/L (3.5-5.2) Chloride Level 100mEq/L (97-108) Carbon Dioxide Level 27mmol/L (18-29) Blood Urea Nitrogen 34mg/dL (8-27) Creatinine 1.61mg/dL (0.76-1.27) Estimat Glomerular Filtration Rate 43mL/min (>59) Glucose Level 132mg/dL (60-99) Calcium Level 9.0mg/dL (8.5-10.1) Total Bilirubin 0.5mg/dL (0.0-1.2) Aspartate Amino Transf (AST/SGOT) 17U/L (0-50) Alanine Aminotransferase (ALT/SGPT) 16U/L (0-44) Alkaline Phosphatase 73U/L (25-160) Total Protein 7.6g/dL (6.4-8.4) Albumin 3.8g/dL (3.4-5.0) Hold [place] Top Tube Received (Received) Hold Rojo Top Tube Received (Received) Lab Results Interpretation: CBC nl CMP - creatinine elevated, improved from earlier this month CT Head Interpretation IMPRESSION: 1. No acute intracranial findings. 2. Left frontal soft tissue swelling without underlying calvarial abnormality. Study: Head CT no contrast Interpretation / Wet Read by: Interpret - Radiologist CT C-Spine Interpretation IMPRESSION: No acute cervical spine injury. Degenerative changes. Dictated by: Nehal Hillman M.D. on 09/20/2016 at 19:27 Procedures Laceration Management Laceration Management: Applied Dermabond and Tegaderm to the lacerations. Time: 20:32 Procedure Performed by: ED physician Consent / Setup / Site Prep: Consent from patient, Time-out performed, Hand hygiene observed, Stand sterile technique Location of Wound: Right elbow and top of head. Scalp laceration. Dermabond is 3 cm x 2 cm. The entire area was Dermabond and some asymmetric avulsion flap. There is also an adjacent 3 x 4 cm area of abrasion simply open which no repair was possible. The right elbow is a 2 x 2 centimeter skin tear that was Dermabond. Wound Length: 3 cm Local Anesthesia: Bupivacaine 0.5% Wound Preparation: Normal saline Irrigation: Copious Repair Subcutaneous: Dermabond Post-Procedure / Complications: Dressing applied, No complications, Condition improved, Tolerated procedure well, Patient stable Re-Eval/Medical Decision Med Decision/Clinical Course This is an 86-year-old male who fell out of his wheelchair and hit his head and was sent in from the [facility] for evaluation. He is coming by his . He is on aspirin as he does have a history of chronic atrial fibrillation, but is not on stronger anticoagulants. Agent cannot provide any useful history-all history is from the family, the retirement. The patient is up-to-date on tetanus. He did not fall and has a nice abrasion with a deep component in the front, there is a flap laceration of very thin skin over this. The overall abrasion is sizable about 5 cm x 4 cm, the right side has a 1 cm were 3 cm deeper area, where there is a flap to fall over. There is no foreign body. No signs of depressed skull fracture. HEENT of a trace amount of neck pain, but does not have tenderness but is a difficult exam. So imaging his C-spine was obtained. He also has a skin tear to the right elbow. There is no chest wall tenderness. He is chronically short of breath and an O2, and both facility and the indicates about at baseline at this point. No other focal injuries were evident except for minor abrasion the right knee. he moves all extremities and has no signs of fracture. CT imaging of the head and C-spine are negative. B blood work is normal. He has no markers of infection. He had topical let applied. He is reportedly up-to-date on tetanus. He was cleaned and evaluated. The scalp wound is complex, but today area the skin is gone, but there is a deeper area with a physician that very thin layer skin related over-but the skin is too thin to allow sutures. This area was Dermabonded The skin tear on the right elbow was also Dermabond it. The [facility]. Source of Hx: Old records Re-Evaluation/Progress #1: Time of Eval: 20:32 Patient Status: Condition improved Re-Evaluation/Progress Note: Performed laceration management using Dermabond. Pt tolerated procedure well. Re-Evaluation/Progress #2: Time of Eval: 20:49 Patient Status: Condition improved Re-Evaluation/Progress Note: Performed laceration management on the right elbow using Dermabond and Tegaderm. Counseled Regarding: Diagnosis, Lab results, Need for follow-up, When/why to return to ED Discharge & Departure Impression: Primary Impression: Fall from ground level Additional Impressions: Scalp laceration Encounter type: initial encounter Qualified Code: S01.01XA - Laceration without foreign body of scalp, initial encounter Skin tear of elbow without complication Encounter type: initial encounter Laterality: right Qualified Code: S51.011A - Laceration without foreign body of right elbow, initial encounter Disposition: Home Discharge Condition All VS Reviewed: Yes Condition: Improved Additional Instructions: 1. No brain injury or neck injury was appreciated on CT scans. 2. His scalp wound was repaired with Dermabond -this is a good that will fall off on its own. There is still a substantial abrasion. A Tegaderm has placed. Leave these in place for the next 7 days before removing. After 8 days, apply antibiotic ointment such as bacitracin daily for another 10 days. 3. He had a skin tear to the right elbow, there was also repaired with Dermabond and a Tegaderm. Again leave in place for 8 days, then okay to remove and apply antibiotic ointment daily. 4. Continue current care, 5. Return if new or worsening symptoms occur. Referrals: Farhan Orellana DO (PCP) Scribe Attestation Portions of this note were transcribed by Sona Puentes. I, Dr. Escobar personally performed the history, physical exam and medical decision-making; I reviewed and confirmed the accuracy of the information in the transcribed note. Signed by: Jairon Hamilton, 09/20/2016 and 2105. copies to: Farhan Orellana Matthew F MD Sep 20, 2016 18:08 SONA PUENTES Sep 20, 2016 18:29
[2016-09-20] MEDS ORDERED: HYDROmorphone 0.5 mg/0.5 mL iSecure Syringe IVPUSH ONE (18:20)
[2016-09-20] MEDS ORDERED: Tissue Adhesive Liq (CS Supplied) TOPICAL ONE ×2 (18:20→20:40)
[2016-09-20] MEDS ORDERED: Lidocaine-Epi-Tetracaine Solution 3 mL Syringe TOPICAL ONE (18:20)
[2016-09-20 18:40] VITALS: BP 136/82; PULSE 76; RESP 13; O2SAT 91
[2016-09-20 19:11] LABS: BASOPHILS % (AUTO) 0.5 % (0-3); EOSINOPHILS % (AUTO) 4.4 % (0-5); MONOCYTES % (AUTO) 11.7 % (4-12); Mean Corpuscular Hemoglobin 30.6 pg (27.0-35.0); Mean Corpuscular Volume 96.6 fL (81-100); NEUTROPHILS % (AUTO) 71.8 % (40-74); Platelet Count 116 bil/L (150-400)
--- NOTE | 2016-09-20 19:29 | DRSVH ---
PROCEDURE: CT BRAIN WITHOUT CONTRAST ([id number]) INDICATIONS: fall TECHNIQUE: Noncontrast 4.5 mm thick angled axial sections acquired from the foramen magnum to the vertex, with c oronal reformats. COMPARISON: None. FINDINGS: Image quality: Excellent. CSF spaces: Basal cisterns are patent. No extra-axial fluid collections. The ventricles are symmet evert in size and shape. Brain: No intracranial bleeds or masses. There is marked cerebral volume loss for age, with resulta nt ventricular and sulcal prominence. There are extensive periventricular and deep white matter chronometer assembler and adjuster francine small vessel ischemic changes. There is intracranial internal carotid artery atherosclerosis. Skull and face: There is mild left frontal soft tissue swelling. Calvarium and visualized facial bone s appear intact, without suspicious lesions. Sinuses: Visualized sinuses and mastoids are clear. IMPRESSION: 1. No acute intracranial findings. 2. Left frontal soft tissue swelling without underlying calvarial abnormality. 3. Marked findings likely associated with chronic microvascular ischemic changes. Dictated by: Nehal Hillman M.D. on 09/20/2016 at 19:25 Approved by: Nehal Hillman M.D. on 09/20/2016 at 19:27
--- NOTE | 2016-09-20 19:32 | DRSVH ---
PROCEDURE: CT CERVICAL SPINE WITHOUT CONTRAST ([id number]) INDICATIONS: fall TECHNIQUE: Noncontrast 3 mm thick sections acquired from the skull base to the T4 level. Sagittal and coronal r eformats were then constructed. For radiation dose reduction, the following was used: automated exp osure control, adjustment of mA and/or kV according to patient size. COMPARISON: None. FINDINGS: Image quality: Excellent. Bones: No fractures or dislocations. Moderate degenerative changes are present throughout the cervi uma spine including intervertebral disc space narrowing, endplate sclerosis, osteophytosis, and vacuu m disc phenomenon at C5-6. Visualized superior ribs are intact. Soft tissues: Prevertebral soft tissues are normal in thickness. No paravertebral hematomas. No ap ical pneumothoraces. IMPRESSION: No acute cervical spine injury. Degenerative changes. Dictated by: Nehal Hillman M.D. on 09/20/2016 at 19:27 Approved by: Nehal Hillman M.D. on 09/20/2016 at 19:30
[2016-09-20 19:44] VITALS: BP 170/81; PULSE 90; RESP 13; O2SAT 96
[2016-09-20] MEDS ORDERED: Bupivacaine 0.5%/EPI 50 mL Inj SUBQ ONE (20:10)
[2016-09-20 21:45] VITALS: BP 141/75; PULSE 83; O2SAT 97
[2016-09-20 22:00] VITALS: BP 141/75; PULSE 83; RESP 13; O2SAT 97
== END 2016-09-20 22:01 | disposition home or self-care (01) ==
LOC: EDBD 16:54 → SED 16:54 → EDUNIT# 16:54 → SED 22:01
DX: S01.01XA Laceration without foreign body of scalp, initial encounter (principal); S51.011A Laceration without foreign body of right elbow, initial encounter; M54.2 Cervicalgia; I48.91 Unspecified atrial fibrillation; F03.90 Unspecified dementia, unspecified severity, without behavioral disturbance, psychotic disturbance, mood disturbance, and anxiety; I50.9 Heart failure, unspecified; I25.10 Atherosclerotic heart disease of native coronary artery without angina pectoris; Z79.82 Long term (current) use of aspirin; Z95.1 Presence of aortocoronary bypass graft; Z87.891 Personal history of nicotine dependence; W05.0XXA Fall from non-moving wheelchair, initial encounter; Y93.89 Activity, other specified; Y99.8 Other external cause status; Y92.129 Unspecified place in nursing home as the place of occurrence of the external cause; R51 Headache; K21.9 Gastro-esophageal reflux disease without esophagitis; N18.3 Chronic kidney disease, stage 3 (moderate)
CPT/HCPCS: 12002; 36415; 70450; 72125; 80053; 85025; 96374; 99285; J1170

== ENCOUNTER 2016-09-23 01:05 | Inpatient (IN) | payer MEDICARE, OTHER ==
[~2016-09-23] VITALS: Ht 177.8 cm; Wt 94.8 kg
[2016-09-23] VITALS (12 sets, daily range): BP systolic 118–176; BP diastolic 62–103; PULSE 86–131; RESP 15–24; O2SAT 91–99
--- NOTE | 2016-09-23 01:46 | ED.REPORT ---
HPI-Altered Mental Status Date of Service Sep 23, 2016 ED Provider: Juan Jose MD (Signed out from La Sewell MD and Felix Leahy MD) Mr. Denny Verduzco is an 86-year-old gentleman with a past medical history significant for chronic back pain, dementia, CHF, afib and CAD presenting to the ED via EMS from [facility] for increased agitation, confusion, and altered mental status since a GLF out of his wheelchair at [facility] on 09/20 days prior to treatment here and is scheduled for a emergency Department for head trauma and skin tear. The pt is on 2 L of Oxygen at home and has required 4 L to maintain oxygen saturation above 92%. The pt was doing very well until his fall several days ago and according to [facility] has subsided drastic mental decline. The patient was prescribed PRN Ativan without relief. Upon interview patient is confused intermittently answers questions in a coherent manner. Nursing Notes Stated Complaint: CHANGE IN MENTATION Chief Complaint: General Complaint Nursing Notes Reviewed: Yes Allergies: Coded Allergies: meperidine (Verified Allergy, Severe, 09/23/16) clopidogrel (Verified Allergy, Intermediate, Hives, 09/23/16) Uncoded Allergies: NOVOCAINE (Allergy, Mild, ANGIONEUROTIC EDEMA, 03/22/06) Scheduled Amlodipine (Amlodipine) 5 Mg Tablet 5 MG PO DAILY Aspirin (Aspirin) 81 Mg Tablet 81 MG PO HS Ca Carbonate/Vitamin D3/Vit K (Citracal Soft Chew) 1 Each Tab.chew 2 EACH PO QAM Carvedilol (Carvedilol) 3.125 Mg Tablet 3.125 MG PO BID Cholecalciferol (Vitamin D3) (Vitamin D) 5,000 Unit Capsule 5,000 UNIT PO MORNING Cyanocobalamin (Vitamin B-12) (Vitamin B-12) 1,000 Mcg Tablet 1,000 MCG PO MORNING Furosemide (Lasix) 20 Mg Tablet 20 MG PO DIRECTED DAILY except EVERY 3rd day (when taking 40mg) Furosemide (Lasix) 40 Mg Tablet 40 MG PO Q3 days Metoprolol Succinate ER (Metoprolol Succinate ER) 25 Mg Tab.er.24h 25 MG PO BID Oxybutynin Chloride ER (Oxybutynin Chloride ER) 10 Mg Tab.er.24 10 MG PO DAILY Pantoprazole DR (Protonix) 40 Mg Tablet 40 MG PO DAILY Potassium Chloride (Potassium Chloride) 10 Meq Capsule.er 10 MEQ PO DIRECTED Daily except every 3rd day (when taking 20mg) Potassium Chloride (Potassium Chloride) 20 Meq Tab.er.prt 20 MEQ PO Q3 days Scheduled PRN Hydrocodone-Acetaminophen 5-325 mg (Hydrocodone-Acetaminophen 5-325 mg) 1 Each Tablet 1 TABLET PO Q4H PRN PRN For Pain Nitroglycerin SL (Nitroglycerin SL) 0.4 Mg Tab.subl 0.4 MG SL Q5MIN PRN PRN For Chest Pain Oxycodone (Roxicodone) 5 Mg Tablet 2.5-5 MG PO BID PRN PRN For Severe Pain Temazepam (Temazepam) 15 Mg Capsule 15 MG PO HS PRN PRN For Insomnia General Time Seen by MD: 01:30 Transferred From: longterm Chief Complaint Agitated, Confused, Memory loss, Other Hx Obtained From: Gun Profiler Unable to Obtain Hx: Mental status Arrived By: Ambulance Sudden in Onset?: Yes Onset Occurred: 3 days ago Context of Onset: Head injury, Other Progression since Onset: Gradually worsening Past Medical History Past Medical History Afib - on ASA per EMR Dementia Reports: Congestive heart failure, Coronary artery disease Past Surgical History Reports: Angioplasty, CABG Smoking History Former Smoker Social History Alcohol Use: Denies alcohol use Drug Use: Denies drug use Ambulatory Status Wheelchair Review of Systems Review of Systems Note: A comprehensive review of systems was conducted with the patient and found to be negative except as above in the History of Present Illness. Complete sys rev & neg: except as marked. Physical Exam Physical Exam Notes: General: Difficult to determine accurately due to patient's mentation. HEENT: Normocephalic, Laceration repair in place on top of head. External ears without defect. Pupils equal, round, and reactive to light and accommodation. Anicteric sclerae, moist conjunctivae, and no lid lag. Oropharynx free of erythema and cobble stoning with moist mucosa. Neck: Supple with full range of motion. No jugular venous distension. No bruits. No lymphadenopathy or thyromegaly. Cardiovascular: Regular rate and rhythm with no murmurs, rubs, or gallops appreciated Pulmonary: Clear to auscultation bilaterally with no crackles or rhonchi but with mild wheezes diffusely. Normal respiratory effort with no use of accessory muscles and 4 L oxygen nasal cannula. Abdomen: Bowel tones present. Soft, nontender, nondistended. No hepatosplenomegaly or masses appreciated. Extremities: No clubbing, cyanosis, edema, or lymphadenopathy appreciated, with lower extremity signs of peripheral vascular disease, skin tear with repair on right elbow Skin: Normal temperature, turgor, and texture; no rash, ulcers, or subcutaneous nodules appreciated. Neurological:Difficult to determine accurately due to patient's mentation. Psychiatric: Difficult to determine accurately due to patient's mentation. Initial Vital Signs Vital Signs (First) Date Time Temp Pulse Resp B/P Pulse Ox O2 Delivery O2 Flow Rate FiO2 09/23/16 01:06 36.4 86 21 129/81 92 Room Air 09/23/16 03:47 4 Interpretation & Diagnostics Lab Results Interpretation Result Diagram: 09/23/16 0202 09/23/16 0202 Test 09/23/16 02:02 09/23/16 02:36 09/23/16 02:57 09/23/16 10:15 White Blood Count 9.9th/mm3 (3.8-10.1) Red Blood Count 3.88mil/mm3 (4.40-5.80) Hemoglobin 11.8g/dL (13.8-17.2) Hematocrit 37.3% (41.0-50.0) Mean Corpuscular Volume 96.1fL (81-100) Mean Corpuscular Hemoglobin 30.4pg (27.0-35.0) Mean Corpuscular Hemoglobin Concent 31.6% (32.0-37.0) Red Cell Distribution Width 14.1% (12.3-15.4) Platelet Count 203bil/L (150-400) Neutrophils (%) (Auto) 73.2% (40-74) Lymphocytes (%) (Auto) 11.9% (14-46) Monocytes (%) (Auto) 11.4% (4-12) Eosinophils (%) (Auto) 2.7% (0-5) Basophils (%) (Auto) 0.6% (0-3) Sodium Level 141mEq/L (134-144) Potassium Level 4.8mEq/L (3.5-5.2) Chloride Level 101mEq/L (97-108) Carbon Dioxide Level 25mmol/L (18-29) Blood Urea Nitrogen 34mg/dL (8-27) Creatinine 1.76mg/dL (0.76-1.27) Estimat Glomerular Filtration Rate 39mL/min (>59) Glucose Level 133mg/dL (60-99) Lactic Acid Level 1.5mmol/L (0.4-2.0) Calcium Level 9.3mg/dL (8.5-10.1) Total Bilirubin 0.8mg/dL (0.0-1.2) Aspartate Amino Transf (AST/SGOT) 17U/L (0-50) Alanine Aminotransferase (ALT/SGPT) 13U/L (0-44) Alkaline Phosphatase 70U/L (25-160) Total Protein 7.6g/dL (6.4-8.4) Albumin 3.6g/dL (3.4-5.0) Hold Purple Top Tube Received (Received) Hold Blue Top Tube Received (Received) Hold [place] Top Tube Received (Received) Hold Rojo Top Tube Received (Received) Urine Color Dark yellow (YELLOW) Urine Appearance Clear (CLEAR,HAZY) Urine pH 6.0 (5.0-8.0) Urine Specific [place] 1.025 (1.003-1.035) Urine Protein Tracemg/dL (NEG,TRACE) Urine Glucose (UA) Negativemg/dL (NEGATIVE) Urine Ketones Negativemg/dL (NEGATIVE) Urine Occult Blood Negative (NEGATIVE) Urine Nitrite Negative (NEGATIVE) Urine Bilirubin Negative (NEGATIVE) Urine Urobilinogen Normalmg/dL (NORMAL) Urine Leukocyte Esterase Negative (NEGATIVE) Urine RBC 0-2/hpf (0-2) Urine WBC 0-5/hpf (0-5) Urine Epithelial Cells Occasional/hpf (NONE-MOD) Urine Crystals None seen (NONE SEEN) Urine Bacteria None/hpf (NONE-FEW) Urine Hyaline Casts None/lpf (NONE) Urine Granular Casts None seen (NONE SEEN) Urine Waxy Casts None seen (NONE SEEN) Urine Red Blood Cell Casts None seen (NONE SEEN) Urine White Blood Cell Casts None seen (NONE SEEN) Urine Mucus Present (None Seen) Urine Trichomonas None seen (NONE SEEN) Urine Yeast None (NONE SEEN) Urine Culture Reflexed Not indicated Hold Urine Received (Received) Troponin T 0.028ug/L (0.0-0.011) Pro-B-Type Natriuretic Peptide 5598pg/mL (0-486) Procalcitonin < 0.05ng/mL (See Comment) Test 09/23/16 11:00 Prothrombin Time 11.4sec (8.1-12.5) Prothromb Time International Ratio 1.06ratio Re-Eval/Medical Decision Med Decision/Clinical Course Mental status decline as reported by caretakers from [facility]. CT brain without contrast was completely normal no interval increase from previous CT brain without contrast 09/20/16. CBC, CMP, lactic acid and urine completely normal. Assessment no signs or infectious sources identified, and no laboratory data or imaging to suggest infection. Patient continues to be agitated, and will receive 2 mg IM Haldol. Vital remain stable. Patient has received a DuoNeb treatment for wheezing and increased oxygen demand. I assumed care of this patient from Dr. Sewell at 0900 who had previously received signout on this patient from Dr. Leahy at 0600. I contacted additional history and a repeat physical examination. In summary this is a patient who is presenting to the emergency department with oxygen requirement in the setting of underlying congestive heart failure as well as increased agitation and behavioral abnormalities in the setting of recently being prescribed benzodiazepines. The patient spent, increasingly confused with disordered sleep. Altered mental status workup and then contacted prior to my assessment of the patient was notable for a CT of the had the dose with no acute intracranial abnormality, a chest x-ray that demonstrated mild pulmonary edema and laboratory studies which were essentially unremarkable including urinalysis without signs of UTI. I arrived at the patient's bedside his upper extremities when restraints and he was mildly combative attempting to get out of the restraints. He was unable to provide any history due to his altered mental status. Due to the patient's agitation and to protect him from self injury I administered 2 mg of IM Haldol with good effect. Positive his increased oxygen requirement she is most consistent with dementia and increasing pulmonary edema and therefore I initiated diuresis with 20 mg of IV Lasix. The patient remained stable and in no apparent distress. The patient was discussed with the admitting hospitalist service and transferred for further management of his delirium, hypoxia and pulmonary edema. Re-Evaluation/Progress #1: Time of Eval: :33 Re-Evaluation/Progress Note: Juan Jose 0900 took over the care of this patient and reviewed the chart. The patient is presenting with cognitive decline and increasing oxygen requirement from 2L to 4L. 2 mg IM haldol agitation by previous MD. Previous workup included a CBC which was unremarkable, lactate of 1.5, BUN of 34, creatinine of 1.76. UA no signs of UTI. Head CT showed old infarcts but no acute process. Chest xray showed possible mild developing pulmonary edema. Re-Evaluation/Progress #2: Time of Eval: 09:36 Re-Evaluation/Progress Note: Case discussed with the daughter in law and the patient. Informed family of need for admit. Family understands and agrees with plan for admit. All questions addressed. Code status was discussed days ago but he showed signs of improvement so a formal DNR was not filled out. The Daughter in law believes the patient would not want live in this condition and that DNR should be reconsidered in the near future. Consultation : Referral / Consult Name: Melva Mae MD Consulted With: Hospitalist Call Returned at: 11:06 Windows Software Developer: Will see patient, Agrees with eval, Agrees with plan, Accepts admit Note: Case discussed in person. Counseled Regarding: Diagnosis, Lab results, Need for admission Patient Discharge & Departure Shift Change Sign-Out Patient Care Transferred: Yes Discussed Complaint(s): Yes Laboratory Evaluation: Lab evaluation discussed Imaging Studies: Imaging discussed Response to Therapy: Unchanged Impression: Primary Impression: Altered mental state Altered mental status type: delirium Qualified Code: R41.0 - Disorientation , unspecified Additional Impressions: Hypoxia Pulmonary edema Chronicity: acute Qualified Code: J81.0 - Acute pulmonary edema Agitation Congestive heart failure Disposition: ADMITTED TO HOSPITAL Discharge Condition All VS Reviewed: Yes Condition: Stable Referrals: Farhan Orellana DO (PCP) Care Transferred to: Dr. Juan Jose Care Transferred at: 09:30 Crit Care Except Billable Proc Time Spent: 105-134 minutes Services Performed: Patient management by me, Time spent at bedside, Reviewing test results, Reviewing imaging, Discussing patient care, Documentation in record, Time with fam/surrogate EDSupervising Provider for APC: Juan Jose MD Scribe Attestation Portions of this note were transcribed by Daryl Beatty. I, Dr. Jose personally performed the history, physical exam and medical decision-making; I reviewed and confirmed the accuracy of the information in the transcribed note. Signed by Jairon Velasquez, 09/23/16 - 944 Attending Statement The patient was seen and examined together with Dr. Boyd Almodovar and I agree with the history, exam and plan as outlined in the note above. copies to: Farhan Orellana COREY P DO Sep 23, 2016 01:46 Juan Jose MD Sep 23, 2016 09:30 DARYL BEATTY Sep 23, 2016 09:43 Felix Douglass MD Sep 23, 2016 13:13
[2016-09-23] MEDS ORDERED: Albuterol-Ipratropium 3 mL Inhalation Solution NEB ONE ×2 (02:00→05:20)
[2016-09-23 02:15] LABS: BASOPHILS % (AUTO) 0.6 % (0-3); EOSINOPHILS % (AUTO) 2.7 % (0-5); MONOCYTES % (AUTO) 11.4 % (4-12); Mean Corpuscular Hemoglobin 30.4 pg (27.0-35.0); Mean Corpuscular Volume 96.1 fL (81-100); NEUTROPHILS % (AUTO) 73.2 % (40-74); Platelet Count 203 bil/L (150-400)
[2016-09-23 03:43] LABS: APPEARANCE,URINE CLEAR (CLEAR,HAZY); COLOR,URINE DARK YELLOW (YELLOW); OCCULT BLOOD,URINE NEGATIVE (NEGATIVE); UROBILINOGEN,URINE NORMAL (NORMAL)
[2016-09-23] MEDS ORDERED: Haloperidol Decanoate 50 mg/mL Inj IM ONE ×2 (04:35→09:50)
[2016-09-23] MEDS ORDERED: Haloperidol 5 mg/mL Inj IM ONE ×2 (04:35→09:55)
--- NOTE | 2016-09-23 08:07 | DRSVH ---
PROCEDURE: CT BRAIN WITHOUT CONTRAST ([id number]) INDICATIONS: Altered mental status TECHNIQUE: Noncontrast 4.5 mm thick angled axial sections acquired from the foramen magnum to the vertex, with c oronal reformats. COMPARISON: [facility], CT, CT BRAIN WO CON, 09/07/2016, 14:39. [facility], CT, CT BRAIN WO CON, 09/20/2016, 18:52. FINDINGS: Image quality: Mild motion artifacts. CSF spaces: Basal cisterns are patent. No extra-axial fluid collections. The ventricles are symmet evert in size and shape. Brain: No intracranial bleeds or masses. Again noted are small left frontal and bilateral cerebella r infarcts. There is moderate cerebral volume loss for age, with resultant ventricular and sulcal pro minence. There are moderate to severe periventricular and deep white matter chronic small vessel isc hemic changes. There is intracranial internal carotid artery atherosclerosis. Skull and face: Calvarium and visualized facial bones appear intact, without suspicious lesions. Sinuses: Visualized sinuses and mastoids are clear. IMPRESSION: 1. No acute intracranial abnormalities. 2. 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 Moderate cerebral volume loss and moderate to severe chronic microvascular ischemic changes. No significant discrepancy with the night assistant radiology preliminary report. Dictated by: Madyson Johnson M.D. on 09/23/2016 at 8:01 Approved by: Madyson Johnson M.D. on 09/23/2016 at 8:05
--- NOTE | 2016-09-23 09:21 | DRSVH ---
PROCEDURE: X-RAY CHEST ONE VIEW, PORTABLE ([id number]) INDICATIONS: shortness of breath and wheezing TECHNIQUE: One view of the chest was acquired. COMPARISON: [facility], CR, XR CHEST 1VW (PORTABLE), 09/08/2016, 17:24. FINDINGS: Surgical changes and devices: Median sternotomy. Lungs and pleura: Lung volumes are decreased and interstitium is prominent. Mediastinum: Mediastinal contours appear normal. Heart size is enlarged. Bones and chest wall: No suspicious bony lesions. Overlying soft tissues appear unremarkable. IMPRESSION: Low lung volumes, cardiomegaly and interstitial prominence. Mild developing pulmonary ed elder cannot be excluded. Recommend clinical correlation. Dictated by: Omid Muñiz RRA Interpreted: Maria Luisa Stewart MD on 09/23/2016 at 9:19 Transcribed by: MARTINEZ on 09/23/2016 at 9:20 Approved by: Maria Luisa Stewart MD, PhD on 09/23/2016 at 16:44
[2016-09-23] MEDS ORDERED: Furosemide 10 mg/mL 2 mL Inj IVPUSH ONE (09:50)
[2016-09-23 11:24] LABS: INR 1.06 ratio
--- NOTE | 2016-09-23 11:50 | PCM.HPMED ---
Subjective Date of Service Sep 23, 2016 Primary Provider: Admitting Physician: Primary Care Physician: Farhan Orellana DO Attending Physician: History of Present Illness: 86yo M w/ pt was recently hospitalized 08/30- with problems below Respiratory failure HALLIE Chronic Atrial fibrillation Bilateral atrial thrombus Pneumonia Acute NSTEMI vs demand ischemia Mixed Metabolic acidosis with Metabolic Alkalosis and Respiratory Alkalosis Acute probable arrhythmia in setting of chronic atrial fibrillation with syncopal episode Subclinical hypothyroid, Metabolic Lactic acidosis Since patient was discharged on Subsequently pt was also had ground level fall 3days ago 09/20, visited ED, noted scalp laceration, and minor abrasion the right knee, CT imaging of the head and C-spine are negative. he moved all extremities and has no signs of fracture, sent back to SNF. However , patient has been more confused and deteriorating with increased agitation since this episode. Therefore, pt was sent from [facility] not improved with ativan. Upon arrival to emergency room, vitals are stable, SBP 120s HR86, afebrile, initially 92% on RA, reported patient was on 2 L at baseline, subsequently little bit more hypoxic so switched to see mask 4 L, sating 92%. Since patient was agitated, received multiple Haldol 2mgx2, Benadryl 25 mg, nebulizer treatment/Lasix 20 mg IV based on possible pulmonary edema on x-ray, CT had ruled out brain bleed, left showed mild HALLIE on CKD, mild troponemia. EKG showed chronic afib, ST depression-unclear onset on v4,v5. During the encounter in ED, pt answered very simple questions, only oriented to himself. Moving 4 extremities on physical restraints, denied any headache, difficulty breathing, abdominal pain. Otherwise able to get the detailed history. Allergies Coded Allergies: meperidine (Verified Allergy, Severe, 09/23/16) clopidogrel (Verified Allergy, Intermediate, Hives, 09/23/16) Uncoded Allergies: NOVOCAINE (Allergy, Mild, ANGIONEUROTIC EDEMA, 03/22/06) Home Medications Discharge Medications from last hospitalization 09/09 Discharge Medications Alpha Lipoic Acid (Alpha Lipoic Acid) 100 Mg Capsule 100 MG PO HS (Reported) Aspirin (Aspirin) 81 Mg Tablet 81 MG PO HS (Reported) Ca Carbonate/Vitamin D3/Vit K (Citracal Soft Chew) 1 Each Tab.chew 2 EACH PO QAM (Reported) Carvedilol (Carvedilol) 3.125 Mg Tablet 3.125 MG PO BID Prescribed by: SULY CHÁVEZ DO Cholecalciferol (Vitamin D3) (Vitamin D) 5,000 Unit Capsule 5,000 UNIT PO MORNING (Reported) Cyanocobalamin (Vitamin B-12) (Vitamin B-12) 1,000 Mcg Tablet 1,000 MCG PO MORNING (Reported) Furosemide (Lasix) 20 Mg Tablet 20 MG PO DAILY (Reported) Furosemide (Lasix) 40 Mg Tablet 40 MG PO every third day (Reported) Metoprolol Succinate ER (Metoprolol Succinate ER) 25 Mg Tab.er.24h 25 MG PO BID (Reported) Oxybutynin Chloride ER (Oxybutynin Chloride ER) 10 Mg Tab.er.24 10 MG PO DAILY ( Reported) Pantoprazole DR (Protonix) 40 Mg Tablet 40 MG PO DAILY (Reported) Potassium Chloride (Potassium Chloride) 10 Meq Capsule.er 10 MEQ PO DAILY ( Reported) TAKE WITH FOOD Potassium Chloride (Potassium Chloride) 20 Meq Tab.er.prt 20 MEQ PO every third day (Reported) TAKE WITH FOOD As needed Amoxicillin/Clav K 250-62.5 mg Susp (Augmentin 250-62.5 mg Susp) 250 Mg/5 Ml Ml 5 ML PO BID PRN PRN pneumonia Prescribed by: SULY CHÁVEZ DO Hydrocodone-Acetaminophen 5-325 mg (Hydrocodone-Acetaminophen 5-325 mg) 1 Each Tablet 1 TABLET PO Q4H PRN PRN For Pain Prescribed by: SULY CHÁVEZ DO Oxycodone (Roxicodone) 5 Mg Tablet 5 MG PO Q4H PRN PRN For Pain Prescribed by: SULY CHÁVEZ DO Temazepam (Temazepam) 15 Mg Capsule 15 MG PO HS PRN PRN For Insomnia (Reported) Miscellaneous Medications Diphenoxylate/Atropine 2.5-0.025 mg (Lomotil 2.5-0.025 mg) 1 Each Tablet 1 TABLET PO (Reported) Nitroglycerin SL (Nitroglycerin SL) 0.4 Mg Tab.subl 0.4 MG SL (Reported) PMH PMH History of congestive heart failure History of coronary artery disease with CABG 4 done in mid 1999 with a bovine valve replacement done History of stents done a few years ago and [place] by Dr. Bernal History of chronic atrial fibrillation Family History Denies any history of cardiovascular disease per previous note Social History Hx Alcohol Use: Yes (NOT FOR SOME TIME) Hx Substance Use: No Hx Tobacco Use: No Smoking Status: Former Smoker (quit 50 years ago) currently staying at [facility] Social History Hx Alcohol Use: Yes (Social, occasional drink once per week.) Hx Substance Use: No Hx Tobacco Use: No Smoking Status: Former Smoker Exam Vital Signs Vital Sign - Last Date Time Temp Pulse Resp B/P Pulse Ox O2 Delivery O2 Flow Rate FiO2 09/23/16 08:47 98 20 139/103 98 Simple Mask 5 09/23/16 06:30 36.2 Exam Early male, constantly moving, agitated On 2 point restraints of wrist Moving 4 extremities to all 6 stimuli AAOx1, no JVD, MMM, no LAD, frontal scalp laceration sterilely dressed Irregular tachycardic, nl s1, s2 no mrg CTAB, no w,c anteriorly S,ND,NT,normoactive BS+ warm, no edema, pulses 2/2 Unable to perform neuro exam Lab and Diagnostics Result Diagram: 09/23/16 0202 09/23/16 0202 X-Rays, CTs and MRIs PROCEDURE: CT BRAIN WITHOUT CONTRAST ([id number]) INDICATIONS: Altered mental status TECHNIQUE: Noncontrast 4.5 mm thick angled axial sections acquired from the foramen magnum to the vertex, with coronal reformats. COMPARISON: [facility], CT, CT BRAIN WO CON, 09/07/2016, 14:39. [facility], CT, CT BRAIN WO CON, 09/20/2016, 18:52. FINDINGS: Image quality: Mild motion artifacts. CSF spaces: Basal cisterns are patent. No extra-axial fluid collections. The ventricles are symmetric in size and shape. Brain: No intracranial bleeds or masses. Again noted are small left frontal and bilateral cerebellar infarcts. There is moderate cerebral volume loss for age, with resultant ventricular and sulcal prominence. There are moderate to severe periventricular and deep white matter chronic small vessel ischemic changes. There is intracranial internal carotid artery atherosclerosis. Skull and face: Calvarium and visualized facial bones appear intact, without suspicious lesions. Sinuses: Visualized sinuses and mastoids are clear. IMPRESSION: 1. No acute intracranial abnormalities. 2. 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 Moderate cerebral volume loss and moderate to severe chronic microvascular ischemic changes. No significant discrepancy with the [facility] shift lead radiology preliminary report. Dictated by: Madyson Johnson M.D. on 09/23/2016 at 8:01 Approved by: Madyson Johnson M.D. on 09/23/2016 at 8:05 PROCEDURE: X-RAY CHEST ONE VIEW, PORTABLE ([id number]) INDICATIONS: shortness of breath and wheezing TECHNIQUE: One view of the chest was acquired. COMPARISON: [facility], CR, XR CHEST 1VW (PORTABLE), 09/08/2016, 17: 24. FINDINGS: Surgical changes and devices: Median sternotomy. Lungs and pleura: Lung volumes are decreased and interstitium is prominent. Mediastinum: Mediastinal contours appear normal. Heart size is enlarged. Bones and chest wall: No suspicious bony lesions. Overlying soft tissues appear unremarkable. IMPRESSION: Low lung volumes, cardiomegaly and interstitial prominence. Mild developing pulmonary edema cannot be excluded. Recommend clinical correlation. Dictated by: Omid Muñiz RRA Interpreted: Maria Luisa Stewart MD on 09/23/2016 at 9 :19 Transcribed by: MARTINEZ on 09/23/2016 at 9:20 12-lead ECG A. fib [id number], STD in v4,5 likely secondary repol Assessment & Plan 86yo M w/ multiple comorbidities, recent complicated hospitalization with respiratory failure, pneumonia, AK I, bilateral atrial thrombus, demand ischemia , subsequent ground-level fall presented with general deconditioning, progressive worsening confusion, agitation, not controlled with sedatives. Addendum> from , son. Goal is to make him comfortable, if needed comfort care. agreed on MRI if possible. Family seemed reasonable, POLST put in the chart. Will control pain with dilaudid iv prn, will use haldol, avoid benzo overnight and watch Acute, active #Acute encephalopathy, POA, likely multifactorial, underlying cognitive dysfunction, aging, delirium, mild HALLIE, hypoxia, benzodiazepin induced, probable new stroke given high risks with chronic afib, atrial thrombus. no signs of infection so far-UA clean, afebrile, however high risks given recent multiple hospitalization, recent PNA, SNF stay. -We will monitor with frequent neuro checks -MRI with stroke protocol when patient is more stable condition -Gentle hydration with d5 1/2 ns 75cc/hr #mild troponemia, POA, which trended down from previous troponins, will get serial EKG given lateral STD to see this is old/new. last TTE was reassuring. #mild CHF exacerbation, hx of CABG 2004 s/p stents, last TTE on08/30/2016 showed EF55-60%, no focal wall motion abnormalities. prosthetic aortic valve function is normal. CXR showed mild PVC, mild hypoxia noted. -s/p joe cath s/plasix 20mg iv in ED, strict i/o, monitor response, -continue O2 supplement as needed, target>95% -will obtain resp PCR chronic, stable Chronic A. fib, rate relatively controlled with low 90-100s HD stable, will continue monitor, resume BB if pt remains HD stable biatrial thrombus, will continue asa once pt pass s/s eval, not good candidate for AC Severe aortic stenosis / S/P prosthetic AVR, last TTE showed prosthetic aortic valve function is normal, continue asa recent fall with scalp laceration, continue with wound care dispo:Patient will be admitted with inpatient status with expectation of inpatient therapy for more than 2 midnights dvt ppx: HSQ DNR/DNI per POL done by last hospitalization, also says "no hospital transfer" diet: NPO, needs s/s eval Time spent 65 minutes Melva Mae MD Sep 23, 2016 10:51
--- NOTE | 2016-09-23 12:42 | NUR ---
Admit nurse: Pt very confused/agitated, restraints in place. Unable/unwilling to provide any info, admit completed with medical record. Pt unable/unwilling to discuss home meds, list in computer is from recent admission, see discharge notes from 09/19/16. Pt has joe cath in place, joe has been pulled on by pt and has some blood/clots in tubing.
[2016-09-23] MEDS ORDERED: OXYC-474 PO (13:30)
[2016-09-23] MEDS ORDERED: AMLO5TAB2 PO (13:38)
--- NOTE | 2016-09-23 14:04 | NUR ---
Evaluation completed. Please go to "Notes" then click on "Assessments and Notes" (bottom left corner of screen). Then select appropriate discipline tab on top of screen.
[2016-09-23] MEDS: Haloperidol 5 mg/mL Inj IVPUSH PRN ×2 (16:36→20:32)
[2016-09-23] MEDS: HYDROmorphone 1 mg/mL Inj IVPUSH PRN ×2 (16:36→20:32)
[2016-09-23] MEDS: Dextrose 5% 0.45% NaCl 1,000 ML IV SCH (16:36)
--- NOTE | 2016-09-23 17:08 | NUR ---
Wound Care Wound evaluation order received, pt seen at bedside with nursing. 86 yo agitated male in wrist restraints has a laceration at his scalp above the frontal area that is 7 cm x 4.5 cm x 0.2 cm it is bleeding minimally, there are no sutures required this was cleaned with hydrogen peroxide and redressed with a mepilex sacral dressing, can be changed q 72 hrs by nursing. Pt also presents with a right elbow skin tear that is dry and measures 2.5 cm x 3 cm x 0.2 cm this was cleaned with hydrogen peroxide and redressed with a hydrogel and mepilex foam dressing this to can be changed by nursing q 72 hrs. No pressure related skin issues are noted at this time.
--- NOTE | 2016-09-23 17:29 | NUR ---
Admission and Restraints Admit to room 3024 via gurney with 5L O2 via Oxymask and SL, Love catheter, with soft wrist restraints and mittens. Sitter at bedside. Family arrived to bedside and updated on plan of care, Provider assessed. IVF initiated, Dilaudid and Haldol admin for family reported "pain" and "agitation". Meds tolerated well and pt appears to be resting calmly at this time and is no longer exhibiting restless behavior.
[2016-09-23] MEDS: Heparin 5,000 Unit/mL Inj SUBQ SCH (20:06)
[2016-09-23] MEDS ORDERED: Acetaminophen IV 1,000 MG in IV Premix 1 EACH IV PRN (21:20)
[2016-09-24] VITALS (8 sets, daily range): BP systolic 104–153; BP diastolic 63–89; PULSE 74–94; RESP 14–22; O2SAT 95–99
[2016-09-24] MEDS: Haloperidol 5 mg/mL Inj IVPUSH PRN ×5 (01:35→23:56)
[2016-09-24] MEDS: HYDROmorphone 1 mg/mL Inj IVPUSH PRN ×2 (01:37→21:50)
[2016-09-24] MEDS: Dextrose 5% 0.45% NaCl 1,000 ML IV SCH ×3 (06:35→23:27)
[2016-09-24] MEDS: Heparin 5,000 Unit/mL Inj SUBQ SCH ×2 (09:03→20:58)
--- NOTE | 2016-09-24 12:52 | NUR ---
Evaluation completed. Please go to "Notes" then click on "Assessments and Notes" (bottom left corner of screen). Then select appropriate discipline tab on top of screen.
--- NOTE | 2016-09-24 16:27 | NUR ---
Social Work-initial assessment: Data:See initial assessment. Pt is a 86 y/o male who was admitted on 09/23/16 for AMS per H&P. Pt's insurance is [facility] and [employer] and PCP is Farhan Orellana MD. EMR Reviewed. Pt's readmission score is 4. SW placed a call to pt's Bere to discuss discharge planning, SW role explained. KRISHNA updated by that pt is now comfort care. Pt's states she is so exhausted and would like to follow up with SW tomorrow with her son. SW provided SW phone number and requested she call SW in the morning with time. Pt comes from [facility] Brian, KRISHNA requesting this facility look at pt for comfort care. states she is looking into [facility] for pt .SW to follow up tomorrow. Assessment:Pt who is comfort care. Plan:SW to follow up with pt's and son tomorrow. to call SW in the am with time for meeting. SW will continue to follow. AGUSTIN Capellan Addendum: 09/24/16 at 1631 by TRISTA JENNINGS Amended: Links added.
--- NOTE | 2016-09-24 18:37 | PCM.PNMED ---
Subjective Date of Service Sep 24, 2016 Subjective Patient was examined at bedside today. Patient denies any chest pain, shortness of breath, nausea, vomiting, diarrhea. Patient was still mildly agitated and in 4 point soft restraints Exam Vital Signs Vital Sign - Last Date Time Temp Pulse Resp B/P Pulse Ox O2 Delivery O2 Flow Rate FiO2 09/24/16 16:32 37.2 94 19 135/70 97 OxyMask 3.00 Intake and Output 09/23/16 09/23/16 09/24/16 Cumulative From/Thru 15:00 23:00 07:00 09/23/16 01:06 - 09/24/16 06:37 Intake Total 1098 ml 1098 ml Output Total 700 ml 680 ml 1380 ml Balance -700 ml 418 ml -282 ml Intake Oral 0 ml 0 ml IV Total 1098 ml 1098 ml Output Urine Total 700 ml 680 ml 1380 ml Exam Physical Exam: GEN: Patient was awake, alert HEENT: PERRLA, EOMI, Neck soft supple, trachea midline, nomocephalic/atraumatic CV: +S1/S2, RRR, no murmurs auscultated Respiratory: CTAB, no wheezes, rales, rhonchi GI: +bowel sounds x4, soft, compressible, non TTP EXT: no c/c/e Neuro: CN II-XII grossly intact Psych: mood and affect were mildly agitated IVs and Medications Medications Reviewed: Medications were reviewed in detail Medications Current Medications Heparin Sodium (Porcine) 5,000 unit Q12 SUBQ Last administered on 09/24/16 09: 03; Admin Dose 5,000 UNIT; Start 09/23/16 at 20:30 Acetaminophen 650 mg Q4H PRN PO; Start 09/23/16 at 10:55; Stop 09/23/16 at 21: 19; Status DC Aspirin 81 mg 81 mg DAILY PO Last administered on 09/24/16 08:57; Admin Dose 81 MG; Start 09/24/16 at 08:30 Dextrose/Sodium Chloride 1,000 ml @ 75 mls/hr [id number] IV Last administered on 06:35; Admin Dose 75 MLS/HR; Start 09/23/16 at 16:00 Hydromorphone HCl 0.5 mg Q4H PRN IVPUSH Last administered on 09/24/16 01:37; Admin Dose 0.5 MG; Start 09/23/16 at 16:00 Haloperidol Lactate 2.5 mg 2.5 mg Q4HWA PRN IVPUSH Last administered on 15:34; Admin Dose 2.5 MG; Start 09/23/16 at 16:00 Acetaminophen/ Premix 100 ml @ 400 mls/hr Q6H PRN IV Last administered on 09/23 21:46; Admin Dose 400 MLS/HR; Start 09/23/16 at 21:20; Stop 09/24/16 at 21 :21 Lab and Diagnostics Result Diagram: 09/23/16 0202 09/23/16 0202 X-Rays, CTs and MRIs PROCEDURE: CT BRAIN WITHOUT CONTRAST ([id number]) INDICATIONS: Altered mental status TECHNIQUE: Noncontrast 4.5 mm thick angled axial sections acquired from the foramen magnum to the vertex, with coronal reformats. COMPARISON: [facility], CT, CT BRAIN WO CON, 09/07/2016, 14:39. [facility], CT, CT BRAIN WO CON, 09/20/2016, 18:52. FINDINGS: Image quality: Mild motion artifacts. CSF spaces: Basal cisterns are patent. No extra-axial fluid collections. The ventricles are symmetric in size and shape. Brain: No intracranial bleeds or masses. Again noted are small left frontal and bilateral cerebellar infarcts. There is moderate cerebral volume loss for age, with resultant ventricular and sulcal prominence. There are moderate to severe periventricular and deep white matter chronic small vessel ischemic changes. There is intracranial internal carotid artery atherosclerosis. Skull and face: Calvarium and visualized facial bones appear intact, without suspicious lesions. Sinuses: Visualized sinuses and mastoids are clear. IMPRESSION: 1. No acute intracranial abnormalities. 2. 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 Moderate cerebral volume loss and moderate to severe chronic microvascular ischemic changes. No significant discrepancy with the retail shift manager radiology preliminary report. Dictated by: Madyson Johnson M.D. on 09/23/2016 at 8:01 Approved by: Madyson Johnson M.D. on 09/23/2016 at 8:05 PROCEDURE: X-RAY CHEST ONE VIEW, PORTABLE ([id number]) INDICATIONS: shortness of breath and wheezing TECHNIQUE: One view of the chest was acquired. COMPARISON: [facility], CR, XR CHEST 1VW (PORTABLE), 09/08/2016, 17: 24. FINDINGS: Surgical changes and devices: Median sternotomy. Lungs and pleura: Lung volumes are decreased and interstitium is prominent. Mediastinum: Mediastinal contours appear normal. Heart size is enlarged. Bones and chest wall: No suspicious bony lesions. Overlying soft tissues appear unremarkable. IMPRESSION: Low lung volumes, cardiomegaly and interstitial prominence. Mild developing pulmonary edema cannot be excluded. Recommend clinical correlation. Dictated by: Omid Muñiz RRA Interpreted: Maria Luisa Stewart MD on 09/23/2016 at 9 :19 Transcribed by: MARTINEZ on 09/23/2016 at 9:20 12-lead ECG A. fib [id number], STD in v4,5 likely secondary repol Assessment & Plan 86yo M w/ multiple comorbidities, recent complicated hospitalization with respiratory failure, pneumonia, AK I, bilateral atrial thrombus, demand ischemia , subsequent ground-level fall presented with general deconditioning, progressive worsening confusion, agitation, not controlled with sedatives. Acute, active #Acute encephalopathy, POA, likely multifactorial, underlying cognitive dysfunction, aging, delirium, mild HALLIE, hypoxia, benzodiazepin induced, probable new stroke given high risks with chronic afib, atrial thrombus. no signs of infection so far-UA clean, afebrile, however high risks given recent multiple hospitalization, recent PNA, SNF stay. -We will monitor with frequent neuro checks -MRI with stroke protocol when patient is more stable condition: Family has denied this particular modality -Gentle hydration with d5 1/2 ns 75cc/hr #mild troponemia, POA, which trended down from previous troponins, will get serial EKG given lateral STD to see this is old/new. last TTE was reassuring. #mild CHF exacerbation, hx of CABG 2004 s/p stents, last TTE on08/30/2016 showed EF55-60%, no focal wall motion abnormalities. prosthetic aortic valve function is normal. CXR showed mild PVC, mild hypoxia noted. -s/p joe cath s/plasix 20mg iv in ED, strict i/o, monitor response, -continue O2 supplement as needed, target>95% -will obtain resp PCR chronic, stable Chronic A. fib, rate relatively controlled with low 90-100s HD stable, will continue monitor, resume BB if pt remains HD stable biatrial thrombus, will continue asa once pt pass s/s eval, not good candidate for AC Severe aortic stenosis / S/P prosthetic AVR, last TTE showed prosthetic aortic valve function is normal, continue asa recent fall with scalp laceration, continue with wound care dispo: An extensive conversation was held with the family today. The patient and the patient's family would like to move more towards comfort care measures and ensuring that the patient is not in any significant pain. Case management has been informed and are currently working on placement for the patient. dvt ppx: HSQ DNR/DNI per KELSY done by last hospitalization, also says "no hospital transfer" diet: NPO, needs s/s eval VTE Mechanical Devices: Venous Foot Pump Resuscitation Status: DNR/DNI:Do Not Resuscitate/Intubate Anastacia Lino DO Sep 24, 2016 18:37
[2016-09-25] VITALS (8 sets, daily range): BP systolic 124–166; BP diastolic 68–96; PULSE 79–110; RESP 18–20; O2SAT 94–98
--- NOTE | 2016-09-25 05:32 | NUR ---
Restraints Patient continues to be in restraints. became agitated at one point "looking for glasses, wanted restraints off" patient HR up to the 130's medicated with 0.5mg dilaudid IV. patient HR decreased. 2 hours later Patient began fidget with his hands and feet. HR up to the 130's. Patient medicated with 2.5mg haldol IV. patients HR decreased to 80's-90's patient reported feeling tired and fell asleep. 02 maintained above 90% while asleep. patient appears more comfortable. swelling noted to top of hands. hand elevated on pillow mitt restraints removed.
[2016-09-25] MEDS: Haloperidol 5 mg/mL Inj IVPUSH PRN ×2 (06:09→14:29)
[2016-09-25] MEDS: Heparin 5,000 Unit/mL Inj SUBQ SCH ×2 (08:52→19:55)
--- NOTE | 2016-09-25 10:40 | NUR ---
Restraint Orders MD reviewed and signed continuation of restraints for pt at this time.
--- NOTE | 2016-09-25 13:15 | PCM.PNMED ---
Subjective Date of Service Sep 25, 2016 Subjective The patient was seen and examined today. The patient was more calm and less agitated. Patient was able to answer questions related to self. Patient to currently in 4 point restraints. Exam Vital Signs Vital Sign - Last Date Time Temp Pulse Resp B/P Pulse Ox O2 Delivery O2 Flow Rate FiO2 09/25/16 10:13 110 09/25/16 09:51 36.7 20 133/71 95 OxyMask 3.50 Intake and Output 09/24/16 09/24/16 09/25/16 Cumulative From/Thru 15:00 23:00 07:00 09/23/16 01:06 - 09/25/16 06:55 Intake Total 933 ml 0 ml 2031 ml Output Total 550 ml 350 ml 2280 ml Balance 383 ml -350 ml -249 ml Intake Oral 339 ml 0 ml 339 ml IV Total 594 ml 1692 ml Output Urine Total 550 ml 350 ml 2280 ml Exam Physical Exam: GEN: Patient was awake, alert, responding appropriately to questions HEENT: PERRLA, EOMI, Neck soft supple, trachea midline, abrasion was noted on the left parietal and frontal area CV: +S1/S2, irregular, positive systolic murmur auscultated Respiratory: CTAB, no wheezes, rales, rhonchi GI: +bowel sounds x4, soft, compressible, non TTP EXT: no c/c/e Neuro: CN II-XII grossly intact Psych: mood and affect were somnolent IVs and Medications Medications Reviewed: Medications were reviewed in detail Medications Current Medications Heparin Sodium (Porcine) 5,000 unit Q12 SUBQ Last administered on 09/25/16 08: 52; Admin Dose 5,000 UNIT; Start 09/23/16 at 20:30 Aspirin 81 mg 81 mg DAILY PO Last administered on 09/25/16 08:52; Admin Dose 81 MG; Start 09/24/16 at 08:30 Dextrose/Sodium Chloride 1,000 ml @ 75 mls/hr [id number] IV Last administered on 23:27; Admin Dose 75 MLS/HR; Start 09/23/16 at 16:00 Hydromorphone HCl 0.5 mg Q4H PRN IVPUSH Last administered on 09/24/16 21:50; Admin Dose 0.5 MG; Start 09/23/16 at 16:00 Haloperidol Lactate 2.5 mg 2.5 mg Q4HWA PRN IVPUSH Last administered on 06:09; Admin Dose 2.5 MG; Start 09/23/16 at 16:00 Acetaminophen/ Premix 100 ml @ 400 mls/hr Q6H PRN IV Last administered on 09/23 21:46; Admin Dose 400 MLS/HR; Start 09/23/16 at 21:20; Stop 09/24/16 at 21 :21; Status DC Lab and Diagnostics Result Diagram: 09/23/16 0202 09/23/16 0202 X-Rays, CTs and MRIs PROCEDURE: CT BRAIN WITHOUT CONTRAST ([id number]) INDICATIONS: Altered mental status TECHNIQUE: Noncontrast 4.5 mm thick angled axial sections acquired from the foramen magnum to the vertex, with coronal reformats. COMPARISON: [facility], CT, CT BRAIN WO CON, 09/07/2016, 14:39. [facility], CT, CT BRAIN WO CON, 09/20/2016, 18:52. FINDINGS: Image quality: Mild motion artifacts. CSF spaces: Basal cisterns are patent. No extra-axial fluid collections. The ventricles are symmetric in size and shape. Brain: No intracranial bleeds or masses. Again noted are small left frontal and bilateral cerebellar infarcts. There is moderate cerebral volume loss for age, with resultant ventricular and sulcal prominence. There are moderate to severe periventricular and deep white matter chronic small vessel ischemic changes. There is intracranial internal carotid artery atherosclerosis. Skull and face: Calvarium and visualized facial bones appear intact, without suspicious lesions. Sinuses: Visualized sinuses and mastoids are clear. IMPRESSION: 1. No acute intracranial abnormalities. 2. 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 Moderate cerebral volume loss and moderate to severe chronic microvascular ischemic changes. No significant discrepancy with the night nurse radiology preliminary report. Dictated by: Madyson Johnson M.D. on 09/23/2016 at 8:01 Approved by: Madyson Johnson M.D. on 09/23/2016 at 8:05 PROCEDURE: X-RAY CHEST ONE VIEW, PORTABLE ([id number]) INDICATIONS: shortness of breath and wheezing TECHNIQUE: One view of the chest was acquired. COMPARISON: [facility], CR, XR CHEST 1VW (PORTABLE), 09/08/2016, 17: 24. FINDINGS: Surgical changes and devices: Median sternotomy. Lungs and pleura: Lung volumes are decreased and interstitium is prominent. Mediastinum: Mediastinal contours appear normal. Heart size is enlarged. Bones and chest wall: No suspicious bony lesions. Overlying soft tissues appear unremarkable. IMPRESSION: Low lung volumes, cardiomegaly and interstitial prominence. Mild developing pulmonary edema cannot be excluded. Recommend clinical correlation. Dictated by: Omid Muñiz RRA Interpreted: Maria Luisa Stewart MD on 09/23/2016 at 9 :19 Transcribed by: MARTINEZ on 09/23/2016 at 9:20 12-lead ECG A. fib [id number], STD in v4,5 likely secondary repol Assessment & Plan 86yo M w/ multiple comorbidities, recent complicated hospitalization with respiratory failure, pneumonia, AK I, bilateral atrial thrombus, demand ischemia , subsequent ground-level fall presented with general deconditioning, progressive worsening confusion, agitation, not controlled with sedatives. Acute, active Acute encephalopathy, POA, likely multifactorial, underlying cognitive dysfunction, aging, delirium, mild HALLIE, hypoxia, benzodiazepin induced, probable new stroke given high risks with chronic afib, atrial thrombus. no signs of infection so far-UA clean, afebrile, however high risks given recent multiple hospitalization, recent PNA, SNF stay. -We will monitor with frequent neuro checks -MRI with stroke protocol when patient is more stable condition: Family has denied this particular modality -Gentle hydration with d5 1/2 ns 75cc/hr -Psychiatry consulted (Dr Calero). Acute kidney injury -Creatinine 1.76 on admission, creatinine today pending -Continue gentle hydration with D5 half-normal saline at 75 mL an hour -We will continue to monitor Mild troponemia, POA, which trended down from previous troponins, last TTE was reassuring. -Currently stable no signs of any chest pain, unable to obtain serial EKGs due to the patient's agitated state. 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 prosthetic aortic valve function is normal. - Adequate urinary output continue to monitor -continue O2 supplement as needed, target>92% Chronic A. fib, stable - Heart rate is relatively controlled 70's-100's - Continue ASA 81mg, patient currently not a good candidate for anticoagulation - Restart carvedilol 3.125 twice a day Severe aortic stenosis / S/P prosthetic AVR, -last TTE showed prosthetic aortic valve function is normal - continue asa Recent fall with scalp laceration POA -continue with wound care Diet -speech and swallow eval pending disp o: The patient is currently on comfort care measures. Case management is currently looking into facilities for discharge. Patient is currently not stable to go home as he is extremely agitated and very impulsive. Psychiatry has been consulted for further medical management in this regard. Once the patient is emotionally stable he should be able to be discharged either home or to a long-term care facility with comfort care. DVT prophylaxis: SCD's DNR/DNI per KELSY done by last hospitalization, also says "no hospital transfer" VTE Mechanical Devices: Venous Foot Pump Resuscitation Status: DNR/DNI:Do Not Resuscitate/Intubate Anastacia Lion DO Sep 25, 2016 12:40
[2016-09-25 13:22] LABS: Mean Corpuscular Hemoglobin 30.7 pg (27.0-35.0); Mean Corpuscular Volume 96.3 fL (81-100)
[2016-09-25 14:22] LABS: Creatine Kinase 72 U/L (21-232)
[2016-09-25] MEDS: Dextrose 5% 0.45% NaCl 1,000 ML IV SCH (14:29)
--- NOTE | 2016-09-25 14:39 | NUR ---
Social Work-continued d/c planning: Data:EMR Reviewed. Pt is on day 2 of hospitalization for AMS per H&P. Pt is now comfort care. Pt continues to be in restraints and having agitation. KRISHNA discussed in rounds and MD will plan on ordering psychiatry to see about medication adjusts. KRISHNA explained that pt's behaviors will need to be better controlled prior to placement. KRISHNA has [facility] Brian reviewing to determine if they can accept pt back on Comfort care. Pt will need to be at least 24-48 hours sitter/ restraint free prior to them accepting pt back. KRISHNA placed a call and spoke with Tracy at [facility] who states they do have pt on their schedule, but she will have to call KRISHNA back tomorrow to determine time for assessment. KRISHNA had provided [facility] [phone] and [phone] with KRISHNA phone number to call to set up meeting today, no return call today. KRISHNA placed a call to [facility] and left message on Home phone and cell phone requesting a return call to discuss pt. If family decides to have pt go to [facility] then Hospice may be beneficial, Hospice made aware of pt. KRISHNA will continue to follow. Assessment: Pt who is comfort care. Plan:[facility] with possible Hospice vs Return to [facility] on comfort care. Psychiatry to see pt to assist with Medication adjustment. KRISHNA has left messages for pt's to discuss, awaiting a return call. KRISHNA also informed Hospice of pt's admission. KRISHNA will continue to follow. AGUSTIN Capellan
--- NOTE | 2016-09-25 18:42 | NUR ---
Telemetry Update: VTACH Patient has been Afib 80-120s with PVC pairs. At 18:37 patient had 27 beats of VTACH. DANNIE Lamb
[2016-09-26] VITALS (7 sets, daily range): BP systolic 144–175; BP diastolic 79–90; PULSE 81–93; RESP 20; O2SAT 94–98
[2016-09-26] MEDS: Dextrose 5% 0.45% NaCl 1,000 ML IV SCH ×2 (02:23→14:12)
--- NOTE | 2016-09-26 07:29 | NUR ---
Restraints Reduce restraints to 2 point soft wrist restraints. Suggest a sitter as alternative for restraints. Nsg machinist supervisor outside will provide sitter 7am. Denies chest pain, Telemetry running on A-fib per monitor arcelia. SOB on RA, currently on 1LPM Oxymask. Pt didn't have any episodes of agitation, but is heavily confused and does not know where he is and what is going on. Frequent re-orientation provided, pt states understanding but forgets in a couple of seconds. IVF running, Cont pulse ox, q2 restraints check on skin integrity, and q2 turning provided.
[2016-09-26] MEDS: HYDROmorphone 1 mg/mL Inj IVPUSH PRN ×3 (08:35→23:23)
[2016-09-26] MEDS: Heparin 5,000 Unit/mL Inj SUBQ SCH ×2 (08:37→21:08)
--- NOTE | 2016-09-26 09:26 | NUR ---
LENI signed with Son Misael. AGUSTIN Capellan
--- NOTE | 2016-09-26 10:00 | NUR ---
Restraints Discontinued Patient has 1:1 sitter. Soft wrist restraints discontinued. Patient needing frequent distractions and redirection. Multiple attempts to get out of bed. Able to follow some directions (not to pick/pull lines). Continues to be restless. Reporting back pain. IV narcotics given with good relief.
--- NOTE | 2016-09-26 10:59 | NUR ---
Social Work-continue d/c planning: Data:EMR reviewed. pt is on day 3 of hospitalization for AMS per H&P. Pt is medically stable anticipate a few more days. KRISHNA followed up with pt's son Misael [phone] at bedside, SW role explained. SW explained that SW had attempted to reach [facility] several times yesterday with no return call. Son states [facility] is not feeling well. Son states they are planning on having [facility] come and assess pt today. SW attempted to discuss Hospice, but son states he wants to see what [facility] has to saw. SW placed a call to Pam at [facility] who confirms that has put down payment on a room and that RN will be out to assess pt around 1045. SW updated son with time. SW explained to about family and comfort care. states that RN will discuss Hospice with family, SW to follow up after meeting. has also ordered palliative care to see pt. SW left Hospice a message yesterday regarding pt, SW to follow up with Hospice if this is what family decides. has also ordered psychiatry to see pt to assist with medications, Psych to see pt today. SW will continue to follow. Assessment:Pt who is comfort care. Plan:[facility] to assess pt today at 1045. Palliative care and psychiatry are both pending. SW to follow up after meeting with [facility] to determine interest in Hospice. SW will continue to follow. AGUSTIN Capellan
--- NOTE | 2016-09-26 12:00 | NUR ---
Palliative Care Palliative Care received verbal order from Dr Lion 09/26/16 to assist with goals of care. Patient is an 86 year old man with multiple comorbidities, recent complicated hospitalization (08/29/16-09/09/16) with respiratory failure, pneumonia, HALLIE, bilateral atrial thrombus, demand ischemia, subsequent ground-level fall. He was readmitted 09/23/16 for care of general deconditioning, worsening confusion and agitation. Palliative Care Team saw patient multiple times during recent admission. Patient lives at [facility]. Per KRISHNA, has put a deposit on a bed at [facility]. RN from [facility] was to evaluate patient this morning. SW also notes that patient's has been ill recently. Bere Verduzco () [phone] Misael Verduzco (son) [phone] Palliative Care to follow. Krista Cottrell
--- NOTE | 2016-09-26 14:24 | NUR ---
Social Work-continued d/c planning: Data:EMR reviewed. Pt is on day 3 of hospitalization for AMS per H&P. Pt is on comfort care. [facility] came and saw pt today and complete assessment. SW followed up with [facility] and was informed that they are all set to have pt admitted to their facility on Thursday 09/28 and they did discuss Hospice with pt's son and they are in agreement. SW called pt's son Misael [phone] to discuss pt. Misael states that meeting with [facility] went well today and that pt is scheduled to admit there on Thursday 09/28. SW brought up Hospice and marisabel Ulricht informed SW that he was told by [facility] that they would be setting this up. SW explained typically this is something that SW can do and SW can call [facility] and coordinate. Son states he does not want SW to do this and he will call [facility] himself and call SW back with more information. SW will continue to follow. Assessment:Pt who is on comfort care. Plan:Pt to discharge to [facility] likely with Hospice Services. [facility] came and evaluated pt to day and are agreeable to admit pt on Thursday 09/28. Son to call [facility] and get back to with more information regarding Hospice. SW will continue to follow. AGUSTIN Capellan Addendum: 09/26/16 at 1554 by TRISTA MEYER SW spoke with Hospice and they tentatively have pt on the schedule for Thursday 09/28 at [address] [facility]. SW awaiting a return call from marisaebl Douglas. AGUSTIN Capellan Addendum: 09/26/16 at 1623 by TRISTA JENNINGS KRISHNA received a voicemail from pt's daughter in law Sri [phone] requesting a return call to discuss plan. KRISHNA called Sri back and left message, awaiting a return call. AGUSTIN Capellan
--- NOTE | 2016-09-26 16:31 | PCM.CONPAL ---
Date of Service Sep 26, 2016 Date of Hospital Admission: Sep 23, 2016 at 14:00 Date of Palliative Consult: Sep 26, 2016 Requesting Provider: Anastacia Lion DO Reason Palliative Care Consult: Advance Care Planning, Goals of Care Discussion , Hospice Referral & Discussion Reason for Consultation Discuss Goals of Care and complete a New POLST Hospital Unit @time of consult: Medical/Pediatric Care Palliative Care Recommendation Summary of palliative recommendations: Palliative team is familiar with patient from previous hospitalizations. The palliative team met with marisabel Douglas today to discuss the family's goals of care for Hailee. At the last hospitalization on 09/07/2016 a POLST was completed. The family has since decided that given Mr. Verduzco's prognosis and current quality of life a new POLST should be completed today. The family wants Hailee to be Comfort Care only and this is documented on the new POLST in Mr. Verduzco's chart. -Symptom management (Pain/other) - Chronic back pain and acute head pain treated by primary medical team currently on Dilaudid, pain appears well controlled at this time, will attempt to convert the patient to oral pain medication - agitation currently treated with haldol IV will attempt to convert the patient to oral medication prior to DC -DPOA/Advanced Directives/POLST - Code status is DNR/DNI/ no antibiotics/ no tube feeding - DPOA Bere and Lindsay Lara and Misael - New POLST completed on 09/26 with marisabel Douglas changed patient from Limited Intervention to Comfort Care only -Family/emotional support - Bere and Lindsay Lara and Misael - Family Care Team Meeting - Held with Misael and Palliative team Chase Musa. ( Bere getting a cold and at home today). Palliative team started the discussion to get background information from Misael about the patient since his last hospitalization. Misael stated that the patient has had good an bad days. On last week the patient was extremely agitated and having hallucinations and was treated with Ativan which did not seem to improve the agitation. The patient has had improvement in his speech but still requires constant attention for care needs. Misael stated that he had to tell his mother Bere that Hailee cannot go home with her ever again, or Hailee would likely "bury Bushra in the ground first (before Hailee ) due to all the energy it would require to take care of him at home". Misael then stated that the family has been talking about HAILEE and his quality of life. Misael has stated that Hailee "has no purpose now" given his progressive dementia and can't take care of himself or even carry on conversations. Misael stated that "we ( people) seem to treat dogs and cats better than our elderly". Marco Douglas and Bushra have been talking and they designated Misael to come to the hospital to change the POLST. The previous POLST completed on 09/07/2016 had been changed from comfort care only to limited intervention as Bere was hoping that Hailee would rebound with some rehabilitation. Today the new POLST was completed to DNR/DNI with goals of comfort care only. Misael stated that his father had always been very clear that if he was ever incapacitated to the point that he could not take care of himself he would not want to be cared for, but would instead want to be let go. Misael was certain that the family wanted comfort care only measures and no tube feeding. The patient had been given a trial of tube feeding and the family was certain that Hailee would be totally against this. Misael called his Mother to confirm use of antibiotics. After a phone discussion with his mother Bere Douglas decided that no antibiotics should be given. -Spiritual support - Not discussed at this time Patient/Family Goals: 1. The patient is to be made as comfortable as he can be including treating agitation, and allow the nature of his illnesses to run their course. 2. Avoid any further trips to the hospital if at all possible Additional Medical Diagnoses with primary management by Hospitalist team include : atrial fibrillation CAD with previous CABG in 2003 Aortic stenosis with artificial valve HFpEF dementia CKD stage 3 DM type 2 chronic back pain Problems: End of Life Preferences 1. Avoid further trips to the hospital Goals of Care 1. The patient is to be made as comfortable as he can be including treating agitation, and allow the nature of his illnesses to run their course. 2. Avoid any further trips to the hospital if at all possible Disposition Patient to be transitioned to oral medication in preparation for the [facility] to [facility] to [facility] and spoke with the patient and DPOA. [facility] should have a bed available on Monday and is already aware that the patient and family would want Hospice following. Resuscitation Status Resuscitation Status: DNR/DNI:Do Not Resuscitate/Intubate POLST Updates/Changes Previous POLST?: Yes POLST Last Review Date: Sep 26, 2016 Antibiotics: No Antibiotics Artificially Admin Nutrition: No Artifical Nutrition by Tube POLST Discussed with: Health Care Agent (DPOAHC) POLST Review Outcome: New Form Completed . Advanced Care Planning Address: POLST Pain: Mild Symptom management: Agitation, Pain Pt History History of Present Illness from the H&P or by Melva Mae MD on 09/23/16 "86yo M w/ pt was recently hospitalized 08/30- with problems below Respiratory failure HALLIE Chronic Atrial fibrillation Bilateral atrial thrombus Pneumonia Acute NSTEMI vs demand ischemia Mixed Metabolic acidosis with Metabolic Alkalosis and Respiratory Alkalosis Acute probable arrhythmia in setting of chronic atrial fibrillation with syncopal episode Subclinical hypothyroid, Metabolic Lactic acidosis Since patient was discharged on Subsequently pt was also had ground level fall 3days ago 09/20, visited ED, noted scalp laceration, and minor abrasion the right knee, CT imaging of the head and C-spine are negative. he moved all extremities and has no signs of fracture, sent back to SNF. However , patient has been more confused and deteriorating with increased agitation since this episode. Therefore, pt was sent from [facility] not improved with ativan. Upon arrival to emergency room, vitals are stable, SBP 120s HR86, afebrile, initially 92% on RA, reported patient was on 2 L at baseline, subsequently little bit more hypoxic so switched to see mask 4 L, sating 92%. Since patient was agitated, received multiple Haldol 2mgx2, Benadryl 25 mg, nebulizer treatment/Lasix 20 mg IV based on possible pulmonary edema on x-ray, CT had ruled out brain bleed, left showed mild HALLIE on CKD, mild troponemia. EKG showed chronic afib, ST depression-unclear onset on v4,v5. During the encounter in ED, pt answered very simple questions, only oriented to himself. Moving 4 extremities on physical restraints, denied any headache, difficulty breathing, abdominal pain. Otherwise able to get the detailed history." Hospital Course: 86yoM with PMH for CAD, HFpEF, Afib, CKD, and dementia who presents with deteriorating mentation with increased agitation since ground level fall at [facility]. Prior to admission the patient was being treated with Ativan. Since admission the patient has been treated with Carvedilol for his CHF, as well as Haldol for his agitation, and Dilaudid for pain. He is currently being transitioned to comfort care only and will likely be discharged to [facility] with initial Hospice visit likely to be scheduled by [facility]. Palliative Plan: Palliative team is familiar with patient from previous hospitalizations. The palliative team met with marisabel Douglas today to discuss the families goals of care for Hailee. At the last hospitalization on 09/07/2016 a POLST was completed. The family has since decided that given Mr. Verduzco's prognosis and current quality of life a new POLST should be completed today. The family wants Hailee to be Comfort Care only and this is documented on the new POLST in Mr. Verduzco's chart. Past Medical History Significant PMH Noted: atrial fibrillation CAD with previous CABG in 2003 Aortic stenosis with artificial valve HFpEF dementia CKD stage 3 DM type 2 chronic back pain Social History Occupation: retired Social Support: Bere, Son'jersey Lara and Misael all share DPOA Living Situation: previously at [facility] ADLs ADL Patient Status: Current ADL Ambulation: Totally Bed ADL Dressing: Total care ADL Feeding: Total care ADL Hygene/bathing: Total care ADL Transfers: Total care Allergy Allergies Reviewed: Yes Medications Current Medications: Current Medications Carvedilol 3.125 mg BIDWM PO Last administered on 09/26/16t 08:36; Admin Dose 3.125 MG; Start 09/25/16 at 17:30 Scheduled Amlodipine (Amlodipine) 5 Mg Tablet 5 MG PO DAILY Aspirin (Aspirin) 81 Mg Tablet 81 MG PO HS Ca Carbonate/Vitamin D3/Vit K (Citracal Soft Chew) 1 Each Tab.chew 2 EACH PO QAM Carvedilol (Carvedilol) 3.125 Mg Tablet 3.125 MG PO BID Cholecalciferol (Vitamin D3) (Vitamin D) 5,000 Unit Capsule 5,000 UNIT PO MORNING Cyanocobalamin (Vitamin B-12) (Vitamin B-12) 1,000 Mcg Tablet 1,000 MCG PO MORNING Furosemide (Lasix) 20 Mg Tablet 20 MG PO DIRECTED DAILY except EVERY 3rd day (when taking 40mg) Furosemide (Lasix) 40 Mg Tablet 40 MG PO Q3 days Metoprolol Succinate ER (Metoprolol Succinate ER) 25 Mg Tab.er.24h 25 MG PO BID Oxybutynin Chloride ER (Oxybutynin Chloride ER) 10 Mg Tab.er.24 10 MG PO DAILY Pantoprazole DR (Protonix) 40 Mg Tablet 40 MG PO DAILY Potassium Chloride (Potassium Chloride) 10 Meq Capsule.er 10 MEQ PO DIRECTED Daily except every 3rd day (when taking 20mg) Potassium Chloride (Potassium Chloride) 20 Meq Tab.er.prt 20 MEQ PO Q3 days Scheduled PRN Hydrocodone-Acetaminophen 5-325 mg (Hydrocodone-Acetaminophen 5-325 mg) 1 Each Tablet 1 TABLET PO Q4H PRN PRN For Pain Nitroglycerin SL (Nitroglycerin SL) 0.4 Mg Tab.subl 0.4 MG SL Q5MIN PRN PRN For Chest Pain Oxycodone (Roxicodone) 5 Mg Tablet 2.5-5 MG PO BID PRN PRN For Severe Pain Temazepam (Temazepam) 15 Mg Capsule 15 MG PO HS PRN PRN For Insomnia Objective Findings Exam Vital Sign - Last Date Time Temp Pulse Resp B/P Pulse Ox O2 Delivery O2 Flow Rate FiO2 09/26/16 12:00 36.9 82 20 144/81 95 Room Air 09/26/16 04:55 2.00 Intake and Output 09/25/16 09/25/16 09/26/16 Cumulative From/Thru 15:00 23:00 07:00 09/23/16 01:06 - 09/26/16 06:52 Intake Total 1483 ml 234 ml 1020 ml 4768 ml Output Total 600 ml 900 ml 3780 ml Balance 1483 ml -366 ml 120 ml 988 ml Intake Oral 0 ml 0 ml 339 ml IV Total 1483 ml 234 ml 1020 ml 4429 ml Output Urine Total 600 ml 900 ml 3780 ml # Bowel Movements 1 1 General: Alert, No acute distress HEENT: PERRLA, Scleral Anicteric Heart: Dysrhythmia Present, Systolic Murmur Lungs: Normal Air Movement, Crackles Abdomen: Benign, Bowel Tones x4, Non Tender Extremities: Pulses Palpable x4, Warm, No Edema Skin: Wounds/Lacerations (healing abrasion on superior portion of head) Lab/Diagnostics Lab and Imaging results reviewed in detail in EMR. Time spent Total time 70 minutes; >50% face to face with patient and/or family, providing counselling regarding plans and recommendations, and in care coordination with his/her medical teams. An additional 30 minutes in discussing advanced care planning, end of life care and reintroducing the POLST for family Attending Statement I was present and immediately available to resident physician. We went over management plan and I agree with his consultation note as written above. CHASE MUSA DO Sep 26, 2016 14:57 Tracey Chua MD Sep 26, 2016 17:39
[2016-09-26] MEDS: Haloperidol 5 mg/mL Inj IVPUSH PRN ×2 (16:42→22:43)
[2016-09-26] MEDS ORDERED: Divalproex Sprinkles 125 mg ER12 Capsule PO ONE (16:45)
--- NOTE | 2016-09-26 17:10 | PCM.PNMED ---
Subjective Date of Service Sep 26, 2016 Subjective Patient was examined at bedside today. Patient seems to be less agitated and he is currently down to 2 point restraints. Patient seems to be more responsive and able to follow simple commands with a sitter present. Nursing stated there were no overnight events. Exam Vital Signs Vital Sign - Last Date Time Temp Pulse Resp B/P Pulse Ox O2 Delivery O2 Flow Rate FiO2 09/26/16 12:00 36.9 82 20 144/81 95 Room Air 09/26/16 04:55 2.00 Intake and Output 09/25/16 09/25/16 09/26/16 Cumulative From/Thru 15:00 23:00 07:00 09/23/16 01:06 - 09/26/16 06:52 Intake Total 1483 ml 234 ml 1020 ml 4768 ml Output Total 600 ml 900 ml 3780 ml Balance 1483 ml -366 ml 120 ml 988 ml Intake Oral 0 ml 0 ml 339 ml IV Total 1483 ml 234 ml 1020 ml 4429 ml Output Urine Total 600 ml 900 ml 3780 ml # Bowel Movements 1 1 Exam GEN: Patient was awake, alert, responding appropriately to questions HEENT: PERRLA, EOMI, Neck soft supple, trachea midline, abrasion was noted on the left parietal and frontal area CV: +S1/S2, regular, positive systolic murmur auscultated Respiratory: CTAB, no wheezes, rales, rhonchi GI: +bowel sounds x4, soft, compressible, non TTP EXT: no c/c/e Neuro: CN II-XII grossly intact Psych: mood and affect were somnolent IVs and Medications Medications Reviewed: Medications were reviewed in detail Medications Current Medications Carvedilol 3.125 mg BIDWM PO Last administered on 09/26/16t 08:36; Admin Dose 3.125 MG; Start 09/25/16 at 17:30 Lab and Diagnostics Result Diagram: 09/25/16 1305 09/25/16 1305 X-Rays, CTs and MRIs PROCEDURE: CT BRAIN WITHOUT CONTRAST ([id number]) INDICATIONS: Altered mental status TECHNIQUE: Noncontrast 4.5 mm thick angled axial sections acquired from the foramen magnum to the vertex, with coronal reformats. COMPARISON: [facility], CT, CT BRAIN WO CON, 09/07/2016, 14:39. [facility], CT, CT BRAIN WO CON, 09/20/2016, 18:52. FINDINGS: Image quality: Mild motion artifacts. CSF spaces: Basal cisterns are patent. No extra-axial fluid collections. The ventricles are symmetric in size and shape. Brain: No intracranial bleeds or masses. Again noted are small left frontal and bilateral cerebellar infarcts. There is moderate cerebral volume loss for age, with resultant ventricular and sulcal prominence. There are moderate to severe periventricular and deep white matter chronic small vessel ischemic changes. There is intracranial internal carotid artery atherosclerosis. Skull and face: Calvarium and visualized facial bones appear intact, without suspicious lesions. Sinuses: Visualized sinuses and mastoids are clear. IMPRESSION: 1. No acute intracranial abnormalities. 2. 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 Moderate cerebral volume loss and moderate to severe chronic microvascular ischemic changes. No significant discrepancy with the shift superintendent caustic cresylate radiology preliminary report. Dictated by: Madyson Johnson M.D. on 09/23/2016 at 8:01 Approved by: Madyson Johnson M.D. on 09/23/2016 at 8:05 PROCEDURE: X-RAY CHEST ONE VIEW, PORTABLE ([id number]) INDICATIONS: shortness of breath and wheezing TECHNIQUE: One view of the chest was acquired. COMPARISON: [facility], CR, XR CHEST 1VW (PORTABLE), 09/08/2016, 17: 24. FINDINGS: Surgical changes and devices: Median sternotomy. Lungs and pleura: Lung volumes are decreased and interstitium is prominent. Mediastinum: Mediastinal contours appear normal. Heart size is enlarged. Bones and chest wall: No suspicious bony lesions. Overlying soft tissues appear unremarkable. IMPRESSION: Low lung volumes, cardiomegaly and interstitial prominence. Mild developing pulmonary edema cannot be excluded. Recommend clinical correlation. Dictated by: Omid Muñiz RRAsmita Interpreted: Maria Luisa Stewart MD on 09/23/2016 at 9 :19 Transcribed by: MARTINEZ on 09/23/2016 at 9:20 12-lead ECG A. fib [id number], STD in v4,5 likely secondary repol Assessment & Plan 86yo M w/ multiple comorbidities, recent complicated hospitalization with respiratory failure, pneumonia, AK I, bilateral atrial thrombus, demand ischemia , subsequent ground-level fall presented with general deconditioning, progressive worsening confusion, agitation, not controlled with sedatives. Acute, active Acute encephalopathy -Most likely secondary to worsening cognitive dysfunction and hypoxia -Possible stroke family has elected to decline MRI -Psych has been consulted and appreciate their recommendations Acute on chronic respiratory failure -Continue to wean the patient down to his normal oxygen settings -We will continue to monitor -Palliative care consulted Acute kidney injury -Creatinine 1.76 on admission, creatinine today pending -Continue gentle hydration with D5 half-normal saline at 75 mL an hour -We will continue to monitor Mild troponemia, POA, which trended down from previous troponins, last TTE was reassuring. -Currently stable no signs of any chest pain, unable to obtain serial EKGs due to the patient's agitated state. However there are no concerns at this time for any acute cardiac processes most likely mild Anemia in the setting of elevated creatinine -CK-MB pending Mild acute on chronic CHF exacerbation, hx of CABG 2004 s/p stents, last TTE on08/30/2016 showed EF55-60%, no focal wall motion abnormalities. prosthetic aortic valve function is normal. - Adequate urinary output continue to monitor -continue O2 supplement as needed, target>92% Chronic A. fib, stable - Heart rate is relatively controlled 70's-100's - Continue ASA 81mg, patient currently not a good candidate for anticoagulation - Restart carvedilol 3.125 twice a day Severe aortic stenosis / S/P prosthetic AVR, -last TTE showed prosthetic aortic valve function is normal - continue asa Recent fall with scalp laceration POA -continue with wound care Diet -speech and swallow eval pending disp is o: The patient is currently on comfort measures. Case management is currently looking into facilities for discharge. Patient is currently not stable to go home as he is extremely agitated and very impulsive. Psychiatry has been consulted for further medical management in this regard and have suggested starting Risperdal and Namenda daily. Once the patient is emotionally stable he should be able to be discharged either home or to a long- term care facility with comfort measures. Palliative care has been consulted and appreciate their recommendations. The patient is currently being reviewed by dementia facility may be discharged within the next day or 2 pending patient' s agitated state. It is still unclear as to why the patient had a sudden change in mental status but it could possibly be secondary to the fact that the patient was hypoxic when he was admitted and this could have been the trigger that worsen the patient's dementia causing him more hypoxic encephalopathy. DVT prophylaxis: SCD's DNR/DNI per POLST done by last hospitalization, also says "no hospital transfer" VTE Mechanical Devices: Venous Foot Pump Resuscitation Status: DNR/DNI:Do Not Resuscitate/Intubate Anastacia Lion DO Sep 26, 2016 17:10
[2016-09-26] MEDS: risperiDONE 1 mg Tablet PO SCH (21:14)
--- NOTE | 2016-09-26 23:34 | CONS ---
[address] [address] CONSULTATION REPORT PATIENT: HAILEE MELLO : 1930 MR#: [id number] ADMIT: 09/23/2016 JOB ID: [id number] DATE OF SERVICE: 09/26/2016 IDENTIFYING DATA: The patient is an 86-year-old male who was recently hospitalized from August 30 to September 19 with multiple medical issues and following his discharge had a ground level fall on September 20. He was assessed in the emergency department and returned to the senior care facility, however, became confused and agitated and was subsequently given Ativan which did not improve his condition. He was returned to the emergency department on September 23, 2016. REFERRAL INFORMATION: The patient is referred by Dr. Anastacia Lion. CHIEF COMPLAINT: "Just gonna take some and treat it right." HISTORY OF PRESENT ILLNESS: The patient was essentially uncommunicative outside of a few phrases, as noted above, and so the information is taken from the record and from the family. As noted above, the patient has a history of dementia and multiple medical conditions. He has been treated with Namenda in the past but this was discontinued in April 2016 due to irritability. The patient's also noted that there was no improvement. He has not had a trial of Aricept. Since admission, the patient has been agitated although he did respond to haloperidol IV and has been receiving between 5 and 12.5 mg since his arrival. He does appear to be tolerating a lower dose at this time. The family has no report of psychiatric issues although there is some question of whether he has some trauma-related experiences. PAST PSYCHIATRIC HISTORY: None known. SOCIAL HISTORY: The patient is and has involved children. He will likely return to [facility] for comfort care once stabilized. At this time, the family has indicated that they would prefer comfort care measures. They have indicated that they do not want extreme intervention. In discussions with the patient's , she indicates that she does not desire aggressive medications but would like the patient to be comfortable. MEDICAL PROBLEMS: Acute encephalopathy. Acute on chronic respiratory failure. Acute kidney injury. Mild troponinemia. Mild acute on chronic CHF exacerbation. Chronic AFib. Severe aortic stenosis. Recent fall with scalp laceration. CURRENT MEDICATIONS: 1. Heparin sodium 5000 units subcu q.12 h. 2. Hydromorphone 0.5 mg q.4 h. p.r.n. pain. 3. Haloperidol lactate 2.5 mg q.4 h. p.r.n. agitation IV. ALLERGIES: 1. NOVOCAIN 2. CLOPIDOGREL. 3. MEPERIDINE. SUBSTANCE ABUSE AND ALCOHOL HISTORY: Unknown. MENTAL STATUS EXAMINATION: Appearance: The patient is a moderately overweight male lying in bed, with adult Depends, pulling at the catheter appearing mildly agitated. Behavior: The patient briefly makes eye contact and attempts to push away the nurse applying salve to his wound and then falls asleep. He makes several comments, as noted above, but is otherwise nonresponsive to direct questioning. Mood: Unable to assess. Affect: Flat. Speech: Minimal but well modulated. Content of thought: Unable to assess. Thought processes: None in the context of significant dementia. Insight and judgment: Poor. Memory and concentration: Impaired. Intelligence: Unable to assess. Orientation: He was unable to cooperate with orientation testing. Sensorium: The patient has a history of dementia, likely vascular type. LABORATORY STUDIES: CBC with RBC of 3.48, hemoglobin 10.7, hematocrit 33.5, MCHC of 31.9 and platelet count of 129. Coagulation screening: PT/INR 11.4/1.06 on September 23, 2016. CMP from September 25, 2016 within normal limits except for glucose of 121 and an albumin of 3.3. Total creatine kinase was 72 and CK-MB was 2.6. Urine was negative except for occasional epithelial cells and mucus. CT scan of the head from September 23, 2016 show small left frontal and bilateral cerebellar infarcts. Moderate cerebral volume loss for age with resultant ventricular and sulcal prominence. There are moderate to severe periventricular and deep white matter chronic small vessel ischemic changes. There is intracranial internal carotid artery atherosclerosis. IMPRESSION: The patient is an 86-year-old gentleman with multiple medical issues as well as what appears to be vascular dementia. He did not tolerate a trial of Namenda earlier and family are reluctant to start medications which may cause worsening agitation. Following discussions with Dr. Orellana and the patient's family, they were agreeable to starting risperidone as an oral replacement for haloperidol. Haloperidol 2.5 mg so far today has appeared to control agitation and so he may respond well to 1 mg twice daily of risperidone. Should this not be effective, he still will have available haloperidol. PROVISIONAL DIAGNOSES: Gary I Neurocognitive disorder, history of vascular dementia. Gary II Deferred. Gary III See past medical history. Gary IV Unknown. Gary V -15. PLAN: 1. Appreciate consultation and support pain management, as above. 2. Would start risperidone 1 mg twice daily to control hallucinations and agitation and use haloperidol IV for breakthrough hallucinations or agitation. 3. Discussed with outpatient provider and concern was about starting Aricept that it might increase agitation and so this will be deferred until his placement at [facility]. 4. Would avoid lorazepam as this has caused worsening of agitation in the patient, according to his outpatient provider. 5. Appreciate this consultation. Will continue to follow as needed. XAVIERD
[2016-09-27 01:50] VITALS: PULSE 87; O2SAT 95
[2016-09-27 02:45] VITALS: BP 158/86; PULSE 86; RESP 20; O2SAT 93
[2016-09-27] MEDS: HYDROmorphone 1 mg/mL Inj IVPUSH PRN (03:01)
--- NOTE | 2016-09-27 04:56 | NUR ---
Mentation/pain Continues to be confused and unable to follow directions most of the time. Continues with sitter, as he pulls at joe, tele leads, and IV frequently, and scratches the wound on his head. Tele continues afib in 70's, except when being turned and when becomes agitated. Given new meds at HS and Haldol IV once. Also, medicated with Dilaudid for presumed pain, which has appeared to be more effective than the Haldol. Joe draining clear yellow urine. Continue with frequent re-orientation, and sitter for safety.
[2016-09-27 06:24] VITALS: BP 148/92; PULSE 87; RESP 20; O2SAT 94
[2016-09-27] MEDS: risperiDONE 1 mg Tablet PO SCH ×3 (09:11→20:02)
[2016-09-27] MEDS: Heparin 5,000 Unit/mL Inj SUBQ SCH (09:12)
--- NOTE | 2016-09-27 10:24 | PCM.PNMED ---
Subjective Date of Service Sep 27, 2016 Subjective Patient was seen and examined at bedside today. Patient currently has no complaints and is no longer on restraints. Exam Vital Signs Vital Sign - Last Date Time Temp Pulse Resp B/P Pulse Ox O2 Delivery O2 Flow Rate FiO2 09/27/16 06:24 37.0 87 20 148/92 94 Room Air 09/26/16 20:04 2.00 Intake and Output 09/26/16 09/26/16 09/27/16 Cumulative From/Thru 15:00 23:00 07:00 09/23/16 01:06 - 09/27/16 06:23 Intake Total 1127 ml 935 ml 6830 ml Output Total 1175 ml 1000 ml 5955 ml Balance -48 ml -65 ml 875 ml Intake Oral 0 ml 0 ml 339 ml IV Total 1127 ml 935 ml 6491 ml Output Urine Total 1175 ml 1000 ml 5955 ml # Bowel Movements 1 2 4 Exam Physical Exam: GEN: Patient was awake, alert, responding appropriately to questions HEENT: PERRLA, EOMI, Neck soft supple, trachea midline, positive laceration CV: Positive systolic murmur, irregular rate Respiratory: CTAB, no wheezes, rales, rhonchi GI: +bowel sounds x4, soft, compressible, non TTP EXT: no c/c/e Psych: mood and affect were appropriate IVs and Medications Medications Reviewed: Medications were reviewed in detail Medications Current Medications Carvedilol 3.125 mg BIDWM PO Last administered on 09/26/16 08:36; Admin Dose 3.125 MG; Start 09/25/16 at 17:30; Stop 09/26/16 at 17:42; Status DC Risperidone 1 mg BID PO Last administered on 09/27/16 09:11; Admin Dose 1 MG; Start 09/26/16 at 20:30 Lab and Diagnostics Result Diagram: 09/25/16 1305 09/25/16 1305 X-Rays, CTs and MRIs PROCEDURE: CT BRAIN WITHOUT CONTRAST ([id number]) INDICATIONS: Altered mental status TECHNIQUE: Noncontrast 4.5 mm thick angled axial sections acquired from the foramen magnum to the vertex, with coronal reformats. COMPARISON: Located Within [facility], CT, CT BRAIN WO CON, 09/07/2016, 14:39. Located Within [facility], CT, CT BRAIN WO CON, 09/20/2016, 18:52. FINDINGS: Image quality: Mild motion artifacts. CSF spaces: Basal cisterns are patent. No extra-axial fluid collections. The ventricles are symmetric in size and shape. Brain: No intracranial bleeds or masses. Again noted are small left frontal and bilateral cerebellar infarcts. There is moderate cerebral volume loss for age, with resultant ventricular and sulcal prominence. There are moderate to severe periventricular and deep white matter chronic small vessel ischemic changes. There is intracranial internal carotid artery atherosclerosis. Skull and face: Calvarium and visualized facial bones appear intact, without suspicious lesions. Sinuses: Visualized sinuses and mastoids are clear. IMPRESSION: 1. No acute intracranial abnormalities. 2. 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 Moderate cerebral volume loss and moderate to severe chronic microvascular ischemic changes. No significant discrepancy with the emission technician radiology preliminary report. Dictated by: Madyson Johnson M.D. on 09/23/2016 at 8:01 Approved by: Madyson Johnson M.D. on 09/23/2016 at 8:05 PROCEDURE: X-RAY CHEST ONE VIEW, PORTABLE ([id number]) INDICATIONS: shortness of breath and wheezing TECHNIQUE: One view of the chest was acquired. COMPARISON: Located Within [facility], CR, XR CHEST 1VW (PORTABLE), 09/08/2016, 17: 24. FINDINGS: Surgical changes and devices: Median sternotomy. Lungs and pleura: Lung volumes are decreased and interstitium is prominent. Mediastinum: Mediastinal contours appear normal. Heart size is enlarged. Bones and chest wall: No suspicious bony lesions. Overlying soft tissues appear unremarkable. IMPRESSION: Low lung volumes, cardiomegaly and interstitial prominence. Mild developing pulmonary edema cannot be excluded. Recommend clinical correlation. Dictated by: Omid ROJAS Interpreted: Maria Luisa Stewart MD on 09/23/2016 at 9 :19 Transcribed by: MARTINEZ on 09/23/2016 at 9:20 12-lead ECG A. fib [id number], STD in v4,5 likely secondary repol Assessment & Plan 86yo M w/ multiple comorbidities, recent complicated hospitalization with respiratory failure, pneumonia, AK I, bilateral atrial thrombus, demand ischemia , subsequent ground-level fall presented with general deconditioning, progressive worsening confusion, agitation, not controlled with sedatives. Acute, active Acute encephalopathy -Most likely secondary to worsening cognitive dysfunction and hypoxia -Possible stroke family has elected to decline MRI -Psych has been consulted and appreciate their recommendations Acute on chronic respiratory failure -Continue to wean the patient down to his normal oxygen settings -We will continue to monitor -Palliative care consulted following suggested recommendations Acute kidney injury -Discontinue gentle hydration with D5 half-normal saline at 75 mL an hour -Patient has now been made comfort care with palliative care yesterday IV fluids have been discontinued and we will no longer follow the patient's creatinine. Mild troponemia, POA, which trended down from previous troponins, last TTE was reassuring. -Currently stable no signs of any chest pain, unable to obtain serial EKGs due to the patient's agitated state. However there are no concerns at this time for any acute cardiac processes most likely mild Anemia in the setting of elevated creatinine -CK-MB within normal limits Mild acute on chronic CHF exacerbation, hx of CABG 2004 s/p stents, last TTE on08/30/2016 showed EF55-60%, no focal wall motion abnormalities. prosthetic aortic valve function is normal. - Adequate urinary output -continue O2 supplement as needed, target>92% Chronic A. fib, stable - Discontinue ASA 81mg, patient currently not a good candidate for anticoagulation - Discontinue carvedilol 3.125 twice a day - Discontinued medications as per recommendations from palliative care. Severe aortic stenosis / S/P prosthetic AVR, -last TTE showed prosthetic aortic valve function is normal Recent fall with scalp laceration POA -continue with wound care Diet -Regular Disposition: The patient has recently had a palliative care consult and has been made comfort care measures. The patient will most likely be [facility] to [facility] with orders not to readmit to the hospital as per patient family discussion with palliative care. DVT prophylaxis: SCD's DNR/DNI per KELSY done by last hospitalization, also says "no hospital transfer" VTE Mechanical Devices: Venous Foot Pump Resuscitation Status: DNR/DNI:Do Not Resuscitate/Intubate Anastacia Lion DO Sep 27, 2016 10:24
--- NOTE | 2016-09-27 10:48 | NUR ---
Social Work-continued d/c planning: Data:EMR Reviewed. KRISHNA called pt's daughter in law Sri back again today and left another message. KRISHNA called over to [facility] and spoke with Director Bernice. Bernice states they are meeting with pt's family right now going over admission paperwork. Bernice states they will need DME delivered prior to admission. KRISHNA explained that KRISHNA had been informed yesterday that [facility] had spoken with family about Hospice services. KRISHNA explained that if pt were to go on Hospice then DME would be provided. Bernice states that it was her understanding that family was in agreement with Hospice. KRISHNA explained that KRISHNA has been attempting to reach out to family, but has not gotten return call. Bernice states she will update family and ask they check in with SW today. KRISHNA called Hospice and left message. KRISHNA will continue to follow. Assessment:Pt who would benefit from memory care. Plan:Pt to scheduled to be admitted to [facility] tomorrow 09/28. SW has left message for family to further discuss planning. SW has left message with Hospice. SW will continue to follow. AGUSTIN Capellan
[2016-09-27] MEDS ORDERED: risperiDONE 1 mg Tablet PO PRN (10:55)
[2016-09-27] MEDS: Morphine 2 mg/mL 5 mL Oral Solution PO SCH ×3 (11:47→23:15)
--- NOTE | 2016-09-27 11:50 | PCM.PALLBR ---
Palliative Care Recommendation Summary of palliative recommendations: Palliative spoke with the primary medical team evening 09/26 and relayed that the family had decided to make the patient comfort care only/no tube feeds/no antibiotics. The patient has been seen by [facility] 09/26 and will likely be discharged from [facility] to [facility] on Wednesday 09/27 barring any unforeseen complications. The patient was transitioned to oral medications including Risperidone and morphine today. The Risperidone was added by the primary medical team and palliative concurs that given the positive results with Haldol , risperidone is the best option for agitation. Depakote was tried yesterday evening but the patient still required Haldol for breakthrough agitation, on top of the Depakote. The palliative team has simply added a low dose Risperidone PRN for breakthrough agitation. The liquid morphine was added on a schedule to ensure that patient receives this medication, given his current state he would not be likely to request it on his own if it were only available as needed. -Symptom management (Pain/other) - all medication must be crushed into mechanical soft or thickened liquid given speech therapy's recommendation due to aspiration risk - Chronic back pain and acute head pain treated with scheduled oral morphine 2mg ever 6 hours, upon discharge, hospice may adjust pain medications as necessary - agitation currently treated with scheduled oral risperidone, with low dose risperidone available PRN for breakthrough agitation. -DPOA/Advanced Directives/POLST - Code status is DNR/DNI/ no antibiotics/ no tube feeding - DPOA Bere and Lindsay Lara and Misael - New POLST completed on 09/26 with marisabel Douglas changed to Comfort Care only -Family/emotional support - Cici Blackburn and Lindsay Lara and Misael - Family Care Team Meeting - Held 09/26/2016 with son Misael and Palliative team Chase Musa. ( Bere getting a cold and at home). Palliative team started the discussion to get background information from Misael about the patient since his last hospitalization. Misael stated that the patient has had good an bad days. On last week the patient was extremely agitated and having hallucinations and was treated with Ativan which did not seem to improve the agitation. The patient has had improvement in his speech but still requires constant attention for care needs. Misael stated that he had to tell his mother Bere that Hailee cannot go home with her ever again, or Hailee would likely "bury Bushra in the ground first (before Hailee ) due to all the energy it would require to take care of him at home". Misael then stated that the family has been talking about HAILEE and his quality of life. Misael has stated that Hailee "has no purpose now" given his progressive dementia and can't take care of himself or even carry on conversations. Misael stated that "we ( people) seem to treat dogs and cats better than our elderly". Marco Douglas and Bushra have been talking and they designated Misael to come to the hospital to change the POLST. The previous POLST completed on 09/07/2016 had been changed from comfort care only to limited intervention as Bere was hoping that Hailee would rebound with some rehabilitation. Today the new POLST was completed to DNR/DNI with goals of comfort care only. Misael stated that his father had always been very clear that if he was ever incapacitated to the point that he could not take care of himself he would not want to be cared for, but would instead want to be let go. Misael was certain that the family wanted comfort care only measures and no tube feeding. The patient had been given a trial of tube feeding and the family was certain that Hailee would be totally against this. Misael called his Mother to confirm use of antibiotics. After a phone discussion with his mother Bere Douglas decided that no antibiotics should be given. -Spiritual support - Not discussed at this time Patient/Family Goals: 1. The patient is to be made as comfortable as he can be including treating agitation, and allow the nature of his illnesses to run their course. 2. Avoid any further trips to the hospital if at all possible Additional Medical Diagnoses with primary management by Hospitalist team include : atrial fibrillation CAD with previous CABG in 2003 Aortic stenosis with artificial valve HFpEF dementia CKD stage 3 DM type 2 chronic back pain Problems: End of Life Preferences 1. Avoid further trips to the hospital Goals of Care 1. The patient is to be made as comfortable as he can be including treating agitation, and allow the nature of his illnesses to run their course. 2. Avoid any further trips to the hospital if at all possible Disposition Patient transitioned to oral medications for comfort in preparation for the patient to be discharged to [facility]. [facility] has already been to [facility] and spoke with the patient and DPOA. [facility] should have a bed available on Monday and is already aware that the patient and family would want Hospice following. Resuscitation Status Resuscitation Status: DNR/DNI:Do Not Resuscitate/Intubate POLST Updates/Changes Previous POLST?: Yes POLST Last Review Date: Sep 26, 2016 Antibiotics: No Antibiotics Artificially Admin Nutrition: No Artifical Nutrition by Tube POLST Discussed with: Health Care Agent (DPOAHC) POLST Review Outcome: New Form Completed . Advanced Care Planning Address: POLST Pain: Mild Symptom management: Agitation, Pain, Delirium Total time 35 minutes; >50% face to face with patient and/or family, providing counselling regarding plans and recommendations, and in care coordination with his/her medical teams. Attending Statement I was physically present and supervised resident's management of this patient; I agree with the recommendations he outlined above. Palliative Brief Note Date of Service Sep 27, 2016 . Palliative spoke with the primary medical team yesterday evening and relayed that the family had decided to make the patient comfort care only/no tube feeds/ no antibiotics. The patient has been seen by [facility] yesterday and will likely be discharged from [facility] to [facility] on Monday barring any unforeseen complications. The patient was transitioned to oral medications including Risperidone and morphine today. The Risperidone was added by the primary medical team and palliative concurs that given the positive results with Haldol , risperidone is the best option for agitation. Depakote was tried yesterday evening but the patient still required Haldol at 22:45 on top of the Depakote. The palliative team has simply added a low dose Risperidone PRN for breakthrough agitation. The liquid morphine was added on a schedule to ensure that patient receives this medication, given his current state he would not be likely to request it on his own if it were only available as needed. CHASE MUSA DO Sep 27, 2016 11:50 Tracey Chua MD Sep 27, 2016 12:07
[2016-09-27 13:31] VITALS: BP 144/83; PULSE 83; RESP 20; O2SAT 95
--- NOTE | 2016-09-27 14:03 | NUR ---
Arranged BLS transport for patient to return to [facility] and open with Hospice, this is for 09/28/16 @ 11AM via [facility]. PCS completed with documentation and give to MACHINE SANDER for signature. Updated MACHINE SANDER
--- NOTE | 2016-09-27 14:13 | PCM.DIMED ---
Discharge Instructions Date of Service Sep 27, 2016 Dates of Hospitalization Sep 23, 2016 at 14:00 Discharge Diagnosis Discharge Diagnosis Dementia Comfort care Acute on chronic respiratory failure Acute kidney injury Mild acute on chronic CHF exacerbation Chronic A. fib Severe aortic stenosis Recent fall Diet No restrictions (patient is comfort care may eat what he likes) Activity No restrictions Patient Instructions Patient and family have opted to to put in place comfort measures and do not hospitalize. Anastacia Lion DO Sep 27, 2016 14:13
[2016-09-27] MEDS ORDERED: MORP10SO PO (14:15)
[2016-09-27] MEDS ORDERED: RISP1TAB90 PO (14:18)
[2016-09-27] MEDS ORDERED: RISP0.5T14 PO (14:27)
--- NOTE | 2016-09-27 16:37 | NUR ---
Social Work-readiness for discharge: Data:EMR Reviewed. Pt is on day 4 of hospitalization for AMS per H&P. Pt is likely medically stable tomorrow. Pt has no restraints and is sitter free. SW followed up with [facility] and they are agreeable to admit pt tomorrow. [facility] will need orders faxed today .KRISHNA requested MD to complete orders and SW faxed over copy to [phone]. SW received a call from pt's Bushra and she confirms plan. SW explained that Hospice can open tomorrow at 1200. agreeable to Hospice services. KRISHNA called Aimee at Hospice and confirmed they are able to open tomorrow at 1200. DME to be delivered to [facility] in the morning. SW and UR specialist reviewed chart and confirm that pt would qualify for BLS. UR specialist arranged BLS for 1100. SW explained to pt's need for BLS and explained that SW cannot guarantee that insurance will cover the cost, agreeable to proceed. aware of discharge at 1100. SW followed up with [facility] and explained discharge time and also Hospice opening at 1200. [facility] agreeable and did receive all orders today. SW will continue to follow. Assessment:pt who would benefit from [facility] with Hospice. Plan:Pt to discharge to [facility] tomorrow via BLS at 1100. [facility] has all orders and is agreeable to admit pt tomorrow. Hospice to deliver DME tomorrow morning and open with pt at 1200. All updated. KRISHNA will continue to follow. AGUSTIN Capellan
[2016-09-27 19:59] VITALS: BP 148/88; PULSE 93; RESP 20; O2SAT 93
[2016-09-27] MEDS ORDERED: Haloperidol 5 mg/mL Inj IVPUSH ONE (23:00)
--- NOTE | 2016-09-27 23:03 | NUR ---
RVR/Agitation Pt refused to take his HS Risperdal or PRN Risperdal. Pt slowly became more agitated and his CPOx began alarming. CPOx alarming due to occasional increase in HR (about once every minute or two). EKG obtained and results read to MD. ordered to give Pt IV haldol and to discontinue CPOx monitoring. Will continue to monitor for haldol effectiveness.
[2016-09-28] MEDS: Morphine 2 mg/mL 5 mL Oral Solution PO SCH ×2 (05:15→05:43)
[2016-09-28] MEDS: risperiDONE 1 mg Tablet PO SCH (07:44)
--- NOTE | 2016-09-28 08:58 | NUR ---
Verbal consent to sign LENI with Bere via phone. AGUSTIN Capellan
[2016-09-28 09:18] VITALS: BP 118/67; PULSE 87; RESP 20; O2SAT 96
--- NOTE | 2016-09-28 09:23 | NUR ---
Social Work-discharge: Data:EMR Reviewed. Pt is on day 54 of hospitalization for AMS per H&P. Pt is medically stable to discharge today. KRISHNA spoke with Pam at [facility] and they are ready to accept pt. All discharge orders faxed yesterday and aware pt is coming via BLS at 1100 and Hospice is opening at 1200. KRISHNA spoke eliz Yu from Hospice who confirms they are opening at 1200 and all DME will be delivered this morning including a w/c. SW updated at [facility] about W/c. BLS arranged via [facility] for 1100. KRISHNA called pt's Bere and informed her of discharge time. SW again explained SW cannot guarantee that insurance will cover BLS, agreeable to proceed. Packet created.KRISHNA updated bedside RN.RN,UC,pt/family, Hospice, and [facility] all updated and agreeable to plan. Assessment:Pt who is on comfort care. Plan:Pt to discharge to [facility] today via BLS at 1100. Hospice to deliver DME this morning and open with pt and family at 1200. All orders have been faxed. RN.RN,UC,pt/family, Hospice, and [facility] all updated and agreeable to plan. AGUSTIN Capellan
--- NOTE | 2016-09-28 11:00 | PCM.DC.MED ---
Discharge Summary Date of Service Sep 28, 2016 Dates of Hospitalization Date of Hospital Admission Sep 23, 2016 at 14:00 Date of Discharge: Sep 28, 2016 Providers: Admitting Physician: Melva Mae MD Primary Care Physician: Farhan Orellana DO Attending Physician: Melva Mae MD Diagnosis at Time of Discharge Diagnosis at Time of Discharge Dementia Comfort care Acute on chronic respiratory failure Acute kidney injury Mild acute on chronic CHF exacerbation Chronic A. fib Severe aortic stenosis Recent fall Procedures XRay, CTs & MRIs PROCEDURE: CT BRAIN WITHOUT CONTRAST ([id number]) INDICATIONS: Altered mental status TECHNIQUE: Noncontrast 4.5 mm thick angled axial sections acquired from the foramen magnum to the vertex, with coronal reformats. COMPARISON: [facility], CT, CT BRAIN WO CON, 09/07/2016, 14:39. [facility], CT, CT BRAIN WO CON, 09/20/2016, 18:52. FINDINGS: Image quality: Mild motion artifacts. CSF spaces: Basal cisterns are patent. No extra-axial fluid collections. The ventricles are symmetric in size and shape. Brain: No intracranial bleeds or masses. Again noted are small left frontal and bilateral cerebellar infarcts. There is moderate cerebral volume loss for age, with resultant ventricular and sulcal prominence. There are moderate to severe periventricular and deep white matter chronic small vessel ischemic changes. There is intracranial internal carotid artery atherosclerosis. Skull and face: Calvarium and visualized facial bones appear intact, without suspicious lesions. Sinuses: Visualized sinuses and mastoids are clear. IMPRESSION: 1. No acute intracranial abnormalities. 2. 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 Moderate cerebral volume loss and moderate to severe chronic microvascular ischemic changes. No significant discrepancy with the overnight stocker radiology preliminary report. Dictated by: Madyson Johnson M.D. on 09/23/2016 at 8:01 Approved by: Madyson Johnson M.D. on 09/23/2016 at 8:05 PROCEDURE: X-RAY CHEST ONE VIEW, PORTABLE ([id number]) INDICATIONS: shortness of breath and wheezing TECHNIQUE: One view of the chest was acquired. COMPARISON: [facility], CR, XR CHEST 1VW (PORTABLE), 09/08/2016, 17: 24. FINDINGS: Surgical changes and devices: Median sternotomy. Lungs and pleura: Lung volumes are decreased and interstitium is prominent. Mediastinum: Mediastinal contours appear normal. Heart size is enlarged. Bones and chest wall: No suspicious bony lesions. Overlying soft tissues appear unremarkable. IMPRESSION: Low lung volumes, cardiomegaly and interstitial prominence. Mild developing pulmonary edema cannot be excluded. Recommend clinical correlation. Dictated by: Omid Muñiz RRA Interpreted: Maria Luisa Stewart MD on 09/23/2016 at 9 :19 Transcribed by: MARTINEZ on 09/23/2016 at 9:20 ECG 12 Lead A. fib [id number], STD in v4,5 likely secondary repol Brief History from the H&P or by Melva Mae MD on 09/23/16 "86yo M w/ pt was recently hospitalized 08/30- with problems below Respiratory failure HALLIE Chronic Atrial fibrillation Bilateral atrial thrombus Pneumonia Acute NSTEMI vs demand ischemia Mixed Metabolic acidosis with Metabolic Alkalosis and Respiratory Alkalosis Acute probable arrhythmia in setting of chronic atrial fibrillation with syncopal episode Subclinical hypothyroid, Metabolic Lactic acidosis Since patient was discharged on Subsequently pt was also had ground level fall 3days ago 09/20, visited ED, noted scalp laceration, and minor abrasion the right knee, CT imaging of the head and C-spine are negative. he moved all extremities and has no signs of fracture, sent back to SNF. However , patient has been more confused and deteriorating with increased agitation since this episode. Therefore, pt was sent from [facility] not improved with ativan. Upon arrival to emergency room, vitals are stable, SBP 120s HR86, afebrile, initially 92% on RA, reported patient was on 2 L at baseline, subsequently little bit more hypoxic so switched to see mask 4 L, sating 92%. Since patient was agitated, received multiple Haldol 2mgx2, Benadryl 25 mg, nebulizer treatment/Lasix 20 mg IV based on possible pulmonary edema on x-ray, CT had ruled out brain bleed, left showed mild HALLIE on CKD, mild troponemia. EKG showed chronic afib, ST depression-unclear onset on v4,v5. During the encounter in ED, pt answered very simple questions, only oriented to himself. Moving 4 extremities on physical restraints, denied any headache, difficulty breathing, abdominal pain. Otherwise able to get the detailed history." Hospital Course: 86yoM with PMH for CAD, HFpEF, Afib, CKD, and dementia who presents with deteriorating mentation with increased agitation since ground level fall at [facility]. Prior to admission the patient was being treated with Ativan. Since admission the patient has been treated with Carvedilol for his CHF, as well as Haldol for his agitation, and Dilaudid for pain. He is currently being transitioned to comfort care only and will likely be discharged to [facility] with initial Hospice visit likely to be scheduled by [facility]. Palliative Plan: Palliative team is familiar with patient from previous hospitalizations. The palliative team met with marisabel Douglas today to discuss the families goals of care for Denny. At the last hospitalization on 09/07/2016 a POLST was completed. The family has since decided that given Mr. Verduzco's prognosis and current quality of life a new POLST should be completed today. The family wants Denny to be Comfort Care only and this is documented on the new POLST in Mr. Verduzco's chart. Hospital Course 86yo M w/ multiple comorbidities, recent complicated hospitalization with respiratory failure, pneumonia, AK I, bilateral atrial thrombus, demand ischemia , subsequent ground-level fall presented with general deconditioning, progressive worsening confusion, agitation, not controlled with sedatives. The patient presented with acute encephalopathy and extreme agitation and need to be given doses of Haldol in order to calm him and the patient was also placed in 4 point restraints. It was thought that the patient could have had a possible stroke vs TIA as the patient had a fall however the patient was too agitated for an MRI. The patient did have a fall in a quick CT scan was able to be performed to rule out any acute bleeding however the patient was not able to be sedated enough in order to undergo an MRI. The following day we were going to perform the MRI the patient's family decided that they did not want to do the MRI because I did not want to sedate the patient and so the MRI was not performed as per wishes of the family. The patient also had acute on chronic respiratory failure and needed oxygen therapy for support. The acute respiratory failure was most likely secondary to his acute on chronic systolic heart failure and mildly elevated troponins. This was more likely secondary to the acute on chronic systolic heart failure as opposed to an acute MS as the patient CK-MB were within normal limits. Patient also had a recent echo showing an ejection fraction of 5055% done on 08/2016. The patient was treated and has now been weaned down and is satting at 96% on room air. The patient also had acute kidney injury which seemed to resolve with gentle fluid hydration. The patient also has a history of chronic A. fib and severe aortic stenosis. The family had a meeting with palliative care and it was decided that the patient should be discharged to a dementia facility and maintaining his goals of care at this facility. The family has elected to stop the patient's carvedilol, aspirin, IV fluids, statin and just allow the patient to be comfortable. A psychiatry consult was placed for the patient's increased agitation and he has now been placed on a regular regimented with Risperdal and Depakote sprinkles and pain medications. The patient will be [facility] to [facility] today in stable condition. Exam Vital Signs (Last) Date Time Temp Pulse Resp B/P Pulse Ox O2 Delivery O2 Flow Rate FiO2 09/28/16 09:41 Supplement Oxygen 09/28/16 09:18 37.1 87 20 118/67 96 09/26/16 20:04 2.00 Exam Physical Exam: GEN: Patient was awake, alert, responding appropriately to questions, patient was pleasant HEENT: PERRLA, EOMI, Neck soft supple, trachea midline, head laceration in the left parietal/frontal area CV: +S1/S2, irregular Respiratory: CTAB, no wheezes, rales, rhonchi GI: +bowel sounds x4, soft, compressible, non TTP EXT: no c/c/e Neuro: CN II-XII grossly intact Psych: mood and affect were appropriate and pleasant Test 09/23/16 02:02 09/23/16 02:36 09/23/16 02:57 09/23/16 10:15 Neutrophils (%) (Auto) 73.2% (40-74) Lymphocytes (%) (Auto) 11.9% (14-46) Monocytes (%) (Auto) 11.4% (4-12) Eosinophils (%) (Auto) 2.7% (0-5) Basophils (%) (Auto) 0.6% (0-3) Lactic Acid Level 1.5mmol/L (0.4-2.0) Hold Purple Top Tube Received (Received) Hold Blue Top Tube Received (Received) Hold [place] Top Tube Received (Received) Hold Rojo Top Tube Received (Received) Urine Color Dark yellow (YELLOW) Urine Appearance Clear (CLEAR,HAZY) Urine pH 6.0 (5.0-8.0) Urine Specific [place] 1.025 (1.003-1.035) Urine Protein Tracemg/dL (NEG,TRACE) Urine Glucose (UA) Negativemg/dL (NEGATIVE) Urine Ketones Negativemg/dL (NEGATIVE) Urine Occult Blood Negative (NEGATIVE) Urine Nitrite Negative (NEGATIVE) Urine Bilirubin Negative (NEGATIVE) Urine Urobilinogen Normalmg/dL (NORMAL) Urine Leukocyte Esterase Negative (NEGATIVE) Urine RBC 0-2/hpf (0-2) Urine WBC 0-5/hpf (0-5) Urine Epithelial Cells Occasional/hpf (NONE-MOD) Urine Crystals None seen (NONE SEEN) Urine Bacteria None/hpf (NONE-FEW) Urine Hyaline Casts None/lpf (NONE) Urine Granular Casts None seen (NONE SEEN) Urine Waxy Casts None seen (NONE SEEN) Urine Red Blood Cell Casts None seen (NONE SEEN) Urine White Blood Cell Casts None seen (NONE SEEN) Urine Mucus Present (None Seen) Urine Trichomonas None seen (NONE SEEN) Urine Yeast None (NONE SEEN) Urine Culture Reflexed Not indicated Hold Urine Received (Received) Troponin T 0.028ug/L (0.0-0.011) Pro-B-Type Natriuretic Peptide 5598pg/mL (0-486) Procalcitonin < 0.05ng/mL (See Comment) Test 09/23/16 11:00 09/25/16 13:05 Prothrombin Time 11.4sec (8.1-12.5) Prothromb Time International Ratio 1.06ratio White Blood Count 6.4th/mm3 (3.8-10.1) Red Blood Count 3.48mil/mm3 (4.40-5.80) Hemoglobin 10.7g/dL (13.8-17.2) Hematocrit 33.5% (41.0-50.0) Mean Corpuscular Volume 96.3fL (81-100) Mean Corpuscular Hemoglobin 30.7pg (27.0-35.0) Mean Corpuscular Hemoglobin Concent 31.9% (32.0-37.0) Red Cell Distribution Width 14.0% (12.3-15.4) Platelet Count 129bil/L (150-400) Sodium Level 139mEq/L (134-144) Potassium Level 3.9mEq/L (3.5-5.2) Chloride Level 101mEq/L (97-108) Carbon Dioxide Level 26mmol/L (18-29) Blood Urea Nitrogen 20mg/dL (8-27) Creatinine 1.23mg/dL (0.76-1.27) Estimat Glomerular Filtration Rate 59mL/min (>59) Glucose Level 121mg/dL (60-99) Calcium Level 8.8mg/dL (8.5-10.1) Total Bilirubin 0.7mg/dL (0.0-1.2) Aspartate Amino Transf (AST/SGOT) 17U/L (0-50) Alanine Aminotransferase (ALT/SGPT) 11U/L (0-44) Alkaline Phosphatase 62U/L (25-160) Total Creatine Kinase 72U/L (21-232) Creatine Kinase MB 2.6ng/mL (0.0-10.4) Creatine Kinase MB % % (0.0-5.0) Total Protein 6.7g/dL (6.4-8.4) Albumin 3.3g/dL (3.4-5.0) Discharge Medications Discharge Medications Morphine Sulfate Oral Soln (Morphine Sulfate Oral Soln) 10 Mg/5 Ml Solution 10 MG PO Q6H Prescribed by: ANASTACIA LION DO Oxybutynin Chloride ER (Oxybutynin Chloride ER) 10 Mg Tab.er.24 10 MG PO DAILY ( Reported) Risperidone (Risperdal) 1 Mg Tablet 1 MG PO BID Prescribed by: ANASTACIA LION DO As needed Hydrocodone-Acetaminophen 5-325 mg (Hydrocodone-Acetaminophen 5-325 mg) 1 Each Tablet 1 TABLET PO Q4H PRN PRN For Pain Prescribed by: SULY CHÁVEZ DO Nitroglycerin SL (Nitroglycerin SL) 0.4 Mg Tab.subl 0.4 MG SL Q5MIN PRN PRN For Chest Pain (Reported) Oxycodone (Roxicodone) 5 Mg Tablet 2.5-5 MG PO BID PRN PRN For Severe Pain ( Reported) Risperidone (Risperdal) 0.5 Mg Tablet 0.5 MG PO every 6 hours PRN PRN AD Prescribed by: ANASTACIA LION DO Temazepam (Temazepam) 15 Mg Capsule 15 MG PO HS PRN PRN For Insomnia (Reported) Followup Plan Discharge Diet: No restrictions (patient is comfort care may eat what he likes) Discharge Activity: No restrictions Patient Instructions Patient and family have opted to to put in place comfort measures and do not hospitalize. Anastacia Lion DO Sep 28, 2016 11:00
--- NOTE | 2016-09-28 11:42 | NUR ---
Discharge Nursing Note: Patient was discharged to [facility] at 1110 this morning. Patients IV was removed intact. [facility] transported patient to [facility] with his following him there. Patients informational packet was sent with Transport team and report was given to them at discharge. Patient stated that he is having no pain. He ate breakfast before going. His vital signs were stable this morning.
== END 2016-09-28 11:06 | DRG 291 ==
LOC: SED 01:05 → EDBD 01:05 → MPC 14:00
PROVIDERS: ADMIT Internal Medicine; ATTEND Internal Medicine
DX: I50.23 Acute on chronic systolic (congestive) heart failure (principal); G93.40 Encephalopathy, unspecified; I63.9 Cerebral infarction, unspecified; J96.20 Acute and chronic respiratory failure, unspecified whether with hypoxia or hypercapnia; I48.2 Chronic atrial fibrillation; F03.90 Unspecified dementia, unspecified severity, without behavioral disturbance, psychotic disturbance, mood disturbance, and anxiety; Z66 Do not resuscitate; Z51.5 Encounter for palliative care; I35.0 Nonrheumatic aortic (valve) stenosis; I25.10 Atherosclerotic heart disease of native coronary artery without angina pectoris; G89.29 Other chronic pain; Z91.81 History of falling; S01.01XA Laceration without foreign body of scalp, initial encounter; W01.0XXA Fall on same level from slipping, tripping and stumbling without subsequent striking against object, initial encounter; Z99.81 Dependence on supplemental oxygen; Z87.891 Personal history of nicotine dependence; Z79.82 Long term (current) use of aspirin; Y92.009 Unspecified place in unspecified non-institutional (private) residence as the place of occurrence of the external cause; Z98.61 Coronary angioplasty status